=== PATIENT | male | born 1990 | race African-American/Black ===

== ENCOUNTER 2020-10-17 18:35 | Emergency (ER) | payer OTHER, SELFPAY | END 2020-10-17 21:00 | disposition left against medical advice (07) | PROVIDERS: Emergency Provider Emergency Medicine | DX: R42 Dizziness and giddiness (principal) ==

== ENCOUNTER 2021-02-12 07:00 | Emergency (ER) | payer OTHER, SELFPAY ==
--- NOTE | ~2021-02-12 | CT_ITS ---
EXAMINATION: CT ABDOMEN AND PELVIS WITH CONTRAST CLINICAL INFORMATION: Perirectal abscess COMPARISON: None TECHNIQUE: Multidetector volumetric images were obtained from the superior aspect of the liver through the pubic symphysis following administration 85 mL of Omnipaque 350 intravenous contrast. Sagittal and coronal reformatted images were obtained on the technologist's workstation. Oral contrast: Yes This CT examination was performed using dose optimization techniques as appropriate, variously including the following: *Automated exposure control *Adjustment of mA and/or kV according to patient size (this includes techniques or standardized protocols for targeted exams where dose is matched to indication/reason for exam; i.e. extremities or head) *Use of iterative reconstruction technique DLP: 1125 mGy-cm FINDINGS: LUNG BASES: The visualized lung bases are unremarkable. LIVER, GALLBLADDER, AND BILIARY TREE: The liver is normal in size, shape, and attenuation. No focal hepatic lesion or biliary ductal dilatation is present. The gallbladder is contracted. PANCREAS: Unremarkable. SPLEEN: Unremarkable. ADRENAL GLANDS: Unremarkable. KIDNEYS AND URETERS: The kidneys are normal in size, shape, and attenuation. No hydronephrosis, hydroureter, or calculi seen. No perinephric stranding. BLADDER: Unremarkable. GASTROINTESTINAL TRACT: There is stool throughout the colon questionable for constipation. The small and large bowel are otherwise unremarkable. The stomach is unremarkable. There is wall thickening of the rectum. No perirectal abscess is seen. The ischiorectal fat appears normal. The appendix is unremarkable. ABDOMINAL WALL: There are small supraumbilical and umbilical hernias containing fat LYMPH NODES: There is shotty bilateral pelvic retroperitoneal and inguinal lymphadenopathy. There is no ascites. VASCULAR: Unremarkable. PELVIC VISCERA: Unremarkable. OSSEOUS STRUCTURES: Unremarkable. CT/CT abdomen pelvis w con IMPRESSION: Rectal wall thickening. No perirectal abscess seen. Stool throughout the colon questionable for constipation.
--- NOTE | 2021-02-12 07:26 | ED_ITS ---
HPI - Skin/Abscess/Foreign Bdy General Chief complaint: Skin/Abscess/Foreign Body Stated complaint: abscess inner thigh Time Seen by Provider: 02/12/21 07:26 Source: patient Mode of arrival: ambulatory Limitations: no limitations History of Present Illness MD complaint: abscess/boil Onset (ago): week(s) (1) Tetanus up to date: unsure Location: buttocks Severity: severe Quality: aching and constant Pain Consistency: constant Relieving factors: none Exacerbating factors: palpation Context: none Associated symptoms: denies other symptoms Treatments prior to arrival: bandages Related Data Previous Rx's Medication Instructions Recorded ciprofloxacin HCl [Cipro] 500 mg PO BID 7 Days #14 tab 02/12/21 ibuprofen 600 mg PO Q6H PRN #30 tab 02/12/21 metronidazole [Flagyl] 500 mg PO BID 7 Days #14 tab 02/12/21 Allergies Allergy/AdvReac Type Severity Reaction Status Date / Time No Known Allergies Allergy Unverified 04/26/20 18:35 Review of Systems Review of Systems: Constitutional : No Fever, No Chills ENT/Mouth : No sore throat, No Rhinorrhea Eyes: No Eye Pain, No Swelling, No Redness Cardiovascular : No Chest Pain, No SOB Respiratory : No Cough, No Sputum Gastrointestinal : No Nausea, No Vomiting, No Diarrhea, No abdominal Pain Genitourinary : No Dysuria, No Hematuria Musculoskeletal : No joint pain, No Myalgias, No Joint Swelling Skin : pos Skin Lesions, no skin rash Neuro : No Weakness, No Numbness, No Headache Psych : No Anxiety, No Depression Heme/Lymph: No Bruising, No Bleeding,No Lymphadenopathy Endocrine : No Polyuria, No Polydipsia All other systems reviewed and are negative [facility] Past Medical History Attestation statement: The following information was validated with the patient. Medical History Asthma Social History Social History (Updated 02/12/21 @ 07:38 by Daria Graham DO) Patient Tobacco Use Status: Current everyday Tobacco user Advance Directives: No Advance Directives Information Provided: No Physical Exam Vital Signs: Vital Signs: Last Vital Signs Temp 97.7 F 02/12/21 07:27 Pulse 89 02/12/21 07:27 Resp 18 02/12/21 07:27 BP 144/81 H 02/12/21 07:27 Pulse Ox 98 02/12/21 07:27 Body Mass Index 25.1 Appearance: Alert. Oriented X3. No acute distress. Eyes: Pupils equal, round and reactive to light. ENT: Pharynx normal. Neck: Normal inspection. Neck supple. CVS: Normal heart rate and rhythm. Pulses normal. Respiratory: No respiratory distress. Breath sounds normal. Abdomen: Soft and nontender. Rectal: Buttock area perirectal right side firm non fluctant area 3cm ttp warm to touch some drainage noted seems to extend to rectal area on exam Skin: Skin warm and dry. Normal skin color. Normal skin turgor. Extremities: No lower extremity edema. No calf ttp Neuro: Oriented X 3. No motor deficit. No sensory deficit. Course Course Course Narrative: likely perirectal cellulitis will treat with cipro and flagyl no signs of sepsis at this time MDM - Skin/Abscess/Foreign Bdy MDM Narrative Medical decision making narrative: 30 yo male with asthma here with R sided perirectal area lesion cellulitis vs abscess - not a diabetic given that it appears to extend to the rectum itself will obtain labs, CT scan for the depth of the area, IV toradol for pain, IV zosyn - dispo per results and findings, may need surgical consult pending CT scan Lab Data Result diagrams: 02/12/21 07:57 02/12/21 07:57 Labs: Lab Results 02/12/21 02/12/21 02/12/21 Range/Units 07:57 07:57 07:57 WBC 9.1 (4.8-10.8) X10*3/uL RBC 4.79 (4.60-5.80) X10*6/uL Hgb 14.7 (14.0-18.0) g/dl Hct 41.5 L (42-52) % MCV 86.6 (80-98) fL MCH 30.7 (27.0-33.0) pg MCHC 35.4 (31.0-36.0) g/dl RDW 12.5 (11.0-16.0) % Plt Count 155 L (160-400) X10*3/uL MPV 11.3 (9.4-12.4) fL Immature Gran % (Auto) 0.2 (0.0-0.4) % Neut % (Auto) 72.1 (45-73) % Lymph % (Auto) 18.5 L (20-40) % Lea % (Auto) 7.8 (2-11) % Eos % (Auto) 1.1 (0-4) % Baso % (Auto) 0.3 (0-2) % Lymph # (Auto) 1.7 (1.2-4.9) X10*3/uL Lea # (Auto) 0.7 (0.1-1.2) X10*3/uL Eos # (Auto) 0.1 (0.0-0.4) X10*3/uL Baso # (Auto) 0.0 (0.0-0.2) X10*3/uL Abs Immat Gran (auto) 0.02 (0.00-0.03) X10*3/uL Absolute Neuts (auto) 6.5 (2.0-8.3) X10*3/uL Absolute Nucleated RBC 0.000 (0.0-0.012) X10*3/uL Nucleated RBC % (auto) 0.0 (0.0-0.2) /100WBC PT 11.2 (9.9-13.0) SEC INR 1.0 (0.9-1.1) APTT 39.2 H (24.1-38.0) SEC Sodium 139 (135-145) mmol/L Potassium 4.2 (3.3-5.1) mmol/L Chloride 104 (96-108) mmol/L Carbon Dioxide 25 (22-29) mmol/L Anion Gap 14 (12-20) BUN 12 (9-16) mg/dL Creatinine 0.93 (0.5-1.4) mg/dL Estim Creat Clear Calc 122.1 Estimated GFR > 60 Random Glucose 102 (60-115) mg/dL Lactic Acid (0.5-2.0) mmol/L Calcium 9.7 (8.4-10.2) mg/dL Magnesium 1.9 (1.6-2.6) mg/dL Total Bilirubin 0.5 (0.0-1.0) mg/dL Direct Bilirubin < 0.2 (0.0-0.5) mg/dL AST 29 (5-37) U/L ALT 41 H (0-40) U/L Alkaline Phosphatase 133 H (39-117) U/L Total Protein 7.0 (6.5-8.0) g/dL Albumin 4.2 (3.5-5.0) g/dL 02/12/21 02/12/21 Range/Units 07:57 07:57 WBC (4.8-10.8) X10*3/uL RBC (4.60-5.80) X10*6/uL Hgb (14.0-18.0) g/dl Hct (42-52) % MCV (80-98) fL MCH (27.0-33.0) pg MCHC (31.0-36.0) g/dl RDW (11.0-16.0) % Plt Count (160-400) X10*3/uL MPV (9.4-12.4) fL Immature Gran % (Auto) (0.0-0.4) % Neut % (Auto) (45-73) % Lymph % (Auto) (20-40) % Lea % (Auto) (2-11) % Eos % (Auto) (0-4) % Baso % (Auto) (0-2) % Lymph # (Auto) (1.2-4.9) X10*3/uL Lea # (Auto) (0.1-1.2) X10*3/uL Eos # (Auto) (0.0-0.4) X10*3/uL Baso # (Auto) (0.0-0.2) X10*3/uL Abs Immat Gran (auto) (0.00-0.03) X10*3/uL Absolute Neuts (auto) (2.0-8.3) X10*3/uL Absolute Nucleated RBC (0.0-0.012) X10*3/uL Nucleated RBC % (auto) (0.0-0.2) /100WBC PT (9.9-13.0) SEC INR (0.9-1.1) APTT (24.1-38.0) SEC Sodium (135-145) mmol/L Potassium (3.3-5.1) mmol/L Chloride (96-108) mmol/L Carbon Dioxide (22-29) mmol/L Anion Gap (12-20) BUN (9-16) mg/dL Creatinine (0.5-1.4) mg/dL Estim Creat Clear Calc Estimated GFR Random Glucose (60-115) mg/dL Lactic Acid 1.5 (0.5-2.0) mmol/L Calcium (8.4-10.2) mg/dL Magnesium Cancelled (1.6-2.6) mg/dL Total Bilirubin Cancelled (0.0-1.0) mg/dL Direct Bilirubin Cancelled (0.0-0.5) mg/dL AST Cancelled (5-37) U/L ALT Cancelled (0-40) U/L Alkaline Phosphatase Cancelled (39-117) U/L Total Protein Cancelled (6.5-8.0) g/dL Albumin Cancelled (3.5-5.0) g/dL Discharge Plan Discharge Clinical Impression: Perirectal cellulitis Patient Disposition: Home, Self-Care Instructions: Cellulitis (ED), Sitz Bath (DC) Additional Instructions: return to ED for any worsening symptoms or concerns do not drink alcohol with antibiotics Prescriptions: New ciprofloxacin HCl [Cipro] 500 mg tablet 500 mg PO BID 7 Days Qty: 14 RF: 0 metronidazole [Flagyl] 500 mg tablet 500 mg PO BID 7 Days Qty: 14 RF: 0 ibuprofen 600 mg tablet 600 mg PO Q6H PRN (Reason: pain) Qty: 30 RF: 0 Referrals: Fidel Castillo MD [Physician] - 2 weeks Physician,Unknown [Primary Care Provider] - 2 days (if not better) Stand Alone Forms: Work/School Release
[2021-02-12 07:27] VITALS: BP 144/81; PULSE 89; RESP 18; TEMP 36.5; O2SAT 98; BMI 25.1
[2021-02-12 08:02] LABS: MANUAL DIFF FLAG NO
[2021-02-12] MEDS: 0.9 % Sodium Chloride 1,000 ML 999 ML IVCONT (08:06)
[2021-02-12 08:07] LABS: Basophils Percent Auto 0.3 % (0-2); Eosinophils Absolute Auto 0.1 X10*3/uL (0.0-0.4); Eosinophils Percent Auto 1.1 % (0-4); Hematocrit 41.5 % (42-52); Hemoglobin 14.7 g/dl (14.0-18.0); Imm Gran Abs Auto 0.02 X10*3/uL (0.00-0.03); Imm Gran Pct Auto 0.2 % (0.0-0.4); Lymphocytes Absolute Auto 1.7 X10*3/uL (1.2-4.9); Lymphocytes Percent Auto 18.5 % (20-40); Mean Corpuscular HGB Conc 35.4 g/dl (31.0-36.0); Mean Corpuscular Hemoglobin 30.7 pg (27.0-33.0); Mean Corpuscular Volume 86.6 fL (80-98); Mean Platelet Volume 11.3 fL (9.4-12.4); Monocytes Absolute Auto 0.7 X10*3/uL (0.1-1.2); Monocytes Percent Auto 7.8 % (2-11); Neutrophils Absolute Auto 6.5 X10*3/uL (2.0-8.3); Neutrophils Percent Auto 72.1 % (45-73); Platelet Count 155 X10*3/uL (160-400); Red Blood Count 4.79 X10*6/uL (4.60-5.80); Red Cell Distribution Width 12.5 % (11.0-16.0); White Blood Count 9.1 X10*3/uL (4.8-10.8)
[2021-02-12] MEDS: Ketorolac Tromethamine 30 MG/ML VIAL IVPUSH (08:07)
[2021-02-12 08:09] LABS: Prothrombin Time 11.2 SEC (9.9-13.0)
[2021-02-12 08:20] LABS: Partial Thromboplastin Time 39.2 SEC (24.1-38.0)
[2021-02-12 08:23] LABS: Lactic Acid 1.5 mmol/L (0.5-2.0)
[2021-02-12] MEDS: Piperacillin Sodium/Tazobactam 3.375 GM in 0.9 % Sodium Chloride 50 ML IV (08:23)
[2021-02-12 08:36] LABS: Alanine Aminotransferase 41 U/L (0-40); Albumin Level 4.2 g/dL (3.5-5.0); Alkaline Phosphatase 133 U/L (39-117); Anion Gap 14 (12-20); Aspartate Amino Transferase 29 U/L (5-37); Bilirubin Direct < 0.2 mg/dL (0.0-0.5); Bilirubin Total 0.5 mg/dL (0.0-1.0); Blood Urea Nitrogen 12 mg/dL (9-16); Calcium 9.7 mg/dL (8.4-10.2); Carbon Dioxide 25 mmol/L (22-29); Chloride 104 mmol/L (96-108); Creatinine Clr Calc Pharmacy 122.1; Estimated Glomerular Filt Rate > 60; Glucose Random 102 mg/dL (60-115); Magnesium 1.9 mg/dL (1.6-2.6); Potassium 4.2 mmol/L (3.3-5.1); Sodium 139 mmol/L (135-145)
[2021-02-12] MEDS: iohexoL 350 MG/ML 100 ML INFUS..BTL IV (08:58)
[2021-02-12] MEDS: metroNIDAZOLE 500 MG TABLET PO (10:09)
== END 2021-02-12 10:34 | disposition home or self-care (01) ==
PROVIDERS: Emergency Provider Emergency Medicine
DX: K61.1 Rectal abscess (principal)
CPT/HCPCS: 36415; 74177; 80048; 80076; 83605; 83735; 85025; 85610; 85730; 87040; 96361; 96365; 96375; 99283; 99284; J1885; J2543; Q9967

== ENCOUNTER 2023-08-26 02:08 | Emergency (ER) | payer MEDICARE, MEDICAID, SELFPAY ==
--- NOTE | 2023-08-26 | ECG_ITS ---
Test Reason : CHEST PAIN Blood Pressure : / mmHG Vent. Rate : 073 BPM Atrial Rate : 073 BPM P-R Int : 072 ms QRS Dur : 158 ms QT Int : 446 ms P-R-T Axes : 252 -16 060 degrees QTc Int : 491 ms Normal sinus rhythm Non-specific intra-ventricular conduction block cannot exclude Inferior infarct , age undetermined possible Mmxsa-Kribccpjc-Aajuc pattern Abnormal ECG When compared with ECG of 28-JUN-2017 23:39, No significant changes seen Referred By: Generic ED Physician Electronically Signed By:CELESTE OSEI
--- NOTE | ~2023-08-26 | XR_ITS ---
EXAMINATION: XR CHEST CLINICAL INFORMATION: Asthma. COMPARISON: 06/29/2017. TECHNIQUE: Frontal view of the chest was obtained. FINDINGS: The cardiomediastinal silhouette is within normal limits. There is a left lung base opacity. The lungs are otherwise clear. There are no pleural effusions. The bony structures and soft tissues are unremarkable. XR/XR chest 1V IMPRESSION: Left lung base opacity possibly atelectasis versus early infiltrate. Correlation is needed.
[2023-08-26 02:25] VITALS: BP 134/78; BP 144/78; PULSE 80; PULSE 93; RESP 16; TEMP 36.6; O2SAT 96; O2SAT 98; BMI 25.1
--- NOTE | 2023-08-26 02:46 | PC.NURSE ---
pt reports he is sob with chest pain, hx of asthma, ran out of his mediation, has not seen his provider for over a year. Ekg complete, xray, will attempt to collect labs..
[2023-08-26] MEDS: Ibuprofen 600 MG TABLET PO (03:04)
[2023-08-26 03:09] LABS: Hemoglobin 16.1 g/dl (14.0-18.0); Mean Corpuscular HGB Conc 34.3 g/dl (31.0-36.0); Mean Corpuscular Hemoglobin 29.1 pg (27.0-33.0); Mean Corpuscular Volume 84.8 fL (80.0-98.0); Mean Platelet Volume 11.2 fL (9.4-12.4); Platelet Count 195 X10*3/uL (160-400); Red Blood Count 5.54 X10*6/uL (4.60-5.80); Red Cell Distribution Width 13.6 % (11.0-16.0); White Blood Count 8.5 X10*3/uL (4.8-10.8)
--- OUTSIDE RECORDS SUMMARY | 2023-08-26 03:16 | XMS_ITS | Continuity of Care Document ---
Author Name Unknown Organization [facility] ter Address [address] [place] [id number]- Care Team Providers Care Correctional Supervisor Name Role Phone Not on Staff, PCP Primary Care Physician Unavail able Encounter [facility] Date(s): 07/24/19 - 07/24/[address] [id number]- [facility] Encounter Diagnosis Agitation(Final) - 07/24/19 Discharge Disposition: A-D/C Home Attending Physician: Cody Aj MD Admitting Physician: Cody Aj MD Referring Physician: Not on Staff, Referring MD Allergies, Adverse Reactions, Alerts Substance Reaction Severity Status NKA Active Vital Signs Most recent to oldest [Reference Range]: 1 2 3 Oxygen Saturation [94-100 %] 98 % (07/24/19 11:14 AM) 96 % (07/24/19 7:40 AM) 97 % (07/24/19 6:47 AM) Pulse Rate [55-90 bpm] 84 bpm (07/24/19 11:14 AM) 85 bpm (07/24/19 7:40 AM) 88 bpm (07/24/19 6:47 AM) Blood Pressure [90-138/55-84 mm Hg] 134/63mm Hg (07/24/19 11:14 AM) 125/97mm Hg (07/24/19 7:40 AM) 114/55mm Hg (07/24/19 6:47 AM) Respiratory Rate [16-30 br/min] 20 br/min (07/24/19 11:14 AM) 23 br/min (07/24/19 7:40 AM) 22 br/min (07/24/19 6:47 AM) Temperature [96.8-100.4 DegF] 98.2 DegF (07/24/19 11:14 AM) 98.1 DegF (07/24/19 7:40 AM) 98.0 DegF (07/24/19 2:46 AM) Mode of Delivery (Oxygen) Room air (07/24/19 11:14 AM) Room air (07/24/19 7:40 AM) Room air (07/24/19 6:47 AM) Blood pressure sites Arm, left (07/24/19 11:14 AM) Arm, left (07/24/19 7:40 AM) Arm, left (07/24/19 6:47 AM) Temperature Route Oral (07/24/19 11:14 AM) Oral (07/24/19 7:40 AM) Oral (07/24/19 2:46 AM)
[2023-08-26 03:26] LABS: COVID-19 Test Negative (Negative); IDNOW Serial# 08D9AD1C
[2023-08-26 03:26] LABS: IDNOW Serial# 152EDE1D; Influenza A Negative (Negative); Influenza B2 Negative (Negative)
[2023-08-26 03:28] LABS: Alanine Aminotransferase 20 U/L (0-40); Albumin Level 4.6 g/dL (3.5-5.0); Alkaline Phosphatase 103 U/L (39-117); Anion Gap 15 (12-20); Aspartate Amino Transferase 20 U/L (5-37); Bilirubin Total 0.4 mg/dL (0.0-1.0); Blood Urea Nitrogen 17 mg/dL (9-16); Calcium 9.9 mg/dL (8.4-10.2); Carbon Dioxide 23 mmol/L (22-29); Chloride 104 mmol/L (96-108); Creatinine Clr Calc Pharmacy 96.1; Estimated Glomerular Filt Rate > 60; Glucose Random 92 mg/dL (60-115); Potassium 4.2 mmol/L (3.3-5.1); Sodium 138 mmol/L (135-145); Total Protein 7.9 g/dL (6.5-8.0)
[2023-08-26 03:32] LABS: Troponin-I High Sensitivity < 2.7 ng/L (<3.5-35.0)
--- NOTE | 2023-08-26 04:43 | ED.ASTHMA ---
HPI - Asthma General Chief Complaint: Asthma Stated Complaint: SOB/Chest Pain Time Seen by Provider: 08/26/23 04:36 Source: patient Mode of arrival: ambulatory Limitations: no limitations History of Present Illness HPI Narrative: Patient comes to the emergency room complaining of increased asthma exacerbation over last few days, no chest pain but chest tightness with breathing. Patient states that he ran out of his albuterol about a month ago. Patient has been coughing more than usual, patient denies fever, no chills. Related Data Previous Rx's Medication Instructions Recorded ciprofloxacin HCl 500 mg tablet 500 mg PO BID 7 days #14 tabs 02/12/21 (Cipro) ibuprofen 600 mg tablet 600 mg PO Q6H PRN pain #30 tabs 02/12/21 metronidazole 500 mg tablet 500 mg PO BID 7 days #14 tabs 02/12/21 (Flagyl) albuterol sulfate 90 mcg/actuation 2 puff inhalation Q4-6H PRN 08/26/23 aerosol inhaler shortness of breath or wheezing #8.5 grams doxycycline hyclate 100 mg capsule 100 mg PO BID #14 caps 08/26/23 prednisone 50 mg tablet 50 mg PO DAILY #4 tabs 08/26/23 Allergies Allergy/AdvReac Type Severity Reaction Status Date / Time No Known Allergies Allergy Verified 08/26/23 02:39 Review of Systems Review of Systems: Constitutional : No Weight loss, No Fever, No Chills, No Night Sweats, No Fatigue, No Malaise ENT/Mouth : No Hearing loss, No Ear Pain, No Nasal Congestion, No Sinus Pain, No Hoarseness, No sore throat, No Rhinorrhea, No Swallowing Difficulty Eyes: No Eye Pain, No Swelling, No Redness, No Foreign Body, No Discharge, No Vision Changes Cardiovascular : No Chest Pain, No SOB, No Dyspnea on Exertion, No Orthopnea, No Edema, No Palpitations Respiratory : Complaining of cough, wheezing and chest tightness with shortness of breath Gastrointestinal : No Nausea, No Vomiting, No Diarrhea, No Constipation, No abdominal Pain, No Hematochezia, No Melena Genitourinary : no irregular bleeding, No Dysuria, No Urinary Frequency, No Hematuria, No Urinary Incontinence, No Urgency, No Flank Pain, No Urinary Flow Changes, No Hesitancy Musculoskeletal : No joint pain, No Myalgias, No Joint Swelling Skin : No Skin Lesions, No rash Neuro : No Weakness, No Numbness, No Paresthesias, No Loss of Consciousness, No Dizziness, No Headache Psych : No Anxiety/Panic, No Depression, No SI/HI/AH/VH, No Social Issues, Heme/Lymph: No Bruising, No Bleeding,No Lymphadenopathy Endocrine : No Polyuria, No Polydipsia, No Temperature Intolerance PMFSH Past Medical History Onset Date is defined in the Problem List Problems that require an onset date and time if occurred within 24 hrs of arrival to the ED Aortic Dissection and Rupture; Neurologic impairment; Cardiopulmonary Arrest; Endotracheal Intubation; Insertion or Replacement of Mechanical Circulatory Assist Device Medical History Asthma Social History Social History (Updated 02/12/21 @ 07:38 by Susie Graham DO) Patient Tobacco Use Status: Current everyday Tobacco user Smoked in Last 30 Days: Yes Use of substances other than those prescribed or required for medical reasons: Yes Substance Use Type: Crack/Cocaine Substance Use Frequency: Socially Advance Directives: No Advance Directives Information Provided: Yes Physical Exam Vital Signs: Vital Signs: Last Vital Signs Temp 97.9 F 08/26/23 02:25 Pulse 80 08/26/23 02:25 Resp 16 08/26/23 02:25 BP 134/78 08/26/23 02:25 Pulse Ox 96 08/26/23 02:25 O2 Del Method Room Air 08/26/23 02:25 BMI result Body Mass Index 25.1 Const: Other: Appearance: Alert. Oriented X3. No acute distress. Eyes: Pupils equal, round and reactive to light. ENT: Pharynx normal. Neck: Normal inspection. Neck supple. No lymph nodes noted. No crepitus CVS: Normal heart rate and rhythm. Pulses normal. Normal S1 and S2 Respiratory: No respiratory distress. Breath sounds normal. No Wheezing. No rales Abdomen: Soft and nontender. No rigidity. No distention. Skin: Skin warm and dry. Normal skin color. Normal skin turgor. Extremities: No lower extremity edema. No Lacerations. No Rash Neuro: Oriented X 3. No motor deficit. No sensory deficit. Moving all extremities. No slurred speech. CN 2 through 12 grossly intact Psych: calm, cooperative, normal affect Medications Administered Discontinued Medications Generic Name Dose Route Start Last Admin Trade Name Alyssa PRN Reason Stop Dose Admin Ibuprofen 600 mg 08/26/23 03:01 08/26/23 03:04 Ibuprofen 600 Mg Tablet PO 08/26/23 03:02 600 mg ONCE ONE Administration Medical Decision Making Medical Decision Making [facility] Narrative: -at this time, patient is not wheezing -my interpretation of EKG: Sinus rhythm, heart rate 73, nonspecific ST segment elevations in leads V2 through V6, less than 1 mm, possible junctional rhythm, questionably delta wave in lead 2, V4, V5 and V6 -I discussed the EKG findings with Dr. Madsen: No delta waves. -my interpretation of chest x-ray: No obvious abnormalities. However, radiology report shows possible infiltrate in the left lower lobe. -my interpretation of labs: Normal hematology and chemistry, troponin negative -patient feels a bit of discomfort on the left side of the chest. Patient will be treated with antibiotics. Patient given doxycycline 1st dose in the ED, p.o. prednisone. -patient is not wheezing at this time, oxygen saturation 96% on room air. Differential Diagnosis Differential Diagnoses: The differential diagnosis associated with the presentation includes Consult Healthcare Provider Management of the patient was discussed with: Geology Scientist Lab Data [facility] Lab Attestation statement: I reviewed the patient's lab results. 08/26/23 02:58 08/26/23 02:58 Labs: Lab Results 08/26/23 08/26/23 Range/Units 02:58 02:59 WBC 8.5 (4.8-10.8) X10*3/uL RBC 5.54 (4.60-5.80) X10*6/uL Hgb 16.1 (14.0-18.0) g/dl Hct 47.0 (42.0-52.0) % MCV 84.8 (80.0-98.0) fL MCH 29.1 (27.0-33.0) pg MCHC 34.3 (31.0-36.0) g/dl RDW 13.6 (11.0-16.0) % Plt Count 195 (160-400) X10*3/uL MPV 11.2 (9.4-12.4) fL Absolute Nucleated RBC 0.000 (0.0-0.012) X10*3/uL Nucleated RBC % (auto) 0.0 (0.0-0.2) /100WBC Sodium 138 (135-145) mmol/L Potassium 4.2 (3.3-5.1) mmol/L Chloride 104 (96-108) mmol/L Carbon Dioxide 23 (22-29) mmol/L Anion Gap 15 (12-20) BUN 17 H (9-16) mg/dL Creatinine 1.05 (0.5-1.4) mg/dL Estim Creat Clear Calc 96.1 Estimated GFR > 60 Random Glucose 92 (60-115) mg/dL Calcium 9.9 (8.4-10.2) mg/dL Total Bilirubin 0.4 (0.0-1.0) mg/dL AST 20 (5-37) U/L ALT 20 (0-40) U/L Alkaline Phosphatase 103 (39-117) U/L Troponin I High Sens < 2.7 (<3.5-35.0) ng/L Total Protein 7.9 (6.5-8.0) g/dL Albumin 4.6 (3.5-5.0) g/dL COVID-19 ([facility]) Negative (Negative) COVID-19 Clin Com See Note Influenza Type A ([facility]) Negative (Negative) Influenza Type B ([facility]) Negative (Negative) Influenza A & B Note See Note Independent Interpretation I performed an independent interpretation of an: Plain X-Ray Radiology Impression Discussion of test interpretation with radiology: I have reviewed the radiologist's reading. Radiologist Impression: FINDINGS: The cardiomediastinal silhouette is within normal limits. There is a left lung base opacity. The lungs are otherwise clear. There are no pleural effusions. The bony structures and soft tissues are unremarkable. XR/XR chest 1V IMPRESSION: Left lung base opacity possibly atelectasis versus early infiltrate. Correlation is needed. Discharge Plan Discharge Clinical Impression: Pneumonia, Asthma Patient Disposition: Home, Self-Care Instructions: Asthma (ED), Pneumonia (ED) Additional Instructions: Please follow-up with your primary care physician tomorrow. If you have any worsening or new symptoms, please return to the emergency room or call 911 Prescriptions: New doxycycline hyclate 100 mg capsule 100 mg PO BID Qty: 14 0RF prednisone 50 mg tablet 50 mg PO DAILY Qty: 4 0RF albuterol sulfate 90 mcg/actuation HFA aerosol inhaler 2 puff inhalation Q4-6H PRN (Reason: shortness of breath or wheezing) Qty: 8.5 1RF No Action ciprofloxacin HCl [Cipro] 500 mg tablet 500 mg PO BID 7 Days Qty: 14 0RF metronidazole [Flagyl] 500 mg tablet 500 mg PO BID 7 Days Qty: 14 0RF ibuprofen 600 mg tablet 600 mg PO Q6H PRN (Reason: pain) Qty: 30 0RF
[2023-08-26] MEDS: Doxycycline Monohydrate 100 MG CAPSULE PO (05:03)
[2023-08-26] MEDS: predniSONE 20 MG TABLET 60 MG PO (05:03)
--- NOTE | 2023-08-26 05:04 | PC.NURSE ---
pt medicated per oct, reviewed discharge instruction with pt upon discharge, no sob or chest pain, no retraction. no sign of distress.
== END 2023-08-26 05:12 | disposition home or self-care (01) ==
PROVIDERS: Emergency Provider Emergency Medicine
DX: J18.9 Pneumonia, unspecified organism (principal); J45.909 Unspecified asthma, uncomplicated; F17.200 Nicotine dependence, unspecified, uncomplicated; Z11.52 Encounter for screening for COVID-19; Z79.899 Other long term (current) drug therapy
CPT/HCPCS: 36415; 71045; 80053; 84484; 85027; 87502; 87635; 93005; 99283; 99285

== ENCOUNTER → 2023-08-26 02:32 | Outpatient (BNV) | payer MEDICARE, MEDICAID, SELFPAY | PROVIDERS: Emergency Provider Emergency Medicine; Visit Provider Internal Medicine | DX: R94.31 Abnormal electrocardiogram [ECG] [EKG] (principal) | CPT/HCPCS: 93010 ==

== ENCOUNTER 2023-09-17 17:30 | Emergency (ER) | payer MEDICARE, MEDICAID, SELFPAY ==
--- NOTE | ~2023-09-17 | XR_ITS ---
EXAMINATION: XR CHEST CLINICAL INFORMATION: Cough. COMPARISON: None available. TECHNIQUE: 2 views of the chest were obtained. FINDINGS: No significant abnormality is noted involving the heart, lungs, mediastinum, bony thorax or soft tissues. XR/XR chest 2V IMPRESSION: Unremarkable chest examination.
[2023-09-17 17:58] VITALS: BP 152/74; PULSE 60; RESP 18; TEMP 36.3; O2SAT 99; BMI 25.1
--- NOTE | 2023-09-17 18:28 | ED.URI ---
HPI - URI/Sore Throat General Chief Complaint: Upper Respiratory Symptoms Stated Complaint: congested cough,sob ,weakness h/o pneumonia Time Seen by Provider: 09/17/23 18:08 Source: patient Mode of arrival: ambulatory Limitations: no limitations History of Present Illness HPI Narrative: [age] old male with no significant past medical history presents emergency department with complaints of cough, weakness, and fatigue over the past several days. He states he had pneumonia a few weeks ago and states his symptoms feel similar. He denies any fevers but reports a sore throat as well and feels as if his throat is swollen. He denies any difficulty tolerating secretions, swallowing, or change in phonation. He reports he does have multiple sores on the lip which have popped up over the last 2 days. Related Data Previous Rx's Medication Instructions Recorded ciprofloxacin HCl 500 mg tablet 500 mg PO BID 7 days #14 tabs 02/12/21 (Cipro) ibuprofen 600 mg tablet 600 mg PO Q6H PRN pain #30 tabs 02/12/21 metronidazole 500 mg tablet 500 mg PO BID 7 days #14 tabs 02/12/21 (Flagyl) albuterol sulfate 90 mcg/actuation 2 puff inhalation Q4-6H PRN 08/26/23 aerosol inhaler shortness of breath or wheezing #8.5 grams doxycycline hyclate 100 mg capsule 100 mg PO BID #14 caps 08/26/23 prednisone 50 mg tablet 50 mg PO DAILY #4 tabs 08/26/23 valacyclovir 1 gram tablet 1,000 mg PO BID 7 days #14 tabs 09/17/23 Allergies Allergy/AdvReac Type Severity Reaction Status Date / Time No Known Allergies Allergy Verified 08/26/23 02:39 Review of Systems Review of Systems: Yes all other systems are reviewed and are negative [facility] Past Medical History Attestation statement: The following information was validated with the patient. Medical History Asthma Social History Social History (Updated 02/12/21 @ 07:38 by Susie Graham DO) Patient Tobacco Use Status: Current everyday Tobacco user Substance Use Type: Crack/Cocaine Advance Directives: No Advance Directives Information Provided: No Physical Exam Vital Signs: Vital Signs: Last Vital Signs Temp 97.7 F 09/17/23 19:01 Pulse 79 09/17/23 19:01 Resp 16 09/17/23 19:01 BP 150/82 H 09/17/23 19:01 Pulse Ox 100 09/17/23 19:01 O2 Del Method Room Air 09/17/23 19:01 BMI result Body Mass Index 25.1 Nursing notes and vital signs reviewed. GENERAL APPEARANCE: A&0 x 4, generally well appearing, no acute distress HENMT: Normal to inspection, atraumatic, face symmetrical. Normal external ears, nose, and oropharynx clear. EYE: PERRLA, EOM intact, structures appear normal NECK: Supple without stiffness or restricted ROM. HEART: Normal rate and regular rhythm, normal S1/S2, no M/R/G LUNGS: LS CTA, moving air well. Able to speak in complete sentences. No crackles, wheezes, or rhonchi auscultated BACK: No CVAT, no obvious deformity EXTREMITIES: Moving all extremities without difficulty. Normal capillary refill. NEUROLOGICAL: Alert and oriented, moving all 4 extremities with equal strength. CN not formally tested but appearing grossly intact. Observed to ambulate with normal gait. Cognition normal SKIN: Warm and dry without any lesions, rash, or visible sores Medications Administered Discontinued Medications Generic Name Dose Route Start Last Admin Trade Name Freq PRN Reason Stop Dose Admin Acetaminophen 650 mg 09/17/23 19:56 09/17/23 20:00 Acetaminophen 325 Mg Tablet PO 09/17/23 19:57 650 mg ONCE ONE Administration Medical Decision Making Medical Decision Making MDM Narrative: Old records reviewed for previous imaging, lab studies, ECGs, and notes. Patient was assessed the emergency department with no acute distress or toxicity noted. Serology negative for covid, flu and strep and chest xray negative for pneumonia per my interpetation. Valtrex prescribed for herpes simplex of lower lip. Patient is safe for discharge at this time with plan for [id number] Tylenol and/or NSAID such as ibuprofen or naproxen for fever/discomfort with dosing as per packaging. HPI, PE, diagnostics, and plan discussed with patient and family with no unanswered questions at this time. Strict return precautions given to return to the emergency department with new, worsening, or concerning emergent symptoms. Recommended to follow-up with there primary care provider in 24-48 hours for further treatment and management. Differential Diagnosis Differential Diagnoses: The differential diagnosis associated with the presentation includes but not limited to: uri, covid, flu, strep, pharyngitis, pneumonia, sepsis Lab Data Labs: Lab Results 09/17/23 09/17/23 Range/Units 18:13 18:25 COVID-19 ([facility]) Negative (Negative) COVID-19 Clin Com See Note Influenza Type A ([facility]) Negative (Negative) Influenza Type B ([facility]) Negative (Negative) Influenza A & B Note See Note S. pyogenes GrpA [facility] Negative (Negative) Discharge Plan Discharge Clinical Impression: Cold sore, URI (upper respiratory infection) Patient Disposition: Home, Self-Care Instructions: Upper Respiratory Infection (ED), Oral Herpes Simplex Virus Infections (ED) Prescriptions: New valacyclovir 1 gram tablet 1,000 mg PO BID 7 Days Qty: 14 0RF No Action ciprofloxacin HCl [Cipro] 500 mg tablet 500 mg PO BID 7 Days Qty: 14 0RF metronidazole [Flagyl] 500 mg tablet 500 mg PO BID 7 Days Qty: 14 0RF ibuprofen 600 mg tablet 600 mg PO Q6H PRN (Reason: pain) Qty: 30 0RF doxycycline hyclate 100 mg capsule 100 mg PO BID Qty: 14 0RF prednisone 50 mg tablet 50 mg PO DAILY Qty: 4 0RF albuterol sulfate 90 mcg/actuation HFA aerosol inhaler 2 puff inhalation Q4-6H PRN (Reason: shortness of breath or wheezing) Qty: 8.5 1RF Referrals: [facility] [Provider Group] [facility] Primary CareFreddie [Provider Group] [facility] Primary CareEbonie [Provider Group] Stand Alone Forms: Work/School Release Interventions: ED Discharge Assessment Last Done: 09/17/23 20:02 Discharge Date/Time: 09/17/23 20:03 Print Language: Pakistani
[2023-09-17 18:32] LABS: COVID-19 Test Negative (Negative); IDNOW Serial# 55D5AD1C
[2023-09-17 18:34] LABS: IDNOW Serial# 16C4AD1C; Influenza A Negative (Negative); Influenza B2 Negative (Negative)
[2023-09-17 18:40] LABS: IDNOW Serial# 6674DD1D; Strep A Nucleic Acid Negative (Negative)
[2023-09-17 19:01] VITALS: BP 150/82; PULSE 79; RESP 16; TEMP 36.5; O2SAT 100
[2023-09-17] MEDS: Acetaminophen 325 MG TABLET 650 MG PO (20:00)
== END 2023-09-17 20:03 | disposition home or self-care (01) ==
PROVIDERS: Nurse Practitioner Family; Emergency Provider Emergency Medicine
DX: B00.1 Herpesviral vesicular dermatitis (principal); J06.9 Acute upper respiratory infection, unspecified; R05.9 Cough, unspecified; R06.02 Shortness of breath; Z11.52 Encounter for screening for COVID-19; Z79.899 Other long term (current) drug therapy
CPT/HCPCS: 71046; 87502; 87635; 87651; 99283; 99284

== ENCOUNTER 2023-09-27 15:10 | Emergency (ER) | payer MEDICARE, MEDICAID, SELFPAY ==
--- NOTE | ~2023-09-27 | XR_ITS ---
EXAMINATION: XR ELBOW, LEFT XR FOREARM, LEFT XR HAND WRIST, LEFT CLINICAL INDICATION: Fall with pain COMPARISON: Left hand 04/14/2013 TECHNIQUE: 3 views of the left elbow. 2 views of the left forearm. 4 views of the left wrist/hand. FINDINGS: Left elbow: Osseous alignment is anatomic. No acute fracture is seen. No appreciable joint effusion or significant focal soft tissue abnormality. Left forearm: Articular alignment is anatomic. Ulna and radius appear intact with no acute fracture seen. No significant focal soft tissue abnormality. Left wrist/hand: Articular alignment throughout the wrist and hand appears anatomic. No acute fracture is seen. No significant focal soft tissue abnormality identified. XR/XR hand wrist LT IMPRESSION: No acute findings identified in the left elbow, forearm, wrist, or hand.
--- NOTE | ~2023-09-27 | XR_ITS ---
EXAMINATION: XR ELBOW, LEFT XR FOREARM, LEFT XR HAND WRIST, LEFT CLINICAL INDICATION: Fall with pain COMPARISON: Left hand 04/14/2013 TECHNIQUE: 3 views of the left elbow. 2 views of the left forearm. 4 views of the left wrist/hand. FINDINGS: Left elbow: Osseous alignment is anatomic. No acute fracture is seen. No appreciable joint effusion or significant focal soft tissue abnormality. Left forearm: Articular alignment is anatomic. Ulna and radius appear intact with no acute fracture seen. No significant focal soft tissue abnormality. Left wrist/hand: Articular alignment throughout the wrist and hand appears anatomic. No acute fracture is seen. No significant focal soft tissue abnormality identified. XR/XR forearm LT 2V IMPRESSION: No acute findings identified in the left elbow, forearm, wrist, or hand.
--- NOTE | ~2023-09-27 | XR_ITS ---
EXAMINATION: XR ELBOW, LEFT XR FOREARM, LEFT XR HAND WRIST, LEFT CLINICAL INDICATION: Fall with pain COMPARISON: Left hand 04/14/2013 TECHNIQUE: 3 views of the left elbow. 2 views of the left forearm. 4 views of the left wrist/hand. FINDINGS: Left elbow: Osseous alignment is anatomic. No acute fracture is seen. No appreciable joint effusion or significant focal soft tissue abnormality. Left forearm: Articular alignment is anatomic. Ulna and radius appear intact with no acute fracture seen. No significant focal soft tissue abnormality. Left wrist/hand: Articular alignment throughout the wrist and hand appears anatomic. No acute fracture is seen. No significant focal soft tissue abnormality identified. XR/XR elbow LT min 3V IMPRESSION: No acute findings identified in the left elbow, forearm, wrist, or hand.
--- NOTE | ~2023-09-27 | XR_ITS ---
EXAMINATION: XR SHOULDER, LEFT CLINICAL INFORMATION: Pain. Injury. COMPARISON: None available. TECHNIQUE: Three views of the left shoulder. FINDINGS: The bones and soft tissues are normal. No fracture. Glenohumeral and acromioclavicular alignment is anatomic with normal joint space. No abnormal soft tissue calcifications. XR/XR shoulder LT min 2V IMPRESSION: Normal left shoulder.
[2023-09-27 15:29] VITALS: BP 143/88; PULSE 91; RESP 14; TEMP 36.8; O2SAT 96; BMI 26.2
--- NOTE | 2023-09-27 15:30 | ED_ITS ---
HPI - Extremity Injury (Upper) General Chief Complaint: Extremity Injury, Upper Stated Complaint: broken L arm/ wrist? Time Seen by Provider: 09/27/23 16:36 Source: patient Mode of arrival: ambulatory Limitations: no limitations History of Present Illness HPI narrative: 32y male with history of asthma, HTN here with complaints of LUE after a roll out of bed last evening. Patient reports he was sleeping when he rolled out of the bed which was about 3 feet of the ground and landed on hardwood floor. Did not hit his head or have LOC. Woke up with left upper extremity pain. Patient denies any weakness, numbness or tingling of the extremity. Related Data Previous Rx's Medication Instructions Recorded ciprofloxacin HCl 500 mg tablet 500 mg PO BID 7 days #14 tabs 02/12/21 (Cipro) ibuprofen 600 mg tablet 600 mg PO Q6H PRN pain #30 tabs 02/12/21 metronidazole 500 mg tablet 500 mg PO BID 7 days #14 tabs 02/12/21 (Flagyl) albuterol sulfate 90 mcg/actuation 2 puff inhalation Q4-6H PRN 08/26/23 aerosol inhaler shortness of breath or wheezing #8.5 grams doxycycline hyclate 100 mg capsule 100 mg PO BID #14 caps 08/26/23 prednisone 50 mg tablet 50 mg PO DAILY #4 tabs 08/26/23 valacyclovir 1 gram tablet 1,000 mg PO BID 7 days #14 tabs 09/17/23 ibuprofen 600 mg tablet 600 mg PO Q8H PRN pain #30 tabs 09/27/23 Allergies Allergy/AdvReac Type Severity Reaction Status Date / Time No Known Allergies Allergy Verified 09/27/23 15:29 Review of Systems Review of Systems: Yes all other systems are reviewed and are negative Constitutional: Constitutional: Reports no additional constitutional complaints, Denies body ache(s), Denies chills, Denies fever(s), Denies headache(s) and Denies weakness Eyes: Eyes: Reports no additional eye complaints and Denies change in vision ENT: Reports system reviewed and no additional complaints, except as documented, Denies dizziness, Denies headache(s), Denies nasal congestion, Denies nasal discharge and Denies neck pain Cardiovascular: Cardiovascular: Reports no additional cardiovascular complaints, Denies chest pain, Denies leg edema and Denies dyspnea Respiratory: Respiratory: Reports no additional respiratory complaints, Denies cough and Denies dyspnea Gastrointestinal: Gastrointestinal: Reports no additional gastrointestinal complaints, Denies abdominal pain, Denies diarrhea, Denies nausea and Denies vomiting Genitourinary: Genitourinary: Denies urinary incontinence Musculoskeletal: Musculoskeletal: Reports no additional musculoskeletal complaints, Denies back pain, Reports arthralgias, Denies joint swelling, Denies neck pain, Denies numbness and Denies tingling Integumentary/Breasts: Skin/Breast: Reports system reviewed and no additional complaints, except as docu and Denies rash Neurologic: Reports system reviewed and no additional complaints, except as documented, Denies Abnormal speech present, Denies dizziness, Denies headache(s), Denies numbness, Denies tingling and Denies weakness PMFSH Past Medical History Attestation statement: The following information was validated with the patient. Source: old records reviewed and nursing notes reviewed Medical History Asthma Social History Social History Patient Tobacco Use Status: Current everyday Tobacco user Substance Use Type: Crack/Cocaine Advance Directives: No Advance Directives Information Provided: No Physical Exam Vital Signs: Vital Signs: Last Vital Signs Temp 97.9 F 09/27/23 17:00 Pulse 88 09/27/23 17:00 Resp 18 09/27/23 17:00 BP 138/82 09/27/23 17:00 Pulse Ox 97 09/27/23 17:00 O2 Del Method Room Air 09/27/23 17:00 BMI result Body Mass Index 26.2 Const: General: cooperative, healthy appearing, comfortable and no acute distress Orientation/consciousness: patient oriented x3 Limitations: no limitations HEENT: Head: Yes normal to inspection Ears: hearing grossly normal bilaterally General nose exam: Normal external nose present Face and sinus: Yes normal facial exam Mouth: Normal oral and palatal mucosa present Throat: Yes posterior oropharynx normal Eyes: General: appearance normal, both eyes and all related structures Pupils: Equal, round and reactive pupils present Neck: Neck: Yes normal visual inspection Chest: Chest palpation & inspection: normal inspection of the chest Resp: Effort & Inspection: normal respiratory effort Auscultation: clear to auscultation bilaterally Cardio: Rate: regular rate Rhythm: regular rhythm Peripheral pulses: Peripheral pulses 2+ throughout GI: Inspection: Yes normal to inspection Palpation (GI): Soft to palpation and nontender Auscultation: normal bowel sounds Back/Spine/Pelvis: Thoracic/Lumbar Spine: thoracic and lumbar spine normal to inspection Skin: General skin exam: no rashes or lesions noted Neuro: General: patient oriented x3, no focal motor deficits and normal sensation to monofilament Cranial nerves: Yes Equal, round and reactive pupils present Cognition (Neuro): normal cognition Speech: No Abnormal speech present Gait exam (Neuro): Normal gait present Motor exam (neuro): 5/5 motor strength present throughout Extrem: Other: Pain on palpation over the left proximal humerus and left lateral elbow with full active and passive range of motion. Unable to elicit any pain on tenderness over the left forearm or left wrist. There are normal radial and ulnar pulses. Normal sensation. No obvious deformity or swelling noted General: Yes normal to inspection Course Course Course Narrative: RME:?32 yo male here for eval of left wrist/forearm pain after falling out of bed in his sleep last night. pain worse with grasping objects or flexing left elbow. has not taken anything at home for this. xrays ordered. Full HPI, ROS and PE to be performed by the primary ED provider. Medical Decision Making Medical Decision Making [facility] Narrative: 32y male with history of asthma, HTN here with complaints of LUE after a roll out of bed last evening. Patient reports he was sleeping when he rolled out of the bed which was about 3 feet of the ground and landed on hardwood floor. Did not hit his head or have LOC. Woke up with left upper extremity pain. Patient denies any weakness, numbness or tingling of the extremity. Pain on palpation over the left proximal humerus and left lateral elbow with full active and passive range of motion. Unable to elicit any pain on tenderness over the left forearm or left wrist. There are normal radial and ulnar pulses. Normal sensation. No obvious deformity or swelling noted Will check x-rays, provide analgesia Differential Diagnosis Differential Diagnoses: The differential diagnosis associated with the presentation includes contusion, fracture low suspicion for dislocation, vascular injury Admission/Observation Consideration of admission/observation: Escalation of care including admission/observation considered low suspicion for dislocation, vascular injury or complex fracture requiring advanced imaging, urgent orthopedic consultation and/or admission Independent Interpretation I performed an independent interpretation of an: Plain X-Ray Interpretation: I independently reviewed the x-ray and agree with the radiology report Radiology Impression Discussion of test interpretation with radiology: I have reviewed the radiologist's reading. Radiologist Impression: [address] [address] XRay Report Signed Patient: Saravanan Lange MR#: [id number] : 1990 Acct:[id number] Age/Sex: 32 / M ADM Date: 09/27/23 Loc: HO.ED Attending Dr: Ordering Physician: Marilee Perry NP Date of Service: 09/27/23 Procedure(s): XR shoulder LT min 2V Accession Number(s): [id number] cc: Physician,Unknown ; Marilee Perry NP~ EXAMINATION: XR SHOULDER, LEFT CLINICAL INFORMATION: Pain. Injury. COMPARISON: None available. TECHNIQUE: Three views of the left shoulder. FINDINGS: The bones and soft tissues are normal. No fracture. Glenohumeral and acromioclavicular alignment is anatomic with normal joint space. No abnormal soft tissue calcifications. XR/XR shoulder LT min 2V IMPRESSION: Normal left shoulder. [address] [address] XRay Report Signed Patient: Saravanan Lange MR#: [id number] : 1990 Acct:[id number] Age/Sex: 32 / M ADM Date: 09/27/23 Loc: .ED Attending Dr: Ordering Physician: Tiffanie Sidhu Date of Service: 09/27/23 Procedure(s): XR hand wrist LT Accession Number(s): [id number] cc: Physician,Unknown ; Tiffanie Sidhu~ EXAMINATION: XR ELBOW, LEFT XR FOREARM, LEFT XR HAND WRIST, LEFT CLINICAL INDICATION: Fall with pain COMPARISON: Left hand 04/14/2013 TECHNIQUE: 3 views of the left elbow. 2 views of the left forearm. 4 views of the left wrist/hand. FINDINGS: Left elbow: Osseous alignment is anatomic. No acute fracture is seen. No appreciable joint effusion or significant focal soft tissue abnormality. Left forearm: Articular alignment is anatomic. Ulna and radius appear intact with no acute fracture seen. No significant focal soft tissue abnormality. Left wrist/hand: Articular alignment throughout the wrist and hand appears anatomic. No acute fracture is seen. No significant focal soft tissue abnormality identified. XR/XR hand wrist LT IMPRESSION: No acute findings identified in the left elbow, forearm, wrist, or hand. Tests considered The following testing was considered but not selected: low suspicion for dislocation, vascular injury or complex fracture requiring advanced imaging Prescription Management I considered prescription management with: Pain Medication Discharge Plan Discharge Clinical Impression: Contusion of arm, left Patient Disposition: Home, Self-Care Instructions: Contusion in Adults (ED) Additional Instructions: Ice to the area gentle stretching take motrin or tylenol for pain as needed See your PCP for any continued symptoms ALL x-rays are normal Prescriptions: New ibuprofen 600 mg tablet 600 mg PO Q8H PRN (Reason: pain) Qty: 30 0RF No Action ciprofloxacin HCl [Cipro] 500 mg tablet 500 mg PO BID 7 Days Qty: 14 0RF metronidazole [Flagyl] 500 mg tablet 500 mg PO BID 7 Days Qty: 14 0RF ibuprofen 600 mg tablet 600 mg PO Q6H PRN (Reason: pain) Qty: 30 0RF doxycycline hyclate 100 mg capsule 100 mg PO BID Qty: 14 0RF prednisone 50 mg tablet 50 mg PO DAILY Qty: 4 0RF albuterol sulfate 90 mcg/actuation HFA aerosol inhaler 2 puff inhalation Q4-6H PRN (Reason: shortness of breath or wheezing) Qty: 8.5 1RF valacyclovir 1 gram tablet 1,000 mg PO BID 7 Days Qty: 14 0RF Referrals: Physician,Unknown J [Primary Care Provider] - 1 week
[2023-09-27 17:00] VITALS: BP 138/82; PULSE 88; RESP 18; TEMP 36.6; O2SAT 97
[2023-09-27] MEDS: Ibuprofen 600 MG TABLET PO (17:43)
== END 2023-09-27 17:44 | disposition home or self-care (01) ==
PROVIDERS: Emergency Provider Student in an Organized Health Care Education/Training Program
DX: S40.022A Contusion of left upper arm, initial encounter (principal); M79.602 Pain in left arm; W06.XXXA Fall from bed, initial encounter; Y93.9 Activity, unspecified; Y92.003 Bedroom of unspecified non-institutional (private) residence as the place of occurrence of the external cause; Y99.8 Other external cause status
CPT/HCPCS: 73030; 73080; 73090; 73110; 73130; 99283

== ENCOUNTER 2023-12-08 20:05 | Emergency (ER) | payer MEDICARE, MEDICAID, SELFPAY ==
[2023-12-08 20:15] VITALS: BP 170/120; PULSE 108; O2SAT 97
== END 2023-12-08 21:47 | disposition left against medical advice (07) ==
PROVIDERS: Emergency Provider Emergency Medicine
DX: Z53.21 Procedure and treatment not carried out due to patient leaving prior to being seen by health care provider (principal); R11.2 Nausea with vomiting, unspecified; R42 Dizziness and giddiness; R53.1 Weakness

== ENCOUNTER 2023-12-09 07:14 | Emergency (ER) | payer MEDICARE, MEDICAID, SELFPAY ==
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
--- NOTE | ~2023-12-09 | XR_ITS ---
EXAMINATION: XR CHEST CLINICAL INFORMATION: Hypoxia COMPARISON: 09/17/2023 TECHNIQUE: Frontal view of the chest was obtained. FINDINGS: There is a patchy alveolar infiltrate in the left perihilar lung and left upper lung. This is new from the prior study. Right lung grossly clear. Heart and pulmonary vessels normal. XR/XR chest 1V IMPRESSION: Left-sided infiltrate likely pneumonia. Recommend follow-up PA lateral when feasible.
--- NOTE | 2023-12-09 07:26 | ECG_ITS ---
Test Reason : etoh Blood Pressure : / mmHG Vent. Rate : 103 BPM Atrial Rate : 103 BPM P-R Int : 124 ms QRS Dur : 116 ms QT Int : 342 ms P-R-T Axes : 072 046 103 degrees QTc Int : 448 ms Sinus tachycardia Edgai-Jwnsazbge-Wejta Abnormal ECG When compared with ECG of 26-AUG-2023 02:32, No significant changes seen Referred By: Diann Rodriguez Electronically Signed By:CELESTE OSEI
--- NOTE | 2023-12-09 07:33 | MHC.EDTECH ---
@07:35 2 BAGS OF BELONGINGS BROUGHT TO DEC BY OFFICERS SHANE AND ROSSY
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
[2023-12-09 07:52] LABS: Hematocrit 44.2 % (42.0-52.0); Hemoglobin 15.4 g/dl (14.0-18.0); Mean Corpuscular HGB Conc 34.8 g/dl (31.0-36.0); Mean Corpuscular Hemoglobin 30.5 pg (27.0-33.0); Mean Corpuscular Volume 87.5 fL (80.0-98.0); Mean Platelet Volume 11.8 fL (9.4-12.4); Platelet Count 220 X10*3/uL (160-400); Red Blood Count 5.05 X10*6/uL (4.60-5.80); Red Cell Distribution Width 13.8 % (11.0-16.0)
[2023-12-09 07:56] LABS: WBC ABN SCTR FOR CBC 1
[2023-12-09 08:02] VITALS: BP 149/90; PULSE 94; RESP 16; TEMP 36.6; O2SAT 77; BMI 27.3
[2023-12-09 08:06] LABS: Alanine Aminotransferase 24 U/L (0-40); Albumin Level 4.9 g/dL (3.5-5.0); Alkaline Phosphatase 126 U/L (39-117); Anion Gap 15 (12-20); Aspartate Amino Transferase 26 U/L (5-37); Bilirubin Direct 0.2 mg/dL (0.0-0.5); Bilirubin Total 0.4 mg/dL (0.0-1.0); Blood Urea Nitrogen 22 mg/dL (9-16); Calcium 9.2 mg/dL (8.4-10.2); Carbon Dioxide 26 mmol/L (22-29); Chloride 101 mmol/L (96-108); Estimated Glomerular Filt Rate 59; Ethanol < 10 mg/dL; Glucose Random 178 mg/dL (60-115); Lipase 13 U/L (8-78); Magnesium 2.1 mg/dL (1.6-2.6); Potassium 3.9 mmol/L (3.3-5.1); Sodium 138 mmol/L (135-145); Total Protein 8.1 g/dL (6.5-8.0)
[2023-12-09 08:08] VITALS: O2SAT 91
[2023-12-09 08:22] LABS: Basophils Percent Manual 1 % (0-2); Lymphocytes Percent Manual 19 % (20-40); Monocytes Percent Manual 7 % (2-11); Neutrophils Percent Manual 73 % (45-73)
[2023-12-09 08:23] LABS: Large Platelet PRESENT; Platelet Estimate NORMAL (NORMAL); Platelet Morphology Comment NOTED; RBC Morphology NORMAL; Toxic Vacuolation PRESENT
[2023-12-09 08:34] LABS: Venous Blood Gas Refer to POC result
[2023-12-09 08:34] LABS: VBG HCO3 28 mmol/L (22-26); VBG pCO2 55 mmHg; VBG pH 7.31 (7.32-7.43); VBG pO2 61 mmHg
[2023-12-09] MEDS: 0.9 % Sodium Chloride 1,000 ML 999 ML IV (08:46)
[2023-12-09 09:54] LABS: Lactic Acid 1.3 mmol/L (0.5-2.0)
[2023-12-09] MEDS: Piperacillin Sodium/Tazobactam 4.5 GM in 0.9 % Sodium Chloride 100 ML IV (10:13)
[2023-12-09 10:15] LABS: Basophils Abs Manual 0.1 X10*3/uL (0.0-0.2); Lymphocytes Absolute Manual 2.4 X10*3/uL (1.2-4.9); Monocytes Absolute Manual 0.9 X10*3/uL (0.1-1.2); White Blood Count 12.4 X10*3/uL (4.8-10.8)
[2023-12-09 10:16] VITALS: BP 139/85; PULSE 82; RESP 12; O2SAT 91; O2SAT 97
[2023-12-09 10:32] LABS: Appearance Urine Cloudy; Color Urine Yellow; Glucose Urine UA Negative (Negative); Leukocyte Esterase Urine Negative (Negative); Nitrite Urine Negative (Negative); Specific Gravity - Urine 1.025 (1.005-1.025); UMIC TRIGGER UACC YES; Urine Blood Negative (Negative); Urine Ketones Negative (Negative); Urine Protein 100 (2+) mg/dL (Neg-Trace)
[2023-12-09 10:35] LABS: Band Neutrophils Percent 0 % (3-5); Neutrophils Absolute Manual 9.1 X10*3/uL (2.0-8.3)
[2023-12-09 10:40] LABS: Barbiturates, Urine Not Detected (Not Detect); Buprenorphine Scr Not Detected (Not Detect); Opiate Screen Urine POSITIVE (Not Detect); Oxycodone Screen Urine Not Detected (Not Detect)
[2023-12-09 11:57] VITALS: BP 145/97; PULSE 79; RESP 12; O2SAT 94
[2023-12-09 12:33] VITALS: BP 145/97; PULSE 79; RESP 12; TEMP 36.6; O2SAT 94
== END 2023-12-09 12:34 | disposition left against medical advice (07) ==
PROVIDERS: Physician Assistant; Emergency Provider Emergency Medicine
DX: J18.9 Pneumonia, unspecified organism (principal); R09.02 Hypoxemia; R41.82 Altered mental status, unspecified; I10 Essential (primary) hypertension; J45.909 Unspecified asthma, uncomplicated; F11.20 Opioid dependence, uncomplicated; F33.1 Major depressive disorder, recurrent, moderate; F14.20 Cocaine dependence, uncomplicated; F17.200 Nicotine dependence, unspecified, uncomplicated; Z53.29 Procedure and treatment not carried out because of patient's decision for other reasons; Z79.899 Other long term (current) drug therapy
CPT/HCPCS: 36415; 70450; 71045; 72125; 80048; 80076; 80307; 81001; 82550; 82803; 83605; 83690; 83735; 85007; 85027; 87040; 93005; 96361; 96365; 99284; 99285; J2543

== ENCOUNTER → 2023-12-09 07:26 | Outpatient (BNV) | payer MEDICARE, MEDICAID, SELFPAY | PROVIDERS: Emergency Provider Emergency Medicine; Visit Provider Internal Medicine | DX: R00.0 Tachycardia, unspecified (principal); I45.6 Pre-excitation syndrome; R94.31 Abnormal electrocardiogram [ECG] [EKG] | CPT/HCPCS: 93010 ==

== ENCOUNTER 2023-12-20 22:28 | Emergency (ER) | payer MEDICARE, MEDICAID, SELFPAY ==
--- NOTE | ~2023-12-20 | CT_ITS ---
EXAMINATION: CT ABDOMEN AND PELVIS WITH CONTRAST CLINICAL INFORMATION: Epigastric pain COMPARISON: None available. TECHNIQUE: Multidetector volumetric images were obtained from the superior aspect of the liver through the pubic symphysis following administration 85 mL of Omnipaque 350 intravenous contrast. Sagittal and coronal reformatted images were obtained on the technologist's workstation. Oral contrast: No This CT examination was performed using dose optimization techniques as appropriate, variously including the following: *Automated exposure control *Adjustment of mA and/or kV according to patient size (this includes techniques or standardized protocols for targeted exams where dose is matched to indication/reason for exam; i.e. extremities or head) *Use of iterative reconstruction technique DLP: 434 mGy-cm FINDINGS: LUNG BASES: Mild distal esophageal thickening. LIVER, GALLBLADDER, AND BILIARY TREE: The liver is normal in size, shape, and attenuation. No focal hepatic lesion or biliary ductal dilatation is present. The gallbladder is unremarkable with no evidence of radiopaque gallstones, gallbladder wall thickening, or obvious pericholecystic inflammatory changes. PANCREAS: Unremarkable. SPLEEN: Unremarkable. ADRENAL GLANDS: Unremarkable. KIDNEYS AND URETERS: The kidneys are normal in size, shape, and attenuation. No hydronephrosis, hydroureter, or calculi seen. No perinephric stranding. BLADDER: Mild bladder wall thickening, potentially due to underdistention. GASTROINTESTINAL TRACT: The liver, there is mild wall thickening in the distal esophagus. Stomach, small bowel, and colon are normal in caliber. Appendix is normal. No bowel wall thickening. Moderate volume of stool in the colon. No intraperitoneal free fluid or free air. ABDOMINAL WALL: No significant hernia is appreciated. LYMPH NODES: Normal. VASCULAR: Unremarkable. PELVIC VISCERA: The prostate and seminal vesicles are unremarkable. OSSEOUS STRUCTURES: Chronic bilateral L5 pars defects. Mild osteoarthritis in the hips. No acute osseous findings. CT/CT abdomen pelvis w IV con IMPRESSION: 1. Mild wall thickening in the distal esophagus, potentially due to esophagitis. Consider correlation with endoscopy or barium swallow if warranted. 2. Mild bladder wall thickening, potentially due to underdistention. Consider correlation with urinalysis. 3. Chronic bilateral pars defects at L5. Fleischner guidelines were followed.
--- NOTE | ~2023-12-20 | XR_ITS ---
EXAMINATION: XR CHEST, 2 VIEWS CLINICAL INFORMATION: Shortness of breath. COMPARISON: 12/09/2023 TECHNIQUE: PA and lateral views of the chest were obtained. FINDINGS: Lungs are clear. Previously seen opacities in the left perihilar region have resolved. No consolidation, pneumothorax, or pleural effusion. Cardiac and mediastinal contours are normal. Pulmonary vasculature is unremarkable. Trachea is midline. Osseous structures are unremarkable. XR/XR chest 2V IMPRESSION: No acute cardiopulmonary findings. Resolution of the previously seen left perihilar opacities.
[2023-12-20 22:30] VITALS: BP 144/81; PULSE 99; RESP 16; TEMP 36.1; O2SAT 100; BMI 23.5
--- NOTE | 2023-12-20 22:51 | PC.NURSE ---
provider at bedside, chart changer , securtity called
--- NOTE | 2023-12-20 22:55 | MHC.EDTECH ---
Pt changed over by this tech and security has taken belongings to POD lockers. pt currently in room ED19 with juneter
--- NOTE | 2023-12-20 22:59 | MHC.EDTECH ---
Pt belongings in POD LOCKER 9 per security
--- NOTE | 2023-12-20 23:13 | ED.GENADULT ---
HPI - General Adult General Chief complaint: Psychiatric Symptoms Stated complaint: crisis, hearing voices, hx pneumonia, still sick Time Seen by Provider: 12/20/23 22:44 History of Present Illness HPI narrative: Patient is a 32-year-old male admits to using crack cocaine and also heroin. Also use alcohol. Has a psychiatric history. Left AMA about 10 days ago after diagnosed with a possible pneumonia. Presents today with having epigastric pain. Question cough. No change in bowel movement. Positive epigastric pain. Worse with eating. Patient also hearing voices. Voices telling him to hurt himself. Telling him to hurt others. Came in for help. Related Data Previous Rx's ?Medication ?Instructions ?Recorded ibuprofen 600 mg tablet 600 mg PO Q6H PRN pain #30 tabs 02/12/21 albuterol sulfate 90 mcg/actuation 2 puff inhalation Q4-6H PRN 08/26/23 aerosol inhaler shortness of breath or wheezing #8.5 grams Allergies Allergy/AdvReac Type Severity Reaction Status Date / Time No Known Allergies Allergy Verified 12/20/23 22:34 Review of Systems Review of Systems: No fever no chills positive coughing positive abdominal pain Yes all other systems are reviewed and are negative FOR[facility]LY [facility] Past Medical History Attestation statement: The following information was validated with the patient. Medical History Asthma Social History Social History Patient Tobacco Use Status: Current everyday Tobacco user Substance Use Type: Crack/Cocaine Advance Directives: No Advance Directives Information Provided: No Do you have a plan to hurt others: Clear Physical Exam ED Vital Signs: Vital Signs - 24 hr 12/20/23 22:30 Temperature 97.0 F Pulse Rate 99 Respiratory Rate 16 Blood Pressure 144/81 H Pulse Oximetry 100 Oxygen Delivery Method Room Air BMI result Body Mass Index 23.5 Appearance: Alert. Oriented X3. No acute distress. Eyes: Pupils equal, round and reactive to light. ENT: Pharynx normal. Neck: Normal inspection. Neck supple. No lymph nodes noted. No crepitus CVS: Normal heart rate and rhythm. Pulses normal. Normal S1 and S2 Respiratory: No respiratory distress. Breath sounds normal. No Wheezing. No rales Abdomen: Soft and nontender. No rigidity. No distention. good BS x4 Skin: Skin warm and dry. Normal skin color. Normal skin turgor. Extremities: No lower extremity edema. Neurovascular intact to all extremities. No Lacerations. No Rash Neuro: Oriented X 3. No motor deficit. No sensory deficit. Moving all extermities. No slurred speech. Cranial nerves grossly intact Medications Administered Discontinued Medications Generic Name Dose Route Start Last Admin Trade Name Alyssa PRN Reason Stop Dose Admin Al Hydroxide/Mg Hydroxide 30 ml 12/21/23 01:11 12/21/23 01:24 Magnesium Hydrox/Alum Hydrox 30 Ml Oral.Susp PO 12/21/23 01:12 30 ml ONCE ONE Administration Sodium Chloride 1,000 mls @ 999 mls/hr 12/20/23 23:00 12/21/23 00:12 Ns IV 12/21/23 00:00 Infused .Q1H1M СЕРГЕЙ Infusion Iohexol 85 ml 12/21/23 00:01 12/21/23 00:02 Iohexol 350 Mg/Ml 100 Ml Infus..Btl IV 12/21/23 00:02 85 ml ONCE ONE Administration Ketorolac Tromethamine 15 mg 12/20/23 22:57 12/20/23 23:18 Ketorolac Tromethamine 15 Mg/Ml Vial IVPUSH 12/20/23 22:58 15 mg ONCE ONE Administration Medical Decision Making Medical Decision Making [facility] Narrative: Well-appearing no acute distress. Lungs clear. Positive polysubstance abuse. Positive hearing voices. Positive HI. Will have patient be watched. Will get chest x-ray labs. Look for signs of infection look for signs of abdominal pathology. Labs are unremarkable. CT scan of the abdomen pelvis showed no acute evidence of obstruction abscess perforation by radiology's interpretation. Question esophagitis given a dose of Maalox. Patient's chest x-ray showed no focal infiltrate. Patient's electrolytes appears to be normal LFTs are normal no evidence of biliary disease. Will get patient evaluated by crisis tox screen was positive for cocaine and narcotics. Question drug induced. Differential Diagnosis Differential Diagnoses: The differential diagnosis associated with the presentation includes Biliary disease, alcohol-induced issue, polysubstance abuse, psychiatric issue, abdominal pathology Admission/Observation Consideration of admission/observation: Escalation of care including admission/observation considered Lab Data [facility] Lab Attestation statement: I reviewed the patient's lab results. 12/20/23 23:14 12/20/23 23:14 Labs: Lab Results 12/20/23 12/20/23 12/21/23 Range/Units 23:14 23:44 01:05 WBC 6.8 (4.8-10.8) X10*3/uL RBC 5.04 (4.60-5.80) X10*6/uL Hgb 15.3 (14.0-18.0) g/dl Hct 44.1 (42.0-52.0) % MCV 87.5 (80.0-98.0) fL MCH 30.4 (27.0-33.0) pg MCHC 34.7 (31.0-36.0) g/dl RDW 13.7 (11.0-16.0) % Plt Count 196 (160-400) X10*3/uL MPV 11.2 (9.4-12.4) fL Immature Gran % (Auto) 0.3 (0.0-0.4) % Neut % (Auto) 67.5 (45-73) % Lymph % (Auto) 26.2 (20-40) % [place] % (Auto) 5.0 (2-11) % Eos % (Auto) 0.4 (0-4) % Baso % (Auto) 0.6 (0-2) % Lymph # (Auto) 1.8 (1.2-4.9) X10*3/uL [place] # (Auto) 0.3 (0.1-1.2) X10*3/uL Eos # (Auto) 0.0 (0.0-0.4) X10*3/uL Baso # (Auto) 0.0 (0.0-0.2) X10*3/uL Abs Immat Gran (auto) 0.02 (0.00-0.03) X10*3/uL Absolute Neuts (auto) 4.6 (2.0-8.3) x10*3/uL Absolute Nucleated RBC 0.000 (0.0-0.012) X10*3/uL Nucleated RBC % (auto) 0.0 (0.0-0.2) /100WBC Sodium 142 (135-145) mmol/L Potassium 3.7 (3.3-5.1) mmol/L Chloride 104 (96-108) mmol/L Carbon Dioxide 26 (22-29) mmol/L Anion Gap 16 (12-20) BUN 23 H (9-16) mg/dL Creatinine 1.09 (0.5-1.4) mg/dL Estim Creat Clear Calc 92.6 Estimated GFR > 60 Random Glucose 88 (60-115) mg/dL Lactic Acid 1.6 (0.5-2.0) mmol/L Calcium 9.9 D (8.4-10.2) mg/dL Total Bilirubin 0.3 (0.0-1.0) mg/dL Direct Bilirubin 0.1 (0.0-0.5) mg/dL AST 20 (5-37) U/L ALT 19 (0-40) U/L Alkaline Phosphatase 104 (39-117) U/L Troponin I High Sens 7.3 D (<3.5-35.0) ng/L Total Protein 7.5 (6.5-8.0) g/dL Albumin 4.4 (3.5-5.0) g/dL Lipase 18 (8-78) U/L Urine Color Yellow Urine Appearance Clear Urine pH 5.5 (5.0-9.0) Ur Specific [place] >= 1.030 H (1.005-1.025) Urine Protein Trace (Neg-Trace) mg/dL Urine Glucose (UA) Negative (Negative) mg/dL Urine Ketones Negative (Negative) mg/dL Urine Blood Negative (Negative) Urine Nitrite Negative (Negative) Ur Leukocyte Esterase Negative (Negative) Urine RBC 0-2 (0-2) /HPF Urine WBC 0-5 (0-5) /HPF Ur Squamous Epith Cells 0-2 (0-2) /HPF Urine Bacteria None Seen (None Seen) Hyaline Casts 0-2 (0-2) /LPF Salicylates < 5.0 L (15-30) mg/dL Urine Opiates Screen Not Detected (Not Detect) Ur Buprenorphine Scrn Not Detected (Not Detect) ng/mL Ur Oxycodone Screen Not Detected (Not Detect) ng/mL Urine Methadone Screen Not Detected (Not Detect) ng/mL Urine Fentanyl Screen POSITIVE H (Not Detect) Acetaminophen < 3 (<30) mcg/mL Ur Barbiturates Screen Not Detected (Not Detect) Ur Phencyclidine Scrn Not Detected (Not Detect) Ur Amphetamines Screen Not Detected (Not Detect) U Benzodiazepines Scrn Not Detected (Not Detect) Urine Cocaine Screen POSITIVE H (Not Detect) U Marijuana (THC) Screen POSITIVE H (Not Detect) Ethyl Alcohol < 10 mg/dL Influenza Type A (PCR) NEGATIVE (Negative) Influenza Type B (PCR) NEGATIVE (Negative) RSV RNA Qual (PCR) NEGATIVE (Negative) SARS-CoV-2 RNA (RT-PCR) NEGATIVE (Negative) Independent Interpretation I performed an independent interpretation of an: CT Scan Interpretation: CT abdomen pelvis grossly negative Radiology Impression Discussion of test interpretation with radiology: I have reviewed the radiologist's reading. External Record Review External record reviewed: Inpatient record Chronic Conditions History of polysubstance abuse history of pneumonia Social Determinants Patient?s care significantly limited by Social Determinants of Health including: Inadequate housing, Low income and Alcoholism and drug addiction in family Discharge Plan Discharge Clinical Impression: Suicidal ideation, Depression, Drug-induced psychotic disorder Patient Disposition: Still a Patient Prescriptions: No Action ibuprofen 600 mg tablet 600 mg PO Q6H PRN (Reason: pain) Qty: 30 0RF albuterol sulfate 90 mcg/actuation HFA aerosol inhaler 2 puff inhalation Q4-6H PRN (Reason: shortness of breath or wheezing) Qty: 8.5 1RF Interventions: Trion-Suicide Risk Severity Scale Last Done: 12/20/23 23:21 Print Language: Malawian
[2023-12-20] MEDS: 0.9 % Sodium Chloride 1,000 ML 999 ML IV (23:15)
[2023-12-20] MEDS: Ketorolac Tromethamine 15 MG/ML VIAL IVPUSH (23:18)
[2023-12-20 23:19] LABS: MANUAL DIFF FLAG NO
[2023-12-20 23:21] LABS: Basophils Percent Auto 0.6 % (0-2); Eosinophils Percent Auto 0.4 % (0-4); Hematocrit 44.1 % (42.0-52.0); Hemoglobin 15.3 g/dl (14.0-18.0); Imm Gran Abs Auto 0.02 X10*3/uL (0.00-0.03); Imm Gran Pct Auto 0.3 % (0.0-0.4); Lymphocytes Absolute Auto 1.8 X10*3/uL (1.2-4.9); Lymphocytes Percent Auto 26.2 % (20-40); Mean Corpuscular HGB Conc 34.7 g/dl (31.0-36.0); Mean Corpuscular Hemoglobin 30.4 pg (27.0-33.0); Mean Corpuscular Volume 87.5 fL (80.0-98.0); Mean Platelet Volume 11.2 fL (9.4-12.4); Monocytes Absolute Auto 0.3 X10*3/uL (0.1-1.2); Neutrophils Absolute Auto 4.6 x10*3/uL (2.0-8.3); Neutrophils Percent Auto 67.5 % (45-73); Platelet Count 196 X10*3/uL (160-400); Red Blood Count 5.04 X10*6/uL (4.60-5.80); Red Cell Distribution Width 13.7 % (11.0-16.0); White Blood Count 6.8 X10*3/uL (4.8-10.8)
--- NOTE | 2023-12-20 23:21 | PC.NURSE ---
pt refused 2nd set of cultures
[2023-12-20 23:34] LABS: Lactic Acid 1.6 mmol/L (0.5-2.0)
[2023-12-20 23:40] LABS: Acetaminophen LAB < 3 mcg/mL (<30); Alanine Aminotransferase 19 U/L (0-40); Albumin Level 4.4 g/dL (3.5-5.0); Alkaline Phosphatase 104 U/L (39-117); Anion Gap 16 (12-20); Aspartate Amino Transferase 20 U/L (5-37); Bilirubin Direct 0.1 mg/dL (0.0-0.5); Bilirubin Total 0.3 mg/dL (0.0-1.0); Blood Urea Nitrogen 23 mg/dL (9-16); Calcium 9.9 mg/dL (8.4-10.2); Carbon Dioxide 26 mmol/L (22-29); Chloride 104 mmol/L (96-108); Creatinine Clr Calc Pharmacy 92.6; Estimated Glomerular Filt Rate > 60; Ethanol < 10 mg/dL; Glucose Random 88 mg/dL (60-115); Lipase 18 U/L (8-78); Potassium 3.7 mmol/L (3.3-5.1); Salicylate < 5.0 mg/dL (15-30); Sodium 142 mmol/L (135-145); Total Protein 7.5 g/dL (6.5-8.0)
[2023-12-20 23:45] LABS: Troponin-I High Sensitivity 7.3 ng/L (<3.5-35.0)
--- NOTE | 2023-12-21 | ECG_ITS ---
Test Reason : checkfor prolonged qt Blood Pressure : / mmHG Vent. Rate : 057 BPM Atrial Rate : 057 BPM P-R Int : 112 ms QRS Dur : 124 ms QT Int : 430 ms P-R-T Axes : 069 000 067 degrees QTc Int : 418 ms Sinus bradycardia Mpyyn-Vjkgyvhjg-Usrpn Abnormal ECG When compared with ECG of 09-DEC-2023 08:00, Vent. rate has decreased BY 46 BPM Referred By: Sania Goff Electronically Signed By:JONATHON ZAMARRIPA MD
[2023-12-21] MEDS: iohexoL 350 MG/ML 100 ML INFUS..BTL 85 ML IV (00:02)
[2023-12-21 00:28] LABS: Influenza A PCR NEGATIVE (Negative); Influenza B PCR NEGATIVE (Negative); Resp Syncy Virus RNA Qual PCR NEGATIVE (Negative); SARS COV2 PCR INHOUSE NEGATIVE (Negative)
[2023-12-21 01:13] LABS: Appearance Urine Clear; Color Urine Yellow; Glucose Urine UA Negative (Negative); Leukocyte Esterase Urine Negative (Negative); Nitrite Urine Negative (Negative); PH 5.5 (5.0-9.0); Specific Gravity - Urine >= 1.030 (1.005-1.025); Urine Blood Negative (Negative); Urine Ketones Negative (Negative); Urine Protein Trace mg/dL (Neg-Trace)
[2023-12-21 01:16] LABS: Bacteria Urine None Seen (None Seen); Hyaline Casts Urine 0-2 /LPF (0-2); RBC Urine 0-2 /HPF (0-2); Squamous Epithelial Cell Urine 0-2 /HPF (0-2); WBC Urine 0-5 /HPF (0-5)
[2023-12-21 01:22] LABS: Amphetamine Screen Urine Not Detected (Not Detect); Barbiturates, Urine Not Detected (Not Detect); Benzodiazepines Screen Urine Not Detected (Not Detect); Buprenorphine Scr Not Detected (Not Detect); Cannabinoid Screen Urine POSITIVE (Not Detect); Cocaine Screen Urine POSITIVE (Not Detect); Fentanyl, urine POSITIVE (Not Detect); Methadone Screen, Urine Not Detected (Not Detect); Opiate Screen Urine Not Detected (Not Detect); Oxycodone Screen Urine Not Detected (Not Detect); Phencyclidine Screen Urine Not Detected (Not Detect)
[2023-12-21] MEDS: Magnesium Hydrox/Alum Hydrox 30 ML ORAL.SUSP PO (01:24)
[2023-12-21 01:50] VITALS: PULSE 99
[2023-12-21] MEDS: LORazepam 1 MG TABLET PO (02:09)
--- NOTE | 2023-12-21 05:39 | PC.NURSE ---
Patient slept since 209, Ativan 1 mg PO at 0209 with + effect, med rec completed/pending provider's approval, patient is off his medication for months, behavior non concerning, patient is seen by care team, disposition is section 12 inpatient bed search, will continue to monitor
--- NOTE | 2023-12-21 07:08 | PC.NURSE ---
Assumed care of patient at 0645. Patient is observed resting quietly in their bed. No signs of distress observed. Breathing is even and unlabored. Will continue plan of care.
[2023-12-21] MEDS: clonazePAM 1 MG TABLET PO (12:16)
[2023-12-21] MEDS: Nicotine Polacrilex 2 MG GUM BUCCAL ×2 (12:39→20:26)
--- NOTE | 2023-12-21 13:53 | P.CNPS_ITS ---
History of Present Illness Date of Service: 12/21/2023 Chief Complaint: crisis, hearing voices, hx pneumonia, still sick Reason for Consult: medication management Requesting physician: Sania Goff Discussed with referring provider: Yes Sources of Information: patient interviewed, chart reviewed and crisis/core team assessment reviewed HPI Narrative: Mr. Lange is a 32 year-old male with hx of MDD, cocaine and opioid use who self presented to [facility] ED reporting increase depression and SI. His utox was positive for cocaine, fentanyl and THC. He was assessed by care team and currently awaiting bed at dual dx program. Psychiatry asked to meet with pt to discuss psychotropic medications. Pt seen in the ED. He presents as calm and cooperative. Pt reports feeling more depressed lately. However, he denies suicidal or homicidal ideation. He denies visual or auditory hallucination and does not appear internally preoccupied. He reports he is on suboxone and would like to continue it. He reports he has been on sertraline which also seemed to help. He reports sleep varies as not having stable place to live and substance use affects his sleep. He states he had a fair night last night. He reports his appetite is good. PSYCHIATRIC HX: -Inpt: [facility] 07/2023-08/2023 -OP: none -Past medication trials: wellbutrin (not sure if it helped or not), sertraline, trazadone, vistaril -He denies hx of suicide attempt. SUBSTANCE USE HX: -He reports using cocaine almost daily for about 3 years -Heroin/fentanyl: reports using 1 bag every other day. -alcohol: denies -benzodiazepine: denies [facility] Medical History Asthma Diagnostics Vital Signs (24Hr): Vital Signs - 24 hr 12/20/23 22:30 Temperature 97.0 F Pulse Rate 99 Respiratory Rate 16 Blood Pressure 144/81 H Pulse Oximetry 100 Oxygen Delivery Method Room Air BMI result Body Mass Index 23.5 Labs 12/20/23 23:14 12/20/23 23:14 Labs: Laboratory Results - last 48 hr 12/20/23 12/20/23 12/21/23 23:14 23:44 01:05 WBC 6.8 RBC 5.04 Hgb 15.3 Hct 44.1 MCV 87.5 MCH 30.4 MCHC 34.7 RDW 13.7 Plt Count 196 MPV 11.2 Immature Gran % (Auto) 0.3 Neut % (Auto) 67.5 Lymph % (Auto) 26.2 [place] % (Auto) 5.0 Eos % (Auto) 0.4 Baso % (Auto) 0.6 Lymph # (Auto) 1.8 [place] # (Auto) 0.3 Eos # (Auto) 0.0 Baso # (Auto) 0.0 Abs Immat Gran (auto) 0.02 Absolute Neuts (auto) 4.6 Absolute Nucleated RBC 0.000 Nucleated RBC % (auto) 0.0 Sodium 142 Potassium 3.7 Chloride 104 Carbon Dioxide 26 Anion Gap 16 BUN 23 H Creatinine 1.09 Estim Creat Clear Calc 92.6 Estimated GFR > 60 Random Glucose 88 Lactic Acid 1.6 Calcium 9.9 D Total Bilirubin 0.3 Direct Bilirubin 0.1 AST 20 ALT 19 Alkaline Phosphatase 104 Troponin I High Sens 7.3 D Total Protein 7.5 Albumin 4.4 Lipase 18 Urine Color Yellow Urine Appearance Clear Urine pH 5.5 Ur Specific [place] >= 1.030 H Urine Protein Trace Urine Glucose (UA) Negative Urine Ketones Negative Urine Blood Negative Urine Nitrite Negative Ur Leukocyte Esterase Negative Urine RBC 0-2 Urine WBC 0-5 Ur Squamous Epith Cells 0-2 Urine Bacteria None Seen Hyaline Casts 0-2 Salicylates < 5.0 L Urine Opiates Screen Not Detected Ur Buprenorphine Scrn Not Detected Ur Oxycodone Screen Not Detected Urine Methadone Screen Not Detected Urine Fentanyl Screen POSITIVE H Acetaminophen < 3 Ur Barbiturates Screen Not Detected Ur Phencyclidine Scrn Not Detected Ur Amphetamines Screen Not Detected U Benzodiazepines Scrn Not Detected Urine Cocaine Screen POSITIVE H U Marijuana (THC) Screen POSITIVE H Ethyl Alcohol < 10 Influenza Type A (PCR) NEGATIVE Influenza Type B (PCR) NEGATIVE RSV RNA Qual (PCR) NEGATIVE SARS-CoV-2 RNA (RT-PCR) NEGATIVE Imaging Radiology Impressions: ITS Impressions Chest X-Ray 12/20/23 23:04 IMPRESSION: No acute cardiopulmonary findings. Resolution of the previously seen left perihilar opacities. Abdomen/Pelvis CT 12/20/23 23:55 IMPRESSION: 1. Mild wall thickening in the distal esophagus, potentially due to esophagitis. Consider correlation with endoscopy or barium swallow if warranted. 2. Mild bladder wall thickening, potentially due to underdistention. Consider correlation with urinalysis. 3. Chronic bilateral pars defects at L5. Fleischner guidelines were followed. Mental Status Exam Mental Status Exam Narrative: Appearance: wearing hospital gown, fair hygiene, in NAD Behavior: cooperative, friendly Psychomotor: no agitation or retardation noted Speech: clear, normal rate/rhythm/volume, spontaneous TP: linear TC: looking forward to continue dx treatment Mood: okay Affect: congruent SI: denies HI: denies VH/AH: none Delusions: none Insight/judgment: fair x 2. memory/cog: alert, oriented x 3. grossly intact to conversational testing. Medications Medications Current Medications Albuterol Sulfate (Albuterol Sulfate 90 Mcg 8 Gm Inhaler) 2 puff INHALE RQ4H PRN PRN Reason: shortness of breath or wheezing Bupropion HCl (Bupropion Hcl Xl 150 Mg Tab.Er.24h) 150 mg PO DAILY СЕРГЕЙ Hydroxyzine HCl (Hydroxyzine Hcl 50 Mg Tablet) 50 mg PO QID PRN PRN Reason: anxiety Melatonin (Melatonin 3 Mg Tablet) 3 mg PO BEDTIME PRN PRN Reason: insomnia Nicotine Polacrilex (Nicotine Polacrilex 2 Mg Gum) 2 mg BUCCAL Q2H PRN PRN Reason: Nicotine Cravings Last Admin: 12/21/23 12:39 Dose: 2 mg Sertraline HCl (Sertraline Hcl 50 Mg Tablet) 50 mg PO DAILY СЕРГЕЙ Trazodone HCl (Trazodone Hcl 100 Mg Tablet) 100 mg PO BEDTIME СЕРГЕЙ Allergies Allergies Allergy/AdvReac Type Severity Reaction Status Date / Time No Known Allergies Allergy Verified 12/20/23 22:34 Assessment & Plan Assessment & Plan (1) MDD (major depressive disorder), recurrent episode, moderate: Status: Acute Code(s): F33.1 - Major depressive disorder, recurrent, moderate (2) Cocaine use disorder, severe, dependence: Status: Acute Code(s): F14.20 - Cocaine dependence, uncomplicated (3) Opioid use disorder, moderate, dependence: Status: Acute Code(s): F11.20 - Opioid dependence, uncomplicated Plan Mr. Lange is a 32 year-old male with hx of MDD, cocaine and opioid use disorder who self presented to [facility] ED initially reporting SI and increased depression. He denies SI/HI. However, he reports wanting to connect with dual dx treatment. We discussed risks, benefits and alternative treatment options, he agreed to restart sertraline 50mg po daily, vistaril 25mg TID prn anxiety, trazodone 50mg po daily. we also discussed adding baclofen to decrease cocaine cravings. He reports wanting to restart suboxone. However, I do not see rx from [facility]. will add addiction consult. PLAN 1. COntinue bedsearch for dual dx- VOLUNTARY Basis 2. will restart sertraline 50mg po daily, trazodone 50mg po qhs, vistaril 25mg po TID prn anxiety 3. If pt is discharge, please provide narcan Total time managing care of this patient today ____ minutes.
[2023-12-21] MEDS: buPROPion HCl XL 150 MG TAB.ER.24H PO (14:10)
[2023-12-21] MEDS: Sertraline HCL 50 MG TABLET PO (14:10)
[2023-12-21] MEDS: hydrOXYzine HCL 50 MG TABLET PO ×2 (14:14→19:59)
[2023-12-21] MEDS: Baclofen 10 MG TABLET PO ×2 (14:34→19:53)
--- NOTE | 2023-12-21 16:09 | MHC.RECOVRN ---
Met with pt in 6 after pt expressed desire to initiate Suboxone. Pt had presented to the ED reporting CAH and is currently a voluntary dual diagnosis bedsearch. Pt laying in bed, asleep, wakes to touch, appears comfortable, difficult to engage in conversation. Pt reports heroin/fentanyl use, 1 bag daily, IN, x 4 months, last use 1 week ago. Pt reports prior to this he had not used heroin/fentanyl before. Pt also reports cocaine use, INH, not a lot, maybe twice a month. Pt reports he has not tried to abstain from substances in the past. Pt reports currently feeling opioid withdrawal symptoms including diaphoresis, lack of energy, upset stomach. Pt reports he has tried Suboxone in the past ( half a strip ) prior to beginning heroin/fentanyl use. Pt denies other use of Suboxone. Pt would like to initiate Suboxone while at [facility]. T/w explained precipitated withdrawal thoroughly, pt affirms last opioid use was one week ago. Pt denies questions or concerns for t/w. Discussed with Lisa Conklin APRN.
[2023-12-21] MEDS: Buprenorphine/Naloxone 2/0.5mg FILM 1 FILM SUBLINGUAL (16:23)
[2023-12-21] MEDS: Albuterol Sulfate 90 MCG 8 GM INHALER 2 PUFF INHALE (19:00)
--- NOTE | 2023-12-21 19:37 | PC.NURSE ---
patient appears to remain at rest at present respirations are even and unlabored patient appears in no distress
[2023-12-21] MEDS: traZODone HCL 100 MG TABLET PO (19:56)
[2023-12-21 20:05] VITALS: BP 147/93; PULSE 80; RESP 20; TEMP 36.5; O2SAT 98
[2023-12-22 02:39] VITALS: BP 126/72; PULSE 61; RESP 16; TEMP 36.8; O2SAT 98
[2023-12-22] MEDS: Buprenorphine/Naloxone 2/0.5mg FILM 1 FILM SUBLINGUAL (08:35)
[2023-12-22] MEDS: Sertraline HCL 50 MG TABLET PO (08:35)
[2023-12-22] MEDS: Baclofen 10 MG TABLET PO (08:35)
[2023-12-22] MEDS: Albuterol Sulfate 90 MCG 8 GM INHALER 2 PUFF INHALE (09:25)
--- NOTE | 2023-12-22 10:16 | PC.NURSE ---
late entry - pt reporting shortness of breath. requesting PRN inhaler. medicated per mar
--- NOTE | 2023-12-22 10:33 | MHC.RECOVRN ---
Pt has [facility] appt for 1PM today. Pt will dc and be escorted to the office. CARE Team aware.
--- NOTE | 2023-12-22 11:34 | MHC.CARE ---
RAD Team completed a referral to [facility] for this individual. Will follow up to confirm receipt and case assignment.
[2023-12-22 12:59] VITALS: BP 126/72; PULSE 61; RESP 16; TEMP 36.8; O2SAT 98
--- NOTE | 2023-12-23 09:34 | MHC.CARE ---
RAD Team spoke with Central Intake at [facility] and was told the referral was received and will be processed today.
== END 2023-12-22 13:05 | disposition home or self-care (01) ==
PROVIDERS: Emergency Medicine Emergency Medical Services; Emergency Provider Emergency Medicine
DX: F33.1 Major depressive disorder, recurrent, moderate (principal); F11.251 Opioid dependence with opioid-induced psychotic disorder with hallucinations; F14.251 Cocaine dependence with cocaine-induced psychotic disorder with hallucinations; R45.851 Suicidal ideations; R44.0 Auditory hallucinations; R45.850 Homicidal ideations; F19.10 Other psychoactive substance abuse, uncomplicated; R10.13 Epigastric pain; R05.9 Cough, unspecified; F17.200 Nicotine dependence, unspecified, uncomplicated; Z79.899 Other long term (current) drug therapy; Z03.818 Encounter for observation for suspected exposure to other biological agents ruled out
CPT/HCPCS: 0241U; 36415; 71046; 74177; 80053; 80143; 80179; 80307; 81001; 82248; 83605; 83690; 84484; 85025; 87040; 93005; 96361; 96374; 99285; J1885; Q9967; S9485

== ENCOUNTER → 2023-12-20 23:27 | Outpatient (BNV) | payer MEDICARE, MEDICAID, SELFPAY | PROVIDERS: Emergency Provider Emergency Medicine Emergency Medical Services; Visit Provider Social Worker | DX: F33.1 Major depressive disorder, recurrent, moderate (principal); F14.20 Cocaine dependence, uncomplicated; F11.20 Opioid dependence, uncomplicated | CPT/HCPCS: 99285 ==

== ENCOUNTER → 2023-12-21 08:43 | Outpatient (BNV) | payer MEDICARE, MEDICAID, SELFPAY | PROVIDERS: Emergency Provider Emergency Medicine Emergency Medical Services; Visit Provider Internal Medicine Cardiovascular Disease | DX: I45.6 Pre-excitation syndrome (principal) | CPT/HCPCS: 93010 ==

== ENCOUNTER 2023-12-22 13:14 | Outpatient (AMB) | payer MEDICARE, MEDICAID, SELFPAY ==
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
[2023-12-22 13:17] VITALS: BP 164/100; PULSE 87; O2SAT 100
== END 2023-12-22 13:57 | disposition home or self-care (01) ==
PROVIDERS: Visit Provider Nurse Practitioner Psychiatric/Mental Health
DX: F11.20 Opioid dependence, uncomplicated (principal)
CPT/HCPCS: 99204

== ENCOUNTER → 2023-12-22 13:14 | Outpatient (BNVA) | payer MEDICARE, MEDICAID, SELFPAY | PROVIDERS: Visit Provider Nurse Practitioner Psychiatric/Mental Health | DX: F11.20 Opioid dependence, uncomplicated (principal) | CPT/HCPCS: 99202 ==

== ENCOUNTER 2024-01-01 23:54 | Emergency (ER) | payer MEDICARE, MEDICAID, SELFPAY ==
--- NOTE | ~2024-01-01 | XR_ITS ---
EXAMINATION: XR CHEST CLINICAL INFORMATION: Anxiety. Palpitations. COMPARISON: 12/20/2023. TECHNIQUE: Frontal view of the chest was obtained. FINDINGS: No significant abnormality is noted involving the heart, lungs, mediastinum, bony thorax or soft tissues. XR/XR chest 1V IMPRESSION: Unremarkable examination.
--- NOTE | 2024-01-02 | ECG_ITS ---
Test Reason : psychiatric symptoms Blood Pressure : / mmHG Vent. Rate : 084 BPM Atrial Rate : 084 BPM P-R Int : 100 ms QRS Dur : 120 ms QT Int : 372 ms P-R-T Axes : 077 004 056 degrees QTc Int : 439 ms Normal sinus rhythm [id number] Abnormal ECG When compared with ECG of 21-DEC-2023 08:43, No significant change was found Referred By: Generic ED Physician Electronically Signed By:Guilherme Baker
[2024-01-02 00:26] VITALS: BP 146/78; BP 166/86; PULSE 90; PULSE 97; RESP 18; TEMP 37.4; O2SAT 100; O2SAT 97; BMI 30.2
--- NOTE | 2024-01-02 00:36 | PC.NURSE ---
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 Security made supercharge repair supervisor and MARIAM Weber aware of situation, This nurse charge rn spoke with patient about limited bed availability in main ED being the reason why he was started in the behavioral health pod, pt states he is fine with being started in triage and seeing a nurse out there. This RN and security walked pt into triage room, ordered lab work, ekg, cxray. pt is agreeable to plan, ambulates with steady gait, no apparent respiratory distress, A&Ox4, denies si/hi.
[2024-01-02 01:19] LABS: MANUAL DIFF FLAG NO
--- NOTE | 2024-01-02 01:22 | MHC.EDTECH ---
PATIENT EKG TAKEN AND WAS READ BY PROVIDER ,BLOOD DRAWN AND SENT TO LAB .
[2024-01-02 01:26] LABS: Basophils Percent Auto 0.6 % (0-2); Eosinophils Percent Auto 0.4 % (0-4); Hemoglobin 14.6 g/dl (14.0-18.0); Imm Gran Abs Auto 0.01 X10*3/uL (0.00-0.03); Imm Gran Pct Auto 0.2 % (0.0-0.4); Lymphocytes Absolute Auto 1.6 X10*3/uL (1.2-4.9); Lymphocytes Percent Auto 31.2 % (20-40); Mean Corpuscular HGB Conc 34.8 g/dl (31.0-36.0); Mean Corpuscular Hemoglobin 29.7 pg (27.0-33.0); Mean Corpuscular Volume 85.5 fL (80.0-98.0); Mean Platelet Volume 11.4 fL (9.4-12.4); Monocytes Absolute Auto 0.4 X10*3/uL (0.1-1.2); Monocytes Percent Auto 7.3 % (2-11); Neutrophils Absolute Auto 3.1 x10*3/uL (2.0-8.3); Neutrophils Percent Auto 60.3 % (45-73); Platelet Count 191 X10*3/uL (160-400); Red Blood Count 4.91 X10*6/uL (4.60-5.80); Red Cell Distribution Width 13.5 % (11.0-16.0); White Blood Count 5.1 X10*3/uL (4.8-10.8)
[2024-01-02 01:42] LABS: Alanine Aminotransferase 31 U/L (0-40); Albumin Level 4.6 g/dL (3.5-5.0); Alkaline Phosphatase 99 U/L (39-117); Anion Gap 14 (12-20); Aspartate Amino Transferase 26 U/L (5-37); Bilirubin Total 0.4 mg/dL (0.0-1.0); Blood Urea Nitrogen 21 mg/dL (9-16); Calcium 9.7 mg/dL (8.4-10.2); Carbon Dioxide 23 mmol/L (22-29); Chloride 105 mmol/L (96-108); Creatinine Clr Calc Pharmacy 116.6; Estimated Glomerular Filt Rate > 60; Glucose Random 97 mg/dL (60-115); Potassium 4.2 mmol/L (3.3-5.1); Sodium 138 mmol/L (135-145); Total Protein 7.5 g/dL (6.5-8.0)
[2024-01-02 04:16] VITALS: BP 132/79; PULSE 64; RESP 16; TEMP 36.7; O2SAT 97
[2024-01-02] MEDS: hydrOXYzine HCL 25 MG TABLET PO (07:24)
--- NOTE | 2024-01-02 07:24 | PC.NURSE ---
pt medicated per provider order. effectiveness pending.
[2024-01-02 07:52] LABS: COVID-19 Test Negative (Negative); IDNOW Serial# 152EDE1D
--- NOTE | 2024-01-02 07:52 | PC.NURSE ---
urine obtained/sent to lab.
[2024-01-02 07:58] LABS: Troponin-I High Sensitivity < 2.7 ng/L (<3.5-35.0)
[2024-01-02 08:07] LABS: Amphetamine Screen Urine Not Detected (Not Detect); Barbiturates, Urine Not Detected (Not Detect); Benzodiazepines Screen Urine Not Detected (Not Detect); Buprenorphine Scr Not Detected (Not Detect); Cannabinoid Screen Urine POSITIVE (Not Detect); Cocaine Screen Urine POSITIVE (Not Detect); Fentanyl, urine POSITIVE (Not Detect); Methadone Screen, Urine Not Detected (Not Detect); Opiate Screen Urine Not Detected (Not Detect); Oxycodone Screen Urine Not Detected (Not Detect); Phencyclidine Screen Urine Not Detected (Not Detect)
--- NOTE | 2024-01-02 08:07 | ED_ITS ---
HPI - SOB/Dyspnea General Chief Complaint: Psychiatric Symptoms Stated Complaint: ANXIETY Time Seen by Provider: 01/02/24 07:00 Source: patient Mode of arrival: ambulatory Limitations: no limitations History of Present Illness ED Provider: Marilee Paz APRN HPI Narrative: 33-year-old male with a history of asthma presents to the emergency room with complaints of feeling anxious, shortness in chest pain after smoking marijuana at 23:00. Patient reports he was walking down the street when a stranger handed him a joint which she decided to smoke. After this he started to develop the above symptoms. He is unsure if the marijuana may have contained additional substances. He denies any vomiting, abdominal pain, cough, fever. Related Data Home Medications ?Medication ?Instructions ?Recorded ?Confirmed bupropion HCl 150 mg 24 hr tablet, 150 mg PO QAM 12/21/23 12/21/23 extended release hydroxyzine pamoate 50 mg capsule 50 mg PO QID PRN anxiety 12/21/23 12/21/23 melatonin 3 mg tablet 3 mg PO BEDTIME PRN insomnia 12/21/23 12/21/23 sertraline 50 mg tablet 50 mg PO DAILY 12/21/23 12/21/23 trazodone 100 mg tablet 100 mg PO BEDTIME 12/21/23 12/21/23 Previous Rx's ?Medication ?Instructions ?Recorded ibuprofen 600 mg tablet 600 mg PO Q6H PRN pain #30 tabs 02/12/21 albuterol sulfate 90 mcg/actuation 2 puff inhalation Q4-6H PRN 08/26/23 aerosol inhaler shortness of breath or wheezing #8.5 grams amlodipine 2.5 mg tablet 2.5 mg PO DAILY #30 tabs 12/22/23 buprenorphine 2 mg-naloxone 0.5 mg 1 film buccal DAILY #10 ea 12/22/23 sublingual film (Suboxone) hydroxyzine pamoate 25 mg capsule 25 mg PO TID PRN anxiety #30 caps 12/22/23 (Vistaril) sertraline 50 mg tablet 50 mg PO DAILY #30 tabs 12/22/23 trazodone 50 mg tablet 50 mg PO BEDTIME #30 tabs 12/22/23 Allergies Allergy/AdvReac Type Severity Reaction Status Date / Time No Known Allergies Allergy Verified 01/02/24 00:30 Review of Systems 2 Review of Systems: Yes all other systems are reviewed and are negative Constitutional: Constitutional: Reports no additional constitutional complaints, Denies body ache(s), Denies chills, Denies fever(s), Denies headache(s) and Denies weakness Eyes: Eyes: Reports no additional eye complaints and Denies change in vision ENT: Reports system reviewed and no additional complaints, except as documented, Denies dizziness, Denies headache(s), Denies nasal congestion, Denies nasal discharge and Denies neck pain Cardiovascular: Cardiovascular: Reports no additional cardiovascular complaints, Reports chest pain, Denies leg edema and Reports dyspnea Respiratory: Respiratory: Reports no additional respiratory complaints, Denies cough and Reports dyspnea Gastrointestinal: Gastrointestinal: Reports no additional gastrointestinal complaints, Denies abdominal pain, Denies diarrhea, Denies nausea and Denies vomiting Genitourinary: Genitourinary: Denies urinary incontinence Musculoskeletal: Musculoskeletal: Reports no additional musculoskeletal complaints, Denies back pain, Denies arthralgias, Denies joint swelling, Denies neck pain, Denies numbness and Denies tingling Integumentary/Breasts: Skin/Breast: Reports system reviewed and no additional complaints, except as docu and Denies rash Neurologic: Reports system reviewed and no additional complaints, except as documented, Denies Abnormal speech present, Denies dizziness, Denies headache(s), Denies numbness, Denies tingling and Denies weakness Psychiatric: Psychiatric: Reports anxiety [facility] Past Medical History Attestation statement: The following information was validated with the patient. Source: old records reviewed and nursing notes reviewed Medical History Asthma Social History Social History Patient Tobacco Use Status: Current everyday Tobacco user Substance Use Type: Crack/Cocaine Advance Directives: No Advance Directives Information Provided: Yes Physical Exam 2 Vital Signs: Vital Signs: Last Vital Signs Temp 97.8 F 01/02/24 08:28 Pulse 83 01/02/24 08:28 Resp 18 01/02/24 08:28 BP 146/56 H 01/02/24 08:28 Pulse Ox 98 01/02/24 08:28 O2 Del Method Room Air 01/02/24 08:28 BMI result Body Mass Index 30.2 Const: General: cooperative, healthy appearing, comfortable and no acute distress Orientation/consciousness: patient oriented x3 Limitations: no limitations HEENT: Head: Yes normal to inspection Ears: hearing grossly normal bilaterally General nose exam: Normal external nose present Face and sinus: Yes normal facial exam Mouth: Normal oral and palatal mucosa present Throat: Yes posterior oropharynx normal Eyes: General: appearance normal, both eyes and all related structures P upils: Equal, round and reactive pupils present Neck: Neck: Yes normal visual inspection Chest: Chest palpation & inspection: normal inspection of the chest Resp: Effort & Inspection: normal respiratory effort Auscultation: clear to auscultation bilaterally Cardio: Rate: regular rate Rhythm: regular rhythm Peripheral pulses: P eripheral pulses 2+ throughout GI: Inspection: Yes normal to inspection Palpation (GI): Soft to palpation and nontender Auscultation: normal bowel sounds Back/Spine/Pelvis: Thoracic/Lumbar Spine: thoracic and lumbar spine normal to inspection Skin: General skin exam: no rashes or lesions noted Neuro: General: patient oriented x3, no focal motor deficits and normal sensation to monofilament Cranial nerves: Yes Equal, round and reactive pupils present Cognition (Neuro): normal cognition Speech: No Abnormal speech present Gait exam (Neuro): Normal gait present Motor exam (neuro): 5/5 motor strength present throughout Extrem: General: Yes normal to inspection Course Course Course Narrative: EKG shows WPW with rate controlled. Labs, x-ray, viral testing are negative. Urine tox is positive for fentanyl, cocaine and marijuana. Patient was informed of results. I did explain to him his EKG findings and recommend he follow up outpatient with his primary care. Reviewed worrisome signs and symptoms of when to return to the emergency room. Comfortable plan for discharge home Medications Administered Discontinued Medications Generic Name Dose Route Start Last Admin Trade Name Freq PRN Reason Stop Dose Admin Albuterol Sulfate 2 puff 01/02/24 08:17 01/02/24 08:23 Albuterol Sulfate 90 Mcg 8 Gm Inhaler INHALE 01/02/24 08:18 2 puff ONCE ONE Administration Hydroxyzine HCl 25 mg 01/02/24 07:17 01/02/24 07:24 Hydroxyzine Hcl 25 Mg Tablet PO 01/02/24 07:18 25 mg ONCE ONE Administration Medical Decision Making Medical Decision Making MDM Narrative: 33-year-old male with a history of asthma presents to the emergency room with complaints of feeling anxious, shortness in chest pain after smoking marijuana at 23:00.? Patient reports he was walking down the street when a stranger handed him a joint which she decided to smoke.? After this he started to develop the above symptoms.? He is unsure if the marijuana may have contained additional substances.? He denies any vomiting, abdominal pain, cough, fever. Vitals are stable. Lungs are clear. Will obtain chest x-ray, EKG, labs, viral testing Will give anti-anxiety medication Differential Diagnosis Differential Diagnoses: The differential diagnosis associated with the presentation includes ACS-less likely with atypical symptoms with nonischemic EKG and negative troponin PE-most likely with no hypoxia, no tachypnea, no tachycardia, no clinical findings concerning for DVT and no risk factors for same Less likely dissection with gradual onset of symptoms pneumonia Polysubstance Anxiety Admission/Observation Consideration of admission/observation: Escalation of care including admission/observation considered Lab Data MDM Lab Attestation statement: I reviewed the patient's lab results. 01/02/24 01:15 01/02/24 01:15 Labs: Lab Results 01/02/24 01/02/24 01/02/24 Range/Units 01:15 07:29 07:51 WBC 5.1 (4.8-10.8) X10*3/uL RBC 4.91 (4.60-5.80) X10*6/uL Hgb 14.6 (14.0-18.0) g/dl Hct 42.0 (42.0-52.0) % MCV 85.5 (80.0-98.0) fL MCH 29.7 (27.0-33.0) pg MCHC 34.8 (31.0-36.0) g/dl RDW 13.5 (11.0-16.0) % Plt Count 191 (160-400) X10*3/uL MPV 11.4 (9.4-12.4) fL Immature Gran % (Auto) 0.2 (0.0-0.4) % Neut % (Auto) 60.3 (45-73) % Lymph % (Auto) 31.2 (20-40) % Lawrence % (Auto) 7.3 (2-11) % Eos % (Auto) 0.4 (0-4) % Baso % (Auto) 0.6 (0-2) % Lymph # (Auto) 1.6 (1.2-4.9) X10*3/uL Lawrence # (Auto) 0.4 (0.1-1.2) X10*3/uL Eos # (Auto) 0.0 (0.0-0.4) X10*3/uL Baso # (Auto) 0.0 (0.0-0.2) X10*3/uL Abs Immat Gran (auto) 0.01 (0.00-0.03) X10*3/uL Absolute Neuts (auto) 3.1 (2.0-8.3) x10*3/uL Absolute Nucleated RBC 0.000 (0.0-0.012) X10*3/uL Nucleated RBC % (auto) 0.0 (0.0-0.2) /100WBC Sodium 138 (135-145) mmol/L Potassium 4.2 (3.3-5.1) mmol/L Chloride 105 (96-108) mmol/L Carbon Dioxide 23 (22-29) mmol/L Anion Gap 14 (12-20) BUN 21 H (9-16) mg/dL Creatinine 1.00 (0.5-1.4) mg/dL Estim Creat Clear Calc 116.6 Estimated GFR > 60 Random Glucose 97 (60-115) mg/dL Calcium 9.7 (8.4-10.2) mg/dL Total Bilirubin 0.4 (0.0-1.0) mg/dL AST 26 (5-37) U/L ALT 31 (0-40) U/L Alkaline Phosphatase 99 (39-117) U/L Troponin I High Sens < 2.7 D (<3.5-35.0) ng/L Total Protein 7.5 (6.5-8.0) g/dL Albumin 4.6 (3.5-5.0) g/dL Urine Opiates Screen Not Detected (Not Detect) Ur Buprenorphine Scrn Not Detected (Not Detect) ng/mL Ur Oxycodone Screen Not Detected (Not Detect) ng/mL Urine Methadone Screen Not Detected (Not Detect) ng/mL Urine Fentanyl Screen POSITIVE H (Not Detect) Ur Barbiturates Screen Not Detected (Not Detect) Ur Phencyclidine Scrn Not Detected (Not Detect) Ur Amphetamines Screen Not Detected (Not Detect) U Benzodiazepines Scrn Not Detected (Not Detect) Urine Cocaine Screen POSITIVE H (Not Detect) U Marijuana (THC) Screen POSITIVE H (Not Detect) COVID-19 ([facility]) Negative (Negative) COVID-19 Clin Com See Note Independent Interpretation I performed an independent interpretation of an: EKG and Plain X-Ray Interpretation: I independently viewed the chest x-ray agree with the radiology report I independently reviewed the EKG which shows normal sinus rhythm with a rate of 84, WPW, normal qt Radiology Impression Discussion of test interpretation with radiology: I discussed test interpretation with the radiologist and I have reviewed the radiologist's reading. Radiologist Impression: TECHNIQUE: Frontal view of the chest was obtained. FINDINGS: No significant abnormality is noted involving the heart, lungs, mediastinum, bony thorax or soft tissues. XR/XR chest 1V IMPRESSION: Unremarkable examination. Discharge Plan Discharge Clinical Impression: Polysubstance abuse, WPW syndrome Patient Disposition: Home, Self-Care Instructions: Polysubstance Abuse (ED), [id number]-[id number] Syndrome (ED) Additional Instructions: Please avoid substance use Please follow-up with your primary care doctor Return for any worsening symptoms Prescriptions: No Action ibuprofen 600 mg tablet 600 mg PO Q6H PRN (Reason: pain) Qty: 30 0RF albuterol sulfate 90 mcg/actuation HFA aerosol inhaler 2 puff inhalation Q4-6H PRN (Reason: shortness of breath or wheezing) Qty: 8.5 1RF hydroxyzine pamoate 50 mg capsule 50 mg PO QID PRN (Reason: anxiety) melatonin 3 mg tablet 3 mg PO BEDTIME PRN (Reason: insomnia) trazodone 100 mg tablet 100 mg PO BEDTIME sertraline 50 mg tablet 50 mg PO DAILY bupropion HCl 150 mg tablet extended release 24 hr 150 mg PO QAM sertraline 50 mg tablet 50 mg PO DAILY Qty: 30 0RF trazodone 50 mg tablet 50 mg PO BEDTIME Qty: 30 0RF hydroxyzine pamoate [Vistaril] 25 mg capsule 25 mg PO TID PRN (Reason: anxiety) Qty: 30 0RF amlodipine 2.5 mg tablet 2.5 mg PO DAILY Qty: 30 0RF buprenorphine-naloxone [Suboxone] 2-0.5 mg film 1 film buccal DAILY Qty: 10 0RF Referrals: Physician,Unknown J [Primary Care Provider] - 10 days Interventions: [place]-Suicide Risk Severity Scale Last Done: 01/02/24 08:29 ED Discharge Assessment Last Done: 01/02/24 08:28 Discharge Date/Time: 01/02/24 08:30 Print Language: Spanish
[2024-01-02] MEDS: Albuterol Sulfate 90 MCG 8 GM INHALER 2 PUFF INHALE (08:23)
[2024-01-02 08:28] VITALS: BP 146/56; PULSE 83; RESP 18; TEMP 36.6; O2SAT 98
== END 2024-01-02 08:30 | disposition home or self-care (01) ==
PROVIDERS: Nurse Practitioner Family; Emergency Provider Student in an Organized Health Care Education/Training Program
DX: F19.10 Other psychoactive substance abuse, uncomplicated (principal); I45.6 Pre-excitation syndrome; F41.9 Anxiety disorder, unspecified; R06.02 Shortness of breath; F14.20 Cocaine dependence, uncomplicated; F11.20 Opioid dependence, uncomplicated; F33.1 Major depressive disorder, recurrent, moderate; Z79.899 Other long term (current) drug therapy; F17.200 Nicotine dependence, unspecified, uncomplicated
CPT/HCPCS: 36415; 71045; 80053; 80307; 84484; 85025; 87635; 93005; 99284

== ENCOUNTER → 2024-01-02 01:03 | Outpatient (BNV) | payer MEDICARE, MEDICAID, SELFPAY | PROVIDERS: Emergency Provider Student in an Organized Health Care Education/Training Program; Visit Provider Internal Medicine Cardiovascular Disease | DX: I45.6 Pre-excitation syndrome (principal) | CPT/HCPCS: 93010 ==

== ENCOUNTER 2024-01-29 16:24 | Emergency (ER) | payer MEDICARE, MEDICAID, SELFPAY ==
--- NOTE | ~2024-01-29 | XR_ITS ---
EXAMINATION: XR CHEST CLINICAL INFORMATION: Shortness of breath COMPARISON: Chest x-ray January 02, 2024 TECHNIQUE: 2 views of the chest were obtained. FINDINGS: No significant abnormality is noted involving the heart, lungs, mediastinum, bony thorax or soft tissues. XR/XR chest 2V IMPRESSION: Unremarkable examination.
[2024-01-29 16:28] VITALS: BP 154/95; BP 171/105; PULSE 90; PULSE 95; RESP 18; TEMP 36.6; O2SAT 94; O2SAT 96; BMI 28.5
--- NOTE | 2024-01-29 16:58 | ED_ITS ---
HPI - Medical Clearance General Chief complaint: Medical Clearance Stated complaint: needs medical eval Time Seen by Provider: 01/29/24 16:58 Source: patient and RN notes reviewed Mode of arrival: ambulatory Limitations: no limitations History of Present Illness ED Provider: Helena Suggs PA-C HPI Narrative: This is a 33-year-old male, with a history of polysubstance abuse without reported use for 3 months and TBI who presents emergency department via EMS as he was found in his program with concerns for being under the influence of a substance. Patient states that he was getting out of his hotel room and wanted a drink of water and was told that he has not walking straight which he states that he has a history of given his TBI. He adamantly denies using any substances today. He states that he has had some intermittent shortness of breath for the last several months due to the air in the hotel room. He states that he has had this shortness for breath for approximately 5 months. He also endorses some body aches including back pain and leg pain - has been taking ibuprofen and Tylenol without any relief. Denies history of IV drug use. Denies any fevers, chills, chest pain, palpitations, abdominal pain, nausea, vomiting or diarrhea. No other complaints or concerns at this time. MD complaint: medical clearance requested Onset (ago): day(s) Place: home Alleged Intoxication: Yes Compliant with Home Medications: Yes Traumatic Symptoms: denies traumatic injury Associated Symptoms: shortness of breath Treatments Prior to Arrival: none Related Information Home Medications ?Medication ?Instructions ?Recorded ?Confirmed bupropion HCl 150 mg 24 hr tablet, 150 mg PO QAM 12/21/23 12/21/23 extended release hydroxyzine pamoate 50 mg capsule 50 mg PO QID PRN anxiety 12/21/23 12/21/23 melatonin 3 mg tablet 3 mg PO BEDTIME PRN insomnia 12/21/23 12/21/23 sertraline 50 mg tablet 50 mg PO DAILY 12/21/23 12/21/23 trazodone 100 mg tablet 100 mg PO BEDTIME 12/21/23 12/21/23 Previous Rx's ?Medication ?Instructions ?Recorded ibuprofen 600 mg tablet 600 mg PO Q6H PRN pain #30 tabs 02/12/21 albuterol sulfate 90 mcg/actuation 2 puff inhalation Q4-6H PRN 08/26/23 aerosol inhaler shortness of breath or wheezing #8.5 grams amlodipine 2.5 mg tablet 2.5 mg PO DAILY #30 tabs 12/22/23 buprenorphine 2 mg-naloxone 0.5 mg 1 film buccal DAILY #10 ea 12/22/23 sublingual film (Suboxone) hydroxyzine pamoate 25 mg capsule 25 mg PO TID PRN anxiety #30 caps 12/22/23 (Vistaril) sertraline 50 mg tablet 50 mg PO DAILY #30 tabs 12/22/23 trazodone 50 mg tablet 50 mg PO BEDTIME #30 tabs 12/22/23 Allergies Allergy/AdvReac Type Severity Reaction Status Date / Time No Known Allergies Allergy Verified 01/29/24 16:32 Review of Systems 2 Review of Systems: Yes all other systems are reviewed and are negative Constitutional: Constitutional: Reports as per [facility] Past Medical History Attestation statement: The following information was validated with the patient. Medical History Asthma Social History Social History Patient Tobacco Use Status: Current everyday Tobacco user Substance Use Type: Crack/Cocaine Advance Directives: No Advance Directives Information Provided: No Do you have a plan to hurt others: No Plan Physical Exam 2 Vital Signs: Vital Signs: Last Vital Signs Temp 97.9 F 01/29/24 16:28 Pulse 70 01/29/24 18:25 Resp 16 01/29/24 18:25 BP 173/67 H 01/29/24 18:25 Pulse Ox 98 01/29/24 18:25 O2 Del Method Room Air 01/29/24 18:25 BMI result Body Mass Index 28.5 Const: General: cooperative, comfortable and no acute distress O rientation/consciousness: patient oriented x3 Limitations: no limitations HEENT: Head: Yes normal to inspection, Yes normocephalic and Yes atraumatic Ears: hearing grossly normal bilaterally General nose exam: Normal external nose present Face and sinus: Yes normal facial exam Mouth: Normal oral and palatal mucosa present, oropharynx normal and moist mucous membranes Throat: Yes posterior oropharynx normal Eyes: General: appearance normal, both eyes and all related structures E yelids: Yes eyelids normal Conjunctivae: conjunctivae normal Sclerae: s clerae normal Pupils: Equal, round and reactive pupils present EOM: EOMs intact bilaterally Neck: Neck: Yes normal visual inspection, Yes full ROM and Yes no lymphadenopathy Lymphatic: no lymphadenopathy noted Chest: Chest palpation & inspection: normal inspection of the chest Resp: Effort & Inspection: normal respiratory effort and able to speak in complete sentences Auscultation: clear to auscultation bilaterally, no crackles, no rales, no rhonchi and no wheezes Cardio: Rate: regular rate Rhythm: regular rhythm Heart sounds: S1 normal heart sound present and S2 normal heart sound present GI: Inspection: Yes normal to inspection Back/Spine/Pelvis: Other: Lumbar spine with no tenderness palpation. Skin: General skin exam: no rashes or lesions noted Trauma: no lacerations or abrasions Wounds: no wounds Neuro: General: patient oriented x3 and moves all extremities Cranial nerves: Yes CN's II-XII intact bilaterally and Yes Equal, round and reactive pupils present Cognition (Neuro): normal cognition Gait exam (Neuro): N ormal gait present Motor exam (neuro): 5/5 motor strength present throughout Extrem: General: Yes normal to inspection Right upper extremity: normal to inspection Left upper extremity: normal to inspection Right lower extremity: normal to inspection Left lower extremity: normal to inspection Course Reevaluation(s) Reevaluation #1: Labs returned, no leukocytosis, normocytic anemia noted with an H&H of 13.9/39.4, chemistry with elevated BUN at 19, however creatinine 0.9 which is better than previous. No evidence of DACIA. Negative troponin. Urine with high specific gravity and proteinuria. Urine positive for opiates, fentanyl cocaine and THC. He is clinically sober and stable for discharge. EKG shows will consult white syndrome. This has been seen on previous EKGs dating back to 2017. I reviewed these with my attending physician, Dr. Roblero. Given patient is not symptomatic at this time, no further management or workup needed today. Patient is aware that he has this arrhythmia however has not been followed by his primary care physician in several years. I advised patient to avoid cocaine use and other substance use is as he is putting himself at risk for . He understands. Discussed findings with patient and he will follow-up with his primary care physician. Reviewed workup today, patient stable for discharge. Time: 19:01 Medications Administered Discontinued Medications Generic Name Dose Route Start Last Admin Trade Name Alyssa PRN Reason Stop Dose Admin Acetaminophen 975 mg 01/29/24 17:15 01/29/24 18:25 Acetaminophen 325 Mg Tablet PO 01/29/24 17:16 975 mg ONCE ONE Administration Medical Decision Making Medical Decision Making [facility] Narrative: This is a 33-year-old male, with a history of TBI and polysubstance abuse, who presents emergency department after being accused of being under the influence of a substance by his program. Arrival, blood pressure mildly elevated at 171/105, all other vital signs within normal limits. He is alert and oriented x4. He is calm and cooperative. He endorses some body aches including back pain and leg pain, on examination, he has no midline spine tenderness or history of IV DA. No red flag back symptoms to suggest cauda equina. His leg is nontender without any bony abnormalities swelling or erythema or warmth. Plan: Labs, EKG, chest x-ray, Tylenol 1 g p.o. Differential Diagnosis Differential Diagnoses: The differential diagnosis associated with the presentation includes Polysubstance abuse, opiate dependency, alcohol abuse, MDD, depression, anxiety, pneumonia, viral syndrome Lab Data [facility] Lab Attestation statement: I reviewed the patient's lab results. No leukocytosis, normocytic anemia noted with an H&H of 13.9, 39.4. Chemistry with elevated BUN, creatinine within normal limits, no evidence of DACIA. No evidence of urinary tract infection. Urine was positive for opiates, fentanyl, cocaine and THC. Negative flu, RSV, COVID. 01/29/24 17:43 01/29/24 17:43 Labs: Lab Results 01/29/24 01/29/24 Range/Units 17:43 18:09 WBC 7.1 (4.8-10.8) X10*3/uL RBC 4.58 L (4.60-5.80) X10*6/uL Hgb 13.9 L (14.0-18.0) g/dl Hct 39.4 L (42.0-52.0) % MCV 86.0 (80.0-98.0) fL MCH 30.3 (27.0-33.0) pg MCHC 35.3 (31.0-36.0) g/dl RDW 13.7 (11.0-16.0) % Plt Count 141 L D (160-400) X10*3/uL MPV 11.7 (9.4-12.4) fL Immature Gran % (Auto) 0.1 (0.0-0.4) % Neut % (Auto) 59.8 (45-73) % Lymph % (Auto) 32.1 (20-40) % Horry % (Auto) 6.5 (2-11) % Eos % (Auto) 0.8 (0-4) % Baso % (Auto) 0.7 (0-2) % Lymph # (Auto) 2.3 (1.2-4.9) X10*3/uL Horry # (Auto) 0.5 (0.1-1.2) X10*3/uL Eos # (Auto) 0.1 (0.0-0.4) X10*3/uL Baso # (Auto) 0.1 (0.0-0.2) X10*3/uL Abs Immat Gran (auto) 0.01 (0.00-0.03) X10*3/uL Absolute Neuts (auto) 4.2 (2.0-8.3) x10*3/uL Absolute Nucleated RBC 0.000 (0.0-0.012) X10*3/uL Nucleated RBC % (auto) 0.0 (0.0-0.2) /100WBC Sodium 138 (135-145) mmol/L Potassium 4.2 (3.3-5.1) mmol/L Chloride 105 (96-108) mmol/L Carbon Dioxide 24 (22-29) mmol/L Anion Gap 13 (12-20) BUN 19 H (9-16) mg/dL Creatinine 0.90 (0.5-1.4) mg/dL Estim Creat Clear Calc 122.2 Estimated GFR > 60 Random Glucose 100 (60-115) mg/dL Calcium 9.1 D (8.4-10.2) mg/dL Magnesium 1.9 (1.6-2.6) mg/dL Total Bilirubin 0.2 (0.0-1.0) mg/dL Direct Bilirubin < 0.2 (0.0-0.5) mg/dL AST 24 (5-37) U/L ALT 20 (0-40) U/L Alkaline Phosphatase 102 (39-117) U/L Troponin I High Sens < 2.7 (<3.5-35.0) ng/L Total Protein 6.9 (6.5-8.0) g/dL Albumin 4.2 (3.5-5.0) g/dL Urine Color Yellow Urine Appearance Clear Urine pH 5.5 (5.0-9.0) Ur Specific Gilbert >= 1.030 H (1.005-1.025) Urine Protein 30 (1+) H (Neg-Trace) mg/dL Urine Glucose (UA) Negative (Negative) mg/dL Urine Ketones Trace (Negative) mg/dL Urine Blood Negative (Negative) Urine Nitrite Negative (Negative) Ur Leukocyte Esterase Negative (Negative) Urine RBC 0-2 (0-2) /HPF Urine WBC 0-5 (0-5) /HPF Ur Squamous Epith Cells 0-2 (0-2) /HPF Urine Bacteria None Seen (None Seen) Hyaline Casts 0-2 (0-2) /LPF Urine Opiates Screen POSITIVE H (Not Detect) Ur Buprenorphine Scrn Not Detected (Not Detect) ng/mL Ur Oxycodone Screen Not Detected (Not Detect) ng/mL Urine Methadone Screen Not Detected (Not Detect) ng/mL Urine Fentanyl Screen POSITIVE H (Not Detect) Ur Barbiturates Screen Not Detected (Not Detect) Ur Phencyclidine Scrn Not Detected (Not Detect) Ur Amphetamines Screen Not Detected (Not Detect) U Benzodiazepines Scrn Not Detected (Not Detect) Urine Cocaine Screen POSITIVE H (Not Detect) U Marijuana (THC) Screen POSITIVE H (Not Detect) Ethyl Alcohol < 10 mg/dL Influenza Type A (PCR) NEGATIVE (Negative) Influenza Type B (PCR) NEGATIVE (Negative) RSV RNA Qual (PCR) NEGATIVE (Negative) SARS-CoV-2 RNA (RT-PCR) NEGATIVE (Negative) Independent Interpretation I performed an independent interpretation of an: EKG Interpretation: Normal sinus rhythm with delta waves noted, consistent with Dwaod-Vvbfpgwiz-Yubtt > similar to previous. Ventricular rate of 74 beats per minute, CO interval 110, QT QTC 374/415. No ST elevation or depression. Similar-appearing EKG from previous. Reviewed EKG with attending physician, Dr. Roblero Radiology Impression Discussion of test interpretation with radiology: I have reviewed the radiologist's reading. Radiologist Impression: EXAMINATION: XR CHEST CLINICAL INFORMATION: Shortness of breath COMPARISON: Chest x-ray January 02, 2024 TECHNIQUE: 2 views of the chest were obtained. FINDINGS: No significant abnormality is noted involving the heart, lungs, mediastinum, bony thorax or soft tissues. XR/XR chest 2V IMPRESSION: Unremarkable examination. Dictated By: Mick Carcamo MD External Record Review External record reviewed: Primary care record Discharge Plan Discharge Clinical Impression: Cocaine use disorder, severe, dependence, Opioid use disorder, moderate, dependence, Joseline Parkinson White pattern seen on electrocardiogram Patient Disposition: Still a Patient Instructions: Cocaine Abuse (ED), Opioid Use Disorder (ED) Additional Instructions: You were seen in the emergency department due to possible intoxication. Your urine did show you tested positive for opiates, fentanyl, cocaine, and marijuana. Stop using the substances as they can kill you. Your EKG shows a abnormal arrhythmia which has been seen on other EKGs. You need to follow-up with your primary care physician regarding this. Call on Thursday to make an appointment. If any new or worsening symptoms occur including but not limited to worsening chest pain, shortness of breath, dizziness, lightheadedness, please seek emergent care. Prescriptions: No Action ibuprofen 600 mg tablet 600 mg PO Q6H PRN (Reason: pain) Qty: 30 0RF albuterol sulfate 90 mcg/actuation HFA aerosol inhaler 2 puff inhalation Q4-6H PRN (Reason: shortness of breath or wheezing) Qty: 8.5 1RF hydroxyzine pamoate 50 mg capsule 50 mg PO QID PRN (Reason: anxiety) melatonin 3 mg tablet 3 mg PO BEDTIME PRN (Reason: insomnia) trazodone 100 mg tablet 100 mg PO BEDTIME sertraline 50 mg tablet 50 mg PO DAILY bupropion HCl 150 mg tablet extended release 24 hr 150 mg PO QAM sertraline 50 mg tablet 50 mg PO DAILY Qty: 30 0RF trazodone 50 mg tablet 50 mg PO BEDTIME Qty: 30 0RF hydroxyzine pamoate [Vistaril] 25 mg capsule 25 mg PO TID PRN (Reason: anxiety) Qty: 30 0RF amlodipine 2.5 mg tablet 2.5 mg PO DAILY Qty: 30 0RF buprenorphine-naloxone [Suboxone] 2-0.5 mg film 1 film buccal DAILY Qty: 10 0RF Print Language: Maori
--- NOTE | 2024-01-29 17:15 | ECG_ITS ---
Test Reason : CP Blood Pressure : / mmHG Vent. Rate : 074 BPM Atrial Rate : 074 BPM P-R Int : 110 ms QRS Dur : 110 ms QT Int : 374 ms P-R-T Axes : 076 031 070 degrees QTc Int : 415 ms Normal sinus rhythm Bgres-[id number]-Zuzgx Abnormal ECG When compared with ECG of 02-JAN-2024 01:03, No significant change was found Referred By: Helena Suggs Electronically Signed By:Guilherme Baker
[2024-01-29 17:49] LABS: MANUAL DIFF FLAG NO
[2024-01-29 17:54] LABS: Basophils Absolute Auto 0.1 X10*3/uL (0.0-0.2); Basophils Percent Auto 0.7 % (0-2); Eosinophils Absolute Auto 0.1 X10*3/uL (0.0-0.4); Eosinophils Percent Auto 0.8 % (0-4); Hematocrit 39.4 % (42.0-52.0); Hemoglobin 13.9 g/dl (14.0-18.0); Imm Gran Abs Auto 0.01 X10*3/uL (0.00-0.03); Imm Gran Pct Auto 0.1 % (0.0-0.4); Lymphocytes Absolute Auto 2.3 X10*3/uL (1.2-4.9); Lymphocytes Percent Auto 32.1 % (20-40); Mean Corpuscular HGB Conc 35.3 g/dl (31.0-36.0); Mean Corpuscular Hemoglobin 30.3 pg (27.0-33.0); Mean Platelet Volume 11.7 fL (9.4-12.4); Monocytes Absolute Auto 0.5 X10*3/uL (0.1-1.2); Monocytes Percent Auto 6.5 % (2-11); Neutrophils Absolute Auto 4.2 x10*3/uL (2.0-8.3); Neutrophils Percent Auto 59.8 % (45-73); Platelet Count 141 X10*3/uL (160-400); Red Blood Count 4.58 X10*6/uL (4.60-5.80); Red Cell Distribution Width 13.7 % (11.0-16.0); White Blood Count 7.1 X10*3/uL (4.8-10.8)
[2024-01-29 18:01] LABS: Ethanol < 10 mg/dL
[2024-01-29 18:04] LABS: Alanine Aminotransferase 20 U/L (0-40); Albumin Level 4.2 g/dL (3.5-5.0); Alkaline Phosphatase 102 U/L (39-117); Anion Gap 13 (12-20); Aspartate Amino Transferase 24 U/L (5-37); Bilirubin Direct < 0.2 mg/dL (0.0-0.5); Bilirubin Total 0.2 mg/dL (0.0-1.0); Blood Urea Nitrogen 19 mg/dL (9-16); Calcium 9.1 mg/dL (8.4-10.2); Carbon Dioxide 24 mmol/L (22-29); Chloride 105 mmol/L (96-108); Creatinine Clr Calc Pharmacy 122.2; Estimated Glomerular Filt Rate > 60; Glucose Random 100 mg/dL (60-115); Magnesium 1.9 mg/dL (1.6-2.6); Potassium 4.2 mmol/L (3.3-5.1); Sodium 138 mmol/L (135-145); Total Protein 6.9 g/dL (6.5-8.0)
[2024-01-29 18:12] LABS: Troponin-I High Sensitivity < 2.7 ng/L (<3.5-35.0)
[2024-01-29 18:18] LABS: Appearance Urine Clear; Color Urine Yellow; Glucose Urine UA Negative (Negative); Leukocyte Esterase Urine Negative (Negative); Nitrite Urine Negative (Negative); PH 5.5 (5.0-9.0); Specific Gravity - Urine >= 1.030 (1.005-1.025); UMIC TRIGGER UACC YES; Urine Blood Negative (Negative); Urine Ketones Trace mg/dL (Negative); Urine Protein 30 (1+) mg/dL (Neg-Trace)
[2024-01-29 18:21] LABS: Bacteria Urine None Seen (None Seen); Hyaline Casts Urine 0-2 /LPF (0-2); RBC Urine 0-2 /HPF (0-2); Squamous Epithelial Cell Urine 0-2 /HPF (0-2); WBC Urine 0-5 /HPF (0-5)
[2024-01-29 18:24] VITALS: BP 173/67; PULSE 72; RESP 16; O2SAT 97
[2024-01-29 18:25] VITALS: BP 173/67; PULSE 70; RESP 16; O2SAT 98
[2024-01-29] MEDS: Acetaminophen 325 MG TABLET 975 MG PO (18:25)
[2024-01-29 18:27] LABS: Influenza A PCR NEGATIVE (Negative); Influenza B PCR NEGATIVE (Negative); Resp Syncy Virus RNA Qual PCR NEGATIVE (Negative); SARS COV2 PCR INHOUSE NEGATIVE (Negative)
[2024-01-29 18:29] LABS: Amphetamine Screen Urine Not Detected (Not Detect); Barbiturates, Urine Not Detected (Not Detect); Benzodiazepines Screen Urine Not Detected (Not Detect); Buprenorphine Scr Not Detected (Not Detect); Cannabinoid Screen Urine POSITIVE (Not Detect); Cocaine Screen Urine POSITIVE (Not Detect); Fentanyl, urine POSITIVE (Not Detect); Methadone Screen, Urine Not Detected (Not Detect); Opiate Screen Urine POSITIVE (Not Detect); Oxycodone Screen Urine Not Detected (Not Detect); Phencyclidine Screen Urine Not Detected (Not Detect)
[2024-01-29 19:29] VITALS: BP 173/67; PULSE 70; RESP 16; TEMP 36.9; O2SAT 98
== END 2024-01-29 19:30 | disposition home or self-care (01) ==
PROVIDERS: Physician Assistant Medical; Emergency Provider Emergency Medicine
DX: R07.89 Other chest pain (principal); F11.20 Opioid dependence, uncomplicated; F14.20 Cocaine dependence, uncomplicated; R06.02 Shortness of breath; I45.6 Pre-excitation syndrome; Z03.818 Encounter for observation for suspected exposure to other biological agents ruled out; Z79.899 Other long term (current) drug therapy; Z51.81 Encounter for therapeutic drug level monitoring
CPT/HCPCS: 0241U; 36415; 71046; 80048; 80076; 80307; 81001; 83735; 84484; 85025; 93005; 99283; 99284

== ENCOUNTER → 2024-01-29 17:15 | Outpatient (BNV) | payer MEDICARE, MEDICAID, SELFPAY | PROVIDERS: Emergency Provider Emergency Medicine; Visit Provider Internal Medicine Cardiovascular Disease | DX: R94.31 Abnormal electrocardiogram [ECG] [EKG] (principal) | CPT/HCPCS: 93010 ==

== ENCOUNTER 2024-02-03 05:36 | Emergency (ER) | payer MEDICARE, MEDICAID, SELFPAY ==
[2024-02-03 05:41] VITALS: BP 166/107; PULSE 76; RESP 16; TEMP 36.3; O2SAT 100; BMI 25.9
[2024-02-03 06:06] VITALS: BP 164/99; PULSE 77; RESP 16; O2SAT 99
--- NOTE | 2024-02-03 06:37 | ED_ITS ---
HPI - Dental/Oral General Chief complaint: Dental/Oral Stated complaint: tooth pain Time Seen by Provider: 02/03/24 06:34 Source: patient and RN notes reviewed Mode of arrival: ambulatory Limitations: no limitations History of Present Illness ED Provider: Helena Suggs PA-C HPI Narrative: This is a 33-year-old male, with a history of substance abuse, who presents emergency department with complaints of right lower dental pain x2 weeks, worsening over the last 5 days. Patient states that he was able to follow-up with the dentist yesterday and was told that he needs a root canal. He was not treated with any antibiotics or pain medication at his dentist's office. He has not scheduled the root canal as yet. Patient reports worsening pain to his right lower dentition. He denies any fevers, chills, difficulty swallowing. He has been taking ibuprofen without relief. No other complaints or concerns at this time. MD Complaint: tooth pain Location: Tooth # (31) Teeth map: 2 1. Onset (ago): week(s) Duration: constant Severity: moderate Relieving factors: nothing Exacerbating factors: nothing Context: history of dental caries, trauma (mechanism) and poor dental care Treatment prior to arrival: none Related Data Home Medications ?Medication ?Instructions ?Recorded ?Confirmed bupropion HCl 150 mg 24 hr tablet, 150 mg PO QAM 12/21/23 12/21/23 extended release hydroxyzine pamoate 50 mg capsule 50 mg PO QID PRN anxiety 12/21/23 12/21/23 melatonin 3 mg tablet 3 mg PO BEDTIME PRN insomnia 12/21/23 12/21/23 sertraline 50 mg tablet 50 mg PO DAILY 12/21/23 12/21/23 trazodone 100 mg tablet 100 mg PO BEDTIME 12/21/23 12/21/23 Previous Rx's ?Medication ?Instructions ?Recorded ibuprofen 600 mg tablet 600 mg PO Q6H PRN pain #30 tabs 02/12/21 albuterol sulfate 90 mcg/actuation 2 puff inhalation Q4-6H PRN 08/26/23 aerosol inhaler shortness of breath or wheezing #8.5 grams amlodipine 2.5 mg tablet 2.5 mg PO DAILY #30 tabs 12/22/23 buprenorphine 2 mg-naloxone 0.5 mg 1 film buccal DAILY #10 ea 12/22/23 sublingual film (Suboxone) hydroxyzine pamoate 25 mg capsule 25 mg PO TID PRN anxiety #30 caps 12/22/23 (Vistaril) sertraline 50 mg tablet 50 mg PO DAILY #30 tabs 12/22/23 trazodone 50 mg tablet 50 mg PO BEDTIME #30 tabs 12/22/23 acetaminophen 500 mg tablet 1,000 mg (2 x 500 mg) PO Q6H PRN 02/03/24 (Tylenol Extra Strength) pain #30 tabs amoxicillin 875 mg-potassium 1 tab PO BID 7 days #14 tabs 02/03/24 clavulanate 125 mg tablet ibuprofen 600 mg tablet 600 mg PO Q6H PRN pain #30 tabs 02/03/24 Allergies Allergy/AdvReac Type Severity Reaction Status Date / Time No Known Allergies Allergy Verified 02/03/24 05:42 Review of Systems 2 Review of Systems: Yes all other systems are reviewed and are negative Constitutional: Constitutional: Reports as per [facility] Past Medical History Attestation statement: The following information was validated with the patient. Medical History Asthma Social History Social History Patient Tobacco Use Status: Current everyday Tobacco user Smoked in Last 30 Days: Yes Use of substances other than those prescribed or required for medical reasons: No Substance Use Type: Crack/Cocaine Advance Directives: No Advance Directives Information Provided: No Do you have a plan to hurt others: No Plan Physical Exam 2 Vital Signs: Vital Signs: Last Vital Signs Temp 97.3 F 02/03/24 05:41 Pulse 77 02/03/24 06:06 Resp 16 02/03/24 06:06 BP 164/99 H 02/03/24 06:06 Pulse Ox 99 02/03/24 06:06 O2 Del Method Room Air 02/03/24 06:06 BMI result Body Mass Index 25.9 Const: General: cooperative, comfortable and no acute distress O rientation/consciousness: patient oriented x3 Limitations: no limitations HEENT: Other: Tooth number 31 is broken with TTP, no surrounding gingival edema, fluctuance, erythema. Head: Yes normal to inspection, Yes normocephalic and Yes atraumatic E ars: hearing grossly normal bilaterally General nose exam: Normal external nose present Face and sinus: Yes normal facial exam Mouth: Normal oral and palatal mucosa present, oropharynx normal and moist mucous membranes Throat: Yes posterior oropharynx normal Eyes: General: appearance normal, both eyes and all related structures E yelids: Yes eyelids normal Conjunctivae: conjunctivae normal Sclerae: s clerae normal Pupils: Equal, round and reactive pupils present EOM: EOMs intact bilaterally Neck: Neck: Yes normal visual inspection, Yes full ROM and Yes no lymphadenopathy Lymphatic: no lymphadenopathy noted Chest: Chest palpation & inspection: normal inspection of the chest Resp: Effort & Inspection: normal respiratory effort and able to speak in complete sentences Auscultation: clear to auscultation bilaterally, no crackles, no rales, no rhonchi and no wheezes Cardio: Rate: regular rate Rhythm: regular rhythm GI: Inspection: Yes normal to inspection Skin: General skin exam: no rashes or lesions noted Trauma: no lacerations or abrasions Wounds: no wounds Neuro: General: patient oriented x3 and moves all extremities Cranial nerves: Yes Equal, round and reactive pupils present Extrem: General: Yes normal to inspection Right upper extremity: normal to inspection Left upper extremity: normal to inspection Right lower extremity: normal to inspection Left lower extremity: normal to inspection Medical Decision Making Medical Decision Making [facility] Narrative: This is a 33-luqx-ifr-male, with a hx of substance abuse, presenting to the ER with complaints of dental pain x 4 days. On arrival, BP mildly elevated, he is afebrile and speaking in full sentences. Differential diagnoses include dental fracture, dental decay, dental abscess. Patient has broken tooth in his right lower dentition. He has followed up with a dentist, will be scheduling a root canal later this afternoon. Will treat with course of Augmentin, ibuprofen and Tylenol. Given 1st doses in department today. Discussed return precautions. He understands agrees with plan. Patient stable for discharge. Differential Diagnosis Differential Diagnoses: The differential diagnosis associated with the presentation includes See above Discharge Plan Discharge Clinical Impression: Pain, dental Patient Disposition: Home, Self-Care Instructions: Toothache (ED) Additional Instructions: You were seen in the ER due to dental pain. You have a broken tooth that needs dental care through a dentist. Please take prescribed antibiotic as directed. Finish the entire course even if you are feeling better. You received your 1st dose in the department today. Take 2nd dose this evening at around 7:00 p.m.. Alternate between ibuprofen and Tylenol as needed for pain. Call your dentist today to make an appointment for further management of your symptoms. If any new or worsening symptoms occur including but not limited to worsening pain, fevers, chills, difficulty swallowing, chest pain, shortness of breath, please return for re-evaluation. Prescriptions: New amoxicillin-pot clavulanate 875-125 mg tablet 1 tab PO BID 7 Days Qty: 14 0RF acetaminophen [Tylenol Extra Strength] 500 mg tablet 1,000 mg PO Q6H PRN (Reason: pain) Qty: 30 0RF ibuprofen 600 mg tablet 600 mg PO Q6H PRN (Reason: pain) Qty: 30 0RF No Action ibuprofen 600 mg tablet 600 mg PO Q6H PRN (Reason: pain) Qty: 30 0RF albuterol sulfate 90 mcg/actuation HFA aerosol inhaler 2 puff inhalation Q4-6H PRN (Reason: shortness of breath or wheezing) Qty: 8.5 1RF hydroxyzine pamoate 50 mg capsule 50 mg PO QID PRN (Reason: anxiety) melatonin 3 mg tablet 3 mg PO BEDTIME PRN (Reason: insomnia) trazodone 100 mg tablet 100 mg PO BEDTIME sertraline 50 mg tablet 50 mg PO DAILY bupropion HCl 150 mg tablet extended release 24 hr 150 mg PO QAM sertraline 50 mg tablet 50 mg PO DAILY Qty: 30 0RF trazodone 50 mg tablet 50 mg PO BEDTIME Qty: 30 0RF hydroxyzine pamoate [Vistaril] 25 mg capsule 25 mg PO TID PRN (Reason: anxiety) Qty: 30 0RF amlodipine 2.5 mg tablet 2.5 mg PO DAILY Qty: 30 0RF buprenorphine-naloxone [Suboxone] 2-0.5 mg film 1 film buccal DAILY Qty: 10 0RF Print Language: Cypriot
[2024-02-03] MEDS: Acetaminophen 325 MG TABLET 975 MG PO (06:58)
[2024-02-03] MEDS: Amoxicillin/Potassium Clav 875 MG TABLET PO (06:58)
[2024-02-03 07:00] VITALS: BP 150/112; PULSE 69; RESP 16; O2SAT 99
[2024-02-03 07:02] VITALS: BP 150/112; PULSE 69; RESP 16; TEMP 36.8; O2SAT 99
== END 2024-02-03 07:03 | disposition home or self-care (01) ==
PROVIDERS: Emergency Provider Emergency Medicine
DX: K08.89 Other specified disorders of teeth and supporting structures (principal)
CPT/HCPCS: 99283; 99284

== ENCOUNTER 2024-02-10 12:52 | Emergency (ER) | payer MEDICARE, MEDICAID, SELFPAY ==
--- NOTE | ~2024-02-10 | XR_ITS ---
EXAMINATION: XR CHEST CLINICAL INFORMATION: Chest pain, shortness of breath COMPARISON: 01/29/2024 TECHNIQUE: Frontal view of the chest was obtained. FINDINGS: No focal consolidation, pulmonary edema, or pleural effusion. Stable cardiomediastinal silhouette. XR/XR chest 1V IMPRESSION: Normal chest
--- NOTE | 2024-02-10 12:53 | ECG_ITS ---
Test Reason : CHEST PAIN Blood Pressure : / mmHG Vent. Rate : 071 BPM Atrial Rate : 071 BPM P-R Int : 106 ms QRS Dur : 102 ms QT Int : 376 ms P-R-T Axes : 063 044 056 degrees QTc Int : 408 ms Sinus rhythm with short MI Ourmi-Lyunkdxsf-Opigy Abnormal ECG When compared with ECG of 29-JAN-2024 17:32, No significant changes seen Referred By: Generic ED Physician Electronically Signed By:CELESTE OSEI
[2024-02-10 13:07] VITALS: BP 141/76; PULSE 62; RESP 16; TEMP 36.4; O2SAT 98; BMI 25.8
--- NOTE | 2024-02-10 13:10 | ED.GENADULT ---
HPI - General Adult General Chief complaint: Chest Pain Stated complaint: CP , trouble breathing Time Seen by Provider: 02/10/24 15:07 Related Data Home Medications ?Medication ?Instructions ?Recorded ?Confirmed bupropion HCl 150 mg 24 hr tablet, 150 mg PO QAM 12/21/23 12/21/23 extended release hydroxyzine pamoate 50 mg capsule 50 mg PO QID PRN anxiety 12/21/23 12/21/23 melatonin 3 mg tablet 3 mg PO BEDTIME PRN insomnia 12/21/23 12/21/23 sertraline 50 mg tablet 50 mg PO DAILY 12/21/23 12/21/23 trazodone 100 mg tablet 100 mg PO BEDTIME 12/21/23 12/21/23 Previous Rx's ?Medication ?Instructions ?Recorded ibuprofen 600 mg tablet 600 mg PO Q6H PRN pain #30 tabs 02/12/21 albuterol sulfate 90 mcg/actuation 2 puff inhalation Q4-6H PRN 08/26/23 aerosol inhaler shortness of breath or wheezing #8.5 grams amlodipine 2.5 mg tablet 2.5 mg PO DAILY #30 tabs 12/22/23 buprenorphine 2 mg-naloxone 0.5 mg 1 film buccal DAILY #10 ea 12/22/23 sublingual film (Suboxone) hydroxyzine pamoate 25 mg capsule 25 mg PO TID PRN anxiety #30 caps 12/22/23 (Vistaril) sertraline 50 mg tablet 50 mg PO DAILY #30 tabs 12/22/23 trazodone 50 mg tablet 50 mg PO BEDTIME #30 tabs 12/22/23 acetaminophen 500 mg tablet 1,000 mg (2 x 500 mg) PO Q6H PRN 02/03/24 (Tylenol Extra Strength) pain #30 tabs amoxicillin 875 mg-potassium 1 tab PO BID 7 days #14 tabs 02/03/24 clavulanate 125 mg tablet ibuprofen 600 mg tablet 600 mg PO Q6H PRN pain #30 tabs 02/03/24 Allergies Allergy/AdvReac Type Severity Reaction Status Date / Time No Known Allergies Allergy Verified 02/10/24 13:08 [facility] Past Medical History Medical History Asthma Social History Social History Patient Tobacco Use Status: Current everyday Tobacco user Substance Use Type: Crack/Cocaine Advance Directives: No Physical Exam ED Vital Signs: BMI result Body Mass Index 25.8 Course Course Course Narrative: This is an RME done by GRICEL Gaytan: Additional HPI, ROS, PE not included below will be deferred to primary provider. 33 yo m hx of opiate use do, cocaine use do and MDD presents w/ cp sob x few days no sick contacts. Denies cough, sore throat, nausea, vomiting, diarrhea, fever, chills Appearance: Alert.? Oriented X3.? No acute cardiopulmonary distress distress.? Head: Normocephalic, atraumatic, no step-offs or deformities CVS: Pulses normal.? Respiratory: No respiratory distress.? Skin: ? Normal skin color. Extremities: 5/5 strength to bilateral upper and lower extremities Back: No midline tenderness, no C-spine tenderness, full range of motion, No CVA tenderness bilaterally Neuro: Oriented X 3.? No motor deficit.? No sensory deficit. Medical Decision Making Lab Data 02/10/24 13:15 02/10/24 13:15 Labs: Lab Results 02/10/24 Range/Units 13:15 WBC 4.9 (4.8-10.8) X10*3/uL RBC 4.95 (4.60-5.80) X10*6/uL Hgb 14.8 (14.0-18.0) g/dl Hct 43.9 (42.0-52.0) % MCV 88.7 (80.0-98.0) fL MCH 29.9 (27.0-33.0) pg MCHC 33.7 (31.0-36.0) g/dl RDW 13.6 (11.0-16.0) % Plt Count 148 L (160-400) X10*3/uL MPV 11.2 (9.4-12.4) fL Immature Gran % (Auto) 0.0 (0.0-0.4) % Neut % (Auto) 65.6 (45-73) % Lymph % (Auto) 27.2 (20-40) % [place] % (Auto) 6.6 (2-11) % Eos % (Auto) 0.2 (0-4) % Baso % (Auto) 0.4 (0-2) % Lymph # (Auto) 1.3 (1.2-4.9) X10*3/uL [place] # (Auto) 0.3 (0.1-1.2) X10*3/uL Eos # (Auto) 0.0 (0.0-0.4) X10*3/uL Baso # (Auto) 0.0 (0.0-0.2) X10*3/uL Abs Immat Gran (auto) 0.00 (0.00-0.03) X10*3/uL Absolute Neuts (auto) 3.2 (2.0-8.3) x10*3/uL Absolute Nucleated RBC 0.000 (0.0-0.012) X10*3/uL Nucleated RBC % (auto) 0.0 (0.0-0.2) /100WBC Sodium 140 (135-145) mmol/L Potassium 4.2 (3.3-5.1) mmol/L Chloride 108 (96-108) mmol/L Carbon Dioxide 24 (22-29) mmol/L Anion Gap 12 (12-20) BUN 18 H (9-16) mg/dL Creatinine 0.87 (0.5-1.4) mg/dL Estim Creat Clear Calc 111.0 Estimated GFR > 60 Random Glucose 102 (60-115) mg/dL Calcium 9.8 D (8.4-10.2) mg/dL Magnesium 1.9 (1.6-2.6) mg/dL Total Bilirubin 0.5 (0.0-1.0) mg/dL AST 22 (5-37) U/L ALT 17 (0-40) U/L Alkaline Phosphatase 81 (39-117) U/L Troponin I High Sens < 2.7 (<3.5-35.0) ng/L B-Natriuretic Peptide 45 (<100) pg/mL Total Protein 7.2 (6.5-8.0) g/dL Albumin 4.3 (3.5-5.0) g/dL Discharge Plan Discharge Clinical Impression: Eloped from emergency department Patient Disposition: Left W/O Completing Treatment Prescriptions: No Action ibuprofen 600 mg tablet 600 mg PO Q6H PRN (Reason: pain) Qty: 30 0RF albuterol sulfate 90 mcg/actuation HFA aerosol inhaler 2 puff inhalation Q4-6H PRN (Reason: shortness of breath or wheezing) Qty: 8.5 1RF hydroxyzine pamoate 50 mg capsule 50 mg PO QID PRN (Reason: anxiety) melatonin 3 mg tablet 3 mg PO BEDTIME PRN (Reason: insomnia) trazodone 100 mg tablet 100 mg PO BEDTIME sertraline 50 mg tablet 50 mg PO DAILY bupropion HCl 150 mg tablet extended release 24 hr 150 mg PO QAM sertraline 50 mg tablet 50 mg PO DAILY Qty: 30 0RF trazodone 50 mg tablet 50 mg PO BEDTIME Qty: 30 0RF hydroxyzine pamoate [Vistaril] 25 mg capsule 25 mg PO TID PRN (Reason: anxiety) Qty: 30 0RF amoxicillin-pot clavulanate 875-125 mg tablet 1 tab PO BID 7 Days Qty: 14 0RF acetaminophen [Tylenol Extra Strength] 500 mg tablet 1,000 mg PO Q6H PRN (Reason: pain) Qty: 30 0RF ibuprofen 600 mg tablet 600 mg PO Q6H PRN (Reason: pain) Qty: 30 0RF amlodipine 2.5 mg tablet 2.5 mg PO DAILY Qty: 30 0RF buprenorphine-naloxone [Suboxone] 2-0.5 mg film 1 film buccal DAILY Qty: 10 0RF Discharge Date/Time: 02/10/24 16:35
[2024-02-10 13:20] LABS: MANUAL DIFF FLAG NO
[2024-02-10 13:22] LABS: Basophils Percent Auto 0.4 % (0-2); Eosinophils Percent Auto 0.2 % (0-4); Hematocrit 43.9 % (42.0-52.0); Hemoglobin 14.8 g/dl (14.0-18.0); Lymphocytes Absolute Auto 1.3 X10*3/uL (1.2-4.9); Lymphocytes Percent Auto 27.2 % (20-40); Mean Corpuscular HGB Conc 33.7 g/dl (31.0-36.0); Mean Corpuscular Hemoglobin 29.9 pg (27.0-33.0); Mean Corpuscular Volume 88.7 fL (80.0-98.0); Mean Platelet Volume 11.2 fL (9.4-12.4); Monocytes Absolute Auto 0.3 X10*3/uL (0.1-1.2); Monocytes Percent Auto 6.6 % (2-11); Neutrophils Absolute Auto 3.2 x10*3/uL (2.0-8.3); Neutrophils Percent Auto 65.6 % (45-73); Platelet Count 148 X10*3/uL (160-400); Red Blood Count 4.95 X10*6/uL (4.60-5.80); Red Cell Distribution Width 13.6 % (11.0-16.0); White Blood Count 4.9 X10*3/uL (4.8-10.8)
[2024-02-10 13:40] LABS: Alanine Aminotransferase 17 U/L (0-40); Albumin Level 4.3 g/dL (3.5-5.0); Alkaline Phosphatase 81 U/L (39-117); Anion Gap 12 (12-20); Aspartate Amino Transferase 22 U/L (5-37); Bilirubin Total 0.5 mg/dL (0.0-1.0); Blood Urea Nitrogen 18 mg/dL (9-16); Calcium 9.8 mg/dL (8.4-10.2); Carbon Dioxide 24 mmol/L (22-29); Chloride 108 mmol/L (96-108); Estimated Glomerular Filt Rate > 60; Glucose Random 102 mg/dL (60-115); Magnesium 1.9 mg/dL (1.6-2.6); Potassium 4.2 mmol/L (3.3-5.1); Sodium 140 mmol/L (135-145); Total Protein 7.2 g/dL (6.5-8.0)
[2024-02-10 13:44] LABS: B Type Natriuretic Peptide 45 pg/mL (<100)
[2024-02-10 13:45] LABS: Troponin-I High Sensitivity < 2.7 ng/L (<3.5-35.0)
== END 2024-02-10 16:35 | disposition left against medical advice (07) ==
PROVIDERS: Physician Assistant; Emergency Provider Emergency Medicine
DX: R07.9 Chest pain, unspecified (principal); J45.909 Unspecified asthma, uncomplicated; Z79.899 Other long term (current) drug therapy
CPT/HCPCS: 36415; 71045; 80053; 83735; 83880; 84484; 85025; 93005; 99283

== ENCOUNTER → 2024-02-10 12:53 | Outpatient (BNV) | payer MEDICARE, MEDICAID, SELFPAY | PROVIDERS: Emergency Provider Emergency Medicine; Visit Provider Internal Medicine | DX: R94.31 Abnormal electrocardiogram [ECG] [EKG] (principal) | CPT/HCPCS: 93010 ==

== ENCOUNTER 2024-02-13 18:51 | Emergency (ER) | payer MEDICARE, MEDICAID, SELFPAY ==
[2024-02-13 19:09] VITALS: BP 153/77; PULSE 93; RESP 20; TEMP 36.9; O2SAT 97; BMI 25.2
--- NOTE | 2024-02-13 19:14 | ECG_ITS ---
Test Reason : WITHDRAWAL Blood Pressure : / mmHG Vent. Rate : 085 BPM Atrial Rate : 085 BPM P-R Int : 182 ms QRS Dur : 142 ms QT Int : 398 ms P-R-T Axes : 000 008 223 degrees QTc Int : 473 ms Normal sinus rhythm [id number] Abnormal ECG When compared with ECG of 10-FEB-2024 12:51, No significant changes seen Referred By: Tiffanie Sidhu Electronically Signed By:CELESTE OSEI
--- NOTE | 2024-02-13 19:14 | ED.GENADULT ---
HPI - General Adult General Chief complaint: ETOH/Substance Use Stated complaint: withdrawals Time Seen by Provider: 02/13/24 20:22 Source: patient Mode of arrival: ambulatory Limitations: no limitations History of Present Illness ED Provider: Gali Barrera PA-C HPI narrative: Patient is a 33 year old assigned male at with a history of WPW, HTN, Cocaine use, opiate use, and MDD presenting to the emergency department today requesting to be restarted on methadone. Patient states that he has been off of any drugs for 5 days and hasn't been taking his blood pressure medication for quite awhile since he ran out. Patient states that he wants to be restarted on methadone. Patient denies any dizziness, lightheadedness, abdominal pain, nausea, vomiting, fever, chills, blurry vision, double vision, loss of vision, chest pain, difficulty breathing, shortness of breath, back pain, night sweats, pain with urination, increased urinary frequency, increased urinary urgency, blood in his urine or stool, syncope or a near syncopal episode, recent trauma or falls, bowel incontinence, bladder incontinence, or any other complaints at this time. Onset (ago): day(s) (5) Relieving factors: none Exacerbating factors: none Associated symptoms: denies other symptoms Treatments prior to arrival: none Related Data Home Medications ?Medication ?Instructions ?Recorded ?Confirmed bupropion HCl 150 mg 24 hr tablet, 150 mg PO QAM 12/21/23 12/21/23 extended release hydroxyzine pamoate 50 mg capsule 50 mg PO QID PRN anxiety 12/21/23 12/21/23 melatonin 3 mg tablet 3 mg PO BEDTIME PRN insomnia 12/21/23 12/21/23 sertraline 50 mg tablet 50 mg PO DAILY 12/21/23 12/21/23 trazodone 100 mg tablet 100 mg PO BEDTIME 12/21/23 12/21/23 Previous Rx's ?Medication ?Instructions ?Recorded ibuprofen 600 mg tablet 600 mg PO Q6H PRN pain #30 tabs 02/12/21 albuterol sulfate 90 mcg/actuation 2 puff inhalation Q4-6H PRN 08/26/23 aerosol inhaler shortness of breath or wheezing #8.5 grams amlodipine 2.5 mg tablet 2.5 mg PO DAILY #30 tabs 12/22/23 buprenorphine 2 mg-naloxone 0.5 mg 1 film buccal DAILY #10 ea 12/22/23 sublingual film (Suboxone) hydroxyzine pamoate 25 mg capsule 25 mg PO TID PRN anxiety #30 caps 12/22/23 (Vistaril) sertraline 50 mg tablet 50 mg PO DAILY #30 tabs 12/22/23 trazodone 50 mg tablet 50 mg PO BEDTIME #30 tabs 12/22/23 acetaminophen 500 mg tablet 1,000 mg (2 x 500 mg) PO Q6H PRN 02/03/24 (Tylenol Extra Strength) pain #30 tabs amoxicillin 875 mg-potassium 1 tab PO BID 7 days #14 tabs 02/03/24 clavulanate 125 mg tablet ibuprofen 600 mg tablet 600 mg PO Q6H PRN pain #30 tabs 02/03/24 albuterol sulfate 90 mcg/actuation 1 inh inhalation QID #8.5 grams 02/14/24 aerosol inhaler amlodipine 2.5 mg tablet 2.5 mg PO DAILY #30 tabs 02/14/24 Allergies Allergy/AdvReac Type Severity Reaction Status Date / Time No Known Allergies Allergy Verified 02/13/24 19:13 Review of Systems Constitutional: Constitutional: Reports no additional constitutional complaints, Denies chills, Denies fever(s) and Denies night sweats Eyes: Eyes: Reports no additional eye complaints, Denies blurry vision, Denies change in vision, Denies diplopia, Denies eye discharge, Denies loss of vision and Denies eye pain ENT: Denies dizziness Cardiovascular: Cardiovascular: Reports no additional cardiovascular complaints, Denies chest pain, Denies lightheadedness, Denies Loss of Consciousness and Denies dyspnea Respiratory: Respiratory: Reports no additional respiratory complaints and Denies dyspnea Gastrointestinal: Gastrointestinal: Reports no additional gastrointestinal complaints, Denies abdominal pain, Denies melena, Denies hematochezia, Denies change in bowel habits and Denies change in stool character Genitourinary: Genitourinary: Reports no additional male genitourinary complaints, Denies hematuria, Denies oliguria, Denies difficulty urinating, Denies dysuria, Denies urinary frequency, Denies urinary hesitancy, Denies urinary incontinence and Denies urinary urgency Musculoskeletal: Musculoskeletal: Reports no additional musculoskeletal complaints, Denies numbness and Denies tingling Neurologic: Denies dizziness, Denies loss of vision, Denies numbness and Denies tingling Psychiatric: Psychiatric: Reports no additional psychiatric complaints Endocrine: Endocrine: Reports no additional endocrine complaints Hematologic/Lymphatic: Hematologic/Lymphatic: Reports no additional hematologic/lymphatic complaints Allergic/Immunologic: Allergic/Immunologic: Reports no additional allergic/immunologic complaints PMF Past Medical History Attestation statement: The following information was validated with the patient. Source: old records reviewed and nursing notes reviewed Medical History Asthma Social History Social History Alcohol intake: current Alcohol intake frequency: 0-2 drinks per day Patient Tobacco Use Status: Current everyday Tobacco user Smoked in Last 30 Days: Yes Use of substances other than those prescribed or required for medical reasons: Yes Substance Use Type: Crack/Cocaine and Opiates Substance Use Frequency: Daily Last Used Substance: Days (ago) Advance Directives: No Advance Directives Information Provided: No Physical Exam ED Vital Signs: Vital Signs - 24 hr 02/13/24 19:09 02/13/24 20:24 02/13/24 21:38 Temperature 98.4 F 98.5 F 97.9 F Pulse Rate 93 77 62 Respiratory Rate 20 15 15 Blood Pressure 153/77 H 140/76 H 148/83 H Pulse Oximetry 97 97 97 Oxygen Delivery Method Room Air Room Air Room Air 02/14/24 00:07 Temperature 97.8 F Pulse Rate 77 Respiratory Rate 18 Blood Pressure 193/119 H Pulse Oximetry 98 Oxygen Delivery Method Room Air BMI result Body Mass Index 25.2 Const General: cooperative, no acute distress, alert and awake Nutritional Appearance: well nourished Orientation/consciousness: patient oriented x3 Limitations: no limitations HENMT Head: Yes normal to inspection and Yes atraumatic Ears: hearing grossly normal bilaterally and external ears normal General nose exam: Normal external nose present, no nasal discharge noted and no epistaxis Face and sinus: Yes normal facial exam, No abrasion and No laceration Mouth: Normal oral and palatal mucosa present, no drooling and no muffled voice Eyes General: appearance normal, both eyes and all related structures Periorbital: periorbital findings normal Eyelids: Yes eyelids normal Conjunctivae: conjunctivae normal Pupils: Equal, round and reactive pupils present EOM: EOMs intact bilaterally Neck Neck: Yes normal visual inspection, Yes full ROM and Yes no lymphadenopathy Chest Chest palpation & inspection: normal inspection of the chest Resp Effort & Inspection: normal respiratory effort and able to speak in complete sentences GI Inspection: Yes normal to inspection Neuro General: patient oriented x3 and moves all extremities Cranial nerves: Yes Equal, round and reactive pupils present Cognition (Neuro): normal cognition Extrem General: Yes normal to inspection, Yes full ROM and Yes capillary refill normal Psych Appearance: grossly normal Mental Status: mental status grossly normal Affect: normal affect Attitude: cooperative Thought process: Normal thought process present Thought content: Normal thought content present Insight: Good insight present (Psych) Course Course Course Narrative: This is a Rapid Medical Examination (RME) performed by Rajendra Sidhu PA-C in triage. Full HPI, ROS, assessment and treatment plan per primary provider in the Main ED. 33 yo male hx of MDD, opioid use disorder, cocaine use disorder here stating that he is withdrawing from cocaine and opioids. last used 5 days ago. Admits used to be on methadone however stop taking this 3 months ago. Has been trying to get back on this without success. Reports overall pain and weakness. patient AOX3 in triage. ambulating w/ steady gait. Plan: labs, UA, u tox, ekg Medications Administered Discontinued Medications Generic Name Dose Route Start Last Admin Trade Name Freq PRN Reason Stop Dose Admin Sodium Chloride 1,000 mls @ 999 mls/hr 02/13/24 20:45 02/13/24 22:40 Ns IV 02/13/24 21:45 Infused .Q1H1M [id number] Infusion Lorazepam 2 mg 02/13/24 20:32 02/13/24 21:22 Lorazepam 1 Mg Tablet PO 02/13/24 20:33 2 mg ONCE ONE Administration Methadone HCl 30 mg 02/13/24 21:10 02/13/24 21:23 Methadone Hcl 20 Mg/2 Ml Oral.Conc PO 02/13/24 21:11 30 mg ONCE ONE Administration Medical Decision Making Medical Decision Making [facility] Narrative: Patient is a 33 year old assigned male at with a history of WPW, opiate use disorder, cocaine use disorder, HTN, and MDD presenting to the emergency department today requesting to be restarted on methadone. Patient's physical exam was unremarkable. However, the patient was hypertensive. Patient was asymptomatic and confirmed that he has not been taking his medication for his blood pressure. Patient was given a dose of blood pressure medication while in the department. Patient's blood work was unremarkable. Patient's urine showed no acute process. Patient's EKG was unremarkable. I explained my physical exam findings as well as all test results to the patient. I answered all questions asked by the patient. I offered the patient to stay to speak to the addiction team tomorrow morning however, the patient declined. I stressed the importance of the patient taking his medication as directed (either prescribed or as the over the counter packaging recommends). I stressed the importance of the patient following up with his primary care provider. I stressed the importance of the patient returning to the emergency department immediately if his symptoms were to worsen or if he were to develop any dizziness, shortness of breath, difficulty breathing, chest pain, blurry vision, loss of vision, nausea, vomiting, abdominal pain, fever, chills, back pain, or any other complaints. Patient verbalized agreement and understanding with this treatment plan and discharge. Differential Diagnosis Differential Diagnoses: The differential diagnosis associated with the presentation includes Methadone use Opiate abuse Cocaine abuse Hypertension Uncontrolled hypertension Admission/Observation Consideration of admission/observation: Escalation of care including admission/observation considered Patient would have been admitted to the hospital had his work up had any findings where hospital admission was appropriate and his clinical presentation warranted hospital admission. Lab Data [facility] Lab Attestation statement: I reviewed the patient's lab results. My interpretation of these results are in the [facility] Rationale portion of this note. 02/13/24 19:30 02/13/24 19:33 Labs: Lab Results 02/13/24 02/13/24 02/13/24 Range/Units 19:30 19:33 22:32 WBC 7.5 (4.8-10.8) X10*3/uL RBC 5.21 (4.60-5.80) X10*6/uL Hgb 15.8 (14.0-18.0) g/dl Hct 45.1 (42.0-52.0) % MCV 86.6 (80.0-98.0) fL MCH 30.3 (27.0-33.0) pg MCHC 35.0 (31.0-36.0) g/dl RDW 13.5 (11.0-16.0) % Plt Count 162 (160-400) X10*3/uL MPV 11.4 (9.4-12.4) fL Immature Gran % (Auto) Cancelled Neut % (Auto) Cancelled Lymph % (Auto) Cancelled [place] % (Auto) Cancelled Eos % (Auto) Cancelled Baso % (Auto) Cancelled Lymph # (Auto) Cancelled [place] # (Auto) Cancelled Eos # (Auto) Cancelled Baso # (Auto) Cancelled Abs Immat Gran (auto) Cancelled Absolute Neuts (auto) Cancelled Absolute Nucleated RBC 0.000 (0.0-0.012) X10*3/uL Nucleated RBC % (auto) 0.0 (0.0-0.2) /100WBC Neutrophils % (Manual) 59 (45-73) % Band Neutrophils % 0 L (3-5) % Lymphocytes % (Manual) 34 (20-40) % Atypical Lymphs % (Man) 2 (0-6) % Monocytes % (Manual) 5 (2-11) % Abs Neuts (Manual) 4.4 (2.0-8.3) X10*3/uL Lymphocytes # (Manual) 2.6 (1.2-4.9) X10*3/uL Atyp Lymphs # (Manual) 0.2 x10*3/uL Monocytes # (Manual) 0.4 (0.1-1.2) X10*3/uL Toxic Vacuolation PRESENT Platelet Estimate NORMAL (NORMAL) Large Platelets PRESENT Plt Morphology Comment NOTED RBC Morphology NORMAL Sodium 143 (135-145) mmol/L Potassium 3.4 (3.3-5.1) mmol/L Chloride 106 (96-108) mmol/L Carbon Dioxide 28 (22-29) mmol/L Anion Gap 12 (12-20) BUN 16 (9-16) mg/dL Creatinine 1.02 (0.5-1.4) mg/dL Estim Creat Clear Calc 98.1 Estimated GFR > 60 Random Glucose 97 (60-115) mg/dL Calcium 10.1 (8.4-10.2) mg/dL Magnesium 2.0 (1.6-2.6) mg/dL Total Bilirubin 0.4 (0.0-1.0) mg/dL AST 18 (5-37) U/L ALT 18 (0-40) U/L Alkaline Phosphatase 91 (39-117) U/L Total Protein 7.4 (6.5-8.0) g/dL Albumin 4.6 (3.5-5.0) g/dL Lipase 17 (8-78) U/L Urine Color Yellow Urine Appearance Clear Urine pH 6.0 (5.0-9.0) Ur Specific [place] 1.020 (1.005-1.025) Urine Protein Negative (Neg-Trace) mg/dL Urine Glucose (UA) Negative (Negative) mg/dL Urine Ketones Trace (Negative) mg/dL Urine Blood Negative (Negative) Urine Nitrite Negative (Negative) Ur Leukocyte Esterase Negative (Negative) Urine Opiates Screen Not Detected (Not Detect) Ur Buprenorphine Scrn Not Detected (Not Detect) ng/mL Ur Oxycodone Screen Not Detected (Not Detect) ng/mL Urine Methadone Screen Not Detected (Not Detect) ng/mL Urine Fentanyl Screen POSITIVE H (Not Detect) Ur Barbiturates Screen Not Detected (Not Detect) Ur Phencyclidine Scrn Not Detected (Not Detect) Ur Amphetamines Screen Not Detected (Not Detect) U Benzodiazepines Scrn Not Detected (Not Detect) Urine Cocaine Screen POSITIVE H (Not Detect) U Marijuana (THC) Screen POSITIVE H (Not Detect) Ethyl Alcohol < 10 mg/dL Independent Interpretation I performed an independent interpretation of an: EKG Interpretation: Vent. Rate: 085 BPM Atrial Rate: 085 BPM P-R Int: 182 ms QRS Dur: 142 ms QT Int: 398 ms P-R-T Axes: 000 008 223 degrees QTc Int: 473 ms Normal sinus rhythm Left ventricular hypertrophy with QRS widening and repolarization abnormality ([place] product) Inferior infarct , age undetermined Cannot rule out Anterior infarct, age undetermined Abnormal ECG DD/ 14 Chronic Conditions Patient?s care impacted by: Hypertension Discharge Plan Discharge Clinical Impression: Cocaine use disorder, severe, dependence, Opioid use disorder, moderate, dependence, History of Mvibl-Fnlodgipa-Ipycm syndrome Patient Disposition: Home, Self-Care Instructions: Cocaine Abuse (ED), Opioid Use Disorder (ED) Additional Instructions: Given your history of lombardi parkinson white - you should NOT be using cocaine, ever, at all. It could cause a dangerous arrythmia. You were dosed with Methadone today, 30mg. Follow up with your primary care provider and the methadone clinic. Return to the emergency department immediately if your symptoms worsen or if you develop any dizziness, shortness of breath, difficulty breathing, chest pain, blurry vision, loss of vision, nausea, vomiting, abdominal pain, fever, chills, back pain, or any other complaints. Prescriptions: New amlodipine 2.5 mg tablet 2.5 mg PO DAILY Qty: 30 3RF albuterol sulfate 90 mcg/actuation HFA aerosol inhaler 1 inh inhalation QID Qty: 8.5 0RF No Action ibuprofen 600 mg tablet 600 mg PO Q6H PRN (Reason: pain) Qty: 30 0RF albuterol sulfate 90 mcg/actuation HFA aerosol inhaler 2 puff inhalation Q4-6H PRN (Reason: shortness of breath or wheezing) Qty: 8.5 1RF hydroxyzine pamoate 50 mg capsule 50 mg PO QID PRN (Reason: anxiety) melatonin 3 mg tablet 3 mg PO BEDTIME PRN (Reason: insomnia) trazodone 100 mg tablet 100 mg PO BEDTIME sertraline 50 mg tablet 50 mg PO DAILY bupropion HCl 150 mg tablet extended release 24 hr 150 mg PO QAM sertraline 50 mg tablet 50 mg PO DAILY Qty: 30 0RF trazodone 50 mg tablet 50 mg PO BEDTIME Qty: 30 0RF hydroxyzine pamoate [Vistaril] 25 mg capsule 25 mg PO TID PRN (Reason: anxiety) Qty: 30 0RF amoxicillin-pot clavulanate 875-125 mg tablet 1 tab PO BID 7 Days Qty: 14 0RF acetaminophen [Tylenol Extra Strength] 500 mg tablet 1,000 mg PO Q6H PRN (Reason: pain) Qty: 30 0RF ibuprofen 600 mg tablet 600 mg PO Q6H PRN (Reason: pain) Qty: 30 0RF amlodipine 2.5 mg tablet 2.5 mg PO DAILY Qty: 30 0RF buprenorphine-naloxone [Suboxone] 2-0.5 mg film 1 film buccal DAILY Qty: 10 0RF Referrals: [facility] Comprehensive [facility] Center [Provider Group] (Call to establish and follow up with the comprehensive care team. ) [facility] Family Medicine [Provider Group] (Call to establish and follow up with a primary care provider. If you already have a primary care provider, please follow up with them.) [facility] Primary CareFreddie [Provider Group] [facility] Primary CareEbonie [Provider Group] Print Language: [place] Irish
[2024-02-13 19:35] LABS: Hematocrit 45.1 % (42.0-52.0); Hemoglobin 15.8 g/dl (14.0-18.0); Mean Corpuscular Hemoglobin 30.3 pg (27.0-33.0); Mean Corpuscular Volume 86.6 fL (80.0-98.0); Mean Platelet Volume 11.4 fL (9.4-12.4); Platelet Count 162 X10*3/uL (160-400); Red Blood Count 5.21 X10*6/uL (4.60-5.80); Red Cell Distribution Width 13.5 % (11.0-16.0)
[2024-02-13 19:36] LABS: WBC ABN SCTR FOR CBC 1; White Blood Count 7.5 X10*3/uL (4.8-10.8)
[2024-02-13 19:53] LABS: Alanine Aminotransferase 18 U/L (0-40); Albumin Level 4.6 g/dL (3.5-5.0); Alkaline Phosphatase 91 U/L (39-117); Anion Gap 12 (12-20); Aspartate Amino Transferase 18 U/L (5-37); Bilirubin Total 0.4 mg/dL (0.0-1.0); Blood Urea Nitrogen 16 mg/dL (9-16); Calcium 10.1 mg/dL (8.4-10.2); Carbon Dioxide 28 mmol/L (22-29); Chloride 106 mmol/L (96-108); Creatinine Clr Calc Pharmacy 98.1; Estimated Glomerular Filt Rate > 60; Ethanol < 10 mg/dL; Glucose Random 97 mg/dL (60-115); Lipase 17 U/L (8-78); Potassium 3.4 mmol/L (3.3-5.1); Sodium 143 mmol/L (135-145); Total Protein 7.4 g/dL (6.5-8.0)
[2024-02-13 20:02] LABS: Atypical Lymph Absolute Manual 0.2 x10*3/uL; Atypical Lymphs Percent Manual 2 % (0-6); Band Neutrophils Percent 0 % (3-5); Large Platelet PRESENT; Lymphocytes Absolute Manual 2.6 X10*3/uL (1.2-4.9); Lymphocytes Percent Manual 34 % (20-40); Monocytes Absolute Manual 0.4 X10*3/uL (0.1-1.2); Monocytes Percent Manual 5 % (2-11); Neutrophils Absolute Manual 4.4 X10*3/uL (2.0-8.3); Neutrophils Percent Manual 59 % (45-73); Platelet Estimate NORMAL (NORMAL); Platelet Morphology Comment NOTED; RBC Morphology NORMAL; Toxic Vacuolation PRESENT
[2024-02-13 20:19] VITALS: PULSE 77
[2024-02-13 20:24] VITALS: BP 140/76; PULSE 77; RESP 15; TEMP 36.9; O2SAT 97
--- NOTE | 2024-02-13 20:28 | MHC.EDTECH ---
Patient requests food/drink. [place] [employer]. Provided patient with turkey sandwich, long annalee and pudding.
--- NOTE | 2024-02-13 21:00 | MHC.EDTECH ---
Per Ai ALVA, disregard second EKG ordered at 2030
[2024-02-13] MEDS: LORazepam 1 MG TABLET 2 MG PO (21:22)
[2024-02-13] MEDS: methADONE HCl 20 MG/2 ML ORAL.CONC 30 MG PO (21:23)
[2024-02-13] MEDS: 0.9 % Sodium Chloride 1,000 ML 999 ML IV (21:23)
[2024-02-13 21:38] VITALS: BP 148/83; PULSE 62; RESP 15; TEMP 36.6; O2SAT 97
[2024-02-13 22:42] LABS: Appearance Urine Clear; Color Urine Yellow; Glucose Urine UA Negative (Negative); Leukocyte Esterase Urine Negative (Negative); Nitrite Urine Negative (Negative); Urine Blood Negative (Negative); Urine Ketones Trace mg/dL (Negative); Urine Protein Negative (Neg-Trace)
[2024-02-13 22:51] LABS: Amphetamine Screen Urine Not Detected (Not Detect); Barbiturates, Urine Not Detected (Not Detect); Benzodiazepines Screen Urine Not Detected (Not Detect); Buprenorphine Scr Not Detected (Not Detect); Cannabinoid Screen Urine POSITIVE (Not Detect); Cocaine Screen Urine POSITIVE (Not Detect); Fentanyl, urine POSITIVE (Not Detect); Methadone Screen, Urine Not Detected (Not Detect); Opiate Screen Urine Not Detected (Not Detect); Oxycodone Screen Urine Not Detected (Not Detect); Phencyclidine Screen Urine Not Detected (Not Detect)
[2024-02-14 00:07] VITALS: BP 193/119; PULSE 77; RESP 18; TEMP 36.6; O2SAT 98
[2024-02-14] MEDS: Acetaminophen 325 MG TABLET 650 MG PO (00:15)
[2024-02-14] MEDS: amLODIPine Besylate 5 MG TABLET PO (00:20)
[2024-02-14] MEDS: Naloxone HCl Nasal TAKE HOME 4 MG SPRAY 8 MG NOSTRILALT (00:23)
[2024-02-14 00:54] VITALS: BP 193/119; PULSE 77; RESP 18; TEMP 36.6; O2SAT 98
== END 2024-02-14 00:54 | disposition home or self-care (01) ==
PROVIDERS: Physician Assistant Medical; Emergency Provider Emergency Medicine Emergency Medical Services
DX: F11.20 Opioid dependence, uncomplicated (principal); F14.288 Cocaine dependence with other cocaine-induced disorder; I45.6 Pre-excitation syndrome; J45.909 Unspecified asthma, uncomplicated; F17.210 Nicotine dependence, cigarettes, uncomplicated; I10 Essential (primary) hypertension; Z79.899 Other long term (current) drug therapy
CPT/HCPCS: 36415; 80053; 80307; 81003; 83690; 83735; 85007; 85027; 93005; 96360; 99284; 99285

== ENCOUNTER → 2024-02-13 19:14 | Outpatient (BNV) | payer MEDICARE, MEDICAID, SELFPAY | PROVIDERS: Emergency Provider Emergency Medicine Emergency Medical Services; Visit Provider Internal Medicine | DX: R94.31 Abnormal electrocardiogram [ECG] [EKG] (principal) | CPT/HCPCS: 93010 ==

== ENCOUNTER 2024-03-04 08:06 | Emergency (ER) | payer MEDICARE, MEDICAID, SELFPAY ==
--- NOTE | 2024-03-04 | ECG_ITS ---
Test Reason : chest pain Blood Pressure : / mmHG Vent. Rate : 089 BPM Atrial Rate : 089 BPM P-R Int : 100 ms QRS Dur : 108 ms QT Int : 372 ms P-R-T Axes : 078 004 069 degrees QTc Int : 452 ms Sinus rhythm with short NE RSR' or QR pattern in V1 suggests right ventricular conduction delay Nonspecific T wave abnormality Abnormal ECG When compared with ECG of 13-FEB-2024 19:15, No significant changes seen Referred By: Elisha Hanson Electronically Signed By:CELESTE OSEI
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
[2024-03-04 08:10] VITALS: BP 153/82; PULSE 99; O2SAT 99; BMI 28.5
[2024-03-04 08:13] VITALS: BP 147/71; PULSE 95; RESP 16; TEMP 36.6; O2SAT 95
[2024-03-04 08:42] LABS: MANUAL DIFF FLAG NO
[2024-03-04 08:43] LABS: Appearance Urine Clear; Color Urine Yellow; Glucose Urine UA Negative (Negative); Leukocyte Esterase Urine Negative (Negative); Nitrite Urine Negative (Negative); Urine Blood Negative (Negative); Urine Ketones Negative (Negative); Urine Protein Negative (Neg-Trace)
[2024-03-04 08:44] LABS: Basophils Percent Auto 0.4 % (0-2); Eosinophils Absolute Auto 0.1 X10*3/uL (0.0-0.4); Hematocrit 39.5 % (42.0-52.0); Hemoglobin 13.2 g/dl (14.0-18.0); Imm Gran Abs Auto 0.03 X10*3/uL (0.00-0.03); Imm Gran Pct Auto 0.4 % (0.0-0.4); Lymphocytes Absolute Auto 1.7 X10*3/uL (1.2-4.9); Lymphocytes Percent Auto 20.4 % (20-40); Mean Corpuscular HGB Conc 33.4 g/dl (31.0-36.0); Mean Corpuscular Hemoglobin 29.7 pg (27.0-33.0); Monocytes Absolute Auto 0.7 X10*3/uL (0.1-1.2); Monocytes Percent Auto 9.1 % (2-11); Neutrophils Absolute Auto 5.6 x10*3/uL (2.0-8.3); Neutrophils Percent Auto 68.7 % (45-73); Platelet Count 219 X10*3/uL (160-400); Red Blood Count 4.44 X10*6/uL (4.60-5.80); Red Cell Distribution Width 13.5 % (11.0-16.0); White Blood Count 8.1 X10*3/uL (4.8-10.8)
[2024-03-04 08:46] LABS: Bacteria Urine None Seen (None Seen); Hyaline Casts Urine 0-2 /LPF (0-2); RBC Urine 0-2 /HPF (0-2); Squamous Epithelial Cell Urine 0-2 /HPF (0-2); WBC Urine 0-5 /HPF (0-5)
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
[2024-03-04 08:53] LABS: Amphetamine Screen Urine Not Detected (Not Detect); Barbiturates, Urine Not Detected (Not Detect); Benzodiazepines Screen Urine POSITIVE (Not Detect); Buprenorphine Scr Not Detected (Not Detect); Cannabinoid Screen Urine Not Detected (Not Detect); Cocaine Screen Urine POSITIVE (Not Detect); Fentanyl, urine Not Detected (Not Detect); Methadone Screen, Urine Positive (Not Detect); Opiate Screen Urine Not Detected (Not Detect); Oxycodone Screen Urine Not Detected (Not Detect); Phencyclidine Screen Urine Not Detected (Not Detect)
[2024-03-04 08:58] LABS: Alanine Aminotransferase 81 U/L (0-40); Albumin Level 4.1 g/dL (3.5-5.0); Alkaline Phosphatase 123 U/L (39-117); Anion Gap 15 (12-20); Aspartate Amino Transferase 65 U/L (5-37); Bilirubin Direct < 0.2 mg/dL (0.0-0.5); Bilirubin Total 0.2 mg/dL (0.0-1.0); Blood Urea Nitrogen 20 mg/dL (9-16); Calcium 9.5 mg/dL (8.4-10.2); Carbon Dioxide 27 mmol/L (22-29); Chloride 102 mmol/L (96-108); Creatinine Clr Calc Pharmacy 130.9; Estimated Glomerular Filt Rate > 60; Glucose Random 99 mg/dL (60-115); Magnesium 1.8 mg/dL (1.6-2.6); Potassium 4.4 mmol/L (3.3-5.1); Sodium 140 mmol/L (135-145); Total Protein 6.8 g/dL (6.5-8.0)
[2024-03-04 09:03] LABS: B Type Natriuretic Peptide 14 pg/mL (<100)
[2024-03-04 09:06] LABS: Troponin-I High Sensitivity < 2.7 ng/L (<3.5-35.0)
--- NOTE | 2024-03-04 09:11 | PC.NURSE ---
pt to xray at this time.
--- NOTE | 2024-03-04 11:13 | PC.NURSE ---
air cast applied to LLE by tech. pt tolerated well.
--- NOTE | 2024-03-04 11:41 | MHC.EDTECH ---
This tech responded to call emil, patient requested drink and expressed concern for transportation. Relayed concern to Sarah ALVA, and with permission provided patient with food/drink
[2024-03-04 11:55] VITALS: BP 134/76
[2024-03-04] MEDS: Lidocaine 4 % Patch ADH..PATCH 1 PATCH TRANSDERMA (11:55)
[2024-03-04] MEDS: Furosemide 20 MG TABLET PO (11:55)
[2024-03-04] MEDS: Ibuprofen 800 MG TABLET PO (11:55)
--- NOTE | 2024-03-04 11:57 | PC.NURSE ---
pt medicated per provider order.
[2024-03-04 11:58] VITALS: BP 134/76; PULSE 99; RESP 18; TEMP 36.6; O2SAT 99
[2024-03-04 12:01] VITALS: BP 134/76; PULSE 99; RESP 18; TEMP 36.6; O2SAT 99
== END 2024-03-04 12:02 | disposition home or self-care (01) ==
PROVIDERS: Physician Assistant; Emergency Provider Emergency Medicine
DX: S93.402A Sprain of unspecified ligament of left ankle, initial encounter (principal); S20.212A Contusion of left front wall of thorax, initial encounter; V13.4XXA Pedal cycle driver injured in collision with car, pick-up truck or van in traffic accident, initial encounter; R60.0 Localized edema; J45.909 Unspecified asthma, uncomplicated; F11.20 Opioid dependence, uncomplicated; F14.20 Cocaine dependence, uncomplicated; F33.1 Major depressive disorder, recurrent, moderate; Z79.899 Other long term (current) drug therapy; F17.210 Nicotine dependence, cigarettes, uncomplicated; Y93.55 Activity, bike riding; Y92.414 Local residential or business street as the place of occurrence of the external cause; Y99.9 Unspecified external cause status
CPT/HCPCS: 36415; 71111; 72125; 73610; 80048; 80076; 80307; 81001; 83735; 83880; 84484; 85025; 93005; 99284

== ENCOUNTER → 2024-03-04 08:13 | Outpatient (BNV) | payer MEDICARE, MEDICAID, SELFPAY | PROVIDERS: Emergency Provider Emergency Medicine; Visit Provider Internal Medicine | DX: R94.31 Abnormal electrocardiogram [ECG] [EKG] (principal) | CPT/HCPCS: 93010 ==

== ENCOUNTER 2024-03-16 12:23 | Emergency (ER) | payer MEDICARE, MEDICAID, SELFPAY ==
[2024-03-16 12:26] VITALS: BP 203/115; PULSE 93; RESP 19; TEMP 36.6; O2SAT 98; BMI 23.5
--- NOTE | 2024-03-16 12:26 | ED_ITS ---
HPI - Abdominal Pain General Chief Complaint: Abdominal Pain Stated Complaint: Sever abd pain Time Seen by Provider: 03/16/24 13:29 Source: patient Mode of arrival: ambulatory Limitations: no limitations History of Present Illness ED Provider: Dr. Harrison HPI narrative: 33-year-old male past medical history significant for cocaine and opiate abuse presents emergency department complaining of abdominal pain. He had a negative CT scan of his abdominal area and may who presents complaining of nausea vomiting and abdominal pain. He denies any falls or injuries denies any surgeries in the past. He admits to marijuana use and alcohol use recently he denies recurrent nausea abdominal pain or recurrent vomiting he showers to help him with his nausea. MD elicited complaint: abdominal pain Related Data Home Medications ?Medication ?Instructions ?Recorded ?Confirmed bupropion HCl 150 mg 24 hr tablet, 150 mg PO QAM 12/21/23 12/21/23 extended release hydroxyzine pamoate 50 mg capsule 50 mg PO QID PRN anxiety 12/21/23 12/21/23 melatonin 3 mg tablet 3 mg PO BEDTIME PRN insomnia 12/21/23 12/21/23 sertraline 50 mg tablet 50 mg PO DAILY 12/21/23 12/21/23 trazodone 100 mg tablet 100 mg PO BEDTIME 12/21/23 12/21/23 Previous Rx's ?Medication ?Instructions ?Recorded ibuprofen 600 mg tablet 600 mg PO Q6H PRN pain #30 tabs 02/12/21 albuterol sulfate 90 mcg/actuation 2 puff inhalation Q4-6H PRN 08/26/23 aerosol inhaler shortness of breath or wheezing #8.5 grams amlodipine 2.5 mg tablet 2.5 mg PO DAILY #30 tabs 12/22/23 buprenorphine 2 mg-naloxone 0.5 mg 1 film buccal DAILY #10 ea 12/22/23 sublingual film (Suboxone) hydroxyzine pamoate 25 mg capsule 25 mg PO TID PRN anxiety #30 caps 12/22/23 (Vistaril) sertraline 50 mg tablet 50 mg PO DAILY #30 tabs 12/22/23 trazodone 50 mg tablet 50 mg PO BEDTIME #30 tabs 12/22/23 acetaminophen 500 mg tablet 1,000 mg (2 x 500 mg) PO Q6H PRN 02/03/24 (Tylenol Extra Strength) pain #30 tabs amoxicillin 875 mg-potassium 1 tab PO BID 7 days #14 tabs 02/03/24 clavulanate 125 mg tablet ibuprofen 600 mg tablet 600 mg PO Q6H PRN pain #30 tabs 02/03/24 albuterol sulfate 90 mcg/actuation 1 inh inhalation QID #8.5 grams 02/14/24 aerosol inhaler amlodipine 2.5 mg tablet 2.5 mg PO DAILY #30 tabs 02/14/24 furosemide 20 mg tablet (Lasix) 20 mg PO DAILY 4 days #4 tabs 03/04/24 ibuprofen 800 mg tablet 800 mg PO Q8H PRN pain #14 tabs 03/04/24 lidocaine 5 % topical patch 1 patch topical DAILY PRN pain #30 03/04/24 (Lidoderm) ea aluminum-mag hydroxide-simethicone 10 ml PO Q6H PRN indigestion 03/16/24 200 mg-200 mg-20 mg/5 mL oral susp #3,000 mL (Maalox Advanced) famotidine 20 mg tablet (Pepcid) 20 mg PO BID PRN abdominal pain 03/16/24 #60 tabs ondansetron 4 mg disintegrating 4 mg PO Q6H #14 tabs 03/16/24 tablet Allergies Allergy/AdvReac Type Severity Reaction Status Date / Time No Known Allergies Allergy Verified 03/16/24 12:28 Review of Systems Review of Systems Review of systems: General: Patient denies any fever chills recent illness or falls Musculoskeletal: Denies back pain or body aches or other injuries HEENT: denies headache, runny nose, ear pain Respiratory: denies shortness of breath, cough Cardiovascular: no chest pain or palpitations : denies dysuria, frequency Abdomen: nausea vomiting and abdominal pain Extremities: no swelling, no pain Skin: no diaphoresis Yes all other systems are reviewed and are negative [facility] Past Medical History Medical History Asthma Social History Social History Alcohol intake: current Alcohol intake frequency: 0-2 drinks per day Patient Tobacco Use Status: Current everyday Tobacco user Substance Use Type: Crack/Cocaine and Opiates Advance Directives: No Physical Exam ED Vital Signs: Vital Signs - 24 hr 03/16/24 12:26 03/16/24 13:35 03/16/24 13:56 Temperature 98 F 98.5 F Pulse Rate 93 66 67 Respiratory Rate 19 22 H 18 Blood Pressure 203/115 H 205/120 H 199/109 H Pulse Oximetry 98 100 98 Oxygen Delivery Method Room Air Room Air Room Air BMI result Body Mass Index 23.5 General: Well-appearing well-nourished in no signs of distress HEENT: Normocephalic atraumatic Neck: No signs of JVD, no masses no tenderness or lymphadenopathy Cardiovascular: Regular rate and rhythm Respiratory: Clear to auscultation bilaterally Abdomen: Soft nontender no masses Extremities: Normal pedal pulses no signs of edema Skin: Dry warm no rashes Back: No tenderness full ROM Course Course Course Narrative: This is a Rapid Medical Exam performed in triage by Elisha Hanson PA-C. Full HPI, ROS and PE to be performed by primary ED provider. 33 year-old M w/ PMHx substance use d/o, MDD, presenting to the ED c/o diffuse abdominal pain x last night w/N&V. denies ETOH or drug use. PE: uncomfortable/moaning, abdomen soft & nontender. HTNsive and noncompliant with BP meds Plan: Labs, UA, ARECHIGA Reevaluation(s) Reevaluation #1: 1436 Patient looks well sleeping in the room. I will give pepcid and maalox and send home. Medical Decision Making Medical Decision Making [facility] Narrative: I will give the patient Zofran fluids and reassess Differential Diagnosis Differential Diagnoses: The differential diagnosis associated with the presentation includes Nausea vomiting viral illness dehydration electrolyte abnormality less likely acute surgical abdomen with a normal belly exam Admission/Observation Consideration of admission/observation: Escalation of care including admission/observation considered Lab Data [facility] Lab Attestation statement: I reviewed the patient's lab results. 03/16/24 12:48 03/16/24 12:48 Labs: Lab Results 03/16/24 03/16/24 Range/Units 12:48 13:42 WBC 9.3 (4.8-10.8) X10*3/uL RBC 4.83 (4.60-5.80) X10*6/uL Hgb 14.5 (14.0-18.0) g/dl Hct 42.6 (42.0-52.0) % MCV 88.2 (80.0-98.0) fL MCH 30.0 (27.0-33.0) pg MCHC 34.0 (31.0-36.0) g/dl RDW 13.4 (11.0-16.0) % Plt Count 278 D (160-400) X10*3/uL MPV 10.9 (9.4-12.4) fL Immature Gran % (Auto) 0.5 H (0.0-0.4) % Neut % (Auto) 63.2 (45-73) % Lymph % (Auto) 25.8 (20-40) % Winn % (Auto) 8.8 (2-11) % Eos % (Auto) 1.2 (0-4) % Baso % (Auto) 0.5 (0-2) % Lymph # (Auto) 2.4 (1.2-4.9) X10*3/uL Winn # (Auto) 0.8 (0.1-1.2) X10*3/uL Eos # (Auto) 0.1 (0.0-0.4) X10*3/uL Baso # (Auto) 0.1 (0.0-0.2) X10*3/uL Abs Immat Gran (auto) 0.05 H (0.00-0.03) X10*3/uL Absolute Neuts (auto) 5.8 (2.0-8.3) x10*3/uL Absolute Nucleated RBC 0.000 (0.0-0.012) X10*3/uL Nucleated RBC % (auto) 0.0 (0.0-0.2) /100WBC Sodium 138 (135-145) mmol/L Potassium 4.4 (3.3-5.1) mmol/L Chloride 100 (96-108) mmol/L Carbon Dioxide 30 H (22-29) mmol/L Anion Gap 12 (12-20) BUN 13 (9-16) mg/dL Creatinine 0.84 (0.5-1.4) mg/dL Estim Creat Clear Calc 119.1 Estimated GFR > 60 Random Glucose 104 (60-115) mg/dL Calcium 10.1 D (8.4-10.2) mg/dL Magnesium 1.7 (1.6-2.6) mg/dL Total Bilirubin 0.2 (0.0-1.0) mg/dL Direct Bilirubin < 0.2 (0.0-0.5) mg/dL AST 27 (5-37) U/L ALT 30 (0-40) U/L Alkaline Phosphatase 107 (39-117) U/L Troponin I High Sens < 2.7 (<3.5-35.0) ng/L Total Protein 7.3 (6.5-8.0) g/dL Albumin 4.1 (3.5-5.0) g/dL Lipase 74 (8-78) U/L Urine Color Yellow Urine Appearance Clear Urine pH 6.0 (5.0-9.0) Ur Specific Hume >= 1.030 H (1.005-1.025) Urine Protein Trace (Neg-Trace) mg/dL Urine Glucose (UA) Negative (Negative) mg/dL Urine Ketones Trace (Negative) mg/dL Urine Blood Negative (Negative) Urine Nitrite Negative (Negative) Ur Leukocyte Esterase Negative (Negative) Urine Opiates Screen Not Detected (Not Detect) Ur Buprenorphine Scrn Not Detected (Not Detect) ng/mL Ur Oxycodone Screen Not Detected (Not Detect) ng/mL Urine Methadone Screen Positive H (Not Detect) ng/mL Urine Fentanyl Screen POSITIVE H (Not Detect) Ur Barbiturates Screen Not Detected (Not Detect) Ur Phencyclidine Scrn Not Detected (Not Detect) Ur Amphetamines Screen Not Detected (Not Detect) U Benzodiazepines Scrn Not Detected (Not Detect) Urine Cocaine Screen POSITIVE H (Not Detect) U Marijuana (THC) Screen POSITIVE H (Not Detect) Ethyl Alcohol < 10 mg/dL Radiology Impression Discussion of test interpretation with radiology: I have reviewed the radiologist's reading. External Record Review External record reviewed: Inpatient record, Office record and Outpatient record Medications Administered Discontinued Medications Generic Name Dose Route Start Last Admin Trade Name Freq PRN Reason Stop Dose Admin Sodium Chloride 1,000 mls @ 999 mls/hr 03/16/24 12:45 03/16/24 13:53 Ns IV 03/16/24 13:45 999 mls/hr .Q1H1M [id number] Administration Ondansetron HCl 4 mg 03/16/24 12:32 03/16/24 13:53 Ondansetron Hcl 4 Mg/2 Ml Vial IVPUSH 03/16/24 12:33 4 mg ONCE ONE Administration Discharge Plan Discharge Clinical Impression: Abdominal pain, Vomiting Patient Disposition: Home, Self-Care Instructions: Acute Nausea and Vomiting (ED), Abdominal Pain (ED) Additional Instructions: You were seen today for abdominal pain and vomiting. You were given zofran and labs were checked. Please call to follow up with your doctor. Prescriptions: New famotidine [Pepcid] 20 mg tablet 20 mg PO BID PRN (Reason: abdominal pain) Qty: 60 0RF alum-mag hydroxide-simeth [Maalox Advanced] 200-200-20 mg/5 mL suspension 10 ml PO Q6H PRN (Reason: indigestion) Qty: 3000 0RF ondansetron 4 mg tablet,disintegrating 4 mg PO Q6H Qty: 14 0RF No Action ibuprofen 600 mg tablet 600 mg PO Q6H PRN (Reason: pain) Qty: 30 0RF amlodipine 2.5 mg tablet 2.5 mg PO DAILY Qty: 30 3RF albuterol sulfate 90 mcg/actuation HFA aerosol inhaler 1 inh inhalation QID Qty: 8.5 0RF albuterol sulfate 90 mcg/actuation HFA aerosol inhaler 2 puff inhalation Q4-6H PRN (Reason: shortness of breath or wheezing) Qty: 8.5 1RF hydroxyzine pamoate 50 mg capsule 50 mg PO QID PRN (Reason: anxiety) melatonin 3 mg tablet 3 mg PO BEDTIME PRN (Reason: insomnia) trazodone 100 mg tablet 100 mg PO BEDTIME sertraline 50 mg tablet 50 mg PO DAILY bupropion HCl 150 mg tablet extended release 24 hr 150 mg PO QAM sertraline 50 mg tablet 50 mg PO DAILY Qty: 30 0RF trazodone 50 mg tablet 50 mg PO BEDTIME Qty: 30 0RF hydroxyzine pamoate [Vistaril] 25 mg capsule 25 mg PO TID PRN (Reason: anxiety) Qty: 30 0RF amoxicillin-pot clavulanate 875-125 mg tablet 1 tab PO BID 7 Days Qty: 14 0RF acetaminophen [Tylenol Extra Strength] 500 mg tablet 1,000 mg PO Q6H PRN (Reason: pain) Qty: 30 0RF ibuprofen 600 mg tablet 600 mg PO Q6H PRN (Reason: pain) Qty: 30 0RF furosemide [Lasix] 20 mg tablet 20 mg PO DAILY 4 Days Qty: 4 0RF ibuprofen 800 mg tablet 800 mg PO Q8H PRN (Reason: pain) Qty: 14 0RF lidocaine [Lidoderm] 5 % adhesive patch,medicated 1 patch topical DAILY MDD remove after 12 hours PRN (Reason: pain) Qty: 30 0RF Rx Instructions: leave on most painful area for up to 12 hrs amlodipine 2.5 mg tablet 2.5 mg PO DAILY Qty: 30 0RF buprenorphine-naloxone [Suboxone] 2-0.5 mg film 1 film buccal DAILY Qty: 10 0RF Print Language: Montenegrin
--- NOTE | 2024-03-16 12:31 | ECG_ITS ---
Test Reason : UPPER ABDOMIANL PAIN Blood Pressure : / mmHG Vent. Rate : 086 BPM Atrial Rate : 086 BPM P-R Int : 102 ms QRS Dur : 102 ms QT Int : 372 ms P-R-T Axes : 068 026 066 degrees QTc Int : 445 ms Normal sinus rhythm [id number] Abnormal ECG When compared with ECG of 04-MAR-2024 08:13, No significant changes seen Referred By: Elisha Hanson Electronically Signed By:JONATHON ZAMARRIPA MD
[2024-03-16 12:54] LABS: MANUAL DIFF FLAG NO
[2024-03-16 12:58] LABS: Basophils Absolute Auto 0.1 X10*3/uL (0.0-0.2); Basophils Percent Auto 0.5 % (0-2); Eosinophils Absolute Auto 0.1 X10*3/uL (0.0-0.4); Eosinophils Percent Auto 1.2 % (0-4); Hematocrit 42.6 % (42.0-52.0); Hemoglobin 14.5 g/dl (14.0-18.0); Imm Gran Abs Auto 0.05 X10*3/uL (0.00-0.03); Imm Gran Pct Auto 0.5 % (0.0-0.4); Lymphocytes Absolute Auto 2.4 X10*3/uL (1.2-4.9); Lymphocytes Percent Auto 25.8 % (20-40); Mean Corpuscular Volume 88.2 fL (80.0-98.0); Mean Platelet Volume 10.9 fL (9.4-12.4); Monocytes Absolute Auto 0.8 X10*3/uL (0.1-1.2); Monocytes Percent Auto 8.8 % (2-11); Neutrophils Absolute Auto 5.8 x10*3/uL (2.0-8.3); Neutrophils Percent Auto 63.2 % (45-73); Platelet Count 278 X10*3/uL (160-400); Red Blood Count 4.83 X10*6/uL (4.60-5.80); Red Cell Distribution Width 13.4 % (11.0-16.0); White Blood Count 9.3 X10*3/uL (4.8-10.8)
[2024-03-16 13:09] LABS: Ethanol < 10 mg/dL
[2024-03-16 13:10] LABS: Alanine Aminotransferase 30 U/L (0-40); Albumin Level 4.1 g/dL (3.5-5.0); Alkaline Phosphatase 107 U/L (39-117); Anion Gap 12 (12-20); Aspartate Amino Transferase 27 U/L (5-37); Bilirubin Direct < 0.2 mg/dL (0.0-0.5); Bilirubin Total 0.2 mg/dL (0.0-1.0); Blood Urea Nitrogen 13 mg/dL (9-16); Calcium 10.1 mg/dL (8.4-10.2); Carbon Dioxide 30 mmol/L (22-29); Chloride 100 mmol/L (96-108); Creatinine Clr Calc Pharmacy 119.1; Estimated Glomerular Filt Rate > 60; Glucose Random 104 mg/dL (60-115); Lipase 74 U/L (8-78); Magnesium 1.7 mg/dL (1.6-2.6); Potassium 4.4 mmol/L (3.3-5.1); Sodium 138 mmol/L (135-145); Total Protein 7.3 g/dL (6.5-8.0)
[2024-03-16 13:18] LABS: Troponin-I High Sensitivity < 2.7 ng/L (<3.5-35.0)
[2024-03-16 13:35] VITALS: BP 205/120; PULSE 66; RESP 22; TEMP 36.9; O2SAT 100
[2024-03-16 13:53] LABS: Appearance Urine Clear; Color Urine Yellow; Glucose Urine UA Negative (Negative); Leukocyte Esterase Urine Negative (Negative); Nitrite Urine Negative (Negative); Specific Gravity - Urine >= 1.030 (1.005-1.025); Urine Blood Negative (Negative); Urine Ketones Trace mg/dL (Negative); Urine Protein Trace mg/dL (Neg-Trace)
[2024-03-16] MEDS: 0.9 % Sodium Chloride 1,000 ML 999 ML IV (13:53)
[2024-03-16] MEDS: ondansetron HCL 4 MG/2 ML VIAL IVPUSH (13:53)
--- NOTE | 2024-03-16 13:53 | PC.NURSE ---
20G to RAC. Tolerated well.
--- NOTE | 2024-03-16 13:53 | PC.NURSE ---
Medicated per MAR.
[2024-03-16 13:56] VITALS: BP 199/109; PULSE 67; RESP 18; O2SAT 98
--- NOTE | 2024-03-16 14:00 | PC.NURSE ---
Hunter Morel MD notified d/t pt.'s BP being very elevated. Checked on both arms- last read was 199/109. He said he takes Amlodipine at home and has had a dx. of HTN for four years, but has been out of his medication for one month. He states that he's symptomatic of his HTN with a headache and vision changes. Awaiting orders per provider.
[2024-03-16 14:06] LABS: Amphetamine Screen Urine Not Detected (Not Detect); Barbiturates, Urine Not Detected (Not Detect); Benzodiazepines Screen Urine Not Detected (Not Detect); Buprenorphine Scr Not Detected (Not Detect); Cannabinoid Screen Urine POSITIVE (Not Detect); Cocaine Screen Urine POSITIVE (Not Detect); Fentanyl, urine POSITIVE (Not Detect); Methadone Screen, Urine Positive (Not Detect); Opiate Screen Urine Not Detected (Not Detect); Oxycodone Screen Urine Not Detected (Not Detect); Phencyclidine Screen Urine Not Detected (Not Detect)
[2024-03-16 15:08] VITALS: BP 195/114; PULSE 89; RESP 18; O2SAT 97
[2024-03-16] MEDS: Famotidine 20 MG TABLET PO (15:08)
[2024-03-16] MEDS: Magnesium Hydrox/Alum Hydrox 30 ML ORAL.SUSP PO (15:08)
--- NOTE | 2024-03-16 15:09 | PC.NURSE ---
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
== END 2024-03-16 19:54 | disposition home or self-care (01) ==
PROVIDERS: Physician Assistant; Emergency Provider Student in an Organized Health Care Education/Training Program
DX: R10.9 Unspecified abdominal pain (principal); R11.2 Nausea with vomiting, unspecified; I45.6 Pre-excitation syndrome; R94.31 Abnormal electrocardiogram [ECG] [EKG]; F12.90 Cannabis use, unspecified, uncomplicated; Z79.899 Other long term (current) drug therapy
CPT/HCPCS: 36415; 80048; 80076; 80307; 81003; 83690; 83735; 84484; 85025; 93005; 96361; 96374; 99284; J2405

== ENCOUNTER → 2024-03-16 12:31 | Outpatient (BNV) | payer MEDICARE, MEDICAID, SELFPAY | PROVIDERS: Emergency Provider Student in an Organized Health Care Education/Training Program; Visit Provider Internal Medicine Cardiovascular Disease | DX: R94.31 Abnormal electrocardiogram [ECG] [EKG] (principal) | CPT/HCPCS: 93010 ==

== ENCOUNTER 2024-03-18 11:46 | Emergency (ER) | payer MEDICARE, MEDICAID, SELFPAY ==
--- NOTE | ~2024-03-18 | CT_ITS ---
EXAMINATION: CT ABDOMEN AND PELVIS WITH CONTRAST CLINICAL INFORMATION: Epigastric pain, right upper quadrant pain, nausea and vomiting COMPARISON: CT of 12/20/2023 TECHNIQUE: Multidetector volumetric images were obtained from the superior aspect of the liver through the pubic symphysis following administration 85 mL of Omnipaque 350 intravenous contrast. Sagittal and coronal reformatted images were obtained on the technologist's workstation. Oral contrast: No This CT examination was performed using dose optimization techniques as appropriate, variously including the following: *Automated exposure control *Adjustment of mA and/or kV according to patient size (this includes techniques or standardized protocols for targeted exams where dose is matched to indication/reason for exam; i.e. extremities or head) *Use of iterative reconstruction technique DLP: 472 mGy-cm FINDINGS: LUNG BASES: The visualized lung bases are unremarkable. There is circumferential thickening of the distal esophageal wall up to 10 mm. LIVER, GALLBLADDER, AND BILIARY TREE: The liver is normal in size, shape, and attenuation. No focal hepatic lesion or biliary ductal dilatation is present. The gallbladder is unremarkable with no evidence of radiopaque gallstones, gallbladder wall thickening, or obvious pericholecystic inflammatory changes. PANCREAS: Unremarkable. SPLEEN: Unremarkable. ADRENAL GLANDS: Unremarkable. KIDNEYS AND URETERS: The kidneys are normal in size, shape, and attenuation. No hydronephrosis, hydroureter, or calculi seen. No perinephric stranding. BLADDER: Incompletely distended GASTROINTESTINAL TRACT: The small and large bowel are unremarkable. The appendix is unremarkable. ABDOMINAL WALL: No significant hernia is appreciated. LYMPH NODES: Normal. VASCULAR: Unremarkable. PELVIC VISCERA: Unremarkable. 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 CT/CT abdomen pelvis w IV con IMPRESSION: 1. Circumferential thickening of the distal esophagus. This might be on the basis of esophagitis, though esophageal carcinoma could have a similar appearance. Upper endoscopy is recommend as clinically warranted.. Fleischner guidelines were followed.
--- NOTE | ~2024-03-18 | US_ITS ---
EXAMINATION: US ABDOMEN LIMITED CLINICAL INFORMATION: Right upper quadrant abdominal pain.. COMPARISON: Abdominal CT of 12/20/2023 TECHNIQUE: Real-time imaging of the right upper quadrant abdominal viscera. FINDINGS: PANCREAS: Normal. LIVER: Normal. The liver is normal in size. The liver contour is normal. Parenchymal echogenicity is normal. No focal hepatic lesion. There is no intrahepatic biliary duct dilatation seen. GALLBLADDER: Normal. The gallbladder is physiologically distended without evidence of stones, sludge, polyps, wall thickening or pericholecystic fluid. COMMON BILE DUCT: Normal in caliber measuring 0.2 cm in diameter. RIGHT KIDNEY: Normal. No hydronephrosis. No renal calculi or focal parenchymal lesions. The kidney measures 10.1 cm in maximum dimension. FREE FLUID: None. US/US abdomen limited IMPRESSION: Unremarkable right upper quadrant abdomen ultrasound.
[2024-03-18 12:05] VITALS: BP 153/96; PULSE 77; RESP 17; TEMP 36.8; O2SAT 97; BMI 25.7
--- NOTE | 2024-03-18 12:05 | ED.ABDPAIN ---
HPI - Abdominal Pain General Chief Complaint: Abdominal Pain Stated Complaint: stomach pain Time Seen by Provider: 03/18/24 12:59 Source: patient Mode of arrival: ambulatory Limitations: no limitations History of Present Illness HPI narrative: Patient is a 33-year-old male who presents emergency department for evaluation of abdominal pain. He reports onset approximately 5 days ago. It is exacerbated by eating typically worsens. He has nausea and most times after eating he is vomiting. Pain is also worse while lying supine. He admits that he has consumed different foods some fried foods, some candy, and his pain worsens. He states he is not able to keep much down without vomiting. He did eat prior to arrival does not recall exactly what he ate but was able to tolerate this without vomiting. He states he was seen here in the emergency department a few days ago and given prescriptions to help with his symptoms he unfortunately did not pick them up as he could not afford to pay for them does not get paid until the end of the month. Related Data Home Medications ?Medication ?Instructions ?Recorded ?Confirmed bupropion HCl 150 mg 24 hr tablet, 150 mg PO QAM 12/21/23 12/21/23 extended release hydroxyzine pamoate 50 mg capsule 50 mg PO QID PRN anxiety 12/21/23 12/21/23 melatonin 3 mg tablet 3 mg PO BEDTIME PRN insomnia 12/21/23 12/21/23 sertraline 50 mg tablet 50 mg PO DAILY 12/21/23 12/21/23 trazodone 100 mg tablet 100 mg PO BEDTIME 12/21/23 12/21/23 Previous Rx's ?Medication ?Instructions ?Recorded ibuprofen 600 mg tablet 600 mg PO Q6H PRN pain #30 tabs 02/12/21 albuterol sulfate 90 mcg/actuation 2 puff inhalation Q4-6H PRN 08/26/23 aerosol inhaler shortness of breath or wheezing #8.5 grams amlodipine 2.5 mg tablet 2.5 mg PO DAILY #30 tabs 12/22/23 buprenorphine 2 mg-naloxone 0.5 mg 1 film buccal DAILY #10 ea 12/22/23 sublingual film (Suboxone) hydroxyzine pamoate 25 mg capsule 25 mg PO TID PRN anxiety #30 caps 12/22/23 (Vistaril) sertraline 50 mg tablet 50 mg PO DAILY #30 tabs 12/22/23 trazodone 50 mg tablet 50 mg PO BEDTIME #30 tabs 12/22/23 acetaminophen 500 mg tablet 1,000 mg (2 x 500 mg) PO Q6H PRN 02/03/24 (Tylenol Extra Strength) pain #30 tabs amoxicillin 875 mg-potassium 1 tab PO BID 7 days #14 tabs 02/03/24 clavulanate 125 mg tablet ibuprofen 600 mg tablet 600 mg PO Q6H PRN pain #30 tabs 02/03/24 albuterol sulfate 90 mcg/actuation 1 inh inhalation QID #8.5 grams 02/14/24 aerosol inhaler amlodipine 2.5 mg tablet 2.5 mg PO DAILY #30 tabs 02/14/24 furosemide 20 mg tablet (Lasix) 20 mg PO DAILY 4 days #4 tabs 03/04/24 ibuprofen 800 mg tablet 800 mg PO Q8H PRN pain #14 tabs 03/04/24 lidocaine 5 % topical patch 1 patch topical DAILY PRN pain #30 03/04/24 (Lidoderm) ea aluminum-mag hydroxide-simethicone 10 ml PO Q6H PRN indigestion 03/16/24 200 mg-200 mg-20 mg/5 mL oral susp #3,000 mL (Maalox Advanced) amlodipine 2.5 mg tablet 2.5 mg PO DAILY #90 tabs 03/16/24 famotidine 20 mg tablet (Pepcid) 20 mg PO BID PRN abdominal pain 03/16/24 #60 tabs ondansetron 4 mg disintegrating 4 mg PO Q6H #14 tabs 03/16/24 tablet Allergies Allergy/AdvReac Type Severity Reaction Status Date / Time No Known Allergies Allergy Verified 03/18/24 12:10 Review of Systems Review of Systems Yes all other systems are reviewed and are negative [facility] Past Medical History Attestation statement: The following information was validated with the patient. Source: old records reviewed Medical History Asthma Social History Social History Alcohol intake: current Alcohol intake frequency: 0-2 drinks per day Patient Tobacco Use Status: Current everyday Tobacco user Substance Use Type: Crack/Cocaine and Opiates Advance Directives: No Advance Directives Information Provided: No Do you have a plan to hurt others: No Plan Physical Exam ED Vital Signs: Vital Signs - 24 hr 03/18/24 12:05 03/18/24 12:59 03/18/24 16:00 Temperature 98.3 F 97.9 F 98.3 F Pulse Rate 77 69 71 Respiratory Rate 17 17 15 Blood Pressure 153/96 H 162/92 H 154/81 H Pulse Oximetry 97 97 99 Oxygen Delivery Method Room Air Room Air Room Air BMI result Body Mass Index 25.7 Appearance: Alert.?Oriented to person, place and time. No acute distress.?Normal affect. Eyes: Pupils equal, round and reactive to light.? ENT: Pharynx normal.?? Neck: Normal inspection.? Neck supple.?? CVS: Heart sounds normal. Normal heart rate and rhythm.? Pulses normal.?? Respiratory: No respiratory distress.? Lung sounds clear to auscultation bilaterally?? Abdomen: Soft with epigastric and right upper quadrant tenderness upon palpation. Negative Lange sign. Normoactive bowel sounds. No pulsatile mass.?? Skin: Skin warm and dry.? Normal skin color.? Normal skin turgor.?? Extremities: No lower extremity edema.? No calf ttp? Neuro: Moves all extremities spontaneously. Sensation intact bilaterally. CN II-XII intact. No focal neuro deficits. Ambulates with normal steady gait. Course Course Course Narrative: This is an RME: Additional HPI, ROS, PE not included below will be deferred to primary provider. RME assessment and note performed by: Helena Suggs PA-C This is a [id number]-male, with a hx of substance abuse, who presents to the ER with complaints of abdominal pain x 5 days. Pain worsens after eating. Pt was seen on 03/16 for AP, dx on pepcid, maalox and zofran. 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 +epigastric ttp. Used cocaine 4 days ago. Plan: Labs, EKG, us Reevaluation(s) Reevaluation #1: CT of the abdomen and pelvis revealing no evidence of acute cholecystitis, no radiopaque gallstones wall thickening or pericholecystic fluid changes, no biliary ductal dilation. CT revealing circumferential thickening of the distal esophagus may be secondary to esophagitis though esophageal carcinoma may have similar appearance for radiologist impression. Would likely benefit from an upper endoscopy. Denies any recent unintentional weight loss, night sweats, uncontrolled fevers. Advised continued outpatient treatment on medications previously prescribed and outpatient follow-up with Gastroenterology. Tolerating oral intake passed p.o. trial. Medical Decision Making Medical Decision Making [facility] Narrative: Patient is a 33-year-old male who presents to the emergency department for evaluation of abdominal pain that worsens during postprandial state. Examination has notable tenderness to the epigastrium and right upper quadrant. He appears fatigued but he is afebrile without tachycardia tachypnea or hypoxia. On review of his chart he was seen in the emergency department 03/16/2024 with similar symptoms his examination at the time was benign lab work overall unremarkable. 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 I did discuss with patient the use of good Rx, on evaluation locally, [facility] appears to have the lowest cost for this combination of medications. His serum labs are overall unchanged, CBC is without leukocytosis or anemia, no electrolyte derangement, no DACIA, LFTs and lipase are within normal range. An ultrasound of the right upper quadrant was obtained today, radiologist impression with no acute pathology, however gallbladder is physiologically distended but no evidence of stone, sludge or wall thickening. He states he did have something to eat shortly before arrival, would anticipate radial state his gallbladder retracted not distended. On examination he does have tenderness upon palpation of the epigastric and right quadrant, negative Lange sign. Will obtain CT of abdomen and pelvis Differential Diagnosis Differential Diagnoses: The differential diagnosis associated with the presentation includes (See narrative above) Admission/Observation Consideration of admission/observation: Escalation of care including admission/observation considered Lab Data [facility] Lab Attestation statement: I reviewed the patient's lab results. See narrative above 03/18/24 12:23 03/18/24 12:23 Labs: Lab Results 03/18/24 Range/Units 12:23 WBC 5.7 (4.8-10.8) X10*3/uL RBC 4.72 (4.60-5.80) X10*6/uL Hgb 14.1 (14.0-18.0) g/dl Hct 41.8 L (42.0-52.0) % MCV 88.6 (80.0-98.0) fL MCH 29.9 (27.0-33.0) pg MCHC 33.7 (31.0-36.0) g/dl RDW 13.1 (11.0-16.0) % Plt Count 238 (160-400) X10*3/uL MPV 11.0 (9.4-12.4) fL Immature Gran % (Auto) 0.2 (0.0-0.4) % Neut % (Auto) 56.8 (45-73) % Lymph % (Auto) 31.3 (20-40) % Carter % (Auto) 8.7 (2-11) % Eos % (Auto) 2.5 (0-4) % Baso % (Auto) 0.5 (0-2) % Lymph # (Auto) 1.8 (1.2-4.9) X10*3/uL Carter # (Auto) 0.5 (0.1-1.2) X10*3/uL Eos # (Auto) 0.1 (0.0-0.4) X10*3/uL Baso # (Auto) 0.0 (0.0-0.2) X10*3/uL Abs Immat Gran (auto) 0.01 (0.00-0.03) X10*3/uL Absolute Neuts (auto) 3.2 (2.0-8.3) x10*3/uL Absolute Nucleated RBC 0.000 (0.0-0.012) X10*3/uL Nucleated RBC % (auto) 0.0 (0.0-0.2) /100WBC Sodium 140 (135-145) mmol/L Potassium 4.3 (3.3-5.1) mmol/L Chloride 102 (96-108) mmol/L Carbon Dioxide 29 (22-29) mmol/L Anion Gap 13 (12-20) BUN 14 (9-16) mg/dL Creatinine 0.90 (0.5-1.4) mg/dL Estim Creat Clear Calc 111.1 Estimated GFR > 60 Random Glucose 116 H (60-115) mg/dL Calcium 10.0 (8.4-10.2) mg/dL Magnesium 1.8 (1.6-2.6) mg/dL Total Bilirubin 0.3 (0.0-1.0) mg/dL Direct Bilirubin 0.1 (0.0-0.5) mg/dL AST 20 (5-37) U/L ALT 21 (0-40) U/L Alkaline Phosphatase 96 (39-117) U/L Troponin I High Sens < 2.7 (<3.5-35.0) ng/L Total Protein 7.0 (6.5-8.0) g/dL Albumin 3.9 (3.5-5.0) g/dL Lipase 13 (8-78) U/L Influenza Type A (PCR) NEGATIVE (Negative) Influenza Type B (PCR) NEGATIVE (Negative) RSV RNA Qual (PCR) NEGATIVE (Negative) SARS-CoV-2 RNA (RT-PCR) NEGATIVE (Negative) Independent Interpretation I performed an independent interpretation of an: EKG and Ultrasound (No cholelithiasis) Interpretation: Rate:72 Rhythm:? Normal sinus rhythm, WPW (known history of) Normal QRS complex.?? ST T wave :??No ST elevation, no ST depression, no T-wave inversion The study has been interpreted contemporaneously by me. Radiology Impression Discussion of test interpretation with radiology: I have reviewed the radiologist's reading. Radiologist Impression: US/US abdomen limited IMPRESSION: Unremarkable right upper quadrant abdomen ultrasound. CT/CT abdomen pelvis w IV con IMPRESSION: 1. Circumferential thickening of the distal esophagus. This might be on the basis of esophagitis, though esophageal carcinoma could have a similar appearance. Upper endoscopy is recommend as clinically warranted.. External Record Review External record reviewed: Outpatient record Medications Administered Discontinued Medications Generic Name Dose Route Start Last Admin Trade Name Freq PRN Reason Stop Dose Admin Al Hydroxide/Mg Hydroxide 30 ml 03/18/24 14:07 03/18/24 14:35 Magnesium Hydrox/Alum Hydrox 30 Ml Oral.Susp PO 03/18/24 14:08 30 ml ONCE ONE Administration Sodium Chloride 1,000 mls @ 999 mls/hr 03/18/24 14:00 03/18/24 15:58 Ns IV 03/18/24 15:00 Infused .Q1H1M СЕРГЕЙ Infusion Iohexol 85 ml 03/18/24 15:00 03/18/24 15:00 Iohexol 350 Mg/Ml 100 Ml Infus..Btl IV 03/18/24 15:01 85 ml ONCE ONE Administration Ketorolac Tromethamine 30 mg 03/18/24 14:00 03/18/24 14:35 Ketorolac Tromethamine 30 Mg/Ml Vial IVPUSH 03/18/24 14:01 30 mg ONCE ONE Administration Ondansetron HCl 4 mg 03/18/24 14:00 03/18/24 14:35 Ondansetron Hcl 4 Mg/2 Ml Vial IVPUSH 03/18/24 14:01 4 mg ONCE ONE Administration Discharge Plan Discharge Clinical Impression: Esophagitis Patient Disposition: Home, Self-Care Instructions: Esophagitis (ED) Additional Instructions: Your blood work today was very reassuring. Your CT imaging and symptoms are most concerning for a condition known as esophagitis which is inflammation to the esophagus which is the tube that meets your stomach. You would greatly benefit from the medications previously prescribed at your prior visit including Pepcid, Maalox, and Zofran for your nausea. As discussed, using the [facility] card you were provided, it is appears as though these medications would be cheapest at a [facility] pharmacy. You were offered to have these prescription sent to an alternative pharmacy however have declined at this time. Avoid triggers such as fatty foods, spicy foods, tomatoes, onions, coffee, tea, chocolate, and alcohol. Remaining upright after meals for 1-2 hours. Avoid eating at least 3 hours before bedtime. Try sleeping on an incline if possible. The CT scan today as mentioned shows thickening of the esophagus, this should be followed up further outpatient with a specialist/washroom attendant, and they will determine whether you need an upper endoscopy; which is where they placed a camera down your throat to view the lining of the esophagus. I have provided contact information for the washroom attendant associated with our hospitalist; Dr. Walker, please call their office first thing Thursday morning to arrange for a follow-up visit. CT/CT abdomen pelvis w IV con IMPRESSION: 1. Circumferential thickening of the distal esophagus. This might be on the basis of esophagitis, though esophageal carcinoma could have a similar appearance. Upper endoscopy is recommend as clinically warranted.. Prescriptions: No Action ibuprofen 600 mg tablet 600 mg PO Q6H PRN (Reason: pain) Qty: 30 0RF amlodipine 2.5 mg tablet 2.5 mg PO DAILY Qty: 30 3RF albuterol sulfate 90 mcg/actuation HFA aerosol inhaler 1 inh inhalation QID Qty: 8.5 0RF albuterol sulfate 90 mcg/actuation HFA aerosol inhaler 2 puff inhalation Q4-6H PRN (Reason: shortness of breath or wheezing) Qty: 8.5 1RF hydroxyzine pamoate 50 mg capsule 50 mg PO QID PRN (Reason: anxiety) melatonin 3 mg tablet 3 mg PO BEDTIME PRN (Reason: insomnia) trazodone 100 mg tablet 100 mg PO BEDTIME sertraline 50 mg tablet 50 mg PO DAILY bupropion HCl 150 mg tablet extended release 24 hr 150 mg PO QAM sertraline 50 mg tablet 50 mg PO DAILY Qty: 30 0RF trazodone 50 mg tablet 50 mg PO BEDTIME Qty: 30 0RF hydroxyzine pamoate [Vistaril] 25 mg capsule 25 mg PO TID PRN (Reason: anxiety) Qty: 30 0RF amoxicillin-pot clavulanate 875-125 mg tablet 1 tab PO BID 7 Days Qty: 14 0RF acetaminophen [Tylenol Extra Strength] 500 mg tablet 1,000 mg PO Q6H PRN (Reason: pain) Qty: 30 0RF ibuprofen 600 mg tablet 600 mg PO Q6H PRN (Reason: pain) Qty: 30 0RF furosemide [Lasix] 20 mg tablet 20 mg PO DAILY 4 Days Qty: 4 0RF ibuprofen 800 mg tablet 800 mg PO Q8H PRN (Reason: pain) Qty: 14 0RF lidocaine [Lidoderm] 5 % adhesive patch,medicated 1 patch topical DAILY MDD remove after 12 hours PRN (Reason: pain) Qty: 30 0RF Rx Instructions: leave on most painful area for up to 12 hrs famotidine [Pepcid] 20 mg tablet 20 mg PO BID PRN (Reason: abdominal pain) Qty: 60 0RF alum-mag hydroxide-simeth [Maalox Advanced] 200-200-20 mg/5 mL suspension 10 ml PO Q6H PRN (Reason: indigestion) Qty: 3000 0RF ondansetron 4 mg tablet,disintegrating 4 mg PO Q6H Qty: 14 0RF amlodipine 2.5 mg tablet 2.5 mg PO DAILY Qty: 90 0RF amlodipine 2.5 mg tablet 2.5 mg PO DAILY Qty: 30 0RF buprenorphine-naloxone [Suboxone] 2-0.5 mg film 1 film buccal DAILY Qty: 10 0RF Referrals: Leny Walker MD [Physician] - Print Language: Sami
--- NOTE | 2024-03-18 12:10 | ECG_ITS ---
Test Reason : EPIGASTRIC PAIN/RUQ PAIN Blood Pressure : / mmHG Vent. Rate : 072 BPM Atrial Rate : 072 BPM P-R Int : 082 ms QRS Dur : 106 ms QT Int : 394 ms P-R-T Axes : 047 032 061 degrees QTc Int : 431 ms Normal sinus rhythm [id number] Abnormal ECG When compared with ECG of 16-MAR-2024 12:38, No significant change was found Referred By: Helena Suggs Electronically Signed By:JONATHON ZAMARRIPA MD
[2024-03-18 12:40] LABS: MANUAL DIFF FLAG NO
[2024-03-18 12:42] LABS: Basophils Percent Auto 0.5 % (0-2); Eosinophils Absolute Auto 0.1 X10*3/uL (0.0-0.4); Eosinophils Percent Auto 2.5 % (0-4); Hematocrit 41.8 % (42.0-52.0); Hemoglobin 14.1 g/dl (14.0-18.0); Imm Gran Abs Auto 0.01 X10*3/uL (0.00-0.03); Imm Gran Pct Auto 0.2 % (0.0-0.4); Lymphocytes Absolute Auto 1.8 X10*3/uL (1.2-4.9); Lymphocytes Percent Auto 31.3 % (20-40); Mean Corpuscular HGB Conc 33.7 g/dl (31.0-36.0); Mean Corpuscular Hemoglobin 29.9 pg (27.0-33.0); Mean Corpuscular Volume 88.6 fL (80.0-98.0); Monocytes Absolute Auto 0.5 X10*3/uL (0.1-1.2); Monocytes Percent Auto 8.7 % (2-11); Neutrophils Absolute Auto 3.2 x10*3/uL (2.0-8.3); Neutrophils Percent Auto 56.8 % (45-73); Platelet Count 238 X10*3/uL (160-400); Red Blood Count 4.72 X10*6/uL (4.60-5.80); Red Cell Distribution Width 13.1 % (11.0-16.0); White Blood Count 5.7 X10*3/uL (4.8-10.8)
[2024-03-18 12:59] VITALS: BP 162/92; PULSE 69; RESP 17; TEMP 36.6; O2SAT 97
[2024-03-18 13:02] LABS: Alanine Aminotransferase 21 U/L (0-40); Albumin Level 3.9 g/dL (3.5-5.0); Alkaline Phosphatase 96 U/L (39-117); Anion Gap 13 (12-20); Aspartate Amino Transferase 20 U/L (5-37); Bilirubin Direct 0.1 mg/dL (0.0-0.5); Bilirubin Total 0.3 mg/dL (0.0-1.0); Blood Urea Nitrogen 14 mg/dL (9-16); Carbon Dioxide 29 mmol/L (22-29); Chloride 102 mmol/L (96-108); Creatinine Clr Calc Pharmacy 111.1; Estimated Glomerular Filt Rate > 60; Glucose Random 116 mg/dL (60-115); Lipase 13 U/L (8-78); Magnesium 1.8 mg/dL (1.6-2.6); Potassium 4.3 mmol/L (3.3-5.1); Sodium 140 mmol/L (135-145)
[2024-03-18 13:09] LABS: Troponin-I High Sensitivity < 2.7 ng/L (<3.5-35.0)
[2024-03-18 13:27] LABS: Influenza A PCR NEGATIVE (Negative); Influenza B PCR NEGATIVE (Negative); Resp Syncy Virus RNA Qual PCR NEGATIVE (Negative); SARS COV2 PCR INHOUSE NEGATIVE (Negative)
[2024-03-18] MEDS: 0.9 % Sodium Chloride 1,000 ML 999 ML IV (14:34)
[2024-03-18] MEDS: ondansetron HCL 4 MG/2 ML VIAL IVPUSH (14:35)
[2024-03-18] MEDS: Magnesium Hydrox/Alum Hydrox 30 ML ORAL.SUSP PO (14:35)
[2024-03-18] MEDS: Ketorolac Tromethamine 30 MG/ML VIAL IVPUSH (14:35)
[2024-03-18] MEDS: iohexoL 350 MG/ML 100 ML INFUS..BTL 85 ML IV (15:00)
[2024-03-18 16:00] VITALS: BP 154/81; PULSE 71; RESP 15; TEMP 36.8; O2SAT 99
[2024-03-18 16:55] VITALS: BP 154/81; PULSE 71; RESP 15; TEMP 36.8; O2SAT 99
== END 2024-03-18 16:56 | disposition home or self-care (01) ==
PROVIDERS: Physician Assistant Medical; Emergency Provider Student in an Organized Health Care Education/Training Program
DX: K20.90 Esophagitis, unspecified without bleeding (principal); Z03.818 Encounter for observation for suspected exposure to other biological agents ruled out; J45.909 Unspecified asthma, uncomplicated; F17.210 Nicotine dependence, cigarettes, uncomplicated; F11.20 Opioid dependence, uncomplicated; F14.20 Cocaine dependence, uncomplicated; F33.1 Major depressive disorder, recurrent, moderate; Z79.899 Other long term (current) drug therapy
CPT/HCPCS: 0241U; 74177; 76705; 80048; 80076; 83690; 83735; 84484; 85025; 93005; 96361; 96374; 96375; 99284; J1885; J2405; Q9967

== ENCOUNTER → 2024-03-18 12:10 | Outpatient (BNV) | payer MEDICARE, MEDICAID, SELFPAY | PROVIDERS: Emergency Provider Student in an Organized Health Care Education/Training Program; Visit Provider Internal Medicine Cardiovascular Disease | DX: R94.31 Abnormal electrocardiogram [ECG] [EKG] (principal) | CPT/HCPCS: 93010 ==

== ENCOUNTER 2024-04-05 15:41 | Emergency (ER) | payer MEDICARE, SELFPAY ==
--- NOTE | ~2024-04-05 | XR_ITS ---
EXAMINATION: XR CHEST CLINICAL INFORMATION: Shortness of breath COMPARISON: Chest x-ray February 10, 2024 TECHNIQUE: Frontal view of the chest was obtained. FINDINGS: No significant abnormality is noted involving the heart, lungs, mediastinum, bony thorax or soft tissues. XR/XR chest 1V IMPRESSION: Unremarkable examination. Electronically signed by: Mick Carcamo MD 04/05/2024 04:55 PM EDT RP
--- NOTE | 2024-04-05 15:42 | ECG_ITS ---
Test Reason : chest pain Blood Pressure : / mmHG Vent. Rate : 086 BPM Atrial Rate : 086 BPM P-R Int : 102 ms QRS Dur : 094 ms QT Int : 354 ms P-R-T Axes : 076 037 039 degrees QTc Int : 423 ms Sinus rhythm with short OH Otherwise normal ECG When compared with ECG of 18-MAR-2024 12:12, [id number] is no longer Present Referred By: Generic ED Physician Electronically Signed By:MARCELA ROLLE
--- NOTE | 2024-04-05 15:49 | ED_ITS ---
HPI - General Adult General Chief complaint: Chest Pain Stated complaint: Chest/abd pain and Difficulty breathing Time Seen by Provider: 04/05/24 17:56 Source: patient Mode of arrival: ambulatory Limitations: no limitations History of Present Illness ED Provider: leon BRUSH narrative: Patient with history of depression substance abuse cocaine chronic gastritis comes here for midsternal pain feels like burning sensation off and on increases on having food which is going on for a while got worse in last few days patient is supposed to get the prescription picked up but does not have any money to buy the medicine Related Data Home Medications ?Medication ?Instructions ?Recorded ?Confirmed bupropion HCl 150 mg 24 hr tablet, 150 mg PO QAM 12/21/23 12/21/23 extended release hydroxyzine pamoate 50 mg capsule 50 mg PO QID PRN anxiety 12/21/23 12/21/23 melatonin 3 mg tablet 3 mg PO BEDTIME PRN insomnia 12/21/23 12/21/23 sertraline 50 mg tablet 50 mg PO DAILY 12/21/23 12/21/23 trazodone 100 mg tablet 100 mg PO BEDTIME 12/21/23 12/21/23 Previous Rx's ?Medication ?Instructions ?Recorded ibuprofen 600 mg tablet 600 mg PO Q6H PRN pain #30 tabs 02/12/21 albuterol sulfate 90 mcg/actuation 2 puff inhalation Q4-6H PRN 08/26/23 aerosol inhaler shortness of breath or wheezing #8.5 grams amlodipine 2.5 mg tablet 2.5 mg PO DAILY #30 tabs 12/22/23 buprenorphine 2 mg-naloxone 0.5 mg 1 film buccal DAILY #10 ea 12/22/23 sublingual film (Suboxone) hydroxyzine pamoate 25 mg capsule 25 mg PO TID PRN anxiety #30 caps 12/22/23 (Vistaril) sertraline 50 mg tablet 50 mg PO DAILY #30 tabs 12/22/23 trazodone 50 mg tablet 50 mg PO BEDTIME #30 tabs 12/22/23 acetaminophen 500 mg tablet 1,000 mg (2 x 500 mg) PO Q6H PRN 02/03/24 (Tylenol Extra Strength) pain #30 tabs amoxicillin 875 mg-potassium 1 tab PO BID 7 days #14 tabs 02/03/24 clavulanate 125 mg tablet ibuprofen 600 mg tablet 600 mg PO Q6H PRN pain #30 tabs 02/03/24 albuterol sulfate 90 mcg/actuation 1 inh inhalation QID #8.5 grams 02/14/24 aerosol inhaler amlodipine 2.5 mg tablet 2.5 mg PO DAILY #30 tabs 02/14/24 furosemide 20 mg tablet (Lasix) 20 mg PO DAILY 4 days #4 tabs 03/04/24 ibuprofen 800 mg tablet 800 mg PO Q8H PRN pain #14 tabs 03/04/24 lidocaine 5 % topical patch 1 patch topical DAILY PRN pain #30 03/04/24 (Lidoderm) ea aluminum-mag hydroxide-simethicone 10 ml PO Q6H PRN indigestion 03/16/24 200 mg-200 mg-20 mg/5 mL oral susp #3,000 mL (Maalox Advanced) amlodipine 2.5 mg tablet 2.5 mg PO DAILY #90 tabs 03/16/24 famotidine 20 mg tablet (Pepcid) 20 mg PO BID PRN abdominal pain 03/16/24 #60 tabs ondansetron 4 mg disintegrating 4 mg PO Q6H #14 tabs 03/16/24 tablet hydroxyzine HCl 50 mg tablet 50 mg PO BID PRN anxiety/sleep #30 04/05/24 tabs omeprazole 40 mg capsule,delayed 40 mg PO DAILY #30 caps 04/05/24 release sucralfate 1 gram tablet 1 g PO TID #90 tabs 04/05/24 Allergies Allergy/AdvReac Type Severity Reaction Status Date / Time No Known Allergies Allergy Verified 04/05/24 16:02 Review of Systems 2 Review of Systems: Yes all other systems are reviewed and are negative PMFSH Past Medical History Medical History Asthma Social History Social History Alcohol intake: current Alcohol intake frequency: 0-2 drinks per day Patient Tobacco Use Status: Current everyday Tobacco user Smoked in Last 30 Days: Yes Use of substances other than those prescribed or required for medical reasons: Yes Substance Use Type: Crack/Cocaine Substance Use Frequency: Weekly Advance Directives: No Advance Directives Information Provided: No Do you have a plan to hurt others: No Plan Physical Exam ED Vital Signs: Vital Signs - 24 hr 04/05/24 15:59 04/05/24 18:22 Temperature 98.4 F 98.1 F Pulse Rate 83 65 Respiratory Rate 20 16 Blood Pressure 153/83 H 138/87 Pulse Oximetry 100 99 Oxygen Delivery Method Room Air Room Air BMI result Body Mass Index 25.4 Appearance: Alert. Oriented X3. No acute distress. Eyes: PERRLA, no pallor ENT: Pharynx normal. Oral Mucosa moist Neck: Normal inspection. Neck supple. CVS: Normal heart rate and rhythm. Pulses normal. Respiratory: No respiratory distress. Equal air entry bilateral, no wheezing/rales/rhonchi Abdomen: Soft and tender in epigastric area Bowel sounds are present, no mass palpable, no CVA tenderness Skin: Skin warm and dry. Normal skin color. Normal skin turgor. Extremities: No lower extremity edema. No calf tenderness Neuro: Oriented X 3. No motor deficit. Course Course Course Narrative: This is an RME done by GRICEL Gaytan: Additional HPI, ROS, PE not included below will be deferred to primary provider. 33 year old male presenting with substernal chest pain (05/19) and sob since earlier today with a/c nausea and sweating. He vomited last night, but none today. Pt states the pain is a tight squeezing feeling. Denies radiation elsewhere. He has experienced something similar in the past, but it was less severe. Plan - imaging, labs, ARECHIGA Appearance: Alert.? Oriented X3.? No acute cardiopulmonary distress distress.? Head: Normocephalic, atraumatic, no step-offs or deformities Neck: Normal inspection.? Neck supple.? CVS: Pulses normal.? Respiratory: No respiratory distress.? Abdomen: Soft and nontender.? Skin: ? Normal skin color. Extremities: 5/5 strength to bilateral upper and lower extremities Neuro: Oriented X 3.? No motor deficit.? No sensory deficit. Medications Administered Discontinued Medications Generic Name Dose Route Start Last Admin Trade Name Freq PRN Reason Stop Dose Admin Al Hydroxide/Mg Hydroxide 30 ml 04/05/24 18:01 04/05/24 18:24 Magnesium Hydrox/Alum Hydrox 30 Ml Oral.Susp PO 04/05/24 18:02 30 ml ONCE ONE Administration Hydroxyzine HCl 50 mg 04/05/24 18:01 04/05/24 18:24 Hydroxyzine Hcl 50 Mg Tablet PO 04/05/24 18:02 50 mg ONCE ONE Administration Omeprazole 40 mg 04/05/24 18:01 04/05/24 18:24 Omeprazole 40 Mg Capsule.Dr DIETRICH 04/05/24 18:02 40 mg ONCE ONE Administration Medical Decision Making Medical Decision Making [facility] Narrative: Patient has atypical pain with history of gastritis likely the cause of the pain will prescribe Prilosec and sucralfate advised avoid fried food Differential Diagnosis Differential Diagnoses: The differential diagnosis associated with the presentation includes Gastritis/ACS/anxiety Admission/Observation Consideration of admission/observation: Escalation of care including admission/observation considered Lab Data [facility] Lab Attestation statement: I reviewed the patient's lab results. 04/05/24 16:32 04/05/24 16:32 Labs: Lab Results 04/05/24 Range/Units 16:32 WBC 5.9 (4.8-10.8) X10*3/uL RBC 5.10 (4.60-5.80) X10*6/uL Hgb 15.0 (14.0-18.0) g/dl Hct 44.7 (42.0-52.0) % MCV 87.6 (80.0-98.0) fL MCH 29.4 (27.0-33.0) pg MCHC 33.6 (31.0-36.0) g/dl RDW 12.9 (11.0-16.0) % Plt Count 201 (160-400) X10*3/uL MPV 11.2 (9.4-12.4) fL Immature Gran % (Auto) 0.2 (0.0-0.4) % Neut % (Auto) 59.9 (45-73) % Lymph % (Auto) 31.2 (20-40) % [place] % (Auto) 6.8 (2-11) % Eos % (Auto) 1.2 (0-4) % Baso % (Auto) 0.7 (0-2) % Lymph # (Auto) 1.8 (1.2-4.9) X10*3/uL [place] # (Auto) 0.4 (0.1-1.2) X10*3/uL Eos # (Auto) 0.1 (0.0-0.4) X10*3/uL Baso # (Auto) 0.0 (0.0-0.2) X10*3/uL Abs Immat Gran (auto) 0.01 (0.00-0.03) X10*3/uL Absolute Neuts (auto) 3.5 (2.0-8.3) x10*3/uL Absolute Nucleated RBC 0.000 (0.0-0.012) X10*3/uL Nucleated RBC % (auto) 0.0 (0.0-0.2) /100WBC PT 11.7 (11.1-13.3) SEC INR 1.0 (0.9-1.1) Sodium 141 (135-145) mmol/L Potassium 4.4 (3.3-5.1) mmol/L Chloride 107 (96-108) mmol/L Carbon Dioxide 24 (22-29) mmol/L Anion Gap 14 (12-20) BUN 19 H (9-16) mg/dL Creatinine 0.88 (0.5-1.4) mg/dL Estim Creat Clear Calc 113.7 Estimated GFR > 60 Random Glucose 65 (60-115) mg/dL Calcium 10.2 (8.4-10.2) mg/dL Total Bilirubin 0.3 (0.0-1.0) mg/dL AST 17 (5-37) U/L ALT 17 (0-40) U/L Alkaline Phosphatase 81 (39-117) U/L Troponin I High Sens < 2.7 (<3.5-35.0) ng/L B-Natriuretic Peptide < 10 (<100) pg/mL Total Protein 7.2 (6.5-8.0) g/dL Albumin 4.2 (3.5-5.0) g/dL Ethyl Alcohol < 10 mg/dL Independent Interpretation I performed an independent interpretation of an: EKG Interpretation: Normal sinus rhythm heart rate 86 beats per minute normal interval normal axis no acute ST T wave changes no acute ischemia Discharge Plan Discharge Clinical Impression: Chest pain due to GERD, Anxiety Patient Disposition: Home, Self-Care Instructions: Chest Pain (ED), Gastroesophageal Reflux Disease (ED), Anxiety (ED) Additional Instructions: Your pain in the chest is likely from esophageal inflammation from gastritis Take medication as prescribed Follow up with your PCP take Medication for anxiety/sleep as prescribed Avoid fried/spicy food Prescriptions: New hydroxyzine HCl 50 mg tablet 50 mg PO BID PRN (Reason: anxiety/sleep) Qty: 30 0RF omeprazole 40 mg capsule,delayed release(DR/EC) 40 mg PO DAILY Qty: 30 0RF sucralfate 1 gram tablet 1 g PO TID Qty: 90 0RF No Action ibuprofen 600 mg tablet 600 mg PO Q6H PRN (Reason: pain) Qty: 30 0RF amlodipine 2.5 mg tablet 2.5 mg PO DAILY Qty: 30 3RF albuterol sulfate 90 mcg/actuation HFA aerosol inhaler 1 inh inhalation QID Qty: 8.5 0RF albuterol sulfate 90 mcg/actuation HFA aerosol inhaler 2 puff inhalation Q4-6H PRN (Reason: shortness of breath or wheezing) Qty: 8.5 1RF hydroxyzine pamoate 50 mg capsule 50 mg PO QID PRN (Reason: anxiety) melatonin 3 mg tablet 3 mg PO BEDTIME PRN (Reason: insomnia) trazodone 100 mg tablet 100 mg PO BEDTIME sertraline 50 mg tablet 50 mg PO DAILY bupropion HCl 150 mg tablet extended release 24 hr 150 mg PO QAM sertraline 50 mg tablet 50 mg PO DAILY Qty: 30 0RF trazodone 50 mg tablet 50 mg PO BEDTIME Qty: 30 0RF hydroxyzine pamoate [Vistaril] 25 mg capsule 25 mg PO TID PRN (Reason: anxiety) Qty: 30 0RF amoxicillin-pot clavulanate 875-125 mg tablet 1 tab PO BID 7 Days Qty: 14 0RF acetaminophen [Tylenol Extra Strength] 500 mg tablet 1,000 mg PO Q6H PRN (Reason: pain) Qty: 30 0RF ibuprofen 600 mg tablet 600 mg PO Q6H PRN (Reason: pain) Qty: 30 0RF furosemide [Lasix] 20 mg tablet 20 mg PO DAILY 4 Days Qty: 4 0RF ibuprofen 800 mg tablet 800 mg PO Q8H PRN (Reason: pain) Qty: 14 0RF lidocaine [Lidoderm] 5 % adhesive patch,medicated 1 patch topical DAILY MDD remove after 12 hours PRN (Reason: pain) Qty: 30 0RF Rx Instructions: leave on most painful area for up to 12 hrs famotidine [Pepcid] 20 mg tablet 20 mg PO BID PRN (Reason: abdominal pain) Qty: 60 0RF alum-mag hydroxide-simeth [Maalox Advanced] 200-200-20 mg/5 mL suspension 10 ml PO Q6H PRN (Reason: indigestion) Qty: 3000 0RF ondansetron 4 mg tablet,disintegrating 4 mg PO Q6H Qty: 14 0RF amlodipine 2.5 mg tablet 2.5 mg PO DAILY Qty: 90 0RF amlodipine 2.5 mg tablet 2.5 mg PO DAILY Qty: 30 0RF buprenorphine-naloxone [Suboxone] 2-0.5 mg film 1 film buccal DAILY Qty: 10 0RF Print Language: Scottish
[2024-04-05 15:59] VITALS: BP 153/83; PULSE 83; RESP 20; TEMP 36.9; O2SAT 100; BMI 25.4
[2024-04-05 16:36] LABS: MANUAL DIFF FLAG NO
[2024-04-05 16:38] LABS: Basophils Percent Auto 0.7 % (0-2); Eosinophils Absolute Auto 0.1 X10*3/uL (0.0-0.4); Eosinophils Percent Auto 1.2 % (0-4); Hematocrit 44.7 % (42.0-52.0); Imm Gran Abs Auto 0.01 X10*3/uL (0.00-0.03); Imm Gran Pct Auto 0.2 % (0.0-0.4); Lymphocytes Absolute Auto 1.8 X10*3/uL (1.2-4.9); Lymphocytes Percent Auto 31.2 % (20-40); Mean Corpuscular HGB Conc 33.6 g/dl (31.0-36.0); Mean Corpuscular Hemoglobin 29.4 pg (27.0-33.0); Mean Corpuscular Volume 87.6 fL (80.0-98.0); Mean Platelet Volume 11.2 fL (9.4-12.4); Monocytes Absolute Auto 0.4 X10*3/uL (0.1-1.2); Monocytes Percent Auto 6.8 % (2-11); Neutrophils Absolute Auto 3.5 x10*3/uL (2.0-8.3); Neutrophils Percent Auto 59.9 % (45-73); Platelet Count 201 X10*3/uL (160-400); Red Cell Distribution Width 12.9 % (11.0-16.0); White Blood Count 5.9 X10*3/uL (4.8-10.8)
[2024-04-05 16:42] LABS: Prothrombin Time 11.7 SEC (11.1-13.3)
[2024-04-05 16:51] LABS: Alanine Aminotransferase 17 U/L (0-40); Albumin Level 4.2 g/dL (3.5-5.0); Alkaline Phosphatase 81 U/L (39-117); Anion Gap 14 (12-20); Aspartate Amino Transferase 17 U/L (5-37); Bilirubin Total 0.3 mg/dL (0.0-1.0); Blood Urea Nitrogen 19 mg/dL (9-16); Calcium 10.2 mg/dL (8.4-10.2); Carbon Dioxide 24 mmol/L (22-29); Chloride 107 mmol/L (96-108); Creatinine Clr Calc Pharmacy 113.7; Estimated Glomerular Filt Rate > 60; Glucose Random 65 mg/dL (60-115); Potassium 4.4 mmol/L (3.3-5.1); Sodium 141 mmol/L (135-145); Total Protein 7.2 g/dL (6.5-8.0)
[2024-04-05 16:57] LABS: B Type Natriuretic Peptide < 10 pg/mL (<100)
[2024-04-05 16:59] LABS: Ethanol < 10 mg/dL; Troponin-I High Sensitivity < 2.7 ng/L (<3.5-35.0)
[2024-04-05 18:22] VITALS: BP 138/87; PULSE 65; RESP 16; TEMP 36.7; O2SAT 99
[2024-04-05] MEDS: hydrOXYzine HCL 50 MG TABLET PO (18:24)
[2024-04-05] MEDS: Magnesium Hydrox/Alum Hydrox 30 ML ORAL.SUSP PO (18:24)
[2024-04-05] MEDS: Omeprazole 40 MG CAPSULE.DR PO (18:24)
[2024-04-05 19:47] VITALS: BP 143/86; PULSE 92; RESP 18; TEMP 36.6; O2SAT 97
== END 2024-04-05 19:48 | disposition home or self-care (01) ==
PROVIDERS: Physician Assistant; Emergency Provider Internal Medicine
DX: R07.89 Other chest pain (principal); R06.02 Shortness of breath; F14.10 Cocaine abuse, uncomplicated; K21.9 Gastro-esophageal reflux disease without esophagitis; F41.1 Generalized anxiety disorder; F43.0 Acute stress reaction; Z79.899 Other long term (current) drug therapy; Z51.81 Encounter for therapeutic drug level monitoring
CPT/HCPCS: 36415; 71045; 80053; 80307; 83880; 84484; 85025; 85610; 93005; 99283; 99285

== ENCOUNTER 2024-05-16 12:54 | Emergency (ER) | payer MEDICARE, SELFPAY ==
--- NOTE | ~2024-05-16 | XR_ITS ---
EXAMINATION: XR CHEST CLINICAL INFORMATION: Chest pain COMPARISON: Chest xray on 04/05/24 TECHNIQUE: 2 views of the chest were obtained. FINDINGS: No significant abnormality is noted involving the heart, lungs, mediastinum, bony thorax or soft tissues. XR/XR chest 2V IMPRESSION: Unremarkable examination. Electronically signed by: Mariann Garza MD 05/16/2024 01:57 PM EDT RP
--- NOTE | 2024-05-16 12:57 | ECG_ITS ---
Test Reason : cp Blood Pressure : / mmHG Vent. Rate : 062 BPM Atrial Rate : 062 BPM P-R Int : 080 ms QRS Dur : 108 ms QT Int : 398 ms P-R-T Axes : 045 043 050 degrees QTc Int : 403 ms Normal sinus rhythm Csjgb-Yljfatrya-Nxtyn Abnormal ECG When compared with ECG of 05-APR-2024 15:45, Nskap-Pnjykgufz-Blivk is now Present Referred By: Diann Rodriguez Electronically Signed By:MARCELA ROLLE
[2024-05-16 13:28] VITALS: BP 144/90; PULSE 63; RESP 19; TEMP 36.6; O2SAT 98; BMI 23.5
--- NOTE | 2024-05-16 13:29 | ED_ITS ---
HPI - Chest Pain General Chief Complaint: Chest Pain Stated Complaint: chest pain diff breathing Related Data Home Medications ?Medication ?Instructions ?Recorded ?Confirmed bupropion HCl 150 mg 24 hr tablet, 150 mg PO QAM 12/21/23 12/21/23 extended release hydroxyzine pamoate 50 mg capsule 50 mg PO QID PRN anxiety 12/21/23 12/21/23 melatonin 3 mg tablet 3 mg PO BEDTIME PRN insomnia 12/21/23 12/21/23 sertraline 50 mg tablet 50 mg PO DAILY 12/21/23 12/21/23 trazodone 100 mg tablet 100 mg PO BEDTIME 12/21/23 12/21/23 Previous Rx's ?Medication ?Instructions ?Recorded ibuprofen 600 mg tablet 600 mg PO Q6H PRN pain #30 tabs 02/12/21 albuterol sulfate 90 mcg/actuation 2 puff inhalation Q4-6H PRN 08/26/23 aerosol inhaler shortness of breath or wheezing #8.5 grams amlodipine 2.5 mg tablet 2.5 mg PO DAILY #30 tabs 12/22/23 buprenorphine 2 mg-naloxone 0.5 mg 1 film buccal DAILY #10 ea 12/22/23 sublingual film (Suboxone) hydroxyzine pamoate 25 mg capsule 25 mg PO TID PRN anxiety #30 caps 12/22/23 (Vistaril) sertraline 50 mg tablet 50 mg PO DAILY #30 tabs 12/22/23 trazodone 50 mg tablet 50 mg PO BEDTIME #30 tabs 12/22/23 acetaminophen 500 mg tablet 1,000 mg (2 x 500 mg) PO Q6H PRN 02/03/24 (Tylenol Extra Strength) pain #30 tabs amoxicillin 875 mg-potassium 1 tab PO BID 7 days #14 tabs 02/03/24 clavulanate 125 mg tablet ibuprofen 600 mg tablet 600 mg PO Q6H PRN pain #30 tabs 02/03/24 albuterol sulfate 90 mcg/actuation 1 inh inhalation QID #8.5 grams 02/14/24 aerosol inhaler amlodipine 2.5 mg tablet 2.5 mg PO DAILY #30 tabs 02/14/24 furosemide 20 mg tablet (Lasix) 20 mg PO DAILY 4 days #4 tabs 03/04/24 ibuprofen 800 mg tablet 800 mg PO Q8H PRN pain #14 tabs 03/04/24 lidocaine 5 % topical patch 1 patch topical DAILY PRN pain #30 03/04/24 (Lidoderm) ea aluminum-mag hydroxide-simethicone 10 ml PO Q6H PRN indigestion 03/16/24 200 mg-200 mg-20 mg/5 mL oral susp #3,000 mL (Maalox Advanced) amlodipine 2.5 mg tablet 2.5 mg PO DAILY #90 tabs 03/16/24 famotidine 20 mg tablet (Pepcid) 20 mg PO BID PRN abdominal pain 03/16/24 #60 tabs ondansetron 4 mg disintegrating 4 mg PO Q6H #14 tabs 03/16/24 tablet hydroxyzine HCl 50 mg tablet 50 mg PO BID PRN anxiety/sleep #30 04/05/24 tabs omeprazole 40 mg capsule,delayed 40 mg PO DAILY #30 caps 04/05/24 release sucralfate 1 gram tablet 1 g PO TID #90 tabs 04/05/24 Allergies Allergy/AdvReac Type Severity Reaction Status Date / Time No Known Allergies Allergy Verified 05/16/24 13:31 [facility] Past Medical History Medical History Asthma Social History Social History Alcohol intake: current Alcohol intake frequency: 0-2 drinks per day Patient Tobacco Use Status: Current everyday Tobacco user Substance Use Type: Crack/Cocaine Advance Directives: No Advance Directives Information Provided: No Do you have a plan to hurt others: No Plan Physical Exam 2 Vital Signs: Vital Signs: Last Vital Signs Temp 98 F 05/16/24 13:28 Pulse 63 05/16/24 13:28 Resp 19 05/16/24 13:28 BP 144/90 H 05/16/24 13:28 Pulse Ox 98 05/16/24 13:28 O2 Del Method Room Air 05/16/24 13:28 BMI result Body Mass Index 23.5 Course Course Course Narrative: This is a Rapid Medical Examination (RME) performed by David Rodriguez PA-C in triage. Full HPI, ROS, assessment and treatment plan per primary provider in the Main ED. 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 has not taken methadone for 2 weeks. has been using cocaine and fentanyl intranasally. pain is worse with eating. has chest tightness in the heart. he endorses palpitations, lightheadedness and dizziness as well. VSS in triage. pain is reproducible but also present at rest. chest wall is tender. lungs are clear throughout. no distress. no peripheral edema Plan: EKG, labs, CXR Medical Decision Making Lab Data 05/16/24 17:11 05/16/24 17:12 Labs: Lab Results 05/16/24 05/16/24 Range/Units 17:11 17:12 WBC 5.9 (4.8-10.8) X10*3/uL RBC 5.35 (4.60-5.80) X10*6/uL Hgb 15.3 (14.0-18.0) g/dl Hct 45.7 (42.0-52.0) % MCV 85.4 (80.0-98.0) fL MCH 28.6 (27.0-33.0) pg MCHC 33.5 (31.0-36.0) g/dl RDW 13.9 (11.0-16.0) % Plt Count 197 (160-400) X10*3/uL MPV 11.4 (9.4-12.4) fL Immature Gran % (Auto) Cancelled Neut % (Auto) Cancelled Lymph % (Auto) Cancelled [place] % (Auto) Cancelled Eos % (Auto) Cancelled Baso % (Auto) Cancelled Lymph # (Auto) Cancelled [place] # (Auto) Cancelled Eos # (Auto) Cancelled Baso # (Auto) Cancelled Abs Immat Gran (auto) Cancelled Absolute Neuts (auto) Cancelled Absolute Nucleated RBC 0.000 (0.0-0.012) X10*3/uL Nucleated RBC % (auto) 0.0 (0.0-0.2) /100WBC Neutrophils % (Manual) 53 (45-73) % Band Neutrophils % 0 L (3-5) % Lymphocytes % (Manual) 36 (20-40) % Atypical Lymphs % (Man) 3 (0-6) % Monocytes % (Manual) 6 (2-11) % Eosinophils % (Manual) 1 (0-4) % Basophils % (Manual) 1 (0-2) % Abs Neuts (Manual) 3.1 (2.0-8.3) X10*3/uL Lymphocytes # (Manual) 2.1 (1.2-4.9) X10*3/uL Atyp Lymphs # (Manual) 0.2 x10*3/uL Monocytes # (Manual) 0.4 (0.1-1.2) X10*3/uL Eosinophils # (Manual) 0.1 (0.0-0.4) X10*3/uL Basophils # (Manual) 0.1 (0.0-0.2) X10*3/uL Platelet Estimate NORMAL (NORMAL) Plt Morphology Comment NORMAL RBC Morphology NORMAL Sodium 141 (135-145) mmol/L Potassium 4.0 (3.3-5.1) mmol/L Chloride 105 (96-108) mmol/L Carbon Dioxide 29 (22-29) mmol/L Anion Gap 11 L (12-20) BUN 11 (9-16) mg/dL Creatinine 0.86 (0.5-1.4) mg/dL Estim Creat Clear Calc 116.3 Estimated GFR > 60 Random Glucose 81 (60-115) mg/dL Calcium 9.5 D (8.4-10.2) mg/dL Magnesium 2.0 (1.6-2.6) mg/dL Total Bilirubin 0.3 (0.0-1.0) mg/dL Direct Bilirubin 0.1 (0.0-0.5) mg/dL AST 25 (5-37) U/L ALT 20 (0-40) U/L Alkaline Phosphatase 96 (39-117) U/L Troponin I High Sens < 2.7 (<3.5-35.0) ng/L B-Natriuretic Peptide 31 (<100) pg/mL Total Protein 7.6 (6.5-8.0) g/dL Albumin 4.5 (3.5-5.0) g/dL TSH 0.65 (0.32-4.0) uIU/mL Urine Color Yellow Urine Appearance Clear Urine pH 6.5 (5.0-9.0) Ur Specific [place] 1.020 (1.005-1.025) Urine Protein Negative (Neg-Trace) mg/dL Urine Glucose (UA) Negative (Negative) mg/dL Urine Ketones Negative (Negative) mg/dL Urine Blood Negative (Negative) Urine Nitrite Negative (Negative) Ur Leukocyte Esterase Negative (Negative) Urine Opiates Screen Not Detected (Not Detect) Ur Buprenorphine Scrn Not Detected (Not Detect) ng/mL Ur Oxycodone Screen Not Detected (Not Detect) ng/mL Urine Methadone Screen Positive H (Not Detect) ng/mL Urine Fentanyl Screen Not Detected (Not Detect) Ur Barbiturates Screen Not Detected (Not Detect) Ur Phencyclidine Scrn Not Detected (Not Detect) Ur Amphetamines Screen Not Detected (Not Detect) U Benzodiazepines Scrn Not Detected (Not Detect) Urine Cocaine Screen POSITIVE H (Not Detect) U Marijuana (THC) Screen POSITIVE H (Not Detect) Influenza Type A (PCR) NEGATIVE (Negative) Influenza Type B (PCR) NEGATIVE (Negative) RSV RNA Qual (PCR) NEGATIVE (Negative) SARS-CoV-2 RNA (RT-PCR) NEGATIVE (Negative) Discharge Plan Discharge Clinical Impression: Chest pain Qualifiers: Chest pain type: unspecified Qualified Code(s): R07.9 - Chest pain, unspecified Patient Disposition: Left W/O Completing Treatment Prescriptions: No Action ibuprofen 600 mg tablet 600 mg PO Q6H PRN (Reason: pain) Qty: 30 0RF amlodipine 2.5 mg tablet 2.5 mg PO DAILY Qty: 30 3RF albuterol sulfate 90 mcg/actuation HFA aerosol inhaler 1 inh inhalation QID Qty: 8.5 0RF hydroxyzine HCl 50 mg tablet 50 mg PO BID PRN (Reason: anxiety/sleep) Qty: 30 0RF omeprazole 40 mg capsule,delayed release(DR/EC) 40 mg PO DAILY Qty: 30 0RF sucralfate 1 gram tablet 1 g PO TID Qty: 90 0RF albuterol sulfate 90 mcg/actuation HFA aerosol inhaler 2 puff inhalation Q4-6H PRN (Reason: shortness of breath or wheezing) Qty: 8.5 1RF hydroxyzine pamoate 50 mg capsule 50 mg PO QID PRN (Reason: anxiety) melatonin 3 mg tablet 3 mg PO BEDTIME PRN (Reason: insomnia) trazodone 100 mg tablet 100 mg PO BEDTIME sertraline 50 mg tablet 50 mg PO DAILY bupropion HCl 150 mg tablet extended release 24 hr 150 mg PO QAM sertraline 50 mg tablet 50 mg PO DAILY Qty: 30 0RF trazodone 50 mg tablet 50 mg PO BEDTIME Qty: 30 0RF hydroxyzine pamoate [Vistaril] 25 mg capsule 25 mg PO TID PRN (Reason: anxiety) Qty: 30 0RF amoxicillin-pot clavulanate 875-125 mg tablet 1 tab PO BID 7 Days Qty: 14 0RF acetaminophen [Tylenol Extra Strength] 500 mg tablet 1,000 mg PO Q6H PRN (Reason: pain) Qty: 30 0RF ibuprofen 600 mg tablet 600 mg PO Q6H PRN (Reason: pain) Qty: 30 0RF furosemide [Lasix] 20 mg tablet 20 mg PO DAILY 4 Days Qty: 4 0RF ibuprofen 800 mg tablet 800 mg PO Q8H PRN (Reason: pain) Qty: 14 0RF lidocaine [Lidoderm] 5 % adhesive patch,medicated 1 patch topical DAILY MDD remove after 12 hours PRN (Reason: pain) Qty: 30 0RF Rx Instructions: leave on most painful area for up to 12 hrs famotidine [Pepcid] 20 mg tablet 20 mg PO BID PRN (Reason: abdominal pain) Qty: 60 0RF alum-mag hydroxide-simeth [Maalox Advanced] 200-200-20 mg/5 mL suspension 10 ml PO Q6H PRN (Reason: indigestion) Qty: 3000 0RF ondansetron 4 mg tablet,disintegrating 4 mg PO Q6H Qty: 14 0RF amlodipine 2.5 mg tablet 2.5 mg PO DAILY Qty: 90 0RF amlodipine 2.5 mg tablet 2.5 mg PO DAILY Qty: 30 0RF buprenorphine-naloxone [Suboxone] 2-0.5 mg film 1 film buccal DAILY Qty: 10 0RF Discharge Date/Time: 05/16/24 19:35
[2024-05-16 17:21] LABS: Hematocrit 45.7 % (42.0-52.0); Hemoglobin 15.3 g/dl (14.0-18.0); Mean Corpuscular HGB Conc 33.5 g/dl (31.0-36.0); Mean Corpuscular Hemoglobin 28.6 pg (27.0-33.0); Mean Corpuscular Volume 85.4 fL (80.0-98.0); Mean Platelet Volume 11.4 fL (9.4-12.4); Platelet Count 197 X10*3/uL (160-400); Red Blood Count 5.35 X10*6/uL (4.60-5.80); Red Cell Distribution Width 13.9 % (11.0-16.0)
[2024-05-16 17:25] LABS: Appearance Urine Clear; Color Urine Yellow; Glucose Urine UA Negative (Negative); Leukocyte Esterase Urine Negative (Negative); Nitrite Urine Negative (Negative); PH 6.5 (5.0-9.0); Urine Blood Negative (Negative); Urine Ketones Negative (Negative); Urine Protein Negative (Neg-Trace)
[2024-05-16 17:30] LABS: WBC ABN SCTR FOR CBC 1
[2024-05-16 17:35] LABS: Amphetamine Screen Urine Not Detected (Not Detect); Barbiturates, Urine Not Detected (Not Detect); Benzodiazepines Screen Urine Not Detected (Not Detect); Buprenorphine Scr Not Detected (Not Detect); Cannabinoid Screen Urine POSITIVE (Not Detect); Cocaine Screen Urine POSITIVE (Not Detect); Fentanyl, urine Not Detected (Not Detect); Methadone Screen, Urine Positive (Not Detect); Opiate Screen Urine Not Detected (Not Detect); Oxycodone Screen Urine Not Detected (Not Detect); Phencyclidine Screen Urine Not Detected (Not Detect)
[2024-05-16 17:44] LABS: B Type Natriuretic Peptide 31 pg/mL (<100)
[2024-05-16 17:46] LABS: Alanine Aminotransferase 20 U/L (0-40); Albumin Level 4.5 g/dL (3.5-5.0); Alkaline Phosphatase 96 U/L (39-117); Anion Gap 11 (12-20); Aspartate Amino Transferase 25 U/L (5-37); Bilirubin Direct 0.1 mg/dL (0.0-0.5); Bilirubin Total 0.3 mg/dL (0.0-1.0); Blood Urea Nitrogen 11 mg/dL (9-16); Calcium 9.5 mg/dL (8.4-10.2); Carbon Dioxide 29 mmol/L (22-29); Chloride 105 mmol/L (96-108); Creatinine Clr Calc Pharmacy 116.3; Estimated Glomerular Filt Rate > 60; Glucose Random 81 mg/dL (60-115); Sodium 141 mmol/L (135-145); Total Protein 7.6 g/dL (6.5-8.0)
[2024-05-16 17:49] LABS: Troponin-I High Sensitivity < 2.7 ng/L (<3.5-35.0)
[2024-05-16 17:51] LABS: Atypical Lymphs Percent Manual 3 % (0-6); Band Neutrophils Percent 0 % (3-5); Basophils Percent Manual 1 % (0-2); Eosinophils Percent Manual 1 % (0-4); Lymphocytes Percent Manual 36 % (20-40); Monocytes Percent Manual 6 % (2-11); Neutrophils Percent Manual 53 % (45-73)
[2024-05-16 17:52] LABS: RBC Morphology NORMAL
[2024-05-16 17:53] LABS: Atypical Lymph Absolute Manual 0.2 x10*3/uL; Basophils Abs Manual 0.1 X10*3/uL (0.0-0.2); Eosinophils Absolute Manual 0.1 X10*3/uL (0.0-0.4); Lymphocytes Absolute Manual 2.1 X10*3/uL (1.2-4.9); Monocytes Absolute Manual 0.4 X10*3/uL (0.1-1.2); Neutrophils Absolute Manual 3.1 X10*3/uL (2.0-8.3); Platelet Estimate NORMAL (NORMAL); Platelet Morphology Comment NORMAL; White Blood Count 5.9 X10*3/uL (4.8-10.8)
[2024-05-16 17:59] LABS: Influenza A PCR NEGATIVE (Negative); Influenza B PCR NEGATIVE (Negative); Resp Syncy Virus RNA Qual PCR NEGATIVE (Negative); SARS COV2 PCR INHOUSE NEGATIVE (Negative)
[2024-05-16 18:01] LABS: TSH reflex Free T4 0.65 uIU/mL (0.32-4.0)
== END 2024-05-16 19:35 | disposition left against medical advice (07) ==
PROVIDERS: Physician Assistant; Emergency Provider Emergency Medicine
DX: R07.9 Chest pain, unspecified (principal); F19.10 Other psychoactive substance abuse, uncomplicated; R06.02 Shortness of breath; Z03.818 Encounter for observation for suspected exposure to other biological agents ruled out; J45.909 Unspecified asthma, uncomplicated; F11.20 Opioid dependence, uncomplicated; Z79.899 Other long term (current) drug therapy
CPT/HCPCS: 0241U; 36415; 71046; 80048; 80076; 80307; 81003; 83735; 83880; 84443; 84484; 85007; 85027; 93005; 99283

== ENCOUNTER 2024-05-28 20:53 | Observation (INO) | payer MEDICARE, SELFPAY ==
--- NOTE | ~2024-05-28 | XR_ITS ---
EXAMINATION: XR CHEST CLINICAL INFORMATION: Chest pain COMPARISON: 05/16/2024 TECHNIQUE: Frontal view of the chest was obtained. FINDINGS: No significant abnormality is noted involving the heart, lungs, mediastinum, bony thorax or soft tissues. XR/XR chest 1V IMPRESSION: Unremarkable examination. Electronically signed by: Shanna Maldonado MD 05/29/2024 08:09 AM EDT
[2024-05-28 20:57] VITALS: BP 200/60; PULSE 112; O2SAT 98
--- NOTE | 2024-05-28 20:59 | ECG_ITS ---
Test Reason : CP Blood Pressure : / mmHG Vent. Rate : 077 BPM Atrial Rate : 077 BPM P-R Int : 118 ms QRS Dur : 106 ms QT Int : 372 ms P-R-T Axes : 070 008 059 degrees QTc Int : 420 ms Normal sinus rhythm Xiexu-Flovvirrr-Idqlh Abnormal ECG When compared with ECG of 16-MAY-2024 12:55, No significant change was found Referred By: Generic ED Physician Electronically Signed By:CELESTE OSEI
[2024-05-28 21:13] LABS: MANUAL DIFF FLAG NO
[2024-05-28 21:14] VITALS: BP 147/86; PULSE 77; RESP 18; TEMP 37; O2SAT 99; BMI 23.5
[2024-05-28 21:15] LABS: Basophils Absolute Auto 0.1 X10*3/uL (0.0-0.2); Basophils Percent Auto 0.9 % (0-2); Eosinophils Percent Auto 0.6 % (0-4); Hematocrit 41.4 % (42.0-52.0); Hemoglobin 13.9 g/dl (14.0-18.0); Imm Gran Abs Auto 0.01 X10*3/uL (0.00-0.03); Imm Gran Pct Auto 0.2 % (0.0-0.4); Lymphocytes Absolute Auto 1.9 X10*3/uL (1.2-4.9); Lymphocytes Percent Auto 34.4 % (20-40); Mean Corpuscular HGB Conc 33.6 g/dl (31.0-36.0); Mean Corpuscular Hemoglobin 28.3 pg (27.0-33.0); Mean Corpuscular Volume 84.3 fL (80.0-98.0); Monocytes Absolute Auto 0.3 X10*3/uL (0.1-1.2); Monocytes Percent Auto 6.1 % (2-11); Neutrophils Absolute Auto 3.1 x10*3/uL (2.0-8.3); Neutrophils Percent Auto 57.8 % (45-73); Platelet Count 186 X10*3/uL (160-400); Red Blood Count 4.91 X10*6/uL (4.60-5.80); Red Cell Distribution Width 13.4 % (11.0-16.0); White Blood Count 5.4 X10*3/uL (4.8-10.8)
[2024-05-28 21:26] LABS: Anion Gap 14 (12-20); Blood Urea Nitrogen 20 mg/dL (9-16); Calcium 9.2 mg/dL (8.4-10.2); Carbon Dioxide 26 mmol/L (22-29); Chloride 104 mmol/L (96-108); Creatinine Clr Calc Pharmacy 74.1; Estimated Glomerular Filt Rate > 60; Glucose Random 92 mg/dL (60-115); Potassium 4.1 mmol/L (3.3-5.1); Sodium 140 mmol/L (135-145)
--- NOTE | 2024-05-28 21:30 | PC.NURSE ---
ASA held by as pt received 324 mg of ASA PO by EMS.
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
[2024-05-28 21:42] LABS: Troponin-I High Sensitivity < 2.7 ng/L (<3.5-35.0)
[2024-05-28 22:07] LABS: B Type Natriuretic Peptide 20 pg/mL (<100)
[2024-05-28] MEDS: Nitroglycerin 0.4 MG TAB.SUBL SUBLINGUAL ×2 (22:46→23:46)
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
[2024-05-28] MEDS: LORazepam 1 MG TABLET PO (23:21)
--- NOTE | 2024-05-28 23:50 | PC.NURSE ---
Per Dr. Alejandro, give nitro, hold amlodipine dose, pt given a sandwich, gingerale and warm blanket, pt resting in stretcher at this time.
[2024-05-28 23:55] VITALS: BP 132/73; PULSE 66; RESP 20
[2024-05-28 23:57] VITALS: BP 126/57
[2024-05-29 00:32] LABS: Troponin-I High Sensitivity < 2.7 ng/L (<3.5-35.0)
[2024-05-29] MEDS: 0.9 % Sodium Chloride Flush 3 ML SYRINGE IVFLUSH ×2 (01:07→08:40)
[2024-05-29 01:41] VITALS: BMI 26.5
[2024-05-29 01:44] VITALS: BP 137/84; PULSE 64; RESP 20; TEMP 36.4; O2SAT 97
[2024-05-29 06:04] VITALS: BP 144/65; PULSE 65; RESP 18; TEMP 36.4; O2SAT 99
[2024-05-29] MEDS: Flu Vacc TS2024-25(6mos up)/PF 0.5 ML SYRINGE IM (06:21)
[2024-05-29 07:05] LABS: MANUAL DIFF FLAG NO
[2024-05-29] MEDS: Ketorolac Tromethamine 30 MG/ML VIAL IVPUSH (07:08)
[2024-05-29 07:18] LABS: Basophils Absolute Auto 0.1 X10*3/uL (0.0-0.2); Basophils Percent Auto 0.8 % (0-2); Eosinophils Absolute Auto 0.1 X10*3/uL (0.0-0.4); Eosinophils Percent Auto 1.5 % (0-4); Hemoglobin 13.7 g/dl (14.0-18.0); Imm Gran Abs Auto 0.02 X10*3/uL (0.00-0.03); Imm Gran Pct Auto 0.3 % (0.0-0.4); Lymphocytes Absolute Auto 2.8 X10*3/uL (1.2-4.9); Lymphocytes Percent Auto 44.9 % (20-40); Mean Corpuscular HGB Conc 33.4 g/dl (31.0-36.0); Mean Corpuscular Hemoglobin 28.1 pg (27.0-33.0); Mean Corpuscular Volume 84.2 fL (80.0-98.0); Mean Platelet Volume 11.6 fL (9.4-12.4); Monocytes Absolute Auto 0.4 X10*3/uL (0.1-1.2); Monocytes Percent Auto 7.1 % (2-11); Neutrophils Absolute Auto 2.8 x10*3/uL (2.0-8.3); Neutrophils Percent Auto 45.4 % (45-73); Platelet Count 192 X10*3/uL (160-400); Red Blood Count 4.87 X10*6/uL (4.60-5.80); Red Cell Distribution Width 13.6 % (11.0-16.0); White Blood Count 6.2 X10*3/uL (4.8-10.8)
[2024-05-29 07:34] LABS: Anion Gap 11 (12-20); Blood Urea Nitrogen 23 mg/dL (9-16); Calcium 9.1 mg/dL (8.4-10.2); Carbon Dioxide 25 mmol/L (22-29); Chloride 107 mmol/L (96-108); Creatinine Clr Calc Pharmacy 113.7; Estimated Glomerular Filt Rate > 60; Glucose Random 94 mg/dL (60-115); Potassium 3.5 mmol/L (3.3-5.1); Sodium 139 mmol/L (135-145)
[2024-05-29 07:43] LABS: Troponin-I High Sensitivity < 2.7 ng/L (<3.5-35.0)
[2024-05-29 08:00] VITALS: BP 142/73; PULSE 66; RESP 18; TEMP 36.2; O2SAT 99
[2024-05-29] MEDS: amLODIPine Besylate 2.5 MG TABLET PO (08:39)
[2024-05-29] MEDS: Aspirin Enteric Coated 81 MG TABLET.DR PO (08:40)
--- NOTE | 2024-05-29 09:01 | PHA.MEDREC ---
Addendum entered by Ewa Gutierrez RPh 05/29/24 09:10: med rec confirmed by [facility] and methadone dose verification obtained. dose confirmed by clinic is 40 mg daily last given on 05/18. due to discrepancy of what patient states and the order that was entered, provider was notified. Original Note: Pharmacy Consult ? Medication Reconciliation Pharmacy has completed the medication reconciliation. Spoke to pt to confirm meds. Patient states they have not taken any medications for 4 months, except methadone 45 mg whcich they state to receive at [facility]. The patient states that they have not taken medications for 4 months because they have not made an appointment to see their PCP for new prescriptions. The medications that the patient confirms to have been taking prior to discontinuation are as follows: Tylenol 1000mg Q6H PRN, Ventolin 90 mcg 2 puff Q6H PRN, Maalox advanced 10 ml Q6H PRN, amlodipine 2.5 mg daily, Suboxone 2mg daily, Hydroxyzine Svetlana 50 mg QID PRN, Ibuprofen 600 mg Q8H PRN, Lidocaine 5% 1 patch daily PRN, melatonin 3 mg bedtime PRN, Omeprazole 40 mg daily, sertraline 50 mg daily, trazodone 50 mg bedtime
--- NOTE | 2024-05-29 09:05 | HE.PHANOTE ---
RE METHADONE VERIFICATION LAST DOSE 40 MG GIVEN @0949 @[facility]
[2024-05-29] MEDS: methADONE HCl 20 MG/2 ML ORAL.CONC 40 MG PO (10:12)
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
[2024-05-29 11:03] LABS: Influenza A PCR NEGATIVE (Negative); Influenza B PCR NEGATIVE (Negative); Resp Syncy Virus RNA Qual PCR NEGATIVE (Negative); SARS COV2 PCR INHOUSE NEGATIVE (Negative)
--- NOTE | 2024-05-29 11:26 | PM.DS ---
DS: Providers Provider Date of Service: 05/29/24 Date of admission: 05/28/24 23:01 Date of discharge: 05/29/24 Primary care physician: Unknown Physician Consults: 05/28/24 23:04 Consult to Cardiology Routine Consulting Provider: [facility] Reason for consultation: Chest pain, WPW Has provider been notified: Yes 05/28/24 23:20 Addiction Medicine Routine Consulting Provider: Addiction Covering Reason for consultation: Cocaine and fentanyl abuse Has provider been notified: No Attending physician on discharge: Prudence Bishop Discharging clinician: Zabrina Dubois DS: Diagnosis Discharge Diagnosis (1) Chest pain: Status: Acute (2) Polysubstance abuse: Status: Acute (3) Joseline Parkinson White pattern seen on electrocardiogram: Status: Acute (4) Cocaine use disorder, severe, dependence: Status: Acute DS: Summary Hospital Course Hospital Course: From H&P on the day of admission Saravanan Lange is a 33 years old man with past medical history significant for WPW, major depressive disorder, cocaine + opiate use disorder and asthma presents to the emergency department complaining of one-week history of retrosternal chest pain. He described the pain as a pressure without radiation and intensity 10/10. Pain increases with inspiration. He has been taking Motrin and Tylenol without improvement of pain. As associated symptoms he reports shortness of the breath and nausea. Denies abdominal pain, vomiting, cough, fevers or chills. He did not report any headache, dizziness or palpitations. He admits using cocaine IV for the 1st time yesterday. He also snorted fentanyl 2 hours prior to presentation to the ED. He has been on methadone 45 mg PO but has not taken it over the last 2 weeks due to transportation issues. He also reported that he has not been taking his home medication over the last 2 months. It seems like he was taking sertraline, hydroxyzine, omeprazole, amlodipine, furosemide and albuterol inhaler. He is also tobacco smoker, smoked 3 cigarettes per day and drinks alcohol in occasions. In the ED, he was found to have stable vital signs. Blood pressure is 147/86. Blood workup showed no leukocytosis. Hemoglobin is 13.9 and platelet 186. There are no electrolyte imbalances. Creatinine is 1.35 and BUN 20. Urine toxicology is positive for methadone, cocaine and marijuana. ECG is consistent with WPW, normal sinus rhythm with a heart rate 77 bpm and no ischemia. ED tx: Nitroglycerin 0.4 mg SL X1. ASA 325 mg PO daily. Atypical Chest Patient presented with persistent chest pain. Has had chest pain multiple times in the past. Cardiac enzymes x3 have been negative. Chest x-ray negative. EKG showing WPW as previous. Seen by Cardiology, no evidence of acute coronary syndrome. Recommend outpatient follow-up including echocardiogram, ETT and holter monitor. Cocaine use. Discussed in detail to avoid cocaine use. Polysubstance use. On methadone. Methadone was resumed. He should follow-up in his clinic tomorrow for continued dosing Hypertension. Resumed on Norvasc 5 mg daily Time Attestation Discharge Coordination Time (in mins): 35 Quality: Safe Use of Opioids Does Pt have an Active Cancer Diagnosis on the Problem List?: No Quality: Stroke Does the patient have a stroke diagnosis?: No Physical Exam Vital Signs: Vital Signs: Last Vital Signs Temp 97.2 F 05/29/24 08:00 Pulse 66 05/29/24 08:00 Resp 18 05/29/24 08:00 BP 142/73 H 05/29/24 08:00 Pulse Ox 99 05/29/24 08:00 O2 Del Method Room Air 05/29/24 08:00 BMI result Body Mass Index 26.5 Const: General: cooperative, comfortable, no acute distress, alert and awake Nutritional Appearance: average body habitus Orientation/consciousness: patient oriented x3 Resp: Effort & Inspection: normal respiratory effort, able to speak in complete sentences, no respiratory distress and no use of accessory muscles Auscultation: clear to auscultation bilaterally Cardio: Rate: regular rate GI: Inspection: No distended Palpation (GI): Soft to palpation Neuro: General: patient oriented x3 Extrem: General: Yes no pedal edema DS: Data Data Completed and Pending Labs on day of discharge: Laboratory Results - last 24 hr 05/28/24 05/29/24 05/29/24 21:07 00:01 06:21 WBC 5.4 6.2 RBC 4.91 4.87 Hgb 13.9 L 13.7 L Hct 41.4 L 41.0 L MCV 84.3 84.2 MCH 28.3 28.1 MCHC 33.6 33.4 RDW 13.4 13.6 Plt Count 186 192 MPV 11.0 11.6 Immature Gran % (Auto) 0.2 0.3 Neut % (Auto) 57.8 45.4 Lymph % (Auto) 34.4 44.9 H [place] % (Auto) 6.1 7.1 Eos % (Auto) 0.6 1.5 Baso % (Auto) 0.9 0.8 Lymph # (Auto) 1.9 2.8 [place] # (Auto) 0.3 0.4 Eos # (Auto) 0.0 0.1 Baso # (Auto) 0.1 0.1 Abs Immat Gran (auto) 0.01 0.02 Absolute Neuts (auto) 3.1 2.8 Absolute Nucleated RBC 0.000 0.000 Nucleated RBC % (auto) 0.0 0.0 Sodium 140 139 Potassium 4.1 3.5 Chloride 104 107 Carbon Dioxide 26 25 Anion Gap 14 11 L BUN 20 H 23 H Creatinine 1.35 0.88 Estim Creat Clear Calc 74.1 113.7 Estimated GFR > 60 > 60 Random Glucose 92 94 Calcium 9.2 9.1 Magnesium 2.0 Total Creatine Kinase 109 Troponin I High Sens < 2.7 < 2.7 < 2.7 B-Natriuretic Peptide 20 Influenza Type A (PCR) Influenza Type B (PCR) RSV RNA Qual (PCR) SARS-CoV-2 RNA (RT-PCR) 05/29/24 10:17 WBC RBC Hgb Hct MCV MCH MCHC RDW Plt Count MPV Immature Gran % (Auto) Neut % (Auto) Lymph % (Auto) [place] % (Auto) Eos % (Auto) Baso % (Auto) Lymph # (Auto) [place] # (Auto) Eos # (Auto) Baso # (Auto) Abs Immat Gran (auto) Absolute Neuts (auto) Absolute Nucleated RBC Nucleated RBC % (auto) Sodium Potassium Chloride Carbon Dioxide Anion Gap BUN Creatinine Estim Creat Clear Calc Estimated GFR Random Glucose Calcium Magnesium Total Creatine Kinase Troponin I High Sens B-Natriuretic Peptide Influenza Type A (PCR) NEGATIVE Influenza Type B (PCR) NEGATIVE RSV RNA Qual (PCR) NEGATIVE SARS-CoV-2 RNA (RT-PCR) NEGATIVE Discharge Plan Discharge Patient Disposition: Home, Self-Care Discharge Diagnosis: Chest pain Referrals: Shaji Madsen MD [Physician] - 1 Week Physician,Unknown J [Primary Care Provider] - 1 Week Discharge Medications: New nicotine 14 mg/24 hr Patch 24 Hour 14 mg transdermal DAILY Qty: 28 0RF amlodipine [Norvasc] 5 mg tablet 5 mg PO DAILY 90 Days Qty: 90 0RF albuterol sulfate 90 mcg/actuation HFA aerosol inhaler 2 puff inhalation Q4-6H PRN (Reason: shortness of breath or wheezing) Qty: 8.5 0RF Continued methadone [Methadone Intensol] 10 mg/mL Concentrate 40 mg PO DAILY Discharge Orders: Discharge Order (Routine); Ordered 05/29/24 Ordered By: Zabrina Dubois Activity on Discharge: As tolerated Stand Alone Forms: Patient Portal Discharge page Print Language: Djiboutian Care Plan Goals: See below Health Concerns: Chest pain-atypical, possible costochondritis. No evidence of acute coronary syndrome Cocaine use Hypertension Plan of Treatment: Call to schedule a follow-up appointment with the Cardiology office for further workup Avoid the use of cocaine Take methadone as prescribed. Go to clinic tomorrow with last dose letter Take Norvasc as prescribed for blood pressure control Assessment: Discharge summary
[2024-05-29] MEDS: Nicotine 14 MG PATCH.TD24 TRANSDERMA (11:35)
[2024-05-29 11:41] VITALS: BP 141/81; PULSE 67; RESP 18; TEMP 36.7; O2SAT 98
--- NOTE | 2024-05-29 12:01 | MHC.CM.PN ---
Sharda 05/29/24, Pt lives at a local intermediate, he said he goes to [facility] in [place] for PCP but has not been in a while, does not know name of PCP. HCP discussed, he declined to complete one. He is independent, will need a ride back to intermediate. DCP: home, self care. CM will follow for DC needs.
--- NOTE | 2024-05-29 12:58 | MHC.CM.PN ---
Pt has been medically cleared for DC, he will [facility]. Information was given to him on reinstating his [facility] and he was encouraged to make an appt. with his PCP.
== END 2024-05-29 13:45 | disposition home or self-care (01) ==
LOC: HO.ED 22:41 → HO.EDOVER 23:17 → HO.IMC 05-29 00:12
PROVIDERS: Admitting Provider Internal Medicine; Emergency Provider Emergency Medicine; Visit Provider Physician Assistant Medical
DX: R07.9 Chest pain, unspecified (principal); F19.10 Other psychoactive substance abuse, uncomplicated; I45.6 Pre-excitation syndrome; F14.20 Cocaine dependence, uncomplicated; F11.20 Opioid dependence, uncomplicated; F33.1 Major depressive disorder, recurrent, moderate; J45.909 Unspecified asthma, uncomplicated; I10 Essential (primary) hypertension; Z87.820 Personal history of traumatic brain injury; Z03.818 Encounter for observation for suspected exposure to other biological agents ruled out; Z79.899 Other long term (current) drug therapy; Z23 Encounter for immunization
CPT/HCPCS: 0241U; 36415; 71045; 80048; 82550; 83735; 83880; 84484; 85025; 90471; 90656; 93005; 96374; 99222; 99285; J1885

== ENCOUNTER → 2024-05-28 23:01 | Outpatient (BNV) | payer MEDICARE, SELFPAY | PROVIDERS: Admitting Provider Internal Medicine; Emergency Provider Emergency Medicine; Visit Provider Internal Medicine | DX: R07.9 Chest pain, unspecified (principal); I45.6 Pre-excitation syndrome; F19.10 Other psychoactive substance abuse, uncomplicated; F14.20 Cocaine dependence, uncomplicated; F11.20 Opioid dependence, uncomplicated; F33.1 Major depressive disorder, recurrent, moderate | CPT/HCPCS: 99222; 99239 ==

== ENCOUNTER → 2024-05-28 23:01 | Outpatient (BNV) | payer MEDICARE, SELFPAY | PROVIDERS: Admitting Provider Internal Medicine; Emergency Provider Emergency Medicine; Visit Provider Internal Medicine | DX: R07.9 Chest pain, unspecified (principal); F19.10 Other psychoactive substance abuse, uncomplicated; I45.6 Pre-excitation syndrome; F14.20 Cocaine dependence, uncomplicated | CPT/HCPCS: 93010; 99223 ==

== ENCOUNTER 2024-10-28 12:18 | Emergency (ER) | payer MEDICARE, SELFPAY ==
--- NOTE | ~2024-10-28 | XR_ITS ---
EXAMINATION: XR CHEST 2 VIEWS HISTORY: sob COMPARISON: Comparison is made with the prior examination dated 05/28/2024. FINDINGS: PA and lateral views of the chest are submitted. The lungs are expanded and clear. There is no pleural effusion, pneumothorax, or pulmonary vascular congestion. The heart is normal in size. The bones are intact. XR/XR chest 2V IMPRESSION: No acute cardiopulmonary abnormality. Electronically signed by: Kimani Parker MD 10/28/2024 02:01 PM EDT
--- NOTE | 2024-10-28 12:35 | ECG_ITS ---
Test Reason : CP Blood Pressure : */* mmHG Vent. Rate : 56 BPM Atrial Rate : 56 BPM P-R Int : 84 ms QRS Dur : 124 ms QT Int : 422 ms P-R-T Axes : 43 35 60 degrees QTcB Int : 407 ms Sinus bradycardia Qsiyo-Grspupseo-Fijjz Abnormal ECG When compared with ECG of 28-May-2024 20:57, No significant change was found Referred By: Elisha Hanson Electronically Signed By: Guilherme Baker
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
[2024-10-28 12:52] VITALS: BP 136/77; PULSE 58; RESP 16; TEMP 36.2; O2SAT 100; BMI 24.1
[2024-10-28 13:31] LABS: MANUAL DIFF FLAG NO
[2024-10-28 13:41] LABS: Basophils Percent Auto 0.8 % (0-2); Eosinophils Percent Auto 0.8 % (0-4); Hematocrit 46.1 % (42.0-52.0); Hemoglobin 16.2 g/dl (14.0-18.0); Imm Gran Abs Auto 0.01 X10*3/uL (0.00-0.03); Imm Gran Pct Auto 0.3 % (0.0-0.4); Lymphocytes Absolute Auto 1.7 X10*3/uL (1.2-4.9); Lymphocytes Percent Auto 45.2 % (20-40); Mean Corpuscular HGB Conc 35.1 g/dl (31.0-36.0); Mean Corpuscular Hemoglobin 29.3 pg (27.0-33.0); Mean Corpuscular Volume 83.5 fL (80.0-98.0); Mean Platelet Volume 11.4 fL (9.4-12.4); Monocytes Absolute Auto 0.2 X10*3/uL (0.1-1.2); Monocytes Percent Auto 6.3 % (2-11); Neutrophils Absolute Auto 1.7 x10*3/uL (2.0-8.3); Neutrophils Percent Auto 46.6 % (45-73); Platelet Count 172 X10*3/uL (160-400); Red Blood Count 5.52 X10*6/uL (4.60-5.80); Red Cell Distribution Width 13.2 % (11.0-16.0); White Blood Count 3.7 X10*3/uL (4.8-10.8)
[2024-10-28 13:50] LABS: Alanine Aminotransferase 28 U/L (0-40); Albumin Level 4.6 g/dL (3.5-5.0); Alkaline Phosphatase 83 U/L (39-117); Anion Gap 10 (12-20); Aspartate Amino Transferase 24 U/L (5-37); Bilirubin Direct 0.3 mg/dL (0.0-0.5); Bilirubin Total 0.9 mg/dL (0.0-1.0); Blood Urea Nitrogen 15 mg/dL (9-16); Calcium 9.5 mg/dL (8.4-10.2); Carbon Dioxide 24 mmol/L (22-29); Chloride 109 mmol/L (96-108); Estimated Glomerular Filt Rate > 60; Ethanol < 10 mg/dL; Glucose Random 105 mg/dL (60-115); Magnesium 1.8 mg/dL (1.6-2.6); Potassium 3.9 mmol/L (3.3-5.1); Sodium 139 mmol/L (135-145); Total Protein 7.8 g/dL (6.5-8.0)
[2024-10-28 13:59] LABS: Troponin-I High Sensitivity < 2.7 ng/L (<3.5-35.0)
[2024-10-28 14:08] LABS: Influenza A PCR NEGATIVE (Negative); Influenza B PCR NEGATIVE (Negative); Resp Syncy Virus RNA Qual PCR NEGATIVE (Negative); SARS COV2 PCR INHOUSE NEGATIVE (Negative)
== END 2024-10-28 20:31 | disposition left against medical advice (07) ==
PROVIDERS: Physician Assistant; Emergency Provider Emergency Medicine
DX: R07.89 Other chest pain (principal); E86.0 Dehydration; R06.02 Shortness of breath; F17.210 Nicotine dependence, cigarettes, uncomplicated; Z79.899 Other long term (current) drug therapy; Z51.81 Encounter for therapeutic drug level monitoring; Z03.818 Encounter for observation for suspected exposure to other biological agents ruled out
CPT/HCPCS: 0241U; 71046; 80048; 80076; 80307; 83735; 84484; 85025; 93005; 99283

== ENCOUNTER → 2024-10-28 12:35 | Outpatient (BNV) | payer MEDICARE, SELFPAY | PROVIDERS: Visit Provider Internal Medicine Cardiovascular Disease | DX: I45.6 Pre-excitation syndrome (principal); R00.1 Bradycardia, unspecified | CPT/HCPCS: 93010 ==

== ENCOUNTER → 2024-10-28 12:53 | Outpatient (BNV) | payer MEDICARE, SELFPAY | PROVIDERS: Visit Provider Radiology Diagnostic Radiology | DX: R07.9 Chest pain, unspecified (principal) | CPT/HCPCS: 71046 ==

== ENCOUNTER 2025-02-05 22:37 | Emergency (ER) | payer MEDICARE, MEDICAID, SELFPAY ==
[2025-02-05 22:39] VITALS: BP 157/92; PULSE 102; RESP 16; TEMP 36.8; O2SAT 97; BMI 25.8
--- NOTE | 2025-02-05 22:43 | ECG_ITS ---
Test Reason : cp Blood Pressure : */* mmHG Vent. Rate : 96 BPM Atrial Rate : 96 BPM P-R Int : 100 ms QRS Dur : 108 ms QT Int : 374 ms P-R-T Axes : 73 9 61 degrees QTcB Int : 472 ms Normal sinus rhythm Jitni-Fvikzxuiw-Rpnlr Abnormal ECG When compared with ECG of 28-Oct-2024 12:43, Vent. rate has increased by 40 bpm Referred By: Generic ED Physician Electronically Signed By: JONATHON ZAMARRIPA MD
[2025-02-05 23:04] LABS: Hematocrit 40.0 % (42.0-52.0); Hemoglobin 14.3 g/dl (14.0-18.0); Mean Corpuscular HGB Conc 35.8 g/dl (31.0-36.0); Mean Corpuscular Hemoglobin 30.6 pg (27.0-33.0); Mean Corpuscular Volume 85.5 fL (80.0-98.0); NRBC Abs Auto 0.000 X10*3/uL (0.0-0.012); NRBC Pct Auto 0.0 /100WBC (0.0-0.2); Platelet Count 189 X10*3/uL (160-400); Red Blood Count 4.68 X10*6/uL (4.60-5.80); WBC ABN SCTR FOR CBC 1; White Blood Count 7.4 X10*3/uL (4.8-10.8)
[2025-02-05 23:19] LABS: Alanine Aminotransferase 49 U/L (0-40); Albumin Level 4.6 g/dL (3.5-5.0); Alkaline Phosphatase 101 U/L (39-117); Anion Gap 12 (12-20); Aspartate Amino Transferase 76 U/L (5-37); Blood Urea Nitrogen 18 mg/dL (9-16); Calcium 9.2 mg/dL (8.4-10.2); Carbon Dioxide 25 mmol/L (22-29); Chloride 105 mmol/L (96-108); Creatinine Clr Calc Pharmacy 104.3; Estimated Glomerular Filt Rate > 60; Magnesium 2.0 mg/dL (1.6-2.6); Potassium 3.8 mmol/L (3.3-5.1); Sodium 138 mmol/L (135-145); Total Protein 7.2 g/dL (6.5-8.0)
[2025-02-05 23:21] LABS: Salicylate < 5.0 mg/dL (15-30)
[2025-02-05 23:25] VITALS: BP 131/71; PULSE 78; RESP 15; O2SAT 98
[2025-02-05 23:27] LABS: Band Neutrophils Percent 0 % (3-5); Basophils Abs Manual 0.1 X10*3/uL (0.0-0.2); Basophils Percent Manual 1 % (0-2); Lymphocytes Absolute Manual 2.4 X10*3/uL (1.2-4.9); Lymphocytes Percent Manual 33 % (20-40); Monocytes Absolute Manual 0.4 X10*3/uL (0.1-1.2); Monocytes Percent Manual 5 % (2-11); Neutrophils Absolute Manual 4.5 X10*3/uL (2.0-8.3); Neutrophils Percent Manual 61 % (45-73); RBC Morphology NORMAL
[2025-02-05 23:30] LABS: Troponin-I High Sensitivity < 2.7 ng/L (<3.5-35.0)
[2025-02-05 23:34] LABS: Appearance Urine Clear; Glucose Urine UA Negative (Negative); PH 7.0 (5.0-9.0); Specific Gravity - Urine 1.010 (1.005-1.025)
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
[2025-02-05 23:40] LABS: Resp Syncy Virus RNA Qual PCR NEGATIVE (Negative); SARS COV2 PCR INHOUSE NEGATIVE (Negative)
[2025-02-05 23:41] LABS: Cannabinoid Screen Urine POSITIVE (Not Detect)
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
[2025-02-06 02:42] VITALS: BP 130/77; PULSE 65; RESP 18; O2SAT 98
[2025-02-06 04:53] VITALS: BP 135/54; PULSE 65; RESP 16; TEMP 36.6; O2SAT 98
[2025-02-06 06:58] VITALS: BP 135/69; PULSE 71; RESP 20; TEMP 36.9; O2SAT 98
--- NOTE | 2025-02-06 08:55 | PC.NURSE ---
patient awake, ate breakfast. ambulates independently with steady gait. awaiting care team consult. patient observer remains at bedside
--- NOTE | 2025-02-06 09:52 | PC.NURSE ---
patient continues to endorse chest pain, offered tylenol which patient states that he has been taking tylenol with little relief
[2025-02-06 14:05] VITALS: BP 138/67; PULSE 72; RESP 18; TEMP 36.7; O2SAT 99
--- NOTE | 2025-02-06 15:05 | PHA.MEDREC ---
Pharmacy Consult ? Medication Reconciliation Pharmacy has completed the medication reconciliation. Spoke with the patient at bedside, he was able to tell me what meds he takes. He says he has a Flovent but didn't tell me the dose or which type of inhaler. Will let provider know.
[2025-02-07 00:15] VITALS: BP 138/86; PULSE 78; RESP 16; TEMP 37.1; O2SAT 97
--- NOTE | 2025-02-07 02:32 | PC.NURSE ---
Took report from off-going RN at 0115 hours. Pt is 34 y/o male who presented to the ED for evaluation of chest pain, reporting auditory hallucinations and SI. Pt is homeless and resides at a selter. Endorses recent use of illicit drugs. Pt is easily arousable with verbal stimuli. Is pleasant, cooperative, and appropriate with staff. Verbalizes needs appropriately. Is awake, alert, and oriented X 4. Independent with ambulation and toileting, walks with a steady gait. No acute distress observed at shift change. Pt is on a section 12 and a bed search is ongoing. Will continue to monitor for any changes.
--- NOTE | 2025-02-07 05:22 | PC.NURSE ---
Pt has been sleeping most the of shift, but is arousable with verbal stimuli. No acute distress observed. No needs verbalized. Safety checks continue every 15 min. Will continue to monitor for any changes.
--- NOTE | 2025-02-07 06:36 | PC.NURSE ---
Pt is OOB and asked for a shower.
--- NOTE | 2025-02-07 07:41 | PC.NURSE ---
Assumed care of patient at 0645, patient appears to be in no apparent distress this am, sleeping, respirations even and unlabored. Continue plan of care for IPLOC
[2025-02-07 08:59] VITALS: BP 133/69
[2025-02-07] MEDS: Nicotine 14 MG PATCH.TD24 TRANSDERMA (08:59)
[2025-02-07 09:01] VITALS: BP 133/69; PULSE 81; RESP 12; TEMP 36.6; O2SAT 97
[2025-02-07 12:13] VITALS: BP 133/69; PULSE 81; RESP 12; TEMP 36.6; O2SAT 97
== END 2025-02-07 12:17 | disposition home or self-care (01) ==
PROVIDERS: Emergency Provider Emergency Medicine
DX: F19.90 Other psychoactive substance use, unspecified, uncomplicated (principal); R45.851 Suicidal ideations; R07.89 Other chest pain; I45.6 Pre-excitation syndrome; F33.9 Major depressive disorder, recurrent, unspecified; F14.20 Cocaine dependence, uncomplicated; F11.20 Opioid dependence, uncomplicated; J45.909 Unspecified asthma, uncomplicated; F17.210 Nicotine dependence, cigarettes, uncomplicated; Z59.00 Homelessness unspecified; Z79.899 Other long term (current) drug therapy; Z03.818 Encounter for observation for suspected exposure to other biological agents ruled out
CPT/HCPCS: 0241U; 36415; 80053; 80179; 80307; 81003; 83735; 84484; 85007; 85027; 93005; 99285; S9485

== ENCOUNTER → 2025-02-05 22:43 | Outpatient (BNV) | payer MEDICARE, MEDICAID, SELFPAY | PROVIDERS: Emergency Provider Emergency Medicine; Visit Provider Internal Medicine Cardiovascular Disease | DX: I45.6 Pre-excitation syndrome (principal) | CPT/HCPCS: 93010 ==

== ENCOUNTER 2025-02-11 03:10 | Emergency (ER) | payer MEDICARE, MEDICAID, SELFPAY ==
[2025-02-11 03:12] VITALS: BP 133/76; PULSE 93; RESP 20; TEMP 36.8; O2SAT 99; BMI 25.8
--- NOTE | 2025-02-11 05:10 | PC.NURSE ---
pt resting comfortably with eyes closed, breathing marlin and unlabored, no apparent distress noted. awaiting ED Provider, call stein w/in reach
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
[2025-02-11 06:03] VITALS: BP 133/71; PULSE 82; RESP 16; TEMP 36.9; O2SAT 98
[2025-02-11 06:29] VITALS: BP 133/71; PULSE 82; RESP 16; TEMP 36.9; O2SAT 98
== END 2025-02-11 06:33 | disposition home or self-care (01) ==
PROVIDERS: Emergency Provider Emergency Medicine
DX: M79.672 Pain in left foot (principal); M79.671 Pain in right foot
CPT/HCPCS: 99283; 99284

== ENCOUNTER 2025-02-12 21:47 | Emergency (ER) | payer MEDICARE, MEDICAID, SELFPAY ==
[2025-02-12 22:01] VITALS: BP 156/85; PULSE 78; RESP 16; TEMP 36.6; O2SAT 98; BMI 25.8
--- NOTE | 2025-02-12 22:08 | ECG_ITS ---
Test Reason : dizziness Blood Pressure : */* mmHG Vent. Rate : 68 BPM Atrial Rate : 68 BPM P-R Int : 108 ms QRS Dur : 144 ms QT Int : 440 ms P-R-T Axes : 180 -1 35 degrees QTcB Int : 467 ms Unusual P axis, possible ectopic atrial rhythm Cijtp-Gpkybdtfw-Naklx Abnormal ECG When compared with ECG of 05-Feb-2025 22:48, No significant changes seen Referred By: Generic ED Physician Electronically Signed By: Guilherme Baker
[2025-02-12 22:22] LABS: Hematocrit 36.8 % (42.0-52.0); Hemoglobin 13.1 g/dl (14.0-18.0); Mean Corpuscular HGB Conc 35.6 g/dl (31.0-36.0); Mean Corpuscular Hemoglobin 30.5 pg (27.0-33.0); Mean Corpuscular Volume 85.6 fL (80.0-98.0); NRBC Abs Auto 0.000 X10*3/uL (0.0-0.012); NRBC Pct Auto 0.0 /100WBC (0.0-0.2); Platelet Count 181 X10*3/uL (160-400); Red Blood Count 4.30 X10*6/uL (4.60-5.80)
[2025-02-12 22:26] LABS: WBC ABN SCTR FOR CBC 1
[2025-02-12 22:36] LABS: Alanine Aminotransferase 29 U/L (0-40); Albumin Level 4.3 g/dL (3.5-5.0); Alkaline Phosphatase 88 U/L (39-117); Anion Gap 12 (12-20); Aspartate Amino Transferase 33 U/L (5-37); Blood Urea Nitrogen 16 mg/dL (9-16); Calcium 8.9 mg/dL (8.4-10.2); Carbon Dioxide 26 mmol/L (22-29); Chloride 105 mmol/L (96-108); Creatinine Clr Calc Pharmacy 145.8; Estimated Glomerular Filt Rate > 60; Potassium 3.7 mmol/L (3.3-5.1); Sodium 139 mmol/L (135-145); Total Protein 6.7 g/dL (6.5-8.0)
[2025-02-12 22:44] LABS: Troponin-I High Sensitivity < 2.7 ng/L (<3.5-35.0)
[2025-02-12 22:45] LABS: Atypical Lymphs Percent Manual 1 % (0-6); Basophils Percent Manual 2 % (0-2); Lymphocytes Percent Manual 22 % (20-40); Monocytes Percent Manual 8 % (2-11); Neutrophils Percent Manual 67 % (45-73)
[2025-02-12 22:46] LABS: Band Neutrophils Percent 0 % (3-5)
[2025-02-12 22:47] LABS: Atypical Lymph Absolute Manual 0.1 x10*3/uL; Basophils Abs Manual 0.1 X10*3/uL (0.0-0.2); Lymphocytes Absolute Manual 1.5 X10*3/uL (1.2-4.9); Monocytes Absolute Manual 0.5 X10*3/uL (0.1-1.2); Neutrophils Absolute Manual 4.6 X10*3/uL (2.0-8.3); RBC Morphology NORMAL; White Blood Count 6.8 X10*3/uL (4.8-10.8)
[2025-02-13] VITALS (8 sets, daily range): BP systolic 118–165; BP diastolic 66–91; PULSE 51–77; RESP 16–18; TEMP 36.9–37.2; O2SAT 98–100
--- NOTE | 2025-02-13 00:08 | PC.NURSE ---
Assumed care of patient at 23:00. Patient resting comfortably on stretcher bed, not in acute distress, respirations even and unlabored. Plan of care ongoing.
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
[2025-02-13 03:24] LABS: Cannabinoid Screen Urine POSITIVE (Not Detect)
--- NOTE | 2025-02-13 09:21 | PC.NURSE ---
patient continues to rest in no apparent distress. ate 100% of breakfast w/o difficulty. pending care team/addiction medicine consult as patient is still interested in detox from cocaine use. still denies SI/HI. on RA w/o difficulty. no sob/wob noted. respirations even/unlabored. plan of care ongoing.
--- NOTE | 2025-02-13 10:08 | PC.NURSE ---
patient speaking w/ care team at this time. plan of care ongoing.
--- NOTE | 2025-02-13 17:04 | PC.NURSE ---
PAtient leaving ED via lyft that Care Team ordered at this time.
== END 2025-02-13 17:17 | disposition other institution (70) ==
PROVIDERS: Physician Assistant Medical; Emergency Provider Emergency Medicine
DX: F19.10 Other psychoactive substance abuse, uncomplicated (principal); F14.10 Cocaine abuse, uncomplicated; F17.210 Nicotine dependence, cigarettes, uncomplicated; Z79.899 Other long term (current) drug therapy
CPT/HCPCS: 36415; 80053; 80307; 84484; 85007; 85027; 93005; 99285; S9485

== ENCOUNTER → 2025-02-12 22:08 | Outpatient (BNV) | payer MEDICARE, MEDICAID, SELFPAY | PROVIDERS: Emergency Provider Emergency Medicine; Visit Provider Internal Medicine Cardiovascular Disease | DX: I45.6 Pre-excitation syndrome (principal) | CPT/HCPCS: 93010 ==

== ENCOUNTER 2025-03-13 17:41 | Emergency (ER) | payer MEDICARE, MEDICAID, SELFPAY ==
[2025-03-13 17:56] VITALS: BP 142/62; PULSE 84; RESP 16; TEMP 36.8; O2SAT 97; BMI 26.9
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
[2025-03-13 18:40] LABS: MANUAL DIFF FLAG NO
[2025-03-13 18:42] LABS: Hematocrit 45.1 % (42.0-52.0); Hemoglobin 15.5 g/dl (14.0-18.0); Imm Gran Abs Auto 0.03 X10*3/uL (0.00-0.03); Imm Gran Pct Auto 0.4 % (0.0-0.4); Lymphocytes Absolute Auto 2.0 X10*3/uL (1.2-4.9); Mean Corpuscular HGB Conc 34.4 g/dl (31.0-36.0); Mean Corpuscular Hemoglobin 30.0 pg (27.0-33.0); Mean Corpuscular Volume 87.4 fL (80.0-98.0); NRBC Abs Auto 0.000 X10*3/uL (0.0-0.012); NRBC Pct Auto 0.0 /100WBC (0.0-0.2); Platelet Count 223 X10*3/uL (160-400); Red Blood Count 5.16 X10*6/uL (4.60-5.80); White Blood Count 8.3 X10*3/uL (4.8-10.8)
[2025-03-13 18:44] LABS: Appearance Urine Clear; Glucose Urine UA Negative (Negative); PH 6.0 (5.0-9.0); Specific Gravity - Urine 1.025 (1.005-1.025); UMIC TRIGGER UACC YES
[2025-03-13 18:54] LABS: Cannabinoid Screen Urine POSITIVE (Not Detect)
[2025-03-13 18:56] LABS: Alanine Aminotransferase 42 U/L (0-40); Albumin Level 5.3 g/dL (3.5-5.0); Alkaline Phosphatase 131 U/L (39-117); Anion Gap 13 (12-20); Aspartate Amino Transferase 29 U/L (5-37); Blood Urea Nitrogen 18 mg/dL (9-16); Calcium 10.1 mg/dL (8.4-10.2); Carbon Dioxide 27 mmol/L (22-29); Chloride 105 mmol/L (96-108); Creatinine Clr Calc Pharmacy 108.9; Estimated Glomerular Filt Rate > 60; Magnesium 2.0 mg/dL (1.6-2.6); Potassium 4.1 mmol/L (3.3-5.1); Sodium 141 mmol/L (135-145); Total Protein 8.6 g/dL (6.5-8.0)
[2025-03-13 19:50] VITALS: BP 144/92; PULSE 78; RESP 18; TEMP 36.4; O2SAT 100
--- NOTE | 2025-03-13 19:53 | MHC.EDTECH ---
Pt belongings are in the [facility] shelf 4
--- OUTSIDE RECORDS SUMMARY | 2025-03-13 19:53 | XMS_ITS | Clinical Summary ---
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 [place] [phone] * (ABNORMAL) Acetaminophen level (03/12/2025 6:56 PM EDT) Only the most recent of3 resultswithin the time period is included. Acetaminophen Level <2.0(L) 10.0 - 30.0 mcg/mL LAB CHEMISTRY METHOD 03/12/2025 8:50 PM EDT [facility] Blood Venous blood specimen / Unknown Venipuncture / Unknown 03/12/2025 6:56 PM EDT 03/12/2025 7:42 PM EDT us Chaz Matos MD LAB BLOOD ORDERABLES Final Resu lt Performing Organization Address [facility] de Phone Number [facility] [address] [place] [address], [place] [phone] * (ABNORMAL) Salicylate level (03/12/2025 6:56 PM EDT) Only the most recent of3 resultswithin the time period is included. Salicylate Level <1.7(L) 2.0 - 29.0 mg/dL LAB CHEMISTRY METHOD 03/12/2025 8:19 PM EDT [facility] Blood Venous blood specimen / Unknown Venipuncture / Unknown 03/12/2025 6:56 PM EDT 03/12/2025 7:42 PM EDT us Chaz Matos MD LAB BLOOD ORDERABLES Final Resu lt Performing Organization Address [facility] Co de Phone Number [facility] [address] [place] [address], [place] [phone] * (ABNORMAL) Comprehensive metabolic panel (03/12/2025 6:56 PM EDT) Only the most recent of5 resultswithin the time period is included. Sodium 139 133 - 145 mmol/L LAB CHEMISTRY METHOD 03/12/2025 8:19 PM [facility] Potassium 4.2 3.5 - 5.5 mmol/L LAB CHEMISTRY METHOD 03/12/2025 8:19 PM [facility] Chloride 107 96 - 110 mmol/L LAB CHEMISTRY METHOD 03/12/2025 8:19 PM [facility] CO2 27 21 - 32 mmol/L LAB CHEMISTRY METHOD 03/12/2025 8:19 PM [facility] Anion Gap 5 3 - 11 LAB CHEMISTRY METHOD 03/12/2025 8:19 PM [facility] Glucose 136(H) 70 - 100 mg/dL LAB CHEMISTRY METHOD 03/12/2025 8:19 PM [facility] BUN 23 5 - 25 mg/dL LAB CHEMISTRY METHOD 03/12/2025 8:19 PM [facility] Creatinine 0.99 0.70 - 1.30 mg/dL LAB CHEMISTRY METHOD 03/12/2025 8:19 PM [facility] eGFR 104 >=60 mL/min/1. 73m2 LAB CHEMISTRY METHOD 03/12/2025 8:19 PM [facility] Comment:Calculation based on the Chronic Kidney Disease Epidemiology Collaboration (CKD-EPI) equation refit without adjustment for race. BUN/Creatinine Ratio 23.2 LAB CHEMISTRY METHOD 03/12/2025 8:19 PM [facility] Calcium 9.7 8.5 - 10.5 mg/dL LAB CHEMISTRY METHOD 03/12/2025 8:19 PM [facility] AST (SGOT) 26 10 - 42 unit/L LAB CHEMISTRY METHOD 03/12/2025 8:19 PM [facility] ALT (SGPT) 54 10 - 60 unit/L LAB CHEMISTRY METHOD 03/12/2025 8:19 PM EDT [facility] Alkaline Phosphatase 148(H) 42 - 121 unit/L LAB CHEMISTRY METHOD 03/12/2025 8:19 PM EDT [facility] Total Protein 7.6 6.0 - 8.0 g/dL LAB CHEMISTRY METHOD 03/12/2025 8:19 PM EDT [facility] Albumin 4.3 3.2 - 5.0 g/dL LAB CHEMISTRY METHOD 03/12/2025 8:19 PM EDT [facility] Total Bilirubin 0.4 0.0 - 1.4 mg/dL LAB CHEMISTRY METHOD 03/12/2025 8:19 PM EDT [facility] Blood Venous blood specimen / Unknown Venipuncture / Unknown 03/12/2025 6:56 PM EDT 03/12/2025 7:42 PM EDT Chaz Matos MD LAB BLOOD ORDERABLES Final Resu lt [facility] [address] [place] [address], * ECG-Annotated (02/25/2025) Only the most recent of4 resultswithin the time period is included. us Provider Onbase ECG ORDERABLES Final Result * Respiratory virus panel molecular study (02/20/2025 8:55 AM EDT) Pathologist [facility] Adenovirus Detection by PCR Not Detected Not Detected LAB MICROBIOLOGY METHOD 02/20/2025 9:57 AM EDT [facility] Influenza A PCR Not Detected Not Detected LAB MICROBIOLOGY METHOD 02/20/2025 9:57 AM EDT [facility] Influenza B PCR Not Detected Not Detected LAB MICROBIOLOGY METHOD 02/20/2025 9:57 AM EDT [facility] Coronavirus 229E Not Detected Not Detected LAB MICROBIOLOGY METHOD 02/20/2025 9:57 AM EDT [facility] Coronavirus HKU1 Not Detected Not Detected LAB MICROBIOLOGY METHOD 02/20/2025 9:57 AM EDT [facility] Coronavirus OC43 Not Detected Not Detected LAB MICROBIOLOGY METHOD 02/20/2025 9:57 AM EDT [facility] Coronavirus NL63 Not Detected Not Detected LAB MICROBIOLOGY METHOD 02/20/2025 9:57 AM EDT [facility] Parainfluenza Virus 1 Not Detected Not Detected LAB MICROBIOLOGY METHOD 02/20/2025 9:57 AM EDT [facility] Parainfluenza Virus 2 Not Detected Not Detected LAB MICROBIOLOGY METHOD 02/20/2025 9:57 AM EDT [facility] Parainfluenza Virus 3 Not Detected Not Detected LAB MICROBIOLOGY METHOD 02/20/2025 9:57 AM EDT [facility] Parainfluenza Virus 4 Not Detected Not Detected LAB MICROBIOLOGY METHOD 02/20/2025 9:57 AM EDT [facility] RSV PCR Not Detected Not Detected LAB MICROBIOLOGY METHOD 02/20/2025 9:57 AM EDT [facility] Human Metapneumovirus A and B Not Detected Not Detected LAB MICROBIOLOGY METHOD 02/20/2025 9:57 AM EDT [facility] Rhinovirus/Entero virus Not Detected Not Detected LAB MICROBIOLOGY METHOD 02/20/2025 9:57 AM EDT [facility] Bordetella pertussis Not Detected Not Detected LAB MICROBIOLOGY METHOD 02/20/2025 9:57 AM EDT [facility] Bordetella parapertussis Not Detected Not Detected LAB MICROBIOLOGY METHOD 02/20/2025 9:57 AM EDT [facility] Mycoplasma pneumo by PCR Not Detected Not Detected LAB MICROBIOLOGY METHOD 02/20/2025 9:57 AM EDT [facility] Chlamydia pneumoniae Not Detected Not Detected LAB MICROBIOLOGY METHOD 02/20/2025 9:57 AM EDT [facility] SARS COV-2 Not Detected Not Detected LAB MICROBIOLOGY METHOD 02/20/2025 9:57 AM EDT [facility] Swab Nasopharyngeal structure / Unknown Non-blood Collection / Unknown 02/20/2025 8:55 AM EDT 02/20/2025 9:03 AM EDT [facility] - 02/20/2025 9:57 AM EDT Testing was performed using the IQ Elite Respiratory Pathogen PCR Assay. All results must be correlated with the clinical findings. Results should not be used as the sole basis for diagnosis. False Negative results may occur from the presence of sequence variants in the region targeted by the assay or the presence of inhibitors. Results may be affected by concurrent antiviral/antimicrobial therapy or levels of organisms that are below the limit of detection. Tiara MONSALVE LAB MICROBIOLOGY - GENERA L ORDERABLES Final Result [facility] [address] [place] [address], * (ABNORMAL) Complete blood count (02/20/2025 5:39 AM EDT) WBC 5.3 4.8 - 10.8 K/mcL LAB HEMETOLOGY METHOD 02/20/2025 6:43 AM EDT [facility] RBC 5.20 4.50 - 5.50 M/mcL LAB HEMETOLOGY METHOD 02/20/2025 6:43 AM EDT [facility] Hemoglobin 15.6 13.5 - 17.5 g/dL LAB HEMETOLOGY METHOD 02/20/2025 6:43 AM EDT [facility] Hematocrit 46.7 42.0 - 54.0 % LAB HEMETOLOGY METHOD 02/20/2025 6:43 AM EDT [facility] MCV 90.2 79.0 - 98.0 FL LAB HEMETOLOGY METHOD 02/20/2025 6:43 AM EDT [facility] MCH 30.1 27.0 - 32.0 pcg LAB HEMETOLOGY METHOD 02/20/2025 6:43 AM EDT [facility] MCHC 33.4 32.0 - 37.0 g/dL LAB HEMETOLOGY METHOD 02/20/2025 6:43 AM EDT [facility] RDW 13.7 11.0 - 15.0 % LAB HEMETOLOGY METHOD 02/20/2025 6:43 AM EDT [facility] Platelets 180 130 - 400 K/mcL LAB HEMETOLOGY METHOD 02/20/2025 6:43 AM EDT [facility] MPV 11.4(H) 7.0 - 11.0 FL LAB HEMETOLOGY METHOD 02/20/2025 6:43 AM EDT [facility] NRBC 0.0 <1.0 % LAB HEMETOLOGY METHOD 02/20/2025 6:43 AM EDT [facility] NRBC Absolute 0.00 <0.10 K/mcL LAB HEMETOLOGY METHOD 02/20/2025 6:43 AM EDT [facility] Blood Venous blood specimen / Unknown Venipuncture / Unknown 02/20/2025 5:39 AM EDT 02/20/2025 6:22 AM EDT us Johnathan Peters DO LAB BLOOD ORDERABLES Final R esult [facility] [address] [place] [address], * (ABNORMAL) Hepatic function panel (02/20/2025 5:39 AM EDT) Total Protein 7.0 6.0 - 8.0 g/dL LAB CHEMISTRY METHOD 02/20/2025 7:07 AM EDT [facility] Albumin 3.9 3.2 - 5.0 g/dL LAB CHEMISTRY METHOD 02/20/2025 7:07 AM [facility] Total Bilirubin 0.4 0.0 - 1.4 mg/dL LAB CHEMISTRY METHOD 02/20/2025 7:07 AM [facility] Bilirubin, Direct <0.1 0.0 - 0.3 mg/dL LAB CHEMISTRY METHOD 02/20/2025 7:07 AM [facility] Bilirubin, Indirect LAB CHEMISTRY METHOD 02/20/2025 7:07 AM [facility] Comment:Unable to calculate Indirect Bilirubin. ALT (SGPT) 143(H) 10 - 60 unit/L LAB CHEMISTRY METHOD 02/20/2025 7:07 AM [facility] AST (SGOT) 50(H) 10 - 42 unit/L LAB CHEMISTRY METHOD 02/20/2025 7:07 AM [facility] Alkaline Phosphatase 116 42 - 121 unit/L LAB CHEMISTRY METHOD 02/20/2025 7:07 AM [facility] Blood Venous blood specimen / Unknown Venipuncture / Unknown 02/20/2025 5:39 AM EDT 02/20/2025 6:22 AM EDT us Johnathan Peters DO LAB BLOOD ORDERABLES Final R esult [facility] [address] [place] [address], * Basic metabolic panel (02/20/2025 5:39 AM EDT) Sodium 136 133 - 145 mmol/L LAB CHEMISTRY METHOD 02/20/2025 7:11 AM [facility] Potassium 4.8 3.5 - 5.5 mmol/L LAB CHEMISTRY METHOD 02/20/2025 7:11 AM [facility] Chloride 101 96 - 110 mmol/L LAB CHEMISTRY METHOD 02/20/2025 7:11 AM [facility] CO2 31 21 - 32 mmol/L LAB CHEMISTRY METHOD 02/20/2025 7:11 AM [facility] Anion Gap 4 3 - 11 LAB CHEMISTRY METHOD 02/20/2025 7:11 AM [facility] Glucose 81 70 - 100 mg/dL LAB CHEMISTRY METHOD 02/20/2025 7:11 AM [facility] BUN 21 5 - 25 mg/dL LAB CHEMISTRY METHOD 02/20/2025 7:11 AM [facility] Creatinine 0.93 0.70 - 1.30 mg/dL LAB CHEMISTRY METHOD 02/20/2025 7:11 AM [facility] eGFR 112 >=60 mL/min/1. 73m2 LAB CHEMISTRY METHOD 02/20/2025 7:11 AM [facility] Comment:Calculation based on the Chronic Kidney Disease Epidemiology Collaboration (CKD-EPI) equation refit without adjustment for race. BUN/Creatinine Ratio 22.6 LAB CHEMISTRY METHOD 02/20/2025 7:11 AM [facility] Calcium 9.6 8.5 - 10.5 mg/dL LAB CHEMISTRY METHOD 02/20/2025 7:11 AM [facility] Blood Venous blood specimen / Unknown Venipuncture / Unknown 02/20/2025 5:39 AM EDT 02/20/2025 6:22 AM EDT us Johnathan Peters DO LAB BLOOD ORDERABLES Final R esult [facility] [address] [place] [address], * CT Angio Chest/Abdomen wo and/or w Contrast (02/19/2025 5:25 PM EDT) Anatomical Region Laterality Modality Body Computed Tomogra phy 02/19/2025 6:04 PM EDT Impressions 02/19/2025 6:04 PM EDT Impression: 1. No central pulmonary emboli. Small pulmonary emboli are not excluded secondary to limitations of the study. 2. No thoracic aortic aneurysm or dissection. 3. Bronchial wall thickening reflective of bronchitis. No focal area of consolidation 4. Small hiatal hernia. Exam: CTA Abdomen with contrast Procedure: Contrast was administered. Coronal and sagittal MIP reformats were performed Comparison: None Clinical history: Chest pain or back pain aortic dissection suspected Findings: No abdominal aortic aneurysm, dissection or occlusion. Celiac artery, SMA, bilateral renal arteries and NAMRATA are all patent without high-grade stenosis or occlusion. The liver, spleen and pancreas do not demonstrate any acute process. No gallstones or gallbladder wall thickening to suggest acute cholecystitis No choledocholithiasis or biliary obstruction. Normal adrenal glands. No renal calculi or hydronephrosis. No visualized small bowel obstruction No visualized colitis or diverticulitis. No free fluid Impression: 1. No abdominal aortic aneurysm, dissection or occlusion . 2. No acute intra-abdominal process identified This document has been electronically signed by: Sophia Hilliard MD on 02/19/2025 18:04:11 Narrative 02/19/2025 6:04 PM EDT INDICATION: Chest pain or back pain, aortic dissection suspected Exam: CTA Chest with IV contrast. Procedure: Contrast was administered. Coronal and sagittal MIP reformats were performed Comparison: None Clinical history: Chest or back pain. Aortic dissection suspected Findings: Evaluation for pulmonary emboli is limited due to patient motion artifact. No central pulmonary emboli. Small pulmonary emboli are not excluded secondary to limitations of the study. No thoracic aortic aneurysm or dissection. Atherosclerotic calcifications are seen at the aorta and coronary arteries. No hilar or mediastinal adenopathy. No significant pericardial fluid collection. No pneumothorax. No pleural fluid collection. No pneumonia Bronchial wall thickening reflective of bronchitis. Small hiatal hernia No thoracic spine compression fractures Procedure Note Sophia Hilliard MD - 02/19/2025 INDICATION: Chest pain or back pain, aortic dissection suspected Exam: CTA Chest with IV contrast. Procedure: Contrast was administered. Coronal and sagittal MIP reformats were performed Comparison: None Clinical history: Chest or back pain. Aortic dissection suspected Findings: Evaluation for pulmonary emboli is limited due to patient motionartifact. No central pulmonary emboli. Small pulmonary emboli are not excluded secondary to limitations of the study. No thoracic aortic aneurysm or dissection. Atherosclerotic calcifications are seen at the aorta and coronaryarteries. No hilar or mediastinal adenopathy. No significant pericardial fluid collection. No pneumothorax. No pleural fluid collection. No pneumonia Bronchial wall thickening reflective of bronchitis. Small hiatal hernia No thoracic spine compression fractures IMPRESSION: Impression: 1. No central pulmonary emboli. Small pulmonary emboli are not excluded secondary to limitations of the study. 2. No thoracic aortic aneurysm or dissection. 3. Bronchial wall thickening reflective of bronchitis. No focal area of consolidation 4. Small hiatal hernia. Exam: CTA Abdomen with contrast Procedure: Contrast was administered. Coronal and sagittal MIP reformats were performed Comparison: None Clinical history: Chest pain or back pain aortic dissection suspected Findings: No abdominal aortic aneurysm, dissection or occlusion. Celiac artery, SMA, bilateral renal arteries and NAMRATA are all patent without high-grade stenosis or occlusion. The liver, spleen and pancreas do not demonstrate any acute process. No gallstones or gallbladder wall thickening to suggest acutecholecystitis No choledocholithiasis or biliary obstruction. Normal adrenal glands. No renal calculi or hydronephrosis. No visualized small bowel obstruction No visualized colitis or diverticulitis. No free fluid Impression: 1. No abdominal aortic aneurysm, dissection or occlusion . 2. No acute intra-abdominal process identified This document has been electronically signed by: Sophia Hilliard MD on 02/19/2025 18:04:11 Johnathan Peters DO IMG CT PROCEDURES Final Resu lt * (ABNORMAL) TRANSTHORACIC ECHOCARDIOGRAM (TTE) COMPLETE (02/19/2025 10:27 AM EDT) Left Atrium Minor Randolph 5.6 cm CV PACS Left Atrium Major Randolph 5.4 cm CV PACS LA Area Sys (A2C) 19 cm2 CV PACS LA Area Sys (A4C) 19 cm2 CV PACS LA Volume (BP) 53 mL CV PACS LA Size 3.6 cm CV PACS RA Area 11.2 cm2 CV PACS RA 2D Volume 23 mL CV PACS AV Mean Gradient 3 mmHg CV PACS AV Mean Gradient 3 mmHg CV PACS Ao VTI 23.6 cm CV PACS Ao VTI 23.6 cm CV PACS AV Peak Timothy 1.2 m/s CV PACS AV Peak Gradient 6 mmHg CV PACS AV Area Peak Velocity 3.1 cm2 CV PACS Aortic Arch 2.5 cm CV PACS Ascending Aorta 2.7 cm CV PACS IVC Proximal 1.4 cm CV PACS IVSD 1.2(A) 0.6 - 1.0 cm CV PACS LVIDD 4.2 4.2 - 5.8 cm CV PACS LVIDS 3.1 2.5 - 4.0 cm CV PACS LVOT Diameter 2.1 cm CV PACS LVOT Mean Timothy 0.7 m/s CV PACS LVOT Mean Grad 2 mmHg CV PACS LVOT Mean Grad 2 mmHg CV PACS LVOT Peak VTI 20.8 cm CV PACS LVOT Peak Timothy 1.1 m/s CV PACS LVOT Peak Timothy 1.1 m/s CV PACS LVOT Peak Gradient 4 mmHg CV PACS LVPWD 1.2(A) 0.6 - 1.0 cm CV PACS MV E' Tissue Velocity Lateral 15 cm/s CV PACS MV E' Tissue Velocity Septal 11 cm/s CV PACS LVOT Area 3.5 cm2 CV PACS LVOT Stroke Volume 72 mL CV PACS MV Deceleration Tripp 3.7 m/s2 CV PACS E Wave Deceleration Time 227 119 - 242 ms CV PACS MV PHT 67 ms CV PACS MV Peak A Timothy 0.49 m/s CV PACS MV Peak E Timothy 0.84 m/s CV PACS MV Mean Gradient 2 mmHg CV PACS MV VTI 34.4 cm CV PACS Mitral Valve Max Velocity 1.1 m/s CV PACS MV Peak Gradient 5 mmHg CV PACS MV Area PHT 3.3 cm2 CV PACS MV Area Continuity Equation 2.1 cm2 CV PACS PV Acceleration Time 123 ms CV PACS PV Acceleration Time 141 ms CV PACS PV Acceleration Time 132 ms CV PACS PV Mean Gradient 1 mmHg CV PACS PV VTI 15.4 cm CV PACS PV Peak Velocity 0.7 m/s CV PACS PV Peak Gradient 2 mmHg CV PACS RV Diastolic Basal Dimension 3.2 2.5 - 4.1 cm CV PACS RV S' 13 cm/s CV PACS TAPSE 17 mm CV PACS TR Peak Velocity 2.15 m/s CV PACS TR Peak Gradient 18 mmHg CV PACS E/E' Ratio Septal 8 CV PACS E/E' Ratio Averaged 7 CV PACS LVOT Stroke Index 38 mL/m2 CV PACS LA Dimension Index 2D 1.9 cm/m2 CV PACS Relative Wall Thickness ratio 0.57 CV PACS FS 26 % CV PACS LV Mass 2D 178 g CV PACS Ascending Aorta Index 1.41 cm/m2 CV PACS MV VTI:LVOT VTI ratio 1.7 CV PACS LVOT flow 242 mL/s CV PACS RA 2D Volume Index 12 mL/m2 CV PACS HELGA Index (Pk Timothy) 1.62 cm2/m2 CV PACS LVIDD Index 2.20 cm/m2 CV PACS LVIDS Index 1.62 cm/m2 CV PACS E/A Ratio 1.7 CV PACS E/E' Ratio Lateral 6 CV PACS LA Volume Index (BP) 28 mL/m2 CV PACS LV Mass Index 2D 93 g/m2 CV PACS BSA 1.88 m2 CV PACS Right Ventricular Peak Systolic Pressure 21 mmHg CV PACS Est. RA Pressure 3 mmHg CV PACS LA/Ao Ratio 1.0 CV PACS Aortic Root 3.6 cm CV PACS Aortic Root Index 1.88 cm/m2 CV PACS Anatomical Region Laterality Modality Ultrasound Narrative 02/19/2025 12:14 PM EDT Left ventricle cavity size is normal. Left ventricular systolic function is in the normal range with an ejection fraction of 55-60%. No regional LV wall motion abnormalities noted. Left ventricle mild concentric hypertrophy. Right ventricle cavity is normal. Right ventricular systolic function is normal. Pulmonic Valve: There is mild pulmonic valve regurgitation. Tricuspid Valve: There is mild regurgitation. The right ventricular systolic pressure is normal. The RVSP is estimated at 21 mmHg. Left Ventricle Left ventricle cavity size is normal. False tendon noted in the LV apex. There is mild concentric hypertrophy. Systolic function is normal with an ejection fraction of 55-60%. There are no regional LV wall motion abnormalities. There is no diastolic dysfunction. Right Ventricle Right ventricle was not well visualized. Right ventricle cavity appears normal. Systolic function is normal. Left Atrium Left atrium cavity size is normal. Mobile interatrial septum. Right Atrium Right atrium cavity is normal. IVC/SVC Inferior vena cava structure is normal. RA pressures is estimated to be 3 mmHg (IVC diameter <21 mm and decreases >50% during inspiration). Mitral Valve The leaflets are mildly thickened. There is mild annular calcification. There is trace regurgitation. There is no evidence of mitral valve stenosis. Tricuspid Valve Tricuspid valve structure is normal. There is mild regurgitation. There is no evidence of tricuspid valve stenosis. The right ventricular systolic pressure is normal. The RVSP is estimated at 21 mmHg. Aortic Valve The aortic valve is trileaflet. The leaflets are mildly thickened. There is no regurgitation or stenosis. Pulmonic Valve There is mild pulmonic valve regurgitation. There is no evidence of pulmonic valve stenosis. Ascending Aorta The aorta appears normal in size. Pericardium Pericardium appears normal. There is no pericardial effusion. Study Details Overall the study quality was technically difficult. us Huseyin Mccloud MD CV ECHO PROCEDURES Final Re sult * XR Chest 1 View (02/19/2025 5:28 AM EDT) Anatomical Region Laterality Modality Body Radiographic Namrata ging 02/19/2025 8:16 AM EDT Impressions 02/19/2025 8:17 AM EDT Normal chest radiographs. -------- FINAL REPORT -------- Dictated By: Avtar Ferrer Dictated Date: 02/19/2025 08:16 ET Assigned Physician: Avtar Ferrer Reviewed and Electronically Signed By: Avtar Ferrer Signed Date: 02/19/2025 08:17 ET Workstation ID: [id number] Transcribed By: Self Edit Transcribed Date: 02/19/2025 08:16 ET Narrative 02/19/2025 8:17 AM EDT PROCEDURE: AP chest radiograph. HISTORY: CP. COMPARISON: 11/20/2024. FINDINGS: A defibrillator pad overlies the right hemithorax. The heart, mediastinum, lungs, pleural spaces, and bony thorax are normal. Procedure Note Avtar Ferrer MD - 02/19/2025 PROCEDURE: AP chest radiograph. HISTORY: CP. COMPARISON: 11/20/2024. FINDINGS: A defibrillator pad overlies the right hemithorax. The heart,mediastinum, lungs, pleural spaces, and bony thorax are normal. IMPRESSION: Normal chest radiographs. -------- FINAL REPORT -------- Dictated By: Avtar Ferrer Dictated Date: 02/19/2025 08:16 ET Assigned Physician: Avtar Ferrer Reviewed and Electronically Signed By: Avtar Ferrer Signed Date: 02/19/2025 08:17 ET Workstation ID: [id number] Transcribed By: Self Edit Transcribed Date: 02/19/2025 08:16 ET Huseyin Mccloud MD IMG XR PROCEDURES Final Res ult * Activated Partial Thromboplastin Time - STAT (02/19/2025 4:49 AM EDT) aPTT 33.0 24.1 - 39.3 sec LAB COAGULATION METHOD 02/19/2025 5:30 AM EDT [facility] Blood Venous blood specimen / Unknown Venipuncture / Unknown 02/19/2025 4:49 AM EDT 02/19/2025 5:13 AM EDT Keshav Rowell MD LAB BLOOD ORDERABLES Final Result [facility] [address] [place] [address], [place] [phone] * Prothrombin Time with INR - STAT (02/19/2025 4:49 AM EDT) Protime 10.8 10.6 - 13.9 sec LAB COAGULATION METHOD 02/19/2025 5:30 AM EDT [facility] INR 0.9 LAB COAGULATION METHOD 02/19/2025 5:30 AM EDT [facility] Blood Venous blood specimen / Unknown Venipuncture / Unknown 02/19/2025 4:49 AM EDT 02/19/2025 5:13 AM EDT Keshav Rowell MD LAB BLOOD ORDERABLES Final Result Performing Organization Address [facility]/ZIP Co de Phone Number [facility] [address] [place] [address], [place] [phone] * (ABNORMAL) Anti-Xa - STAT (02/19/2025 4:49 AM EDT) Heparin Anti-Xa 0.08(L) 0.30 - 0.70 I Unit/mL LAB COAGULATION METHOD 02/19/2025 5:30 AM EDT [facility] Blood Venous blood specimen / Unknown Venipuncture / Unknown 02/19/2025 4:49 AM EDT 02/19/2025 5:13 AM EDT Narrative [facility] - 02/19/2025 5:30 AM EDT Therapeutic range listed is for Unfractionated Heparin. LMW Heparin therapeutic range: 0.50-1.20 IU/mL us Keshav Rowell MD LAB BLOOD ORDERABLES Final Result Performing Organization Address [facility] Co de Phone Number [facility] [address] [place] [address], [place] [phone] * XR Ankle 3+ Views Right (02/11/2025 9:31 PM EDT) Anatomical Region Laterality Modality Lower Extremities, Ankle Right Radiogr aphic Imaging 02/12/2025 9:01 AM EDT Impressions 02/12/2025 9:02 AM EDT FINDINGS/IMPRESSION: Prominent soft tissue swelling. Chronic deformity of the medial malleolus. No acute fracture. Smooth talar dome. Anatomic alignment. -------- FINAL REPORT -------- Dictated By: Luisana Gandhi Dictated Date: 02/12/2025 09:01 ET Assigned Physician: Luisana Gandhi Reviewed and Electronically Signed By: Luisana Gandhi Signed Date: 02/12/2025 09:02 ET Workstation ID: [id number] Transcribed By: Self Edit Transcribed Date: 02/12/2025 09:01 ET Narrative 02/12/2025 9:02 AM EDT XR ANKLE 3+ VIEWS RIGHT INDICATION: pain TECHNIQUE: XR ANKLE 3+ VIEWS RIGHT COMPARISON: No priors available. Procedure Note Luisana Gandhi MD - 02/12/2025 XR ANKLE 3+ VIEWS RIGHT INDICATION: pain TECHNIQUE: XR ANKLE 3+ VIEWS RIGHT COMPARISON: No priors available. IMPRESSION: FINDINGS/IMPRESSION: Prominent soft tissue swelling. Chronic deformity ofthe medial malleolus. No acute fracture. Smooth talar dome. Anatomicalignment. -------- FINAL REPORT -------- Dictated By: Luisana Gandhi Dictated Date: 02/12/2025 09:01 ET Assigned Physician: Luisana Gandhi Reviewed and Electronically Signed By: Luisana Gandhi Signed Date: 02/12/2025 09:02 ET Workstation ID: [id number] Transcribed By: Self Edit Transcribed Date: 02/12/2025 09:01 ET [facility] Minna Lau MD IMG XR PROCEDURES Final Result * (ABNORMAL) Lipid panel (10/17/2019) LDL/HDL Ratio 4 0 - 4 Triglycerides 120 0 - 150 mg/dL Cholesterol 243(A) 0 - 200 mg/dL HDL 61 >=40 mg/dL LDL Cholesterol 158(A) 0 - 100 mg/dL Blood Venous blood specimen / Unknown Historical Provider LAB BLOOD ORDERABLES Talisha l Result from Last 3 Months or Most Recently Relevant to Health Maintenance Insurance MEDICA[place] - [place] MEDICARE AUTO GENERIC Advance Directives * Full Code - Confirmed (Latest Code Status on File) Date Activated Date Inactivated Comments 02/19/2025 8:36 AM 02/20/2025 3:[address] atus was ascertained in the following way: Code status discussion: discussion with patient To update the patient's code status, place a code status order. Do not modify or discontinue any currently active code status orders. * Full Code - Default Date Activated Date Inactivated Comments 02/19/2025 6:52 AM 02/19/2025 8:36 AM This is orde r is used when code status has not been discussed with the patient, or code status is otherwise unknown/unconfirmed To update the patient's code status, place a code status order. Do not modify or discontinue any currently active code status orders. Care Teams Certified Executive Chef Relationship Specialty Start Date End Date Ihsan Ortiz MD [address] [place] [address] PCP - General Internal Medicine 12/24/21
--- NOTE | 2025-03-13 23:54 | ECG_ITS ---
Test Reason : CP Blood Pressure : */* mmHG Vent. Rate : 61 BPM Atrial Rate : 61 BPM P-R Int : 110 ms QRS Dur : 114 ms QT Int : 418 ms P-R-T Axes : 64 41 60 degrees QTcB Int : 420 ms Normal sinus rhythm with sinus arrhythmia [id number]-[id number] Abnormal ECG When compared with ECG of 12-Feb-2025 22:09, No significant changes seen Referred By: Cecilia Araujo Electronically Signed By: CELESTE OSEI
[2025-03-14 00:43] LABS: Troponin-I High Sensitivity < 2.7 ng/L (<3.5-35.0)
[2025-03-14 08:31] VITALS: BP 142/61; PULSE 69; RESP 18; TEMP 36.5; O2SAT 97
[2025-03-14 08:34] VITALS: PULSE 69
[2025-03-14] MEDS: Nicotine 21 MG PATCH.TD24 TRANSDERMA (08:35)
--- NOTE | 2025-03-14 08:40 | PC.NURSE ---
pt is calm, cooperative, resting with eyes closed and falling asleep during conversation but endorses ongoing body pain 03/19. Pt provided with tylneol and a nicotine pain. RR even and unlabored, denies SOB.
--- NOTE | 2025-03-14 08:51 | PC.NURSE ---
report called to POD RN, pt will go to POD 6.
[2025-03-14 10:58] VITALS: PULSE 100
--- NOTE | 2025-03-14 11:56 | PC.NURSE ---
Pt requesting hydroxyzine for anxiety, on med rec but not confirmed by previous provider/whomever did the med rec. Patient states he took the medication last about a week ago . Will update med rec & inform provider to order.
--- NOTE | 2025-03-14 14:38 | MHC.CARE ---
Patient completed phone intake and has been accepted to [facility] for detox, admission time corine [address] [facility] [address] Accepting MD Curtis Palma ED provider, Dr. Graham updated with plan of care
[2025-03-14 15:57] VITALS: BP 157/76; PULSE 80; RESP 18; TEMP 36.6; O2SAT 97
[2025-03-14] MEDS: Naloxone HCl Nasal TAKE HOME 4 MG SPRAY 8 MG NOSTRILALT (16:25)
[2025-03-14 16:27] VITALS: BP 157/76; PULSE 80; RESP 18; TEMP 36.6; O2SAT 97
== END 2025-03-14 16:28 | disposition home or self-care (01) ==
PROVIDERS: Physician Assistant Medical; Emergency Provider Emergency Medicine; PCP Internal Medicine
DX: R07.9 Chest pain, unspecified (principal); I45.6 Pre-excitation syndrome; F10.90 Alcohol use, unspecified, uncomplicated; Z79.899 Other long term (current) drug therapy
CPT/HCPCS: 36415; 80053; 80307; 81001; 83735; 84484; 85025; 93005; 99285; S9485

== ENCOUNTER → 2025-03-13 23:54 | Outpatient (BNV) | payer MEDICARE, MEDICAID, SELFPAY | PROVIDERS: Emergency Provider Emergency Medicine; PCP Internal Medicine; Visit Provider Internal Medicine | DX: I49.9 Cardiac arrhythmia, unspecified (principal); I45.6 Pre-excitation syndrome | CPT/HCPCS: 93010 ==

== ENCOUNTER 2025-04-29 19:28 | Emergency (ER) | payer MEDICAID, SELFPAY ==
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
[2025-04-29 19:30] VITALS: BP 167/92; PULSE 99; RESP 16; TEMP 36.8; O2SAT 96; BMI 27.6
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
--- NOTE | 2025-04-29 19:33 | ECG_ITS ---
Test Reason : DRUG USE Blood Pressure : */* mmHG Vent. Rate : 92 BPM Atrial Rate : 92 BPM P-R Int : 100 ms QRS Dur : 102 ms QT Int : 366 ms P-R-T Axes : 77 18 51 degrees QTcB Int : 452 ms Normal sinus rhythm Buxes-Ptjazuigl-Rrjza Abnormal ECG When compared with ECG of 14-Mar-2025 00:00, Vent. rate has increased by 31 bpm Referred By: Helena Franklin Electronically Signed By: CELESTE OSEI
[2025-04-29 19:58] LABS: Hematocrit 44.6 % (42.0-52.0); Hemoglobin 15.6 g/dl (14.0-18.0); Mean Corpuscular HGB Conc 35.0 g/dl (31.0-36.0); Mean Corpuscular Hemoglobin 29.4 pg (27.0-33.0); Mean Corpuscular Volume 84.2 fL (80.0-98.0); NRBC Abs Auto 0.000 X10*3/uL (0.0-0.012); NRBC Pct Auto 0.0 /100WBC (0.0-0.2); Platelet Count 170 X10*3/uL (160-400); Red Blood Count 5.30 X10*6/uL (4.60-5.80)
[2025-04-29 20:03] LABS: WBC ABN SCTR FOR CBC 1
[2025-04-29 20:04] LABS: White Blood Count 11.2 X10*3/uL (4.8-10.8)
[2025-04-29 20:13] LABS: Alanine Aminotransferase 29 U/L (0-40); Albumin Level 4.9 g/dL (3.5-5.0); Alkaline Phosphatase 112 U/L (39-117); Anion Gap 16 (12-20); Aspartate Amino Transferase 50 U/L (5-37); Blood Urea Nitrogen 23 mg/dL (9-16); Calcium 9.5 mg/dL (8.4-10.2); Carbon Dioxide 24 mmol/L (22-29); Chloride 103 mmol/L (96-108); Creatinine Clr Calc Pharmacy 109.6; Estimated Glomerular Filt Rate > 60; Lipase 65 U/L (8-78); Magnesium 2.1 mg/dL (1.6-2.6); Potassium 3.7 mmol/L (3.3-5.1); Sodium 139 mmol/L (135-145); Total Protein 7.5 g/dL (6.5-8.0)
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
--- OUTSIDE RECORDS SUMMARY | 2025-04-29 20:14 | XMS_ITS | Clinical Summary ---
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 Calcium 9.6 8.5 - 10.5 mg/dL LAB CHEMISTRY METHOD 02/20/2025 7:11 AM [facility] Blood Venous blood specimen / Unknown Venipuncture / Unknown 02/20/2025 5:39 AM EDT 02/20/2025 6:22 AM EDT us Johnathan Peters DO LAB BLOOD ORDERABLES Final R esult [facility] [address] [place] [address], [place] [phone] * CT Angio Chest/Abdomen wo and/or w [...] (02/19/2025 10:27 AM EDT) Left Atrium Minor [place] 5.6 cm CV PACS Left Atrium Major [place] 5.4 cm CV PACS LA Area Sys [...] Volume 72 mL CV PACS MV Deceleration Jefferson 3.7 m/s2 CV PACS E Wave Deceleration [...] Signed Date: 02/19/2025 08:17 ET Workstation ID: [id number] Transcribed By: Self Edit Transcribed Date: 02/19/2025 [...] Signed Date: 02/19/2025 08:17 ET Workstation ID: [id number] Transcribed By: Self Edit Transcribed Date: 02/19/2025 08:16 ET us Huseyin Mccloud MD IMG XR PROCEDURES Final Res ult * Activated Partial Thromboplastin Time - STAT (02/19/2025 4:49 AM EDT) aPTT 33.0 24.1 - 39.3 sec LAB COAGULATION METHOD 02/19/2025 5:30 AM EDT [facility] Blood Venous blood specimen / Unknown Venipuncture / Unknown 02/19/2025 4:49 AM EDT 02/19/2025 5:13 AM EDT us Keshav Rowell MD LAB BLOOD ORDERABLES Final Result [facility] [address] [place] [address], [place] [phone] * Prothrombin Time with INR - STAT (02/19/2025 4:49 AM EDT) Protime 10.8 10.6 - 13.9 sec LAB COAGULATION METHOD 02/19/2025 5:30 AM EDT [facility] INR 0.9 LAB COAGULATION METHOD 02/19/2025 5:30 AM EDT [facility] Blood Venous blood specimen / Unknown Venipuncture / Unknown 02/19/2025 4:49 AM EDT 02/19/2025 5:13 AM EDT us Keshav Rowell MD LAB BLOOD ORDERABLES Final Result Performing Organization Address [facility] Co de Phone Number [facility] [address] [place] [address], [place] [phone] * (ABNORMAL) Anti-Xa - STAT (02/19/2025 4:49 AM EDT) [facility] Heparin Anti-Xa 0.08(L) 0.30 - 0.70 I Unit/mL LAB COAGULATION METHOD 02/19/2025 5:30 AM EDT [facility] Blood Venous blood specimen / Unknown Venipuncture / Unknown 02/19/2025 4:49 AM EDT 02/19/2025 5:13 AM EDT Narrative [facility] - 02/19/2025 5:30 AM EDT Therapeutic range listed is for Unfractionated Heparin. LMW Heparin therapeutic range: 0.50-1.20 IU/mL us Keshav Rowell MD LAB BLOOD ORDERABLES Final Result Performing Organization Address City/[facility]/ZIP Co de Phone Number [facility] [address] [place] [address], [place] [phone] * XR Ankle 3+ Views Right (02/11/2025 [...] Signed Date: 02/12/2025 09:02 ET Workstation ID: [id number] Transcribed By: Self Edit Transcribed Date: 02/12/2025 [...] Signed Date: 02/12/2025 09:02 ET Workstation ID: [id number] Transcribed By: Self Edit Transcribed Date: 02/12/2025 09:01 ET Vikash Lau MD IMG XR PROCEDURES Final Result * (ABNORMAL) Lipid panel (10/17/2019) LDL/HDL Ratio 4 0 - 4 Triglycerides 120 0 - 150 mg/dL Cholesterol 243(A) 0 - 200 mg/dL HDL 61 >=40 mg/dL LDL Cholesterol 158(A) 0 - 100 mg/dL Blood Venous blood specimen / Unknown us Historical Provider LAB BLOOD ORDERABLES Talisha l Result from Last 3 Months or Most Recently Relevant to Health Maintenance Insurance MED[place] - [place] AUTO GENERIC Advance Directives * Full [...] currently active code status orders. Care Teams Prop And Effects Designer Relationship Specialty Start Date End Date Ihsan Ortiz MD [address] [place] [address] PCP - General Internal Medicine 12/24/21
--- OUTSIDE RECORDS SUMMARY | 2025-04-29 20:14 | XMS_ITS ---
Author Name [facility] Organization Unknown Care Team Organization Name Specialty Phone Email Start Date End Da te [facility] RM SEPULVEDA Primary Care 01/16/2023 03/28/2024 [facility] Termed, PROVIDER Primary Care 06/17/202203/10
--- OUTSIDE RECORDS SUMMARY | 2025-04-29 20:14 | XMS_ITS | Encounter Summary ---
Author Organization [facility] Address [address] [place] [address] Care Team Providers Care Property Assessment Monitor Name Role Phone Ihsan Ortiz MD Primary Care Provider Reason for Visit * Reason Onset Date Comments Returning Call 03/28/2025 Encounter Details Date Type Department Care Team ([facility] Contact Info) Description 03/28/2025 Telephone Adult Medicine [address] [phone] Ihsan Ortiz MD [address] [place] [address] Social History Tobacco Use Types Packs/Day Years [...] for your loved ones. For example, child caregiver private home or elderly care for an older adult? [...] PM EDT documented as of this encounter Functional Status * Are you deaf or do you have serious difficulty hearing? Answer Date of Assessment Author No 03/13/2025 5:20 AM EDT Carmela Mcneil RN * Are you blind or do you have serious difficulty seeing, even when wearing glasses? Answer Date of Assessment Author No 03/13/2025 5:20 AM EDT Carmela Mcneil RN * Do you have serious difficulty walking or climbing stairs? Answer Date of Assessment Author No 03/13/2025 5:20 AM EDT Doles, As cachorro Jones RN * Do you have serious difficulty dressing or bathing? Answer Date of Assessment Author No 03/13/2025 5:20 AM EDT Doles, As cachorro Jones RN * Because of [...] cachorro Jones RN documented in this encounter Progress Notes * Shanna Quintanilla - 03/28/2025 11:44 AM EDT The patient called and said a nurse was trying to reach him. He is currently at the [facility], inpatient . He can be reached at the [facility] phone number, documented in this encounter Plan of Treatment Upcoming Encounters Date Type Department Care Team (Late st Contact Info) Description 05/16/2025 2:00 PM EDT Office Visit Adult Medicine [address] [phone] Kassy Rosario PA [address] [place] [address] documented as of this encounter Visit Diagnoses Not on filedocumented in this encounter Care Teams Property Assessment Monitor Relationship Specialty Start Date End Date Ihsan Ortiz MD [address] [place] [address] PCP - General Internal Medicine 12/24/21 documented as of this encounter
[2025-04-29 20:19] LABS: Lymphocytes Absolute Manual 1.0 X10*3/uL (1.2-4.9); Lymphocytes Percent Manual 9 % (20-40); Monocytes Absolute Manual 0.9 X10*3/uL (0.1-1.2); Monocytes Percent Manual 8 % (2-11); Neutrophils Percent Manual 83 % (45-73)
[2025-04-29 20:20] LABS: Band Neutrophils Percent 0 % (3-5); Neutrophils Absolute Manual 9.3 X10*3/uL (2.0-8.3)
[2025-04-29 20:21] LABS: RBC Morphology NORMAL
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
[2025-04-29 20:22] LABS: Troponin-I High Sensitivity < 2.7 ng/L (<3.5-35.0)
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
[2025-04-29 22:46] VITALS: BP 184/94; PULSE 83; RESP 17; TEMP 36.6; O2SAT 100
[2025-04-30 02:00] VITALS: BP 149/82; PULSE 94; RESP 17; TEMP 37.1; O2SAT 97
[2025-04-30 06:18] LABS: Cannabinoid Screen Urine POSITIVE (Not Detect)
[2025-04-30 06:46] VITALS: BP 158/83; PULSE 93; RESP 17; TEMP 37.3; O2SAT 98
--- NOTE | 2025-04-30 10:05 | PC.NURSE ---
Assumed care of pt at 0700. Pt resting in bed quietly, a/ox3, respirations even and unlabored, no increased wob/sob noted, maintaining O2 sat >92% on RA. CARE team at bedside for assessment- plan for pt to be d/c to detox. Pt L hand swollen/warm, unable to make fist d/t swelling/pain. CMS intact. Pt denies any recent bug bites/lacs to hand. Pt states this started x few days ago and progressively gotten worse. Danii MONSALVE made aware- pending PA assessment.
[2025-04-30 10:36] VITALS: BP 150/99; PULSE 107; RESP 18; TEMP 37.2; O2SAT 96
[2025-04-30 11:19] VITALS: BP 165/77; PULSE 86; RESP 18; TEMP 37.1; O2SAT 95
[2025-04-30 11:33] VITALS: BP 165/77; PULSE 86; RESP 18; TEMP 37.2; O2SAT 95
== END 2025-04-30 11:34 | disposition other institution (70) ==
PROVIDERS: Physician Assistant Medical; Emergency Provider Emergency Medicine Emergency Medical Services
DX: F14.10 Cocaine abuse, uncomplicated (principal); R45.851 Suicidal ideations; L03.90 Cellulitis, unspecified; I45.6 Pre-excitation syndrome; R94.31 Abnormal electrocardiogram [ECG] [EKG]; F17.210 Nicotine dependence, cigarettes, uncomplicated; Z79.899 Other long term (current) drug therapy; Z51.81 Encounter for therapeutic drug level monitoring
CPT/HCPCS: 36415; 80048; 80076; 80307; 82550; 83690; 83735; 84484; 85007; 85025; 85027; 93005; 99285; S9485

== ENCOUNTER → 2025-04-29 19:33 | Outpatient (BNV) | payer MEDICAID, SELFPAY | PROVIDERS: Emergency Provider Emergency Medicine Emergency Medical Services; Visit Provider Internal Medicine | DX: I45.6 Pre-excitation syndrome (principal) | CPT/HCPCS: 93010 ==

== ENCOUNTER 2025-06-03 15:56 | Inpatient (IN) | payer MEDICAID, SELFPAY ==
[2025-06-03] VITALS (7 sets, daily range): BP systolic 161–177; BP diastolic 90–114; PULSE 70–87; RESP 16–18; TEMP 36.6–36.8; O2SAT 96–97; BMI 29.2
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
--- NOTE | 2025-06-03 16:08 | ECG_ITS ---
Test Reason : hypertention Blood Pressure : */* mmHG Vent. Rate : 72 BPM Atrial Rate : 72 BPM P-R Int : 112 ms QRS Dur : 110 ms QT Int : 394 ms P-R-T Axes : 75 28 51 degrees QTcB Int : 431 ms Normal sinus rhythm with sinus arrhythmia Ktoaw-Ybuobkunf-Mvzii Abnormal ECG When compared with ECG of 29-Apr-2025 19:41, No significant change was found Referred By: Elisha Hanson Electronically Signed By: JONATHON ZAMARRIPA MD
--- OUTSIDE RECORDS SUMMARY | 2025-06-03 16:29 | XMS_ITS | Clinical Summary ---
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 Normal LAB HEMETOLOGY METHOD 05/06/2025 4:24 AM EDT [facility] Comment:PLT: Large platelets seen Blood Venous blood specimen / Unknown Venipuncture / Unknown 05/06/2025 3:24 AM EDT 05/06/2025 3:44 AM EDT us Kaity Capone MD LAB BLOOD ORDERABLES Final Resul t Performing Organization Address [facility] Co de Phone Number [facility] [address] [place] [address], [place] [phone] * B-type natriuretic peptide (05/06/2025 3:24 AM EDT) Only the most recent of2 resultswithin the time period is included. BNP 12 <=100 pcg/mL LAB CHEMISTRY METHOD 05/06/2025 4:28 AM EDT [facility] Blood Venous blood specimen / Unknown Venipuncture / Unknown 05/06/2025 3:24 AM EDT 05/06/2025 3:44 AM EDT us Kaity Capone MD LAB BLOOD ORDERABLES Final Resul t Performing Organization Address [facility]/ZIP Co de Phone Number [facility] [address] [place] [address], [place] [phone] * XR Ribs w Chest 3+ Views Right (04/26/2025 3:59 AM EDT) Anatomical Region Laterality Modality Body Right Radiographic Namrata ging 04/26/2025 8:46 AM EDT Impressions 04/26/2025 8:48 AM EDT Impression: 1. No right rib fracture is seen. 2. No active pulmonary process. [place] ([id number]) -------- FINAL REPORT -------- Dictated By: Estelle Chinchilla Dictated Date: 04/26/2025 08:46 ET Assigned Physician: Estelle Chinchilla Reviewed and Electronically Signed By: Estelle Chinchilla Signed Date: 04/26/2025 08:48 ET Workstation ID: [id number] Transcribed By: Self Edit Transcribed Date: 04/26/2025 [...] 2. No active pulmonary process. Telerad PA ([id number]) -------- FINAL REPORT -------- Dictated By: Estelle Chinchilla Dictated Date: 04/26/2025 08:46 ET Assigned Physician: Estelle Chinchilla Reviewed and Electronically Signed By: Estelle Chinchilla Signed Date: 04/26/2025 08:48 ET Workstation ID: [id number] Transcribed By: Self Edit Transcribed Date: 04/26/2025 08:46 ET us Tiki Perez MD IMG XR PROCEDURES Final Result * (ABNORMAL) Drug abuse screen 8a panel, urine (03/12/2025 8:29 PM EDT) Amphetamine Screen, Ur Negative Negative LAB CHEMISTRY METHOD 9:54 PM EDT [facility] Comment:Certain OTC medicati ons containing ephedrine, phenylephrine, pseudoephedrine and phenylpropanolamine can cause false positive results. Barbiturate Screen, Ur Negative Negative LAB CHEMISTRY METHOD 9:54 PM EDT [facility] Benzodiazepine Screen, Ur Positive(A ) Negative LAB CHEMISTRY METHOD 9:54 PM EDT [facility] Cocaine Screen, Ur Positive(A ) Negative [facility] Opiate Screen, Ur Negative Negative [facility] Cannabinoid (THC) Screen, Ur Positive(A ) Negative LAB CHEMISTRY METHOD 9:54 PM [facility] Comment:Specimens from patie nts taking pantoprazole sodium (Protonix) have been shown to produce false positive results. Oxycodone Screen, Ur Negative Negative LAB CHEMISTRY METHOD 5 9:54 PM EDT [facility] Fentanyl, Ur Positive(A ) Negative LAB CHEMISTRY METHOD 9:54 PM T [facility] Urine Urine specimen obtained by clean catch procedure / Unknown Non-blood Collection / Unknown 03/12/2025 8:29 PM EDT 03/12/2025 8:[address] [facility] - 03/12/2025 9:54 PM EDT [...] ORDERABLES Final Resu lt Performing Organization Address City/[facility]/ZIP Co de Phone Number [facility] [address] [place] [address], [place] [phone] * Buprenorphine screen, urine (03/12/2025 8:29 PM EDT) Buprenorphine Screen Urine Negative Negative LAB CHEMISTRY METHOD 03/12/2025 9:50 PM EDT [facility] Urine Urine specimen obtained by clean catch procedure / Unknown Non-blood Collection / Unknown 03/12/2025 8:29 PM EDT 03/12/2025 8:51 PM EDT Narrative [facility] - 03/12/2025 9:50 PM EDT Assay cutoff 5 ng/mL Semi-quantitative assay for screening purposes only. Unconfirmed screening result should not be used for non-medical purposes. *ALTERNATE METHOD CONFIRMATION DONE UPON REQUEST ONLY* Chaz Matos MD LAB URINE ORDERABLES Final Resu lt Performing Organization Address [facility]/ZIP Co de Phone Number [facility] [address] [place] [address], [place] [phone] * Methadone, urine (03/12/2025 8:29 PM EDT) Methadone Screen, Urine Negative Negative LAB CHEMISTRY METHOD 03/12/2025 9:50 PM EDT [facility] Comment: Assay cutoff 300 ng/mL Semi-quantitative assay for screening purposes only. Unconfirmed screening result should not be used for non-medical purposes. *ALTERNATE METHOD CONFIRMATION DONE UPON REQUEST ONLY* Urine Urine specimen obtained by clean catch procedure / Unknown Non-blood Collection / Unknown 03/12/2025 8:29 PM EDT 03/12/2025 8:51 PM EDT us Chaz Matos MD LAB URINE ORDERABLES Final Resu lt Performing Organization Address [facility]/ZIP Co de Phone Number [facility] [address] [place] [address], [place] [phone] * Phencyclidine, urine (03/12/2025 8:29 PM EDT) PCP Scrn, Ur Negative Negative LAB CHEMISTRY METHOD 03/12/2025 9:50 PM EDT [facility] Comment: Assay cutoff 25 ng/mL Semi-quantitative assay for screening purposes only. Unconfirmed screening result should not be used for non-medical purposes. *ALTERNATE METHOD CONFIRMATION DONE UPON REQUEST ONLY* Urine Urine specimen obtained by clean catch procedure / Unknown Non-blood Collection / Unknown 03/12/2025 8:29 PM EDT 03/12/2025 8:51 PM EDT us Chaz Matos MD LAB URINE ORDERABLES Final Resu lt Performing Organization Address [facility] Co de Phone Number [facility] [address] [place] [address], [place] [phone] * Ethanol (03/12/2025 6:56 PM EDT) Ethanol Level <3 0 - 10 mg/dL LAB CHEMISTRY METHOD 03/12/2025 8:19 PM EDT [facility] Blood Venous blood specimen / Unknown Venipuncture / Unknown 03/12/2025 6:56 PM EDT 03/12/2025 7:42 PM EDT us Chaz Matos MD LAB BLOOD ORDERABLES Final Resu lt Performing Organization Address City/[facility]/ZIP Co de Phone Number [facility] [address] [place] [address], [place] [phone] * (ABNORMAL) Acetaminophen level (03/12/2025 6:56 PM EDT) Acetaminophen Level <2.0(L) 10.0 - 30.0 mcg/mL LAB CHEMISTRY METHOD 03/12/2025 8:50 PM EDT [facility] Blood Venous blood specimen / Unknown Venipuncture / Unknown 03/12/2025 6:56 PM EDT 03/12/2025 7:42 PM EDT Chaz Matos MD LAB BLOOD ORDERABLES Final Resu lt Performing Organization Address City/[facility]/ZIP Co de Phone Number [facility] [address] [place] [address], * (ABNORMAL) Salicylate level (03/12/2025 6:56 PM EDT) Salicylate Level <1.7(L) 2.0 - 29.0 mg/dL LAB CHEMISTRY METHOD 03/12/2025 8:19 PM EDT [facility] Blood Venous blood specimen / Unknown Venipuncture / Unknown 03/12/2025 6:56 PM EDT 03/12/2025 7:42 PM EDT Chaz Matos MD LAB BLOOD ORDERABLES Final Resu lt [facility] [address] [place] [address], [place] [phone] * (ABNORMAL) Lipid panel (10/17/2019) LDL/HDL Ratio 4 0 - 4 Triglycerides 120 0 - 150 mg/dL Cholesterol 243(A) 0 - 200 mg/dL HDL 61 >=40 mg/dL LDL Cholesterol 158(A) 0 - 100 mg/dL Blood Venous blood specimen / Unknown Historical Provider LAB BLOOD ORDERABLES Talisha l Result from Last 3 Months or Most Recently Relevant to Health Maintenance Insurance [place]ICA[place] - [place] [employer] Advance Directives * Full Code [...] currently active code status orders. Care Teams Comfort Station Attendant Relationship Specialty Start Date End Date Ihsan Ortiz MD [address] [place] [address] PCP - General Internal Medicine 12/24/21
[2025-06-03 17:07] LABS: MANUAL DIFF FLAG NO
[2025-06-03 17:31] LABS: Hematocrit 43.0 % (42.0-52.0); Hemoglobin 14.5 g/dl (14.0-18.0); Imm Gran Abs Auto 0.06 X10*3/uL (0.00-0.03); Imm Gran Pct Auto 0.5 % (0.0-0.4); Lymphocytes Absolute Auto 1.6 X10*3/uL (1.2-4.9); Mean Corpuscular HGB Conc 33.7 g/dl (31.0-36.0); Mean Corpuscular Hemoglobin 28.8 pg (27.0-33.0); Mean Corpuscular Volume 85.3 fL (80.0-98.0); NRBC Abs Auto 0.000 X10*3/uL (0.0-0.012); NRBC Pct Auto 0.0 /100WBC (0.0-0.2); Platelet Count 258 X10*3/uL (160-400); Red Blood Count 5.04 X10*6/uL (4.60-5.80); White Blood Count 11.2 X10*3/uL (4.8-10.8)
[2025-06-03 17:34] LABS: Alanine Aminotransferase 52 U/L (0-40); Albumin Level 4.9 g/dL (3.5-5.0); Alkaline Phosphatase 151 U/L (39-117); Anion Gap 14 (12-20); Aspartate Amino Transferase 40 U/L (5-37); Blood Urea Nitrogen 11 mg/dL (9-16); Calcium 10.1 mg/dL (8.4-10.2); Carbon Dioxide 30 mmol/L (22-29); Chloride 101 mmol/L (96-108); Creatinine Clr Calc Pharmacy 139.6; Estimated Glomerular Filt Rate > 60; Magnesium 1.7 mg/dL (1.6-2.6); Potassium 4.3 mmol/L (3.3-5.1); Sodium 141 mmol/L (135-145); Total Protein 8.1 g/dL (6.5-8.0)
[2025-06-03 17:43] LABS: Troponin-I High Sensitivity < 2.7 ng/L (<3.5-35.0)
[2025-06-04 11:23] VITALS: BP 156/90; PULSE 86; RESP 15; TEMP 36.3; O2SAT 96
[2025-06-04 17:57] LABS: Appearance Urine Clear; Glucose Urine UA Negative (Negative); PH 6.5 (5.0-9.0); Specific Gravity - Urine 1.020 (1.005-1.025)
[2025-06-04 18:08] LABS: Cannabinoid Screen Urine Not Detected (Not Detect)
--- NOTE | 2025-06-04 21:44 | MHC.CARE ---
Pt is a voluntary dual diagnosis bedsearch.
--- NOTE | 2025-06-05 06:20 | PC.NURSE ---
Pt slept throughout most of the night. Woke up two times to use the restroom, ambulatory with a stead gait. Breaths remained even regular and unlabored. Remained calm and cooperative. Food and drink provided as requested per pt. Monitoring is ongoing
[2025-06-05 06:31] VITALS: BP 150/81; PULSE 66; RESP 18; TEMP 36.3; O2SAT 95
--- NOTE | 2025-06-05 07:02 | PC.NURSE ---
Assumed care, report received. Pt is currently sleeping and brought breakfast, safety is maintained.
--- NOTE | 2025-06-05 14:54 | PHA.MEDREC ---
Addendum entered by Susan Kaiser RPh 06/05/25 15:08: MED REC REVIEWED BY [facility] Original Note: Pharmacy Consult ? Medication Reconciliation Pharmacy reviewed med rec done by nursing. Spoke with pt and he confirmed the med rec. Pt states he takes Gabapentin 300mg caps BID as needed for pain; I updated that on the med rec and he confirmed he is taking Suboxone 8-2 films and takes 2 films daily. Pt has not taken his medications since the day before he came in.
[2025-06-05 17:00] VITALS: BP 166/94; PULSE 74; RESP 18; TEMP 36.8; O2SAT 98; BMI 28.3
[2025-06-05 17:17] VITALS: BMI 28.3
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
[2025-06-05 20:00] VITALS: BP 168/88; PULSE 80; RESP 18; O2SAT 97
[2025-06-06 08:00] VITALS: BP 134/78; PULSE 89; RESP 18; TEMP 36.8; O2SAT 93
[2025-06-06 08:53] VITALS: BP 134/78
[2025-06-06] MEDS: Nicotine 21 MG PATCH.TD24 TRANSDERMA (08:54)
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
[2025-06-06 12:19] VITALS: BP 179/110; PULSE 102; RESP 18; TEMP 36.6
[2025-06-06 16:30] VITALS: BP 168/92; PULSE 88; RESP 18; TEMP 36.6
--- NOTE | 2025-06-06 19:39 | PC.NURSE ---
Dianelys Pelaez made aware of patients elevated blood pressures. No additional orders at this time. Continue to monitor. [employer] to follow up with patient tomorrow.
[2025-06-06 20:00] VITALS: BP 167/92; PULSE 106; RESP 16; TEMP 36.7
[2025-06-06] MEDS: Milk of Magnesia 30 ML ORAL.SUSP PO (21:19)
--- NOTE | 2025-06-07 00:34 | PC.NURSE ---
Pt was unable to be woken after multiple attempts to assess 0000 CIWA. Pt appeared to be sleeping comfortably and was heard snoring. No apparent signs of distress, no restlessness noted.
[2025-06-07 07:59] VITALS: BP 132/66; PULSE 95; RESP 18; TEMP 36.6; O2SAT 100
[2025-06-07] MEDS: Nicotine 21 MG PATCH.TD24 TRANSDERMA (08:22)
--- NOTE | 2025-06-07 09:03 | P.PNPSI_ITS ---
Subjective Subjective Date of Service: 06/07/25 Reason For Visit: Crisis Subjective Notes: Conditional Voluntary Interim History: Keeping to self. Patient reports feeling depressed but states anxiety has improved. He reports sleeping well last night Continue with CIWA. denies SI/HI/VH/AH. Patient reports he is trying to think of where to go after I leave the hostpial . continue tx plan. Medication Compliance: Yes Side effects from medications: No Attending Groups: No Mental Status Exam Mental Status Exam Narrative: Pt is alert and oriented; behavior is cooperative and calm; dressed in casual attire; mood is described as depressed ; eye contact appropriate; Speech is normal rate, volume and not pressured; thought process is organized; Thought content is on tx; denies SI/HI/VH/AH. Diagnostics Vital Signs (24Hr): Vital Signs - 24 hr 06/06/25 12:19 06/06/25 16:30 06/06/25 20:00 Temperature 97.8 F 97.8 F 98.1 F Pulse Rate 102 H 88 106 H Respiratory Rate 18 18 16 Blood Pressure 179/110 H 168/92 H 167/92 H Pulse Oximetry Oxygen Delivery Method 06/07/25 07:59 Temperature 97.8 F Pulse Rate 95 Respiratory Rate 18 Blood Pressure 132/66 Pulse Oximetry 100 Oxygen Delivery Method Room Air BMI result Body Mass Index 28.3 Labs 06/03/25 17:02 06/07/25 10:55 Medications Medications Current Medications Acetaminophen (Acetaminophen 325 Mg Tablet) 650 mg PO Q6H PRN PRN Reason: Headache/Pain, Scale 1-10 Last Admin: 06/07/25 05:38 Dose: 650 mg Al Hydroxide/Mg Hydroxide (Magnesium Hydrox/Alum Hydrox 30 Ml Oral.Susp) 30 ml PO Q6H PRN PRN Reason: Heartburn/Nausea Albuterol Sulfate (Albuterol Sulfate 90 Mcg 8 Gm Inhaler) 2 puff INHALE Q4H PRN PRN Reason: shortness of breath or wheezin Amlodipine Besylate (Amlodipine Besylate 5 Mg Tablet) 5 mg PO DAILY [facility]; Protocol Last Admin: 06/07/25 08:19 Dose: 5 mg Buprenorphine/Naloxone (Buprenorphine/Naloxone 8/2 Mg Film) 2 film SUBLINGUAL DAILY [facility] Last Admin: 06/07/25 08:20 Dose: 2 film Gabapentin (Gabapentin 300 Mg Capsule) 300 mg PO TID [facility] Last Admin: 06/07/25 08:19 Dose: 300 mg Hydroxyzine HCl (Hydroxyzine Hcl 25 Mg Tablet) 25 mg PO Q6H PRN PRN Reason: mild anxiety Last Admin: 06/06/25 21:19 Dose: 25 mg Ibuprofen (Ibuprofen 600 Mg Tablet) 600 mg PO Q8H PRN PRN Reason: Pain, Moderate(Pain Scale 4-6) Last Admin: 06/06/25 21:19 Dose: 600 mg Lorazepam (Lorazepam 1 Mg Tablet) 1 mg PO Q2H PRN PRN Reason: CIWA 8-11 Last Admin: 06/05/25 20:49 Dose: 1 mg Lorazepam (Lorazepam 1 Mg Tablet) 2 mg PO Q2H PRN PRN Reason: CIWA 12-15 Last Admin: 06/07/25 05:38 Dose: 2 mg Magnesium Hydroxide (Milk Of Magnesia 30 Ml Oral.Susp) 30 ml PO DAILY PRN PRN Reason: Constipation Last Admin: 06/06/25 21:19 Dose: 30 ml Nicotine (Nicotine 21 Mg Patch.Td24) 21 mg TRANSDERMA DAILY [facility] Last Admin: 06/07/25 08:22 Dose: 21 mg Nicotine Polacrilex (Nicotine Polacrilex 2 Mg Gum) 4 mg BUCCAL Q2H PRN PRN Reason: Nicotine Cravings Last Admin: 06/07/25 06:37 Dose: 4 mg Sertraline HCl (Sertraline Hcl 100 Mg Tablet) 100 mg PO DAILY [facility] Last Admin: 06/07/25 08:19 Dose: 100 mg Thiamine HCl (Thiamine Hcl 100 Mg Tablet) 100 mg PO DAILY [facility] Last Admin: 06/07/25 08:19 Dose: 100 mg Trazodone HCl (Trazodone Hcl 100 Mg Tablet) 100 mg PO BEDTIME [facility] Last Admin: 06/06/25 21:19 Dose: 100 mg Allergies Allergies Allergy/AdvReac Type Severity Reaction Status Date / Time No Known Allergies Allergy Verified 06/03/25 16:08 Assessment & Plan Assessment & Plan (1) MDD (major depressive disorder), recurrent episode, moderate: Status: Acute Code(s): F33.1 - Major depressive disorder, recurrent, moderate (2) Cocaine use disorder, severe, dependence: Status: Acute Code(s): F14.20 - Cocaine dependence, uncomplicated (3) Opioid use disorder, moderate, dependence: Status: Acute Code(s): F11.20 - Opioid dependence, uncomplicated (4) Homelessness: Status: Acute Code(s): Z59.00 - Homelessness unspecified Plan Patient is a 34-year-old male with history of MDD, cocaine use disorder, opiate use disorder and alcohol use disorder who self presented to ER due to suicidal ideation with no plan secondary to auditory hallucinations and relapsing on crack/fentanyl after 3 weeks of sobriety. Plan: CV 15 minute safety checks Obtain collateral Continue home medications CIWA protocol Encourage groups Referral to outpatient psychiatric providers Referral to substance abuse program Discharge planning 06/07:Keeping to self. Patient reports feeling depressed but states anxiety has improved. He reports sleeping well last night Continue with CIWA. denies SI/HI/VH/AH. Patient reports he is trying to think of where to go after I leave the hostpial . continue tx plan. Patient educated on: diagnosis and medication risk/benefits Reason for continued inpatient stay Substantial Risk for: med/psych decompensation Time Spent With Patient Time: Total time managing care of this patient today _20___ minutes.
[2025-06-07 11:23] LABS: Alanine Aminotransferase 62 U/L (0-40); Albumin Level 4.5 g/dL (3.5-5.0); Alkaline Phosphatase 133 U/L (39-117); Anion Gap 10 (12-20); Aspartate Amino Transferase 30 U/L (5-37); Blood Urea Nitrogen 27 mg/dL (9-16); Calcium 9.4 mg/dL (8.4-10.2); Carbon Dioxide 29 mmol/L (22-29); Chloride 102 mmol/L (96-108); Cholesterol 193 mg/dL (<200); Creatinine Clr Calc Pharmacy 104.5; Estimated Glomerular Filt Rate > 60; HDL Cholesterol 43 mg/dL (>40); Potassium 4.5 mmol/L (3.3-5.1); Sodium 136 mmol/L (135-145); Total Protein 7.7 g/dL (6.5-8.0); Triglycerides 151 mg/dL (<150)
[2025-06-07 15:29] VITALS: BP 149/70
--- NOTE | 2025-06-07 18:22 | PC.NURSE ---
Pt c/o having etoh withdrawal, provider notified and ordered an additional CIWA. Pt scored 12 and was given Ativan 2mg per order.
[2025-06-07 19:59] VITALS: BP 164/94; PULSE 98; RESP 16; TEMP 36.7; O2SAT 98
[2025-06-08 07:00] VITALS: BMI 29.7
[2025-06-08 08:00] VITALS: BP 127/72; PULSE 94; RESP 16; TEMP 36.8; O2SAT 97
[2025-06-08 08:54] VITALS: BP 127/72
[2025-06-08] MEDS: Nicotine 21 MG PATCH.TD24 TRANSDERMA (08:56)
--- NOTE | 2025-06-08 09:58 | HO.PSYCHPN ---
Subjective Subjective Date of Service: 06/08/25 Reason For Visit: Crisis Subjective Notes: Conditional Voluntary Interim History: Active on unit. attending groups. Patient reports he is feeling hopeful today d/t being notified he will be receiving a check from a law suit. Patient stated, I have money coming in so I'm going to try to get an apartment. I'm trying to get myself together. I can't waste it on a quick high . denies SI/HI/VH/AH. Continues on CIWA. continue tx plan. Medication Compliance: Yes Side effects from medications: No Attending Groups: Yes Mental Status Exam Mental Status Exam Narrative: Pt is alert and oriented; behavior is cooperative and calm; dressed in casual attire; mood is described as hopeful ; eye contact appropriate; Speech is normal rate, volume and not pressured; thought process is organized; Thought content is on tx/discharge; denies SI/HI/VH/AH. Diagnostics Vital Signs (24Hr): Vital Signs - 24 hr 06/07/25 15:29 06/07/25 19:59 06/08/25 08:54 Temperature 98.1 F Pulse Rate 98 Respiratory Rate 16 Blood Pressure 149/70 H 164/94 H 127/72 Pulse Oximetry 98 Oxygen Delivery Method Room Air 06/08/25 08:54 Temperature Pulse Rate Respiratory Rate Blood Pressure 127/72 Pulse Oximetry Oxygen Delivery Method BMI result Body Mass Index 28.3 Labs 06/03/25 17:02 06/07/25 10:55 Labs: Laboratory Results - last 48 hr 06/07/25 10:55 Sodium 136 Potassium 4.5 Chloride 102 Carbon Dioxide 29 Anion Gap 10 L BUN 27 H Creatinine 1.04 Estim Creat Clear Calc 104.5 Estimated GFR > 60 Random Glucose 94 Estimat Average Glucose 111 Hemoglobin A1c % 5.5 Calcium 9.4 D Total Bilirubin 0.3 AST 30 ALT 62 H Alkaline Phosphatase 133 H Total Protein 7.7 Albumin 4.5 Triglycerides 151 H Cholesterol 193 LDL Cholesterol, Calc 120 H HDL Cholesterol 43 Medications Medications Current Medications Acetaminophen (Acetaminophen 325 Mg Tablet) 650 mg PO Q6H PRN PRN Reason: Headache/Pain, Scale 1-10 Last Admin: 06/08/25 06:17 Dose: 650 mg Al Hydroxide/Mg Hydroxide (Magnesium Hydrox/Alum Hydrox 30 Ml Oral.Susp) 30 ml PO Q6H PRN PRN Reason: Heartburn/Nausea Albuterol Sulfate (Albuterol Sulfate 90 Mcg 8 Gm Inhaler) 2 puff INHALE Q4H PRN PRN Reason: shortness of breath or wheezin Amlodipine Besylate (Amlodipine Besylate 5 Mg Tablet) 5 mg PO DAILY [facility]; Protocol Last Admin: 06/08/25 08:54 Dose: 5 mg Buprenorphine/Naloxone (Buprenorphine/Naloxone 8/2 Mg Film) 2 film SUBLINGUAL DAILY [facility] Last Admin: 06/08/25 08:56 Dose: 2 film Clonidine HCl (Clonidine Hcl 0.1 Mg Tablet) 0.1 mg PO BID PRN; Protocol PRN Reason: anxiety/restlessness Last Admin: 06/07/25 15:29 Dose: 0.1 mg Gabapentin (Gabapentin 300 Mg Capsule) 300 mg PO TID [facility] Last Admin: 06/08/25 08:54 Dose: 300 mg Hydrochlorothiazide (Hydrochlorothiazide 12.5 Mg Tablet) 12.5 mg PO DAILY [facility]; Protocol Last Admin: 06/08/25 08:54 Dose: 12.5 mg Hydroxyzine HCl (Hydroxyzine Hcl 25 Mg Tablet) 25 mg PO Q6H PRN PRN Reason: mild anxiety Last Admin: 06/07/25 20:11 Dose: 25 mg Ibuprofen (Ibuprofen 600 Mg Tablet) 600 mg PO Q8H PRN PRN Reason: Pain, Moderate(Pain Scale 4-6) Last Admin: 06/08/25 09:19 Dose: 600 mg Lorazepam (Lorazepam 1 Mg Tablet) 1 mg PO Q2H PRN PRN Reason: CIWA 8-11 Last Admin: 06/08/25 06:17 Dose: 1 mg Lorazepam (Lorazepam 1 Mg Tablet) 2 mg PO Q2H PRN PRN Reason: CIWA 12-15 Last Admin: 06/07/25 18:15 Dose: 2 mg Magnesium Hydroxide (Milk Of Magnesia 30 Ml Oral.Susp) 30 ml PO DAILY PRN PRN Reason: Constipation Last Admin: 06/06/25 21:19 Dose: 30 ml Nicotine (Nicotine 21 Mg Patch.Td24) 21 mg TRANSDERMA DAILY [facility] Last Admin: 06/08/25 08:56 Dose: 21 mg Nicotine Polacrilex (Nicotine Polacrilex 2 Mg Gum) 4 mg BUCCAL Q2H PRN PRN Reason: Nicotine Cravings Last Admin: 06/08/25 09:19 Dose: 4 mg Sertraline HCl (Sertraline Hcl 100 Mg Tablet) 100 mg PO DAILY [facility] Last Admin: 06/08/25 08:55 Dose: 100 mg Thiamine HCl (Thiamine Hcl 100 Mg Tablet) 100 mg PO DAILY [facility] Last Admin: 06/08/25 08:55 Dose: 100 mg Trazodone HCl (Trazodone Hcl 100 Mg Tablet) 100 mg PO BEDTIME [facility] Last Admin: 06/07/25 20:11 Dose: 100 mg Allergies Allergies Allergy/AdvReac Type Severity Reaction Status Date / Time No Known Allergies Allergy Verified 06/03/25 16:08 Assessment & Plan Assessment & Plan (1) MDD (major depressive disorder), recurrent episode, moderate: Status: Acute Code(s): F33.1 - Major depressive disorder, recurrent, moderate (2) Cocaine use disorder, severe, dependence: Status: Acute Code(s): F14.20 - Cocaine dependence, uncomplicated (3) Opioid use disorder, moderate, dependence: Status: Acute Code(s): F11.20 - Opioid dependence, uncomplicated (4) Homelessness: Status: Acute Code(s): Z59.00 - Homelessness unspecified Plan Patient is a 34-year-old male with history of MDD, cocaine use disorder, opiate use disorder and alcohol use disorder who self presented to ER due to suicidal ideation with no plan secondary to auditory hallucinations and relapsing on crack/fentanyl after 3 weeks of sobriety. Plan: CV 15 minute safety checks Obtain collateral Continue home medications CIWA protocol Encourage groups Referral to outpatient psychiatric providers Referral to substance abuse program Discharge planning 06/07:Keeping to self. Patient reports feeling depressed but states anxiety has improved. He reports sleeping well last night Continue with CIWA. denies SI/HI/VH/AH. Patient reports he is trying to think of where to go after I leave the hostpial . continue tx plan. 06/08: Active on unit. attending groups. Patient reports he is feeling hopeful today d/t being notified he will be receiving a check from a law suit. Patient stated, I have money coming in so I'm going to try to get an apartment. I'm trying to get myself together. I can't waste it on a quick high . denies SI/HI/VH/AH. Continues on CIWA. continue tx plan. Patient educated on: diagnosis and medication risk/benefits Reason for continued inpatient stay Substantial Risk for: med/psych decompensation Time Spent With Patient Time: Total time managing care of this patient today _20___ minutes.
[2025-06-08 16:11] VITALS: BP 170/103
[2025-06-08 20:00] VITALS: BP 132/75; PULSE 88; RESP 16; TEMP 36.6; O2SAT 95
[2025-06-08 23:22] VITALS: BP 144/80
[2025-06-09 08:23] VITALS: BP 119/67; PULSE 91; RESP 17; TEMP 36.6; O2SAT 98
[2025-06-09] MEDS: Nicotine 21 MG PATCH.TD24 TRANSDERMA (08:54)
[2025-06-09 14:54] VITALS: BP 167/86; PULSE 91
--- NOTE | 2025-06-09 19:15 | P.PNPSI_ITS ---
Subjective Subjective Date of Service: 06/09/25 Reason For Visit: Crisis Interim History: chart reviewed, case discussed with team Attended OT grp yesterday Per nursing report- no w/d signs on CIWA- will d/c Pt reports I'm taking it day by day . Denies SI/violent ideation Denies AH/VH MSE: Appearance: Grooming/hygiene wnl. Good eye contact Attitude:Cooperative Speech: Fluent and wnl in regard to volume, tone, prosody Motor activity: Calm and without any tics, tremors or dyskinesias. Steady gait Mood: okay Affect: appropriate Thought process: goal directed and without evidence of formal thought disorder Thought content: as noted above Perception: Denies AH/VH and does not appear to respond to internal stimuli Alert/oriented in all spheres Cognition grossly intact Insight: fair Judgment:fair Medication Compliance: Yes Side effects from medications: No Diagnostics Vital Signs (24Hr): Vital Signs - 24 hr 06/08/25 20:00 06/08/25 23:22 06/09/25 08:23 Temperature 97.8 F 98 F Pulse Rate 88 91 Respiratory Rate 16 17 Blood Pressure 132/75 144/80 H 119/67 Pulse Oximetry 95 98 Oxygen Delivery Method Room Air Room Air 06/09/25 14:54 Temperature Pulse Rate 91 Respiratory Rate Blood Pressure 167/86 H Pulse Oximetry Oxygen Delivery Method BMI result Body Mass Index 29.7 Labs 06/03/25 17:02 06/07/25 10:55 Medications Medications Current Medications Acetaminophen (Acetaminophen 325 Mg Tablet) 650 mg PO Q6H PRN PRN Reason: Headache/Pain, Scale 1-10 Last Admin: 06/08/25 23:21 Dose: 650 mg Al Hydroxide/Mg Hydroxide (Magnesium Hydrox/Alum Hydrox 30 Ml Oral.Susp) 30 ml PO Q6H PRN PRN Reason: Heartburn/Nausea Albuterol Sulfate (Albuterol Sulfate 90 Mcg 8 Gm Inhaler) 2 puff INHALE Q4H PRN PRN Reason: shortness of breath or wheezin Amlodipine Besylate (Amlodipine Besylate 5 Mg Tablet) 5 mg PO DAILY [facility]; Protocol Last Admin: 06/09/25 08:53 Dose: 5 mg Buprenorphine/Naloxone (Buprenorphine/Naloxone 8/2 Mg Film) 2 film SUBLINGUAL DAILY [facility] Last Admin: 06/09/25 08:54 Dose: 2 film Clonidine HCl (Clonidine Hcl 0.1 Mg Tablet) 0.1 mg PO BID PRN; Protocol PRN Reason: anxiety/restlessness Last Admin: 06/09/25 14:56 Dose: 0.1 mg Gabapentin (Gabapentin 300 Mg Capsule) 300 mg PO TID [facility] Last Admin: 06/09/25 15:52 Dose: 300 mg Hydrochlorothiazide (Hydrochlorothiazide 12.5 Mg Tablet) 12.5 mg PO DAILY [facility]; Protocol Last Admin: 06/09/25 08:53 Dose: 12.5 mg Hydroxyzine HCl (Hydroxyzine Hcl 25 Mg Tablet) 25 mg PO Q6H PRN PRN Reason: mild anxiety Last Admin: 06/09/25 14:57 Dose: 25 mg Ibuprofen (Ibuprofen 600 Mg Tablet) 600 mg PO Q8H PRN PRN Reason: Pain, Moderate(Pain Scale 4-6) Last Admin: 06/09/25 14:57 Dose: 600 mg Lorazepam (Lorazepam 1 Mg Tablet) 1 mg PO Q2H PRN PRN Reason: CIWA 8-11 Last Admin: 06/08/25 06:17 Dose: 1 mg Lorazepam (Lorazepam 1 Mg Tablet) 2 mg PO Q2H PRN PRN Reason: CIWA 12-15 Last Admin: 06/07/25 18:15 Dose: 2 mg Magnesium Hydroxide (Milk Of Magnesia 30 Ml Oral.Susp) 30 ml PO DAILY PRN PRN Reason: Constipation Last Admin: 06/06/25 21:19 Dose: 30 ml Nicotine (Nicotine 21 Mg Patch.Td24) 21 mg TRANSDERMA DAILY [facility] Last Admin: 06/09/25 08:54 Dose: 21 mg Nicotine Polacrilex (Nicotine Polacrilex 2 Mg Gum) 4 mg BUCCAL Q2H PRN PRN Reason: Nicotine Cravings Last Admin: 06/09/25 18:42 Dose: 4 mg Sertraline HCl (Sertraline Hcl 100 Mg Tablet) 100 mg PO DAILY [facility] Last Admin: 06/09/25 08:53 Dose: 100 mg Thiamine HCl (Thiamine Hcl 100 Mg Tablet) 100 mg PO DAILY [facility] Last Admin: 06/09/25 08:53 Dose: 100 mg Trazodone HCl (Trazodone Hcl 100 Mg Tablet) 100 mg PO BEDTIME [facility] Last Admin: 06/08/25 21:37 Dose: 100 mg Allergies Allergies Allergy/AdvReac Type Severity Reaction Status Date / Time No Known Allergies Allergy Verified 06/03/25 16:08 Assessment & Plan Assessment & Plan (1) MDD (major depressive disorder), recurrent episode, moderate: Status: Acute Code(s): F33.1 - Major depressive disorder, recurrent, moderate (2) Cocaine use disorder, severe, dependence: Status: Acute Code(s): F14.20 - Cocaine dependence, uncomplicated (3) Opioid use disorder, moderate, dependence: Status: Acute Code(s): F11.20 - Opioid dependence, uncomplicated (4) Homelessness: Status: Acute Code(s): Z59.00 - Homelessness unspecified Plan Patient is a 34-year-old male with history of MDD, cocaine use disorder, opiate use disorder and alcohol use disorder who self presented to ER due to suicidal ideation with no plan secondary to auditory hallucinations and relapsing on crack/fentanyl after 3 weeks of sobriety. Plan: CV 15 minute safety checks Obtain collateral Continue home medications CIWA protocol Encourage groups Referral to outpatient psychiatric providers Referral to substance abuse program Discharge planning 06/07:Keeping to self. Patient reports feeling depressed but states anxiety has improved. He reports sleeping well last night Continue with CIWA. denies SI/HI/VH/AH. Patient reports he is trying to think of where to go after I leave the hostpial . continue tx plan. 06/08: Active on unit. attending groups. Patient reports he is feeling hopeful today d/t being notified he will be receiving a check from a law suit. Patient stated, I have money coming in so I'm going to try to get an apartment. I'm trying to get myself together. I can't waste it on a quick high . denies SI/HI/VH/AH. Continues on CIWA. continue tx plan. 06/09: No ETOH w/d sx, d/c'd CIWA. Otherwise continue current tx plan Reason for continued inpatient stay Substantial Risk for: med/psych decompensation Time Spent With Patient Time: Total time managing care of this patient today ____ minutes.
[2025-06-09 20:00] VITALS: BP 155/69; PULSE 88; RESP 16; TEMP 36.8; O2SAT 98
[2025-06-10 07:10] VITALS: BP 142/81; PULSE 95; RESP 14; TEMP 36.6; O2SAT 96
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
[2025-06-10 08:34] VITALS: BP 144/85
[2025-06-10] MEDS: Nicotine 21 MG PATCH.TD24 TRANSDERMA (08:35)
[2025-06-10 13:11] VITALS: BP 168/84; PULSE 94
[2025-06-10 14:41] VITALS: BP 161/79
[2025-06-10 20:00] VITALS: BP 163/79; PULSE 92; RESP 16; TEMP 36.8; O2SAT 96
[2025-06-10] MEDS: Albuterol Sulfate 90 MCG 8 GM INHALER 2 PUFF INHALE (20:49)
[2025-06-11 08:00] VITALS: BP 137/63; PULSE 85; RESP 20; TEMP 36.7; O2SAT 97
[2025-06-11] MEDS: Nicotine 21 MG PATCH.TD24 TRANSDERMA (08:43)
--- NOTE | 2025-06-11 09:11 | P.PNPSI_ITS ---
Subjective Subjective Date of Service: 06/11/25 Reason For Visit: Crisis Interim History: chart reviewed, case discussed w/ nursing staff per nursing report- pt asked if he has med to help w/ voices but denied hearing voices asked for Ativan. declined prn risperidone took standing risperidone at hs. slept in common area overnight x 8 hrs (said his room smelled bad and was too hot) Pt reports that he's doing okay. Asks to d/c the risperidone since he didn't like how it made him feel Feeling a bit better today. Visible in milieu Denies med SE. Denies SI. Denies AHVH MSE: Appearance: Casually dressed. Grooming/hygiene wnl. Good eye contact Attitude:Cooperative Speech: Fluent and wnl in regard to volume, tone, prosody Motor activity: Calm and without any tics, tremors or dyskinesias. Steady gait Mood: as noted above Affect: appropriate, reactive Thought process: goal directed and without evidence of formal thought disorder Thought content: Denies SI/violent ideation Perception: Denies AH/VH and does not appear to respond to internal stimuli Alert/oriented in all spheres Cognition grossly intact Insight: intact Judgment: intact Diagnostics Vital Signs (24Hr): Vital Signs - 24 hr 06/10/25 13:11 06/10/25 14:41 06/10/25 20:00 Temperature 98.3 F Pulse Rate 94 92 Respiratory Rate 16 Blood Pressure 168/84 H 161/79 H 163/79 H Pulse Oximetry 96 Oxygen Delivery Method Room Air 06/11/25 08:00 Temperature 98.1 F Pulse Rate 85 Respiratory Rate 20 Blood Pressure 137/63 Pulse Oximetry 97 Oxygen Delivery Method Room Air BMI result Body Mass Index 29.7 Labs 06/03/25 17:02 06/07/25 10:55 Medications Medications Current Medications Acetaminophen (Acetaminophen 325 Mg Tablet) 650 mg PO Q6H PRN PRN Reason: Headache/Pain, Scale 1-10 Last Admin: 06/08/25 23:21 Dose: 650 mg Al Hydroxide/Mg Hydroxide (Magnesium Hydrox/Alum Hydrox 30 Ml Oral.Susp) 30 ml PO Q6H PRN PRN Reason: Heartburn/Nausea Albuterol Sulfate (Albuterol Sulfate 90 Mcg 8 Gm Inhaler) 2 puff INHALE Q4H PRN PRN Reason: shortness of breath or wheezin Last Admin: 06/10/25 20:49 Dose: 2 puff Amlodipine Besylate (Amlodipine Besylate 5 Mg Tablet) 5 mg PO DAILY [facility]; Protocol Last Admin: 06/11/25 08:41 Dose: 5 mg Buprenorphine/Naloxone (Buprenorphine/Naloxone 8/2 Mg Film) 2 film SUBLINGUAL DAILY [facility] Last Admin: 06/11/25 08:42 Dose: 2 film Clonidine HCl (Clonidine Hcl 0.1 Mg Tablet) 0.1 mg PO BID PRN; Protocol PRN Reason: anxiety/restlessness Last Admin: 06/10/25 20:26 Dose: 0.1 mg Gabapentin (Gabapentin 300 Mg Capsule) 300 mg PO TID [facility] Last Admin: 06/11/25 08:41 Dose: 300 mg Hydrochlorothiazide (Hydrochlorothiazide 12.5 Mg Tablet) 12.5 mg PO DAILY [facility]; Protocol Last Admin: 06/11/25 08:41 Dose: 12.5 mg Hydroxyzine HCl (Hydroxyzine Hcl 25 Mg Tablet) 25 mg PO Q6H PRN PRN Reason: mild anxiety Last Admin: 06/10/25 20:25 Dose: 25 mg Ibuprofen (Ibuprofen 600 Mg Tablet) 600 mg PO Q8H PRN PRN Reason: Pain, Moderate(Pain Scale 4-6) Last Admin: 06/10/25 14:35 Dose: 600 mg Magnesium Hydroxide (Milk Of Magnesia 30 Ml Oral.Susp) 30 ml PO DAILY PRN PRN Reason: Constipation Last Admin: 06/06/25 21:19 Dose: 30 ml Nicotine (Nicotine 21 Mg Patch.Td24) 21 mg TRANSDERMA DAILY [facility] Last Admin: 06/11/25 08:43 Dose: 21 mg Nicotine Polacrilex (Nicotine Polacrilex 2 Mg Gum) 4 mg BUCCAL Q2H PRN PRN Reason: Nicotine Cravings Last Admin: 06/10/25 15:41 Dose: 4 mg Risperidone (Risperidone 0.5 Mg Tablet) 0.5 mg PO BEDTIME [facility] Last Admin: 06/10/25 20:26 Dose: 0.5 mg Risperidone (Risperidone 0.25 Mg Tablet) 0.25 mg PO BID PRN PRN Reason: anxiety Sertraline HCl (Sertraline Hcl 100 Mg Tablet) 100 mg PO DAILY [facility] Last Admin: 06/11/25 08:41 Dose: 100 mg Thiamine HCl (Thiamine Hcl 100 Mg Tablet) 100 mg PO DAILY [facility] Last Admin: 06/11/25 08:41 Dose: 100 mg Trazodone HCl (Trazodone Hcl 100 Mg Tablet) 100 mg PO BEDTIME [facility] Last Admin: 06/10/25 20:26 Dose: 100 mg Allergies Allergies Allergy/AdvReac Type Severity Reaction Status Date / Time No Known Allergies Allergy Verified 06/03/25 16:08 Assessment & Plan Assessment & Plan (1) MDD (major depressive disorder), recurrent episode, moderate: Status: Acute Code(s): F33.1 - Major depressive disorder, recurrent, moderate (2) Cocaine use disorder, severe, dependence: Status: Acute Code(s): F14.20 - Cocaine dependence, uncomplicated (3) Opioid use disorder, moderate, dependence: Status: Acute Code(s): F11.20 - Opioid dependence, uncomplicated (4) Homelessness: Status: Acute Code(s): Z59.00 - Homelessness unspecified Plan Patient is a 34-year-old male with history of MDD, cocaine use disorder, opiate use disorder and alcohol use disorder who self presented to ER due to suicidal ideation with no plan secondary to auditory hallucinations and relapsing on crack/fentanyl after 3 weeks of sobriety. Plan: CV 15 minute safety checks Obtain collateral Continue home medications CIWA protocol Encourage groups Referral to outpatient psychiatric providers Referral to substance abuse program Discharge planning 06/07:Keeping to self. Patient reports feeling depressed but states anxiety has improved. He reports sleeping well last night Continue with CIWA. denies SI/HI/VH/AH. Patient reports he is trying to think of where to go after I leave the hostpial . continue tx plan. 06/08: Active on unit. attending groups. Patient reports he is feeling hopeful today d/t being notified he will be receiving a check from a law suit. Patient stated, I have money coming in so I'm going to try to get an apartment. I'm trying to get myself together. I can't waste it on a quick high . denies SI/HI/VH/AH. Continues on CIWA. continue tx plan. 06/09: No ETOH w/d sx, d/c'd CIWA. Otherwise continue current tx plan 06/10: Pt was agreable w/ this ticket writer's recs to trial risperidone off-label for severe anxiety after t/w explained that it is not clinically appropriate to rx a benzo in setting of recent substance use. Will start .5 mg qhs standing dose + .25 mg bid prn for anxiety. Reviewed most recent EKG. 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 The risks a/w recurrent cocaine and opioid use outweigh the potential risks a/w the risperidone and I am hoping that pt will be less inclined to self medicate if his anxiety is under better control. Will check EKG to monitor Qtc. 06/11: Per pt request- d/c'd risperidone. He has asked for lorazepam for anxiety, which t/w declined, given substance use d/o. Reason for continued inpatient stay Substantial Risk for: med/psych decompensation Time Spent With Patient Time: Total time managing care of this patient today ____ minutes.
[2025-06-11 10:52] VITALS: BP 144/71; PULSE 88
[2025-06-11 17:29] VITALS: BP 147/72; PULSE 87
[2025-06-11 20:00] VITALS: BP 155/70; PULSE 95; RESP 20; TEMP 36.8; O2SAT 97
[2025-06-11] MEDS: Albuterol Sulfate 90 MCG 8 GM INHALER 2 PUFF INHALE (20:39)
[2025-06-12 09:00] VITALS: BP 121/72; PULSE 75; TEMP 36.5; O2SAT 96
[2025-06-12] MEDS: Nicotine 21 MG PATCH.TD24 TRANSDERMA (09:24)
--- NOTE | 2025-06-12 10:42 | P.PNPSI_ITS ---
Subjective Subjective Date of Service: 06/12/25 Reason For Visit: Crisis Subjective Notes: Conditional Voluntary Interim History: Active on unit. attending groups. keeping to self. Patient reports he is doing good ; irritable edge, guarded. He reports sleeping well last night. denies SI/HI/VH/AH. denies any issues at this time; discussed discharging on Thursday since his mood has improved, pt became upset and stated, you can't just send me to the street ; T/W stated this was not the goal and he should contact the correction to see if there is an opening. Pt requested to speak with social science manager; social science manager aware, however, T/W was notified, pt proceeded to decline to meet with social science manager, Miranda, when she approached him to discuss his discharge plan. continue tx plan. Medication Compliance: Yes Side effects from medications: No Attending Groups: Yes Mental Status Exam Mental Status Exam Narrative: Pt is alert and oriented; behavior is cooperative and calm; dressed in casual attire; mood is described as good ; eye contact appropriate; Speech is normal rate, volume and not pressured; thought process is organized; Thought content is on discharge; denies SI/HI/VH/AH. Diagnostics Vital Signs (24Hr): Vital Signs - 24 hr 06/11/25 10:52 06/11/25 17:29 06/11/25 20:00 Temperature 98.2 F Pulse Rate 88 87 95 Respiratory Rate 20 Blood Pressure 144/71 H 147/72 H 155/70 H Pulse Oximetry 97 Oxygen Delivery Method Room Air 06/12/25 09:00 Temperature 97.7 F Pulse Rate 75 Respiratory Rate Blood Pressure 121/72 Pulse Oximetry 96 Oxygen Delivery Method Room Air BMI result Body Mass Index 29.7 Labs 06/03/25 17:02 06/07/25 10:55 Medications Medications Current Medications Acetaminophen (Acetaminophen 325 Mg Tablet) 650 mg PO Q6H PRN PRN Reason: Headache/Pain, Scale 1-10 Last Admin: 06/12/25 10:03 Dose: 650 mg Al Hydroxide/Mg Hydroxide (Magnesium Hydrox/Alum Hydrox 30 Ml Oral.Susp) 30 ml PO Q6H PRN PRN Reason: Heartburn/Nausea Albuterol Sulfate (Albuterol Sulfate 90 Mcg 8 Gm Inhaler) 2 puff INHALE Q4H PRN PRN Reason: shortness of breath or wheezin Last Admin: 06/11/25 20:39 Dose: 2 puff Amlodipine Besylate (Amlodipine Besylate 5 Mg Tablet) 5 mg PO DAILY [facility]; Protocol Last Admin: 06/12/25 09:23 Dose: 5 mg Buprenorphine/Naloxone (Buprenorphine/Naloxone 8/2 Mg Film) 2 film SUBLINGUAL DAILY [facility] Last Admin: 06/12/25 09:25 Dose: 2 film Clonidine HCl (Clonidine Hcl 0.1 Mg Tablet) 0.1 mg PO BID PRN; Protocol PRN Reason: anxiety/restlessness Last Admin: 06/12/25 00:02 Dose: 0.1 mg Gabapentin (Gabapentin 300 Mg Capsule) 300 mg PO TID [facility] Last Admin: 06/12/25 09:22 Dose: 300 mg Hydrochlorothiazide (Hydrochlorothiazide 12.5 Mg Tablet) 12.5 mg PO DAILY [facility]; Protocol Last Admin: 06/12/25 09:22 Dose: 12.5 mg Hydroxyzine HCl (Hydroxyzine Hcl 25 Mg Tablet) 25 mg PO Q6H PRN PRN Reason: mild anxiety Last Admin: 06/12/25 00:02 Dose: 25 mg Ibuprofen (Ibuprofen 600 Mg Tablet) 600 mg PO Q8H PRN PRN Reason: Pain, Moderate(Pain Scale 4-6) Last Admin: 06/11/25 10:55 Dose: 600 mg Magnesium Hydroxide (Milk Of Magnesia 30 Ml Oral.Susp) 30 ml PO DAILY PRN PRN Reason: Constipation Last Admin: 06/06/25 21:19 Dose: 30 ml Nicotine (Nicotine 21 Mg Patch.Td24) 21 mg TRANSDERMA DAILY [facility] Last Admin: 06/12/25 09:24 Dose: 21 mg Nicotine Polacrilex (Nicotine Polacrilex 2 Mg Gum) 4 mg BUCCAL Q2H PRN PRN Reason: Nicotine Cravings Last Admin: 06/12/25 10:02 Dose: 4 mg Quetiapine Fumarate (Quetiapine Fumarate 25 Mg Tablet) 25 mg PO BID PRN PRN Reason: insomnia and/or agitation Sertraline HCl (Sertraline Hcl 100 Mg Tablet) 100 mg PO DAILY [facility] Last Admin: 06/12/25 09:22 Dose: 100 mg Thiamine HCl (Thiamine Hcl 100 Mg Tablet) 100 mg PO DAILY [facility] Last Admin: 06/12/25 09:23 Dose: 100 mg Trazodone HCl (Trazodone Hcl 100 Mg Tablet) 100 mg PO BEDTIME [facility] Last Admin: 06/11/25 20:20 Dose: 100 mg Allergies Allergies Allergy/AdvReac Type Severity Reaction Status Date / Time No Known Allergies Allergy Verified 06/03/25 16:08 Assessment & Plan Assessment & Plan (1) MDD (major depressive disorder), recurrent episode, moderate: Status: Acute Code(s): F33.1 - Major depressive disorder, recurrent, moderate (2) Cocaine use disorder, severe, dependence: Status: Acute Code(s): F14.20 - Cocaine dependence, uncomplicated (3) Opioid use disorder, moderate, dependence: Status: Acute Code(s): F11.20 - Opioid dependence, uncomplicated (4) Homelessness: Status: Acute Code(s): Z59.00 - Homelessness unspecified Plan Patient is a 34-year-old male with history of MDD, cocaine use disorder, opiate use disorder and alcohol use disorder who self presented to ER due to suicidal ideation with no plan secondary to auditory hallucinations and relapsing on crack/fentanyl after 3 weeks of sobriety. Plan: CV 15 minute safety checks Obtain collateral Continue home medications CIWA protocol Encourage groups Referral to outpatient psychiatric providers Referral to substance abuse program Discharge planning 06/07:Keeping to self. Patient reports feeling depressed but states anxiety has improved. He reports sleeping well last night Continue with CIWA. denies SI/HI/VH/AH. Patient reports he is trying to think of where to go after I leave the hostpial . continue tx plan. 06/08: Active on unit. attending groups. Patient reports he is feeling hopeful today d/t being notified he will be receiving a check from a law suit. Patient stated, I have money coming in so I'm going to try to get an apartment. I'm trying to get myself together. I can't waste it on a quick high . denies SI/HI/VH/AH. Continues on CIWA. continue tx plan. 06/09: No ETOH w/d sx, d/c'd CIWA. Otherwise continue current tx plan 06/10: Pt was agreable w/ this television script writer's recs to trial risperidone off-label for severe anxiety after t/w explained that it is not clinically appropriate to rx a benzo in setting of recent substance use. Will start .5 mg qhs standing dose + .25 mg bid prn for anxiety. Reviewed most recent EKG. 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 The risks a/w recurrent cocaine and opioid use outweigh the potential risks a/w the risperidone and I am hoping that pt will be less inclined to self medicate if his anxiety is under better control. Will check EKG to monitor Qtc. 06/11: Per pt request- d/c'd risperidone. He has asked for lorazepam for anxiety, which t/w declined, given substance use d/o. 06/12: Active on unit. attending groups. keeping to self. Patient reports he is doing good ; irritable edge, guarded. He reports sleeping well last night. denies SI/HI/VH/AH. denies any issues at this time; discussed discharging on Thursday since his mood has improved, pt became upset and stated, you can't just send me to the street ; T/W stated this was not the goal and he should contact the correction to see if there is an opening. Pt requested to speak with social science manager; social science manager aware, however, T/W was notified, pt proceeded to decline to meet with social science manager, Miranda, when she approached him to discuss his discharge plan. continue tx plan. Patient educated on: diagnosis and medication risk/benefits Reason for continued inpatient stay Substantial Risk for: med/psych decompensation Time Spent With Patient Time: Total time managing care of this patient today _20___ minutes.
[2025-06-12 15:40] VITALS: BP 138/96
[2025-06-12 20:00] VITALS: BP 147/67; PULSE 89; RESP 16; TEMP 36.8; O2SAT 97
[2025-06-12 20:19] VITALS: BP 147/67
[2025-06-13 08:00] VITALS: BP 148/85; PULSE 90; RESP 16; TEMP 36.7; O2SAT 99
[2025-06-13 09:11] VITALS: BP 148/85
[2025-06-13 09:12] VITALS: BP 148/85
[2025-06-13] MEDS: Nicotine 21 MG PATCH.TD24 TRANSDERMA (09:12)
[2025-06-13] MEDS: Albuterol Sulfate 90 MCG 8 GM INHALER 2 PUFF INHALE ×2 (13:06→21:21)
--- NOTE | 2025-06-13 13:52 | P.PNPSI_ITS ---
Subjective Subjective Date of Service: 06/13/25 Reason For Visit: Crisis Subjective Notes: Conditional Voluntary Interim History: Patient reports feeling okay today; he reports he contacted the [facility] yesterday and plans on calling them again tomorrow prior to leaving the hospital to see if they have an open bed. denies SI/HI/VH/AH. Patient kept 1:1 brief; stating, I don't want to talk right now . Irritable edge. Per nursing, pt slept 8 hours. Patient reports he plans on following up with outpatient providers. Medication Compliance: Yes Side effects from medications: No Attending Groups: Intermittent Mental Status Exam Mental Status Exam Narrative: Pt is alert and oriented; behavior is cooperative and calm, guarded; dressed in casual attire; mood is described as okay ; eye contact appropriate; Speech is normal rate, volume and not pressured; thought process is organized; Thought content is on discharge; denies SI/HI/VH/AH. Diagnostics Vital Signs (24Hr): Vital Signs - 24 hr 06/12/25 15:40 06/12/25 20:00 06/12/25 20:19 Temperature 98.2 F Pulse Rate 89 Respiratory Rate 16 Blood Pressure 138/96 H 147/67 H 147/67 H Pulse Oximetry 97 Oxygen Delivery Method Room Air 06/13/25 08:00 06/13/25 09:11 06/13/25 09:12 Temperature 98.0 F Pulse Rate 90 Respiratory Rate 16 Blood Pressure 148/85 H 148/85 H 148/85 H Pulse Oximetry 99 Oxygen Delivery Method Room Air BMI result Body Mass Index 29.7 Labs 06/03/25 17:02 06/07/25 10:55 Medications Medications Current Medications Acetaminophen (Acetaminophen 325 Mg Tablet) 650 mg PO Q6H PRN PRN Reason: Headache/Pain, Scale 1-10 Last Admin: 06/13/25 09:13 Dose: 650 mg Al Hydroxide/Mg Hydroxide (Magnesium Hydrox/Alum Hydrox 30 Ml Oral.Susp) 30 ml PO Q6H PRN PRN Reason: Heartburn/Nausea Albuterol Sulfate (Albuterol Sulfate 90 Mcg 8 Gm Inhaler) 2 puff INHALE Q4H PRN PRN Reason: shortness of breath or wheezin Last Admin: 06/13/25 13:06 Dose: 2 puff Amlodipine Besylate (Amlodipine Besylate 5 Mg Tablet) 5 mg PO DAILY [facility]; Protocol Last Admin: 06/13/25 09:11 Dose: 5 mg Buprenorphine/Naloxone (Buprenorphine/Naloxone 8/2 Mg Film) 2 film SUBLINGUAL DAILY [facility] Last Admin: 06/13/25 09:14 Dose: 2 film Clonidine HCl (Clonidine Hcl 0.1 Mg Tablet) 0.1 mg PO BID PRN; Protocol PRN Reason: anxiety/restlessness Last Admin: 06/13/25 09:18 Dose: 0.1 mg Gabapentin (Gabapentin 300 Mg Capsule) 300 mg PO TID [facility] Last Admin: 06/13/25 09:11 Dose: 300 mg Hydrochlorothiazide (Hydrochlorothiazide 12.5 Mg Tablet) 12.5 mg PO DAILY [facility]; Protocol Last Admin: 06/13/25 09:12 Dose: 12.5 mg Hydroxyzine HCl (Hydroxyzine Hcl 25 Mg Tablet) 25 mg PO Q6H PRN PRN Reason: mild anxiety Last Admin: 06/13/25 09:18 Dose: 25 mg Ibuprofen (Ibuprofen 600 Mg Tablet) 600 mg PO Q8H PRN PRN Reason: Pain, Moderate(Pain Scale 4-6) Last Admin: 06/12/25 20:19 Dose: 600 mg Magnesium Hydroxide (Milk Of Magnesia 30 Ml Oral.Susp) 30 ml PO DAILY PRN PRN Reason: Constipation Last Admin: 06/06/25 21:19 Dose: 30 ml Naloxone HCl (Naloxone Hcl Nasal Take Home 4 Mg [place]alls) 8 mg NOSTRILALT ONCE ONE Stop: 06/14/25 08:01 Nicotine (Nicotine 21 Mg Patch.Td24) 21 mg TRANSDERMA DAILY [facility] Last Admin: 06/13/25 09:12 Dose: 21 mg Nicotine Polacrilex (Nicotine Polacrilex 2 Mg Gum) 4 mg BUCCAL Q2H PRN PRN Reason: Nicotine Cravings Last Admin: 06/13/25 13:07 Dose: 4 mg Quetiapine Fumarate (Quetiapine Fumarate 25 Mg Tablet) 25 mg PO BID PRN PRN Reason: insomnia and/or agitation Sertraline HCl (Sertraline Hcl 100 Mg Tablet) 100 mg PO DAILY [facility] Last Admin: 06/13/25 09:11 Dose: 100 mg Thiamine HCl (Thiamine Hcl 100 Mg Tablet) 100 mg PO DAILY [facility] Last Admin: 06/13/25 09:11 Dose: 100 mg Trazodone HCl (Trazodone Hcl 100 Mg Tablet) 100 mg PO BEDTIME [facility] Last Admin: 06/12/25 20:19 Dose: 100 mg Allergies Allergies Allergy/AdvReac Type Severity Reaction Status Date / Time No Known Allergies Allergy Verified 06/03/25 16:08 Assessment & Plan Assessment & Plan (1) MDD (major depressive disorder), recurrent episode, moderate: Status: Acute Code(s): F33.1 - Major depressive disorder, recurrent, moderate (2) Cocaine use disorder, severe, dependence: Status: Acute Code(s): F14.20 - Cocaine dependence, uncomplicated (3) Opioid use disorder, moderate, dependence: Status: Acute Code(s): F11.20 - Opioid dependence, uncomplicated (4) Homelessness: Status: Acute Code(s): Z59.00 - Homelessness unspecified Plan Patient is a 34-year-old male with history of MDD, cocaine use disorder, opiate use disorder and alcohol use disorder who self presented to ER due to suicidal ideation with no plan secondary to auditory hallucinations and relapsing on crack/fentanyl after 3 weeks of sobriety. Plan: CV 15 minute safety checks Obtain collateral Continue home medications CIWA protocol Encourage groups Referral to outpatient psychiatric providers Referral to substance abuse program Discharge planning 06/07:Keeping to self. Patient reports feeling depressed but states anxiety has improved. He reports sleeping well last night Continue with CIWA. denies SI/HI/VH/AH. Patient reports he is trying to think of where to go after I leave the hostpial . continue tx plan. 06/08: Active on unit. attending groups. Patient reports he is feeling hopeful today d/t being notified he will be receiving a check from a law suit. Patient stated, I have money coming in so I'm going to try to get an apartment. I'm trying to get myself together. I can't waste it on a quick high . denies SI/HI/VH/AH. Continues on CIWA. continue tx plan. 06/09: No ETOH w/d sx, d/c'd CIWA. Otherwise continue current tx plan 06/10: Pt was agreable w/ this typewriter assembler's recs to trial risperidone off-label for severe anxiety after t/w explained that it is not clinically appropriate to rx a benzo in setting of recent substance use. Will start .5 mg qhs standing dose + .25 mg bid prn for anxiety. Reviewed most recent EKG. 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 The risks a/w recurrent cocaine and opioid use outweigh the potential risks a/w the risperidone and I am hoping that pt will be less inclined to self medicate if his anxiety is under better control. Will check EKG to monitor Qtc. 06/11: Per pt request- d/c'd risperidone. He has asked for lorazepam for anxiety, which t/w declined, given substance use d/o. 06/12: Active on unit. attending groups. keeping to self. Patient reports he is doing good ; irritable edge, guarded. He reports sleeping well last night. denies SI/HI/VH/AH. denies any issues at this time; discussed discharging on Thursday since his mood has improved, pt became upset and stated, you can't just send me to the street ; T/W stated this was not the goal and he should contact the [facility]dc to see if there is an opening. Pt requested to speak with social work manager; social work manager aware, however, T/W was notified, pt proceeded to decline to meet with social work manager, Miranda, when she approached him to discuss his discharge plan. continue tx plan. 06/13: Patient reports feeling okay today; he reports he contacted the [facility] yesterday and plans on calling them again tomorrow prior to leaving the hospital to see if they have an open bed. denies SI/HI/VH/AH. Patient kept 1:1 brief; stating, I don't want to talk right now . Irritable edge. Per nursing, pt slept 8 hours. Patient reports he plans on following up with outpatient providers. Patient educated on: diagnosis and medication risk/benefits Reason for continued inpatient stay Substantial Risk for: stable for discharge Time Spent With Patient Time: Total time managing care of this patient today _20___ minutes.
[2025-06-13 14:42] VITALS: BP 146/69
[2025-06-13 20:00] VITALS: BP 158/69; PULSE 98; RESP 16; TEMP 37.1; O2SAT 97
[2025-06-14] MEDS: Naloxone HCl Nasal TAKE HOME 4 MG SPRAY 8 MG NOSTRILALT (08:50)
[2025-06-14] MEDS: Nicotine 21 MG PATCH.TD24 TRANSDERMA (08:53)
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
== END 2025-06-14 10:43 | disposition home or self-care (01) | DRG 751 ==
LOC: HO.ED 06-05 14:26 → HO.PADLT16 06-05 14:42
PROVIDERS: Physician Assistant; Admitting Provider Registered Nurse; Emergency Provider Emergency Medicine Emergency Medical Services; Responsible Provider Registered Nurse; Visit Provider Psychiatry & Neurology Psychiatry
DX: F33.1 Major depressive disorder, recurrent, moderate (principal); R45.851 Suicidal ideations; I45.6 Pre-excitation syndrome; F10.90 Alcohol use, unspecified, uncomplicated; F11.20 Opioid dependence, uncomplicated; F19.10 Other psychoactive substance abuse, uncomplicated; F14.20 Cocaine dependence, uncomplicated; Z59.02 Unsheltered homelessness; F17.210 Nicotine dependence, cigarettes, uncomplicated; Z71.6 Tobacco abuse counseling; I10 Essential (primary) hypertension; J45.909 Unspecified asthma, uncomplicated; Z87.820 Personal history of traumatic brain injury; Z79.899 Other long term (current) drug therapy
CPT/HCPCS: 36415; 80048; 80053; 80061; 80076; 80307; 81001; 83036; 83735; 84484; 85025; 93005; 99285; S9485

== ENCOUNTER → 2025-06-03 16:08 | Outpatient (BNV) | payer MEDICAID, SELFPAY | PROVIDERS: Emergency Provider Emergency Medicine Emergency Medical Services; Visit Provider Internal Medicine Cardiovascular Disease | DX: I49.9 Cardiac arrhythmia, unspecified (principal); I45.6 Pre-excitation syndrome | CPT/HCPCS: 93010 ==

== ENCOUNTER → 2025-06-05 14:09 | Outpatient (BNV) | payer OTHER, SELFPAY | PROVIDERS: Admitting Provider Registered Nurse; Emergency Provider Emergency Medicine Emergency Medical Services; Responsible Provider Registered Nurse; Visit Provider Registered Nurse | DX: F33.1 Major depressive disorder, recurrent, moderate (principal); F14.20 Cocaine dependence, uncomplicated; F11.20 Opioid dependence, uncomplicated; Z59.00 Homelessness unspecified | CPT/HCPCS: 99231; 99232; 99233 ==

== ENCOUNTER → 2025-06-05 14:09 | Outpatient (BNV) | payer MEDICAID, SELFPAY | PROVIDERS: Admitting Provider Registered Nurse; Emergency Provider Emergency Medicine Emergency Medical Services; Responsible Provider Registered Nurse; Visit Provider Nurse Practitioner Family | DX: I45.6 Pre-excitation syndrome (principal) | CPT/HCPCS: 99221 ==

== ENCOUNTER 2025-06-18 04:20 | Emergency (ER) | payer MEDICAID, SELFPAY ==
[2025-06-18 04:23] VITALS: BP 160/86; PULSE 95; RESP 16; TEMP 36.4; O2SAT 100; BMI 30.1
--- NOTE | 2025-06-18 04:28 | ECG_ITS ---
Test Reason : CHEST PAIN Blood Pressure : */* mmHG Vent. Rate : 101 BPM Atrial Rate : 101 BPM P-R Int : 122 ms QRS Dur : 118 ms QT Int : 376 ms P-R-T Axes : 70 2 89 degrees QTcB Int : 487 ms Sinus tachycardia Fkuoq-[id number]-Oagzk Abnormal ECG When compared with ECG of 03-Jun-2025 16:44, No significant change was found Referred By: Generic ED Physician Electronically Signed By: Guilherme Baker
--- NOTE | 2025-06-18 04:41 | PC.NURSE ---
Pt refusing to stay and continue wit treatment. According to patient it is d/t issues with security. assessed patient, pt continues to want to leave. LWCT.
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
[2025-06-18 04:59] VITALS: BP 160/86; PULSE 95; RESP 16; TEMP 36.4; O2SAT 100
== END 2025-06-18 04:55 | disposition left against medical advice (07) ==
PROVIDERS: Emergency Provider Emergency Medicine
DX: R07.89 Other chest pain (principal); Z79.899 Other long term (current) drug therapy; F17.210 Nicotine dependence, cigarettes, uncomplicated
CPT/HCPCS: 93005; 99283

== ENCOUNTER → 2025-06-18 04:28 | Outpatient (BNV) | payer MEDICAID, SELFPAY | PROVIDERS: Emergency Provider Emergency Medicine; Visit Provider Internal Medicine Cardiovascular Disease | DX: R00.0 Tachycardia, unspecified (principal); I45.6 Pre-excitation syndrome | CPT/HCPCS: 93010 ==